=== PATIENT | female | born 1945 | race Caucasian/White ===

== ENCOUNTER 2017-02-20 18:28 | Emergency (ER) | payer OTHER ==
[~2017-02-20] VITALS: Ht 175.3 cm; Wt 87.6 kg
[~2017-02-20 18:28] MED LIST: ACET-1138 PO; ALBUAER19 INH; ASCO500C3 PO; ASPI-232 PO; ATEN-171 PO; ATEN-173 PO; B-COCAP2 PO; CALCTAB5 PO; CHOL1TAB42 PO; CLB200 PO; GLUCTAB7 PO; LOVA40TA3 PO; MAGN1CAP2 PO; MCRK20 PO; MOME1AER5 INH; MONT1TAB3 PO; MULT-222 PO; MULT-580 PO; OXYSR10 PO; RXC5 PO; VITA400C15 PO
[2017-02-20 18:35] VITALS: TEMP 36.7; Ht 175.3 cm; Wt 87.6 kg
[2017-02-20 18:49] VITALS: O2SAT 97
--- NOTE | 2017-02-20 19:00 | EMERGENCY ROOM VISIT NOTE ---
History Report prepared by Popeye: Lianna Lorenzo Under the Supervision of: Dr. Lucrecia Barrera D.O. First contact with patient: 18:38 Chief Complaint: CARDIAC ASSESSMENT Stated Complaint: CHEST PAIN History of Present Illness The patient is a 71 year old female who presents to the Emergency Room for a cardiac assessment. The patient reports chest pain that starts under her left breast and radiates into her left scapula. She also notes occasional sharp pains in the anterior chest wall. Her pain started early in the day yesterday. She had it off and on throughout the day yesterday. Initially she thought that it was due to her asthma. This morning she had some mild pain but states that her pain worsened throughout the day. She rates her pain as a 5/10 at its worst. The patient notes shortness of breath and diaphoresis. Taking a deep breath does not exacerbate her pain. She rates her current pain as a 1/10 in severity. The patient denies nausea, vomiting, and diarrhea. She has a personal history of mitral valve prolapse. She notes a family history of heart disease. Source of History: patient Onset: yesterday Position: chest (left) Symptom Intensity: 5/10 Quality: sharp Timing: waxes/wanes Associated Symptoms: + SOB, + back pain, + diaphoresis, No diarrhea, No nausea, No vomiting Review of Systems See HPI for pertinent positives & negatives. A total of 10 systems reviewed and were otherwise negative. Past Medical & Surgical Medical Problems: (1) Asthma (2) History of deep venous thrombosis or pulmonary embolus (3) HLD (hyperlipidemia) (4) HTN (hypertension) (5) Osteoarthritis of left knee (6) Uterine cancer Surgical Problems: (1) H/O colonoscopy (2) H/O knee surgery (3) H/O sinus surgery (4) History of total abdominal hysterectomy (5) Hx of tonsillectomy Family History Diabetes mellitus FH: heart disease Stroke Social History Smoking Status: Never Smoker Housing Status: lives alone Occupation Status: retired Current/Historical Medications Scheduled Aspirin (Aspir-81), 81 MG PO AMPM Atenolol (Tenormin), 25 MG PO QPM Atenolol/Chlorthalidone (Tenoretic 50 Mg/25 Mg), 1 TAB PO QAM Calcium (Caltrate), 600 MG PO QAM Cholecalciferol (Vitamin D3), 1,000 UNITS PO DAILY Cyanocobalamin (Vitamin B-12), 1,000 MCG PO DAILY Fish Oil ([place]ylva-3), 1 CAP PO DAILY Xzizgcrizid-Ixpznsmwujj-Sqi C- (Glucosamine Chondroitin), 1 TAB PO QAM Lovastatin (Mevacor), 40 MG PO HS Mometasone Furoate (Asmanex Twisthaler 60 Met), 2 PUFFS INH DAILY Montelukast Sodium (Singulair), 10 MG PO QPM Multiple Vitamins W/ Minerals (Multi For Her), PO QAM Potassium Chloride (Klor-Con), 20 MEQ PO HS Tocopheryl Acet,Dl-Alpha (Vitamin E), 400 INTER.UNIT PO BID Scheduled PRN Albuterol Inhaler (Ventolin Inhaler), 2 PUFFS INH QID PRN for SOB/Wheezing Allergies Coded Allergies: Simvastatin (Verified Allergy, Intermediate, MUSCLE WEAKNESS, 07/28/16) Enalapril (Verified Allergy, Unknown, MUSCLE SPASMS, 07/28/16) Magnesium Citrate (Verified Adverse Reaction, Intermediate, N/V, 07/28/16) Hydrocodone (Verified Adverse Reaction, Mild, GI SYMPTOMS, 07/28/16) Physical Exam Vital Signs Date Time Temp Pulse Resp B/P Pulse Ox O2 Delivery O2 Flow Rate FiO2 02/20/17 19:40 61 18 143/94 97 Room Air 02/20/17 19:16 74 02/20/17 18:49 97 Room Air 02/20/17 18:39 97 Room Air 02/20/17 18:35 36.7 77 18 160/110 95 Room Air Physical Exam HEENT: Head - normocephalic and atraumatic Pupils are equal, round, and reactive to light. Extraocular eye muscles are intact, and sclera are anicteric. Nose - moist nasal mucosa without discharge. Mouth - moist buccal mucosa. Oropharynx is nonerythematous and there is no tonsillar exudate or edema noted. Neck: Supple; no JVD, nuchal rigidity, cervical lymphadenopathy. Chest: No obvious skin lesions noted. Heart: Regular rate and irregular rhythm. There is a normal S1 and S2 with no murmurs, clicks, or gallops appreciated. Lungs: Clear to auscultation bilaterally with no wheezes, rales, or rhonchi. Abdomen: Soft, completely nontender, nondistended, with good bowel sounds. There are no palpable pulsatile masses or hepatosplenomegaly. There is no guarding, rigidity, or rebound noted. Extremities: No evidence of cyanosis, clubbing, or edema. There are easily palpable peripheral pulses. Skin: warm and dry with good turgor and no rashes. Medical Decision & Procedures ER Provider Diagnostic Interpretation: Radiology results as stated below per my review and the radiologist's interpretation: CHEST ONE VIEW PORTABLE HISTORY: Shortness of breath. Atypical chest pain. COMPARISON: Chest 06/28/2016. FINDINGS: Old, healed right posterior rib fracture. The lungs are clear. The heart is normal in size. No pleural effusions. No pneumothorax. IMPRESSION: No acute process. Electronically signed by: Misael Pearson M.D. 02/20/2017 7:19 PM Dictated Date/Time: 02/20/2017 7:18 PM Laboratory Results 02/20/17 18:49 Red Blood Count 5.00, Mean Corpuscular Volume 90.8, Mean Corpuscular Hemoglobin 31.0, Mean Corpuscular Hemoglobin Concent 34.1, Mean Platelet Volume 10.9, Neutrophils (%) (Auto) 63.4, Lymphocytes (%) (Auto) 20.4, Monocytes (%) (Auto) 9.1, Eosinophils (%) (Auto) 6.5, Basophils (%) (Auto) 0.3, Neutrophils # (Auto) 4.61, Lymphocytes # (Auto) 1.48, Monocytes # (Auto) 0.66, Eosinophils # (Auto) 0.47, Basophils # (Auto) 0.02 02/20/17 18:49 Test 02/20/17 18:49 02/20/17 20:09 White Blood Count 7.26 K/uL (4.8-10.8) Red Blood Count 5.00 M/uL (4.2-5.4) Hemoglobin 15.5 g/dL (12.0-16.0) Hematocrit 45.4 % (37-47) Mean Corpuscular Volume 90.8 fL (80-100) Mean Corpuscular Hemoglobin 31.0 pg (25-34) Mean Corpuscular Hemoglobin Concent 34.1 g/dl (32-36) Platelet Count 246 K/uL (130-400) Mean Platelet Volume 10.9 fL (7.4-10.4) Neutrophils (%) (Auto) 63.4 % Lymphocytes (%) (Auto) 20.4 % Monocytes (%) (Auto) 9.1 % Eosinophils (%) (Auto) 6.5 % Basophils (%) (Auto) 0.3 % Neutrophils # (Auto) 4.61 K/uL (1.4-6.5) Lymphocytes # (Auto) 1.48 K/uL (1.2-3.4) Monocytes # (Auto) 0.66 K/uL (0.11-0.59) Eosinophils # (Auto) 0.47 K/uL (0-0.5) Basophils # (Auto) 0.02 K/uL (0-0.2) RDW Standard Deviation 46.4 fL (36.4-46.3) RDW Coefficient of Variation 14.0 % (11.5-14.5) Immature Granulocyte % (Auto) 0.3 % Immature Granulocyte # (Auto) 0.02 K/uL (0.00-0.02) Anion Gap 7.0 mmol/L (3-11) Est Creatinine Clear Calc Drug Dose 67.9 ml/min Estimated GFR () 74.1 Estimated GFR (Non- 63.9 BUN/Creatinine Ratio 22.1 (10-20) Calcium Level 9.4 mg/dl (8.5-10.1) Total Bilirubin 0.3 mg/dl (0.2-1) Aspartate Amino Transf (AST/SGOT) 23 U/L (15-37) Alanine Aminotransferase (ALT/SGPT) 28 U/L (12-78) Alkaline Phosphatase 57 U/L (45-117) Total Creatine Kinase 68 U/L (26-192) Creatine Kinase MB < 0.5 ng/ml (0.5-3.6) Creatine Kinase MB Ratio (0-3.0) Troponin I < 0.015 ng/ml (0-0.045) Total Protein 8.0 gm/dl (6.4-8.2) Albumin 4.3 gm/dl (3.4-5.0) Globulin 3.7 gm/dl (2.5-4.0) Albumin/Globulin Ratio 1.2 (0.9-2) Lipase 189 U/L (73-393) Bedside D-Dimer > 450 ng/mlFEU (0-450) Laboratory results per my review. Medications Administered Medications (Trade) Dose Ordered Sig/Ritchie Route Start Time Stop Time Status Last Admin Dose Admin Ketorolac Tromethamine (Toradol Inj) 30 mg NOW STAT IV 02/20/17 19:26 02/20/17 19:27 DC 02/20/17 19:38 30 MG Potassium Chloride (Klor-Con M10) 20 meq NOW STAT PO 02/20/17 19:26 02/20/17 19:27 DC 02/20/17 19:38 20 MEQ Procedure Medications Administered: Klor-Con M10 20 meq PO Toradol 30 mg IV ECG Indication: chest pain Rate (beats per minute): 69 Rhythm: normal sinus Findings: LBBB, no ectopy Comparison ECG Date: 06/28/16 Change: no significant change ED Course 1847: Past medical records reviewed. The patient was evaluated in room C1B. A complete history and physical exam was performed. An IV lock was initiated and labs are drones above. A twelve-lead EKG was obtained as described above. 1925: Klor-Con M10 20 meq PO, Toradol 30 mg IV. The patient had chest x-ray as described above. 1930: I reassessed the patient at this time. She is still having some pain. She states that she frequently has low potassium and takes a supplement. 2002: I reassessed the patient. She states that her pain as completely resolved , but now she is feeling short of breath. She reports a personal history of blood clots in her legs and is no longer taking any blood thinners. 2022: The patient's D-dimer is elevated and she will be getting a CT. 2101: The patient had a CT scan. I reviewed the results with her. Of asked her to follow-up with her PCP as directed. She can return here to the ER if symptoms worsen. Medical Decision The patient is a 71 year old female who presents to the ED with chest pain. Differential diagnosis includes pleurisy, ACS, angina, shingles, costochondritis , aortic dissection, PE. Laboratory results as stated below per my review: Normal WBC, stable H&H, BUN 20, creatinine 0.9, potassium low at 3.1, LFTs and lipase are normal. Glucose is normal. Cardiac enzymes are negative. 71-year-old female patient who presents to the emergency department with some left-sided chest discomfort since yesterday. Chest x-ray and CT scan of the chest were unremarkable except for a dilated aorta. There is no obvious signs of dissection. There is no evidence of PE. Cardiac enzymes and EKG were unremarkable. The patient is comfortable at the time of discharge. O2 saturation was normal. The patient was encouraged to take foods high in potassium. Impression Primary Impression: Left sided chest pain Additional Impression: Hypokalemia Scribe Attestation The scribe's documentation has been prepared under my direction and personally reviewed by me in its entirety. I confirm that the note above accurately reflects all work, treatment, procedures, and medical decision making performed by me. Departure Information Referrals Flaquita Brenner M.D. (PCP) Patient Instructions [facility] Problem Qualifiers
[2017-02-20 19:07] LABS: BASO % 0.3 %; BASO ABS # 0.02 K/uL (0-0.2); COMPLETE YES; EOS % 6.5 %; HEMATOCRIT 45.4 % (37-47); IG% 0.3 %; LYMPH % 20.4 %; LYMPH ABS # 1.48 K/uL (1.2-3.4); MEAN CELL VOLUME 90.8 fL (80-100); MEAN CORPUSCULAR HGB CONC 34.1 g/dl (32-36); MEAN PLATELET VOLUME 10.9 fL (7.4-10.4); MONO % 9.1 %; NEUT % 63.4 %; PLATELET COUNT 246 K/uL (130-400); WHITE BLOOD COUNT 7.26 K/uL (4.8-10.8)
[2017-02-20 19:16] LABS: ALT/SGPT 28 U/L (12-78); AST/SGOT 23 U/L (15-37); BLOOD UREA NITROGEN 20 mg/dl (7-18); BUN/CREATININE RATIO 22.1 (10-20); CALCIUM 9.4 mg/dl (8.5-10.1); CARBON DIOXIDE 32 mmol/L (21-32); CHLORIDE 103 mmol/L (98-107); CREATININE 0.91 mg/dl (0.60-1.20); GLUCOSE 92 mg/dl (70-99); POTASSIUM 3.1 mmol/L (3.5-5.1); SODIUM 142 mmol/L (136-145)
--- NOTE | 2017-02-20 19:20 | DIAGNOSTIC IMAGING REPORT ---
CHEST ONE VIEW PORTABLE HISTORY: Shortness of breath. Atypical chest pain. COMPARISON: Chest 06/28/2016. FINDINGS: Old, healed right posterior rib fracture. The lungs are clear. The heart is normal in size. No pleural effusions. No pneumothorax. IMPRESSION: No acute process. Electronically signed by: Misael Pearson M.D. 02/20/2017 7:19 PM Dictated Date/Time: 02/20/2017 7:18 PM
[2017-02-20 19:21] LABS: ALB/GLOB RATIO 1.2 (0.9-2); ALKALINE PHOSPHATASE 57 U/L (45-117)
[2017-02-20] MEDS ORDERED: CHOL1000 PO (19:22)
[2017-02-20] MEDS ORDERED: ASMIN/60 INH (19:25)
[2017-02-20] MEDS ORDERED: POTASSIUM CHLORIDE 10 MEQ TABCR PO STA (19:26)
[2017-02-20] MEDS ORDERED: KETOROLAC TROMETHAMINE 30 MG/ML VIAL IV STA (19:26)
[2017-02-20] MEDS ORDERED: OMEG10007 PO (19:28)
[2017-02-20] MEDS ORDERED: CYAN10005 PO (19:30)
[2017-02-20] MEDS ORDERED: OPTIRAY 320 IV PRN (20:30)
--- NOTE | 2017-02-20 20:56 | DIAGNOSTIC IMAGING REPORT ---
CHEST CTA for PULMONARY ARTERIES CT DOSE: 495.10 mGy.cm HISTORY: Atypical chest pain. TECHNIQUE: Multiaxial CT images of the chest were performed following the intravenous administration of contrast to evaluate the pulmonary arteries. Maximal intensity projection images were also obtained. COMPARISON STUDY: None. FINDINGS: The ascending thoracic aorta measures up to 4 cm in diameter. No evidence for an aortic dissection. The heart is normal in size. No pleural or pericardial effusions. No filling defects within the pulmonary arteries to suggest pulmonary embolus. No pneumothorax. Mild dependent changes seen at the lung bases. No focal lung consolidations to suggest pneumonia. Old, healed left rib fracture. The liver, spleen, and visualized adrenal glands are unremarkable. No mediastinal or hilar lymphadenopathy. IMPRESSION: 1. No evidence for pulmonary embolus. 2. The ascending thoracic aorta measures up to 4 cm in diameter. Electronically signed by: Misael Pearson M.D. 02/20/2017 8:55 PM Dictated Date/Time: 02/20/2017 8:48 PM
[2017-02-20 21:12] VITALS: BP 137/71; PULSE 62; O2SAT 97
[2017-07-04] MEDS ORDERED: HYG25 PO (17:07)
[2017-07-04] MEDS ORDERED: TNR50 PO (17:07)
== END 2017-02-20 21:13 | disposition home or self-care (01) ==
LOC: C.EDB 18:28 → C.EDC 21:13
DX: R07.9 Chest pain, unspecified (principal); E87.6 Hypokalemia; I45.2 Bifascicular block; I10 Essential (primary) hypertension; E78.5 Hyperlipidemia, unspecified; M19.90 Unspecified osteoarthritis, unspecified site; J45.909 Unspecified asthma, uncomplicated; Z90.710 Acquired absence of both cervix and uterus; Z98.890 Other specified postprocedural states; Z79.82 Long term (current) use of aspirin; Z79.899 Other long term (current) drug therapy; Z88.5 Allergy status to narcotic agent; Z88.8 Allergy status to other drugs, medicaments and biological substances; Z83.3 Family history of diabetes mellitus; Z82.49 Family history of ischemic heart disease and other diseases of the circulatory system; Z82.3 Family history of stroke

== ENCOUNTER 2017-07-02 09:26 | Observation (INO) | payer OTHER ==
[2017-07-02] VITALS (8 sets, daily range): BP systolic 109–136; BP diastolic 66–84; PULSE 54–63; TEMP 36.2–36.8; O2SAT 93–97; Ht 172.7 cm; Wt 87.1 kg
[~2017-07-02] VITALS: Ht 172.7 cm; Wt 87.1 kg
[~2017-07-02 09:26] MED LIST changes: -ACET-1138 PO; -ASCO500C3 PO; +ASMIN/60 INH; -B-COCAP2 PO; +CHOL1000 PO; -CHOL1TAB42 PO; -CLB200 PO; +CYAN10005 PO; -MAGN1CAP2 PO; -MOME1AER5 INH; -MULT-580 PO; +OMEG10007 PO; -OXYSR10 PO; -RXC5 PO
[2017-07-02] MEDS ORDERED: VITA400C28 PO (10:12)
[2017-07-02] MEDS ORDERED: CALC-393 PO (10:12)
[2017-07-02] MEDS ORDERED: POTA-65 PO (10:12)
--- NOTE | 2017-07-02 10:15 | DIAGNOSTIC IMAGING REPORT ---
CHEST 2 VIEWS ROUTINE CLINICAL HISTORY: 71 years-old Female presenting with near syncope. TECHNIQUE: Portable upright AP view of the chest was obtained. COMPARISON: 02/20/2017. FINDINGS: Atherosclerosis of aortic arch. Cardiac silhouette normal in size. Minimal linear opacities in the left lung base. Lungs and pleural spaces otherwise clear. Osseous structures normal. Upper abdomen normal. IMPRESSION: 1. No acute cardiopulmonary disease. Electronically signed by: Abhijeet Murphy M.D. 07/02/2017 10:13 AM Dictated Date/Time: 07/02/2017 10:13 AM
[2017-07-02 10:24] LABS: BASO % 0.7 %; BASO ABS # 0.03 K/uL (0-0.2); COMPLETE YES; EOS % 8.9 %; HEMATOCRIT 44.9 % (37-47); IG% 0.2 %; LYMPH % 18.3 %; MEAN CELL VOLUME 91.3 fL (80-100); MEAN CORPUSCULAR HEMOGLOBIN 29.1 pg (25-34); MEAN CORPUSCULAR HGB CONC 31.8 g/dl (32-36); MEAN PLATELET VOLUME 10.7 fL (7.4-10.4); MONO % 8.9 %; PLATELET COUNT 256 K/uL (130-400); RED BLOOD COUNT 4.92 M/uL (4.2-5.4); WHITE BLOOD COUNT 4.38 K/uL (4.8-10.8)
[2017-07-02 10:35] LABS: INR 0.9 (0.9-1.1); PARTIAL THROMBOPLASTIN RATIO 1.1; PROTHROMBIN TIME (PATIENT) 9.9 SECONDS (9.0-12.0)
[2017-07-02 10:40] LABS: URINE APPEARANCE CLEAR (CLEAR); URINE BILIRUBIN NEG (NEG); URINE COLOR YELLOW; URINE EPITHELIAL CELL AUTO >30 /lpf (0-5); URINE NITRITE NEG (NEG); URINE SPECIFIC GRAVITY 1.013 (1.000-1.030); UROBILINOGEN NEG (NEG)
[2017-07-02 10:41] LABS: MANUAL MICROSCOPIC REQUIRED? NO; REVIEW REQ? NO
[2017-07-02 10:44] LABS: BUN/CREATININE RATIO 20.7 (10-20); CALCIUM 9.8 mg/dl (8.5-10.1); CREATININE 0.76 mg/dl (0.60-1.20); POTASSIUM 3.6 mmol/L (3.5-5.1)
[2017-07-02 10:55] LABS: THYROID STIMULATING HORMONE 2.43 uIu/ml (0.300-4.500)
--- NOTE | 2017-07-02 11:40 | History and Physical ---
History & Physical Date & Time of Service: Jul 02, 2017 at 11:40 . Chief Complaint: "almost passed out" . Primary Care Physician: Flaquita Brenner M.D. . History of Present Illness Source: patient, clinic records, hospital records 71-year-old female followed by Dr. Flaquita Brenner for Internal Medicine. History of hypertension, dyslipidemia, DVT, and other problems outlined below. She was in her usual state of health until around 07:30 this morning. She initially felt well when she awakened, but felt extremely lightheaded after ambulating to the bathroom. Experienced near-syncope, but no loss of consciousness. The episode lasted for about 30 seconds; it was associated with palpitations, but no chest pain or dyspnea. She came to the ED for evaluation. In the ED, she had an episode of mild midsternal chest pressure that lasted for 2 or 3 minutes and resolved spontaneously. The chest discomfort did not radiate. No associated dyspnea, diaphoresis, nausea, vomiting. . 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 Family History MOTHER Diabetes mellitus Heart disease Hypertension GRANDMOTHER Stroke Hypertension Diabetes mellitus Social History Smoking Status: Never Smoker Alcohol Use: occasionally Occupational Status: retired Immunizations History of Influenza Vaccine: Yes History of Pneumococcal: Yes Multi-Drug Resistant Organisms History of MDRO: No Allergies Coded Allergies: Simvastatin (Verified Allergy, Intermediate, MUSCLE WEAKNESS, 07/02/17) Enalapril (Verified Allergy, Unknown, MUSCLE SPASMS, 07/02/17) Magnesium Citrate (Verified Adverse Reaction, Intermediate, N/V, 07/02/17) Hydrocodone (Verified Adverse Reaction, Mild, GI SYMPTOMS, 07/02/17) Home Medications Scheduled Aspirin (Aspir-81), 81 MG PO AMPM Atenolol (Tenormin), 25 MG PO DAILY Atenolol/Chlorthalidone (Tenoretic 50 Mg/25 Mg), 1 TAB PO QAM B-Complex W/Biotin & Folic Aci (B Complete), 1 TAB PO DAILY Calcium Carbonate (Calcium), 600 MG PO DAILY Cholecalciferol (D 1999), 2,000 UNITS PO DAILY Fish Oil ([place]-3), 1 CAP PO DAILY Uoaefyuwmyt-Krlqvmqcztp-Xzx C- (Glucosamine Chondroitin), 1 TAB PO QAM Lovastatin (Mevacor), 40 MG PO HS Mometasone Furoate (Asmanex Twisthaler 60 Met), 2 PUFFS INH DAILY Montelukast Sodium (Singulair), 10 MG PO QPM Multiple Vitamins W/ Minerals (Multi For Her), PO QAM Potassium Chloride (Potassium Chloride ER), 20 MEQ PO HS Vitamin E (Alph-E), 400 INTERUNIT PO BID Review of Systems Constitutional: No fever, No weight loss Eyes: + problem reported (occasional. The patient) ENT: + problem reported (cold symptoms about 2 weeks ago, resolved) Respiratory: + problem reported (cold symptoms about 2 weeks ago, resolved) Cardiovascular: + edema (chronic edema left lower extremity), + problem reported (as noted above in HPI) Abdomen: No pain, No nausea, No vomiting, No diarrhea, No GI bleeding Musculoskeletal: + joint pain Genitourinary - Female: No dysuria, No hematuria Neurologic: + problem reported (no headaches) Endocrine: + fatigue, No excessive thirst, No excessive urination Hematologic / Lymphatic: + abnormal bleeding/bruising (occasional bruising), No swollen lymph nodes Integumentary: No rash, No new/changing skin lesions Physical Exam Vital Signs Date Time Temp Pulse Resp B/P (MAP) Pulse Ox O2 Delivery O2 Flow Rate FiO2 07/02/17 11:14 59 18 129/85 97 Room Air 07/02/17 10:55 64 18 156/79 96 Room Air 07/02/17 09:52 62 07/02/17 09:45 63 144/92 71 133/84 74 159/96 07/02/17 09:36 36.6 65 18 166/81 96 Room Air General Appearance: WD/WN, no apparent distress Head: normocephalic, atraumatic Eyes: normal inspection, PERRL, EOMI, sclerae normal (conjunctivae pink) ENT: hearing grossly normal, pharynx normal, + pertinent finding (upper and lower dentures) Neck: supple, no adenopathy, thyroid normal, no JVD, trachea midline Respiratory/Chest: lungs clear, no respiratory distress, no accessory muscle use Cardiovascular: regular rate, rhythm, no gallop, no JVD, no murmur, normal peripheral pulses, + pertinent finding (1+ edema left lower extremity) Abdomen/GI: normal bowel sounds, non tender, soft, no organomegaly, no pulsatile mass Extremities/Musculoskelatal: no calf tenderness, normal capillary refill, no pedal edema Neurologic/Psych: nephrologist II-XII nml as tested (PERRL, EOMI, no facial palsy, no dysarthria), no motor/sensory deficits (grossly intact), alert, normal mood/ affect, normal reflexes, oriented x 3 Skin: normal color, warm/dry, no rash Lymphatic: no adenopathy (cervical) Diagnostics Laboratory Results Results Past 24 Hours Test 07/02/17 10:08 07/02/17 10:17 07/02/17 10:30 Range/Units White Blood Count 4.38 4.8-10.8 K/uL Red Blood Count 4.92 4.2-5.4 M/uL Hemoglobin 14.3 12.0-16.0 g/dL Hematocrit 44.9 37-47 % Mean Corpuscular Volume 91.3 80-100 fL Mean Corpuscular Hemoglobin 29.1 25-34 pg Mean Corpuscular Hemoglobin Concent 31.8 32-36 g/dl Platelet Count 256 130-400 K/uL Mean Platelet Volume 10.7 7.4-10.4 fL Neutrophils (%) (Auto) 63.0 % Lymphocytes (%) (Auto) 18.3 % Monocytes (%) (Auto) 8.9 % Eosinophils (%) (Auto) 8.9 % Basophils (%) (Auto) 0.7 % Neutrophils # (Auto) 2.76 1.4-6.5 K/uL Lymphocytes # (Auto) 0.80 1.2-3.4 K/uL Monocytes # (Auto) 0.39 0.11-0.59 K/uL Eosinophils # (Auto) 0.39 0-0.5 K/uL Basophils # (Auto) 0.03 0-0.2 K/uL RDW Standard Deviation 43.6 36.4-46.3 fL RDW Coefficient of Variation 13.3 11.5-14.5 % Immature Granulocyte % (Auto) 0.2 % Immature Granulocyte # (Auto) 0.01 0.00-0.02 K/uL Prothrombin Time 9.9 9.0-12.0 SECONDS Prothromb Time International Ratio 0.9 0.9-1.1 Activated Partial Thromboplast Time 29.1 21.0-31.0 SECONDS Partial Thromboplastin Ratio 1.1 Sodium Level 140 136-145 mmol/L Potassium Level 3.6 3.5-5.1 mmol/L Chloride Level 104 98-107 mmol/L Carbon Dioxide Level 28 21-32 mmol/L Anion Gap 8.0 3-11 mmol/L Blood Urea Nitrogen 16 7-18 mg/dl Creatinine 0.76 0.60-1.20 mg/dl Est Creatinine Clear Calc Drug Dose 81.8 ml/min Estimated GFR () 92.1 Estimated GFR (Non- 79.5 BUN/Creatinine Ratio 20.7 10-20 Random Glucose 96 70-99 mg/dl Calcium Level 9.8 8.5-10.1 mg/dl Total Bilirubin 0.4 0.2-1 mg/dl Direct Bilirubin 0.1 0-0.2 mg/dl Aspartate Amino Transf (AST/SGOT) 29 15-37 U/L Alanine Aminotransferase (ALT/SGPT) 26 12-78 U/L Alkaline Phosphatase 54 45-117 U/L Total Protein 7.7 6.4-8.2 gm/dl Albumin 3.8 3.4-5.0 gm/dl Thyroid Stimulating Hormone (TSH) 2.430 0.300-4.500 uIu/ml Bedside Troponin I < 0.030 0-0.045 ng/ml Urine Color YELLOW Urine Appearance CLEAR CLEAR Urine pH 7.0 4.5-7.5 Urine Specific [place] 1.013 1.000-1.030 Urine Protein NEG NEG Urine Glucose (UA) NEG NEG Urine Ketones NEG NEG Urine Occult Blood NEG NEG Urine Nitrite NEG NEG Urine Bilirubin NEG NEG Urine Urobilinogen NEG NEG Urine Leukocyte Esterase LARGE NEG Urine WBC (Auto) 5-10 0-5 /hpf Urine RBC (Auto) 0-4 0-4 /hpf Urine Hyaline Casts (Auto) 0 0-5 /lpf Urine Epithelial Cells (Auto) >30 0-5 /lpf Urine Bacteria (Auto) NEG NEG Diagnostic Radiology CHEST 2 VIEWS ROUTINE FINDINGS: Atherosclerosis of aortic arch. Cardiac silhouette normal in size. Minimal linear opacities in the left lung base. Lungs and pleural spaces otherwise clear. Osseous structures normal. Upper abdomen normal. IMPRESSION: 1. No acute cardiopulmonary disease. Electronically signed by: Abhijeet Murphy M.D. 07/02/2017 10:13 AM Dictated Date/Time: 07/02/2017 10:13 AM . EKG EKG performed at 19:36 reviewed and demonstrated normal sinus rhythm at 70/ minute, left bundle branch block, repolarization abnormalities. EKG performed at 11:24 reviewed and demonstrated normal sinus rhythm at 64/ minute, PACs, left bundle branch block, repolarization abnormalities. . Impression Assessment and Plan NEAR-SYNCOPE / GENERALIZED WEAKNESS Brief episode of near syncope this morning associated with palpitations. CBC and serum chemistries unremarkable. Hemodynamically stable in ED. Patient takes a diuretic, but was not orthostatic in the ED. 12-lead EKG demonstrated normal sinus rhythm. Monitor for arrhythmias. Serum potassium borderline low at 3.6- increase potassium replacement. Check serum magnesium and TSH. Check serial cardiac markers to rule out UT. Check D-dimer to screen for thromboembolic disease. May need further evaluation if symptoms recur. CHEST PAIN Brief episode of chest pain in ED, resolved spontaneously. Doubt acute coronary syndrome. Patient had a nonischemic nuclear stress study a few months ago in clinic. Check serial cardiac markers. Check D-dimer to screen for thromboembolic disease. Check lipid profile. Continue aspirin and atenolol. ABNORMAL UA Urinalysis in ED demonstrated leukocyte esterase, 5-10 WBCs, 0-4 RBCs, many epithelial cells, no bacteria. No fever, leukocytosis, or urinary symptoms. Doubt UTI. No indication for antibiotics at this time. HYPERTENSION Hemodynamically stable. Continue atenolol and chlorthalidone. Follow and titrate therapy. DYSLIPIDEMIA Continue lovastatin. VTE PROPHYLAXIS Moderate-high risk of VTE (history of DVT in the past). SQ enoxaparin. Ambulate. RESUSCITATION STATUS Discussed with patient and her daughter. She does not have a living will. She would like resuscitation attempted in the event of a cardiopulmonary arrest if there is a reasonable chance of a meaningful recovery, but does not want prolonged extraordinary measures if prognosis is poor. Therefore, code status = "Level 1" (full resuscitation). DISPOSITION Observation status on Telemetry Unit. Expected discharge to home. Internal Medicine follow-up with Dr. Flaquita Brenner. . VTE Prophylaxis VTE Risk Assessment Done? Y/N: Yes Risk Level: Moderate
[2017-07-02] MEDS ORDERED: IV FLUIDS COMPLETED PRN (11:45)
[2017-07-02] MEDS ORDERED: ACETAMINOPHEN 325 MG TAB PO PRN (11:45)
[2017-07-02] MEDS ORDERED: INFLUENZA VACCINE HIGH DOSE 65+ 0.5 ML SYR IM. ONE (12:15)
[2017-07-02] MEDS ORDERED: INFLUENZA ADMINISTRATION CHARGE ONE (12:15)
[2017-07-02] MEDS ORDERED: ASPIRIN 81 MG ECTAB PO ONE (12:29)
[2017-07-02] MEDS ORDERED: POTASSIUM CHLORIDE 20 MEQ TABCR PO ONE (12:29)
[2017-07-02] MEDS ORDERED: B-COTAB69 PO (12:33)
[2017-07-02] MEDS ORDERED: CHOL1TAB76 PO (12:33)
[2017-07-02 16:22] LABS: MAGNESIUM 2.3 mg/dl (1.8-2.4)
[2017-07-02] MEDS ORDERED: OPTIRAY 320 IV PRN (18:00)
--- NOTE | 2017-07-02 18:09 | EMERGENCY ROOM VISIT NOTE ---
History Report prepared by Popeye: Ole Alexis Under the Supervision of: Dr. Sukh Islas M.D. First contact with patient: 09:30 Stated Complaint: lightheadedness History of Present Illness The patient is a 71 year old female who presents to the Emergency Room by EMS with complaints of constant lightheadedness beginning two hours ago. Her symptoms began after waking up and walking to the bathroom. Her symptoms are worsened with standing. The patient states that she nearly "blacked out" while standing and had to lean on the wall during this time. She states that she felt lightheaded immediately after waking up, and has felt lightheaded since the near -syncopal event. She did not actually lose consciousness during the episode. The patient states that she felt her heart racing during the episode. She denies any chest pain, SOB, fevers, vomiting, diarrhea, black or bloody stools, leg swelling, or urinary symptoms. The patient has a history of an abdominal aortic aneurysm which is being controlled with blood pressure control. She has a history of arthritic pain in her legs, and denies any abnormal leg pain. She denies any swelling to her legs. She was previously on blood thinners for blood clots of the groin, but is now only on aspirin. The patient notes that she had a echocardiogram within the past several months. Source of History: patient Onset: two hours ago Quality: other (lightheadedness) Timing: constant Modifying Factors (Worsening): other (standing) Associated Symptoms: No LOC, No fevers, No chest pain, No SOB, No vomiting, No abdominal pain, No melena, No hematochezia, No diarrhea, No urinary symptoms Note: Additional symptoms: lightheadedness and heart racing. She denies any leg swelling or abnormal leg pain. Review of Systems See HPI for pertinent positives & negatives. A total of 10 systems reviewed and were otherwise negative. Past Medical & Surgical Medical Problems: (1) Asthma (2) History of deep venous thrombosis or pulmonary embolus (3) HLD (hyperlipidemia) (4) HTN (hypertension) (5) Osteoarthritis of left knee (6) Uterine cancer (7) Weakness Surgical Problems: (1) H/O colonoscopy (2) H/O knee surgery (3) H/O sinus surgery (4) History of total abdominal hysterectomy (5) Hx of tonsillectomy Family History Diabetes mellitus FH: heart disease Stroke Social History Smoking Status: Never Smoker Housing Status: lives alone Occupation Status: retired Current/Historical Medications Scheduled Aspirin (Aspir-81), 81 MG PO AMPM Atenolol (Tenormin), 25 MG PO DAILY Atenolol/Chlorthalidone (Tenoretic 50 Mg/25 Mg), 1 TAB PO QAM B-Complex W/Biotin & Folic Aci (B Complete), 1 TAB PO DAILY Calcium Carbonate (Calcium), 600 MG PO DAILY Cholecalciferol (D 2000), 2,000 UNITS PO DAILY Fish Oil ([place]-3), 1 CAP PO DAILY Lehlnaowyrz-Rmioytpofqm-Amn C- (Glucosamine Chondroitin), 1 TAB PO QAM Lovastatin (Mevacor), 40 MG PO HS Mometasone Furoate (Asmanex Twisthaler 60 Met), 2 PUFFS INH DAILY Montelukast Sodium (Singulair), 10 MG PO QPM Multiple Vitamins W/ Minerals (Multi For Her), PO QAM Potassium Chloride (Potassium Chloride ER), 20 MEQ PO HS Vitamin E (Alph-E), 400 INTERUNIT PO BID Allergies Coded Allergies: Simvastatin (Verified Allergy, Intermediate, MUSCLE WEAKNESS, 07/02/17) Enalapril (Verified Allergy, Unknown, MUSCLE SPASMS, 07/02/17) Magnesium Citrate (Verified Adverse Reaction, Intermediate, N/V, 07/02/17) Hydrocodone (Verified Adverse Reaction, Mild, GI SYMPTOMS, 07/02/17) Physical Exam Vital Signs Date Time Temp Pulse Resp B/P (MAP) Pulse Ox O2 Delivery O2 Flow Rate FiO2 07/02/17 11:30 97 Room Air 07/02/17 11:30 61 14 97 07/02/17 11:14 59 18 129/85 97 Room Air 07/02/17 11:12 129/85 07/02/17 11:00 58 97 07/02/17 10:55 64 18 156/79 96 Room Air 07/02/17 09:52 62 07/02/17 09:45 63 144/92 71 133/84 74 159/96 07/02/17 09:36 36.6 65 18 166/81 96 Room Air Physical Exam Constitutional: Vital signs reviewed. Eyes: Pupils are equal round reactive to light. Conjunctiva are noninjected. ENT: Pharynx is clear without erythema or exudate. Mucous membranes are moist. Neck supple without meningeal signs. Respiratory: Clear to auscultation bilaterally. Breath sounds are equal bilaterally. Cardiovascular: Regular rate and rhythm. No rubs or gallops. No carotid bruits. GI: Soft, nondistended and nontender. Bowel sounds are present. Musculoskeletal: No peripheral edema. No lower extremity tenderness. Integumentary: No cyanosis. Neurological: The patient is awake and alert. Cranial nerves II-XII are intact. Motor is 5 out of 5 all extremities. Sensation is intact to light touch all extremities. Normal speech. No pronator drift. Psychiatric: Normal affect. Medical Decision & Procedures ER Provider Diagnostic Interpretation: X-ray results as stated below per interpretation by me and the radiologist: CHEST 2 VIEWS ROUTINE FINDINGS: Atherosclerosis of aortic arch. Cardiac silhouette normal in size. Minimal linear opacities in the left lung base. Lungs and pleural spaces otherwise clear. Osseous structures normal. Upper abdomen normal. IMPRESSION: 1. No acute cardiopulmonary disease. Electronically signed by: Abhijeet Murphy M.D. 07/02/2017 10:13 AM Laboratory Results 07/02/17 10:08 Red Blood Count 4.92, Mean Corpuscular Volume 91.3, Mean Corpuscular Hemoglobin 29.1, Mean Corpuscular Hemoglobin Concent 31.8, Mean Platelet Volume 10.7, Neutrophils (%) (Auto) 63.0, Lymphocytes (%) (Auto) 18.3, Monocytes (%) (Auto) 8.9, Eosinophils (%) (Auto) 8.9, Basophils (%) (Auto) 0.7, Neutrophils # (Auto) 2.76, Lymphocytes # (Auto) 0.80, Monocytes # (Auto) 0.39, Eosinophils # (Auto) 0.39, Basophils # (Auto) 0.03 07/02/17 10:08 Test 07/02/17 10:08 07/02/17 10:17 07/02/17 10:30 White Blood Count 4.38 K/uL (4.8-10.8) Red Blood Count 4.92 M/uL (4.2-5.4) Hemoglobin 14.3 g/dL (12.0-16.0) Hematocrit 44.9 % (37-47) Mean Corpuscular Volume 91.3 fL (80-100) Mean Corpuscular Hemoglobin 29.1 pg (25-34) Mean Corpuscular Hemoglobin Concent 31.8 g/dl (32-36) Platelet Count 256 K/uL (130-400) Mean Platelet Volume 10.7 fL (7.4-10.4) Neutrophils (%) (Auto) 63.0 % Lymphocytes (%) (Auto) 18.3 % Monocytes (%) (Auto) 8.9 % Eosinophils (%) (Auto) 8.9 % Basophils (%) (Auto) 0.7 % Neutrophils # (Auto) 2.76 K/uL (1.4-6.5) Lymphocytes # (Auto) 0.80 K/uL (1.2-3.4) Monocytes # (Auto) 0.39 K/uL (0.11-0.59) Eosinophils # (Auto) 0.39 K/uL (0-0.5) Basophils # (Auto) 0.03 K/uL (0-0.2) RDW Standard Deviation 43.6 fL (36.4-46.3) RDW Coefficient of Variation 13.3 % (11.5-14.5) Immature Granulocyte % (Auto) 0.2 % Immature Granulocyte # (Auto) 0.01 K/uL (0.00-0.02) Prothrombin Time 9.9 SECONDS (9.0-12.0) Prothromb Time International Ratio 0.9 (0.9-1.1) Activated Partial Thromboplast Time 29.1 SECONDS (21.0-31.0) Partial Thromboplastin Ratio 1.1 Anion Gap 8.0 mmol/L (3-11) Est Creatinine Clear Calc Drug Dose 81.8 ml/min Estimated GFR () 92.1 Estimated GFR (Non- 79.5 BUN/Creatinine Ratio 20.7 (10-20) Calcium Level 9.8 mg/dl (8.5-10.1) Total Bilirubin 0.4 mg/dl (0.2-1) Direct Bilirubin 0.1 mg/dl (0-0.2) Aspartate Amino Transf (AST/SGOT) 29 U/L (15-37) Alanine Aminotransferase (ALT/SGPT) 26 U/L (12-78) Alkaline Phosphatase 54 U/L (45-117) Total Protein 7.7 gm/dl (6.4-8.2) Albumin 3.8 gm/dl (3.4-5.0) Thyroid Stimulating Hormone (TSH) 2.430 uIu/ml (0.300-4.500) Bedside Troponin I < 0.030 ng/ml (0-0.045) Urine Color YELLOW Urine Appearance CLEAR (CLEAR) Urine pH 7.0 (4.5-7.5) Urine Specific [place] 1.013 (1.000-1.030) Urine Protein NEG (NEG) Urine Glucose (UA) NEG (NEG) Urine Ketones NEG (NEG) Urine Occult Blood NEG (NEG) Urine Nitrite NEG (NEG) Urine Bilirubin NEG (NEG) Urine Urobilinogen NEG (NEG) Urine Leukocyte Esterase LARGE (NEG) Urine WBC (Auto) 5-10 /hpf (0-5) Urine RBC (Auto) 0-4 /hpf (0-4) Urine Hyaline Casts (Auto) 0 /lpf (0-5) Urine Epithelial Cells (Auto) >30 /lpf (0-5) Urine Bacteria (Auto) NEG (NEG) Laboratory results as reviewed by me. ECG Indication: other (lightheadedness) Rate (beats per minute): 69 Rhythm: normal sinus Findings: LBBB, no acute ischemic change, no ectopy Comparison ECG Date: February 20, 2017 Change: no significant change Change: Repeat ECG reveals a sinus rhythm with a rate of 64 bpm. LBBB pattern noted. No acute ischemic changes seen. Similar to previous ECG. ED Course 0934: The patient was evaluated in room A11B. A complete history and physical exam was performed. 1106: Upon reevaluation, the patient appeared to have improvement of her symptoms. She still feels lightheaded, and does not believe she can walk. She denies any symptoms of vertigo. I discussed aly's findings with her. She verbalized agreement of the treatment plan. The patient will be evaluated for further management. 1140: The patient had an episode of chest discomfort. I reassessed her and she states that her pain has resolved. Medical Decision This is a 71-year-old female who presents with near-syncope. Differential diagnosis includes orthostatic hypotension, dehydration, anemia, GI bleed, cardiac, infection. I did perform a limited focused review of portions of the patient's old chart on the electronic medical record. The patient has had no recent pertinent visits to this hospital. Retrieved patient's echocardiogram from April 122016 which revealed mild enlargement of the ascending aorta, LVH, and grade 1 diastolic dysfunction. Aorta measured 4.2 cm. I did evaluate the patient as noted above. The patient is presenting with near- syncope but without any other symptoms. She denies any chest discomfort or shortness of breath. She simply feels weak. She states she feels lightheaded both while standing and lying down. IV access was established. The patient was placed on a continuous telemetry monitor. I did order and personally review the patient's 12-lead EKG and chest x-ray as described above. I did order and review the patient's blood work as noted in the electronic medical record. She is not anemic. Her electrolytes are unremarkable. Troponin is negative. Orthostatic vital signs were obtained. She is not orthostatic. I did reassess the patient and discussed her test results with her. She states she is still very weak and lightheaded and so I did recommend hospitalization. I did speak to the hospitalist as well as the case management assistant. While waiting for the hospitalist evaluation the patient developed some chest pain. It was brief and a second 12-lead EKG was obtained which showed no changes from the first. On reassessment her chest pain resolved. I discussed this with the hospitalist. He will work her up further. Medication Reconcilliation Current Medication List: was personally reviewed by me Blood Pressure Screening Patient's blood pressure: Elevated blood pressure Blood pressure disposition: Referred to PCP Consults Time Called: 1107 Consulting Physician: Dr. Wesley Apodaca Returned Call: [address] Olson of [facility]. We discussed the patient and her results. The patient will be further evaluated by [facility]. Impression Primary Impression: Near syncope Additional Impression: Precordial chest pain Scribe Attestation The scribe's documentation has been prepared under my direct and personally reviewed by me in its entirety. I confirm that the note above accurately reflects all work, treatment, procedures, and medical decision making performed by me. Departure Information Dispostion Being Evaluated By Hospitalist Referrals Flaquita Brenner M.D. (PCP) Problem Qualifiers
--- NOTE | 2017-07-02 18:35 | DIAGNOSTIC IMAGING REPORT ---
CT ANGIOGRAPHY OF THE CHEST, PULMONARY EMBOLUS PROTOCOL CLINICAL HISTORY: Chest pain. Elevated d-dimer. Near syncope. COMPARISON STUDY: Chest CT February 20, 2017 and chest radiograph July 02, 2017. TECHNIQUE: Following IV administration of 93 mL of Optiray-320, helical axial images of the chest were obtained utilizing the pulmonary embolus protocol. Maximal intensity projections and sagittal and coronal reformats were viewed on an independent 3D workstation. IV contrast was administered without complication. A dose lowering technique was utilized adhering to the principles of ALARA. CT DOSE: 432.42 mGy.cm FINDINGS: No pulmonary emboli are identified. The heart is at the upper limits of normal for size. There is no pericardial effusion. Mild dilatation of the ascending aorta, measuring 4.1 cm at the level the main pulmonary artery is unchanged since CT of February 20, 2017. There is no evidence for thoracic aortic dissection. Central airways are patent. Subpleural opacities favor atelectasis. There is no consolidation to suggest pneumonia. No pneumothorax or pleural effusion is present. No suspicious osseous lesions are present. Upper abdomen is unremarkable. IMPRESSION: 1. No pulmonary emboli identified. 2. No acute intrathoracic findings. 3. Stable mild dilatation of the ascending aorta, measuring 4.1 cm, since CT of February 20, 2017. No thoracic aortic dissection. Electronically signed by: Juvencio Felder M.D. 07/02/2017 6:34 PM Dictated Date/Time: 07/02/2017 6:26 PM
--- NOTE | 2017-07-02 19:28 | DIAGNOSTIC IMAGING REPORT ---
BILATERAL LOWER EXTREMITY VENOUS DOPPLER HISTORY: Acute chest pain with elevated d-dimer chest pain, near-syncope, elevated D-dimer COMPARISON STUDY: None. FINDINGS: There is normal compressibility, flow, and augmentation within the bilateral lower extremity deep venous systems. IMPRESSION: No sonographic evidence of deep venous thrombosis within the right or left lower extremity. Electronically signed by: Mac Pinedo M.D. 07/02/2017 7:26 PM Dictated Date/Time: 07/02/2017 7:25 PM
[2017-07-02] MEDS: MONTELUKAST SOD 10 MG TAB PO SCH (21:50)
[2017-07-02] MEDS: LOVASTATIN 20 MG TAB PO SCH (21:50)
[2017-07-02] MEDS: ASPIRIN 81 MG ECTAB PO SCH (21:50)
[2017-07-02] MEDS: ENOXAPARIN 40 MG/0.4 ML SYR SC SCH (21:51)
[2017-07-02] MEDS: POTASSIUM CHLORIDE 20 MEQ TABCR PO SCH (21:52)
[2017-07-03] VITALS (7 sets, daily range): BP systolic 96–134; BP diastolic 61–80; PULSE 53–73; TEMP 36.4–36.8; O2SAT 94–97
[2017-07-03 07:43] LABS: POTASSIUM 3.5 mmol/L (3.5-5.1)
[2017-07-03 07:53] LABS: CHOLESTEROL 192 mg/dl (0-200); CHOLESTEROL/HDL RATIO 4.1; HDL CHOLESTEROL 47 mg/dl; LDL CHOLESTEROL CALCULATED 101 mg/dl; TRIGLYCERIDES 220 mg/dl (0-150); VERY LOW DENSITY LIPOPROT CALC 44 mg/dl
[2017-07-03] MEDS ORDERED: CHLORTHALIDONE 25 MG TAB PO SCH (09:00)
[2017-07-03] MEDS ORDERED: PERFLUTREN LIPID MICROSPHERE (DEFINITY) IV ONE (09:26)
--- NOTE | 2017-07-03 10:36 | ECHOCARDIOGRAM REPORT ---
*NOTICE TO RECEIVING [employer]Y This information is strictly Confidential and protected under [place] law. [place] law prohibits you from making any further disclosure of this information unless further disclosure is expressly permitted by the written consent of the person to whom it pertains or is authorized by law. A general authorization for the release of medical or other information is not sufficient for this purpose. Hospital accepts no responsibility if the information is made available to any other person, INCLUDING THE PATIENT. Interpretation Summary * Name: DANIELLE MCDONALD Study Date: 07/03/2017 08:47 AM BP: 116/71 mmHg * Patient Location: C.2T\S\S241\S\1 HR: 57 * : 1945 (M/d/yyy) Gender: Female Height: 68 in * Age: 71 yrs Ethnicity: CA Weight: 198 lb * Ordering Physician: Luis Anne * Referring Physician: Self, Referred * Performed By: Salena Matthew RCS * * Reason For Study: PALPITATIONS * BSA: 2.0 m2 * -- Conclusions -- * Normal LV chamber size with mild concentric LVH. * Low normal LV systolic function with abnormal septal wall motion consistent with LBBB pattern, EF 50-55%. * Grade I diastolic dysfunction. * Aortic valve sclerosis mild, without significant aortic valvular stenosis. * Trace mitral regurgitation. * Mild left atrial enlargement. Procedure Details * A complete two-dimensional transthoracic echocardiogram was performed (2D, M-mode, Doppler and color flow Doppler). * The study was technically difficult. * A contrast injection of Definity was performed to improve assessment of LV function. * Contrast was injected into an intravenous site in the right arm. * One vial of Definity ultrasound contrast was diluted in normal saline to a total volume of 10 ml. A total of '3' ml of solution was administered during imaging. * Lot # [id number] of Definity utilized for procedure. * Expiration date JUL 18. * The attending nurse who injected the contrast agent was CLARA JONES CPL, RN. Left Ventricle * The left ventricle is normal in size. * There is no thrombus. * There is mild concentric left ventricular hypertrophy. * Left ventricular systolic function is low normal. * Ejection Fraction = 50-55%. * Septal motion is consistent with conduction abnormality. Right Ventricle * The right ventricular cavity size is normal (basal dimension <4.2 cm in right ventricular apical 4-chamber view). * The right ventricular systolic function is normal as assessed by tricuspid annular plane systolic excursion (TAPSE) (normal >1.5 cm). Atria * The left atrium is mildly dilated. * Right atrial size is normal. * No ASD detected; PFO is not assessed. Mitral Valve * The mitral valve anatomy is normal. * There is no mitral valve stenosis. * There is trace mitral regurgitation. Tricuspid Valve * The tricuspid valve is normal in structure and function. Aortic Valve * The aortic valve is trileaflet. * Aortic valve sclerosis mild, without significant aortic valvular stenosis. * There is no significant aortic regurgitation. Pulmonic Valve * The pulmonary valve is not well seen, but the Doppler examination is normal without significant regurgitation or stenosis. Great Vessels * The aortic root is normal size. Pericardium/Pleural * There is no pericardial effusion. Left Ventricular Diastolic Function * Grade I diastolic dysfunction, (abnormal relaxation pattern). MMode 2D Measurements and Calculations IVSd 1.2 cm IVSs 1.4 cm LVIDd 3.0 cm LVPWd 1.1 cm IVS/LVPW 1.1 EDV(Teich) 34.9 ml EDV(cubed) 26.9 ml % IVS thick 12.5 % LV mass(C)d 105.3 grams LV mass(C)dI 51.7 grams/m\S\2 Ao root diam 3.1 cm Ao root area 7.5 cm\S\2 LA dimension 2.8 cm LA/Ao 0.90 LVOT diam 2.0 cm LVOT area 3.1 cm\S\2 LVAd ap4 30.2 cm\S\2 LVLd ap4 7.9 cm EDV(MOD-sp4) 94.0 ml EDV(sp4-el) 98.0 ml LVAs ap4 24.5 cm\S\2 LVLs ap4 7.9 cm ESV(MOD-sp4) 62.4 ml ESV(sp4-el) 64.3 ml EF(MOD-sp4) 33.6 % EF(sp4-el) 34.4 % LVAd ap2 33.3 cm\S\2 LVLd ap2 8.4 cm EDV(MOD-sp2) 105.3 ml EDV(sp2-el) 112.5 ml LVAs ap2 23.4 cm\S\2 LVLs ap2 7.5 cm ESV(MOD-sp2) 59.2 ml ESV(sp2-el) 62.1 ml EF(MOD-sp2) 43.8 % EF(sp2-el) 44.8 % LVLd %diff 5.3 % EDV(MOD-bp) 104.0 ml LVLs %diff -6.21 % ESV(MOD-bp) 61.6 ml EF(MOD-bp) 40.7 % SV(MOD-sp4) 31.6 ml SI(MOD-sp4) 15.5 ml/m\S\2 SV(MOD-sp2) 46.1 ml SI(MOD-sp2) 22.6 ml/m\S\2 SV(MOD-bp) 42.3 ml SI(MOD-bp) 20.8 ml/m\S\2 SV(sp4-el) 33.7 ml SI(sp4-el) 16.5 ml/m\S\2 SV(sp2-el) 50.4 ml SI(sp2-el) 24.8 ml/m\S\2 Doppler Measurements and Calculations MV E max sosa 64.2 cm/sec MV A max sosa 69.6 cm/sec MV E/A 0.92 MV P1/2t max sosa 69.9 cm/sec MV P1/2t 96.1 msec MVA(P1/2t) 2.3 cm\S\2 MV dec slope 213.0 cm/sec\S\2 MV dec time 0.32 sec Ao V2 max 128.8 cm/sec Ao max PG 6.6 mmHg Ao max PG (full) 1.7 mmHg NARENDRA(V,A) 2.7 cm\S\2 NARENDRA(V,D) 2.7 cm\S\2 LV V1 max PG 5.0 mmHg LV V1 max 111.6 cm/sec MR max sosa 561.8 cm/sec MR max PG 126.6 mmHg PA V2 max 98.4 cm/sec PA max PG 3.9 mmHg PI max sosa 166.5 cm/sec PI max PG 11.1 mmHg PI dec slope 141.2 cm/sec\S\2 PI P1/2t 345.3 msec TR max sosa 222.6 cm/sec
--- NOTE | 2017-07-03 13:53 | Progress Note ---
Medicine Progress Note Date & Time of Visit: Jul 03, 2017 at 13:53. Subjective seen resting in bed, comfortable states she feels improved compared to yesterday, still feels tired denies recurrence of dizziness, presyncope, palpitations denies chest pain, dyspnea no other symptoms Objective Last 8 Hrs Date Time Temp Pulse Resp B/P (MAP) Pulse Ox O2 Delivery O2 Flow Rate FiO2 07/03/17 12:04 36.5 53 16 128/78 (95) 95 Room Air 07/03/17 12:00 Room Air 07/03/17 08:00 Room Air 07/03/17 07:36 36.5 54 16 116/71 (86) 94 Room Air Physical Exam: General- oriented x 3, not in distress, speaks in sentences with no effort Eyes- EOMI, anicteric Neck- supple, no JVD, no adenopathy Lungs- clear breath sounds bilaterally, no rales/wheezes Heart- regular rhythm; no murmur, normal rate Abdomen- normal bowel sounds, soft, nontender Extremities- no pretibial edema, no calf tenderness Neuro- alert, oriented x 3; no gross focal deficits Skin- warm & dry Laboratory Results: Last 24 Hours Test 07/02/17 15:50 07/02/17 22:10 07/03/17 06:45 D-Dimer 1370 ug/L FEU Magnesium Level 2.3 mg/dl Troponin I < 0.015 ng/ml < 0.015 ng/ml < 0.015 ng/ml Potassium Level 3.5 mmol/L Triglycerides Level 220 mg/dl Cholesterol Level 192 mg/dl HDL Cholesterol 47 mg/dl LDL Cholesterol, Calculated 101 mg/dl VLDL Cholesterol, Calculated 44 mg/dl Cholesterol/HDL Ratio 4.1 Assessment & Plan 71 year old female with history of HTN, HLD and other problems noted below presenting with pre-syncope and palpitations. PRESYNCOPE with PALPITATIONS - work up unrevealing at this time - Telemetry (+) PVCs, HR 50s - monitor orthostatic VS given IV fluids - on Atenolol will consult Cardiology - CT chest and Doppler US negative for VTE CHEST PAIN Brief episode of chest pain in ED, resolved spontaneously. Patient had a nonischemic nuclear stress study a few months ago in clinic. -- cardiac markers negative echo noted, grade 1 diastolic dysfunction Continue aspirin and atenolol. ABNORMAL UA denies UTI symptoms HYPERTENSION Continue atenolol and chlorthalidone. --- monitor BP DYSLIPIDEMIA Continue lovastatin. VTE PROPHYLAXIS Moderate-high risk of VTE (history of DVT in the past). SQ enoxaparin. Ambulate. RESUSCITATION STATUS Full Code DISPOSITION anticipate d/c home when medically stable Internal Medicine follow-up with Dr. Flaquita Brenner. . Current Inpatient Medications: Current Inpatient Medications Medications (Trade) Dose Ordered Sig/Ritchie Route Start Time Stop Time Status Last Admin Dose Admin Enoxaparin Sodium (Lovenox Inj) 40 mg HS SC 07/02/17 21:00 08/01/17 20:59 07/02/17 21:51 40 MG Acetaminophen (Tylenol Tab) 650 mg Q4H PRN PO 07/02/17 11:45 08/01/17 11:44 Miscellaneous (Iv Fluids Completed) 1 ea PRN PRN N/A 07/02/17 11:45 07/02/18 11:44 Aspirin (Ecotrin Tab) 81 mg BID PO 07/02/17 21:00 08/01/17 20:59 07/02/17 21:50 81 MG Atenolol (Tenormin Tab) 25 mg DAILY PO 07/03/17 09:00 08/02/17 08:59 Lovastatin (Mevacor Tab) 40 mg HS PO 07/02/17 21:00 08/01/17 20:59 07/02/17 21:50 40 MG Mometasone Furoate (Asmanex 220MCG Inh) 2 puff DAILY INH 07/03/17 09:00 08/02/17 08:59 Montelukast Sodium (Singulair Tab) 10 mg QPM PO 07/02/17 21:00 08/01/17 20:59 07/02/17 21:50 10 MG Atenolol (Tenormin Tab) 50 mg QAM PO 07/03/17 09:00 08/02/17 08:59 Potassium Chloride (Klor-Con Tab) 20 meq BID PO 07/02/17 21:00 08/01/17 20:59 07/02/17 21:52 20 MEQ Chlorthalidone (Hygroton Tab) 25 mg QAM PO 07/03/17 09:00 08/02/17 08:59 Ioversol (Optiray 320) 111 ml UD PRN IV 07/02/17 18:00 07/06/17 17:59
--- NOTE | 2017-07-03 20:29 | CARDIOLOGY CONSULTATION ---
DATE OF CONSULTATION: 07/03/2017 REFERRING PHYSICIAN: Luis Anne MD INDICATIONS: History of palpitations, presyncope. HISTORY OF PRESENT ILLNESS: The patient is a 71-year-old female whose history is notable for hypertension, past atrial and ventricular ectopy, mild asthmatic lung disease, mildly dilated ascending aorta by past CT scan and echocardiography, stable. The patient presents now, noted day of admission, stood up to walk to the bathroom, became acutely lightheaded and swooned. She did not pass all the way out, but felt like she came close. Noted no loss of bowel or bladder continence. Noted no sense of tachypalpitations. Noted no chest pain or shortness of breath complaints. Symptoms passed and she has felt well since ER evaluation admission. Cardiac enzymes are negative for myocardial injury or infarct. Telemetry revealed sinus bradycardia with rare ventricular ectopy. Blood pressures have been trending lower. Historically the patient is notable for recent increase in atenolol due to elevated blood pressures. She denies fevers, chills, sweats, cough, hoarseness, wheeze or hemoptysis. Notes no melena, hematochezia, dysuria or hematuria. Notes no rash or arthritic complaints. Appetite and weight have been stable. She is active about her home without general limitations other than orthopedic. ALLERGIES: NOTED TO BE ENALAPRIL, HYDROCODONE, CITRATE AND SIMVASTATIN. MEDICATIONS: Prior to hospitalization were atenolol, chlorthalidone 50/25 mg q.a.m., atenolol additional 25 mg added for a.m. dosing, aspirin 81 mg per day, vitamin B complex, calcium 600 mg p.o. daily, vitamin D 2000 units every day, fish oil 1 capsule every day, glucosamine chondroitin, vitamin C one tablet per day, Mevacor 40 mg at bedtime, Asmanex inhaler, Singulair 10 mg every day, multivitamin per day, potassium chloride 20 mg p.o. daily and vitamin D per day. PAST SURGICAL HISTORY: Notable for prior knee replacements on the left, history of prior sinus surgeries, hysterectomy and tonsillectomy. FAMILY HISTORY: Not specifically notable for cardiac disease. SOCIAL HISTORY: The patient is a nonsmoker. She uses rare alcoholic beverages. PHYSICAL EXAMINATION: GENERAL: The patient is a moderately obese, age-appropriate female in no acute distress. VITAL SIGNS: Since admission have demonstrated blood pressures trending slightly to the lower end, heart rate today is 55 and blood pressure is 121/77. NECK: Thin. There is no jugular venous distention. HEENT: Normocephalic and atraumatic. There are no carotid bruits. LUNGS: Clear to auscultation. CARDIOVASCULAR: Regular. There is no audible ectopy. There is no murmur, gallop or rub. ABDOMEN: Soft and nontender. EXTREMITIES: Without cyanosis or clubbing. There is no peripheral edema. There is chronic edema of left leg post knee replacement. There is no palpable cord or Homans sign. NEUROLOGIC: The patient answers questions, moving extremities with strength without focal complaint. DATA: Laboratory studies since admission demonstrate negative troponins x4. Cholesterol was 192, LDL 101, HDL 47. TSH is 2.4. Electrolytes are notable for potassium of 3.6 and 3.5. Echocardiogram demonstrates normal left ventricular size and function without wall motion abnormality. EKG reflects sinus bradycardia with left bundle branch block, rate 54. Telemetry reveals sinus rhythm with conduction abnormalities and rare ventricular ectopic beats. No pauses, no tachyarrhythmias. IMPRESSION: A 71-year-old female presented with a near syncopal event after standing quickly to go to the bathroom. History is notable for recent increase in atenolol dosing for hypertension management. I suspect the patient's complaints are multifactorial. She has undergone recent stress nuclear imaging in the end of March which was negative for ischemia, normal hyperdynamic LV function on nuclear study as well as on echocardiogram. Aortic root size is 4.1-4.2 cm and is unchanged. No signs or symptoms of aortic changes. Current findings suggest bradycardia and orthostatic hypertension etiology. Would recommend reducing atenolol back to 50 mg per day and changing chlorthalidone to 3 days per week rather than daily. If hypertension becomes more of an issue, we would consider adding an alternative antihypertensive to current regimen and likely adding low dose ARB versus amlodipine. I discussed findings in detail with the patient. Post hospital discharge would recommend an event monitor to further assess rhythm issues. I expect heart rate to increase slightly as atenolol is reduced. MTDD
[2017-07-03] MEDS: ASPIRIN 81 MG ECTAB PO SCH (21:00)
[2017-07-03] MEDS: LOVASTATIN 20 MG TAB PO SCH (21:00)
[2017-07-03] MEDS: ENOXAPARIN 40 MG/0.4 ML SYR SC SCH (21:00)
[2017-07-03] MEDS: MONTELUKAST SOD 10 MG TAB PO SCH (21:00)
[2017-07-03] MEDS: POTASSIUM CHLORIDE 20 MEQ TABCR PO SCH (21:00)
[2017-07-04 04:10] VITALS: BP_SYST 107; BP_SYST 122; BP_DIAS 66; BP_DIAS 82; PULSE 58; PULSE 88; TEMP 36.3; TEMP 36.5; O2SAT 96; O2SAT 97
[2017-07-04 07:52] VITALS: BP 113/73; PULSE 52; TEMP 36.4; O2SAT 93
[2017-07-04] MEDS: MOMETASONE FUROATE 14 PUFF/1 INHALER INH SCH ×2 (09:00→09:48)
[2017-07-04] MEDS ORDERED: CHLORTHALIDONE 25 MG TAB PO SCH (09:00)
[2017-07-04] MEDS: ASPIRIN 81 MG ECTAB PO SCH (09:49)
[2017-07-04] MEDS: POTASSIUM CHLORIDE 20 MEQ TABCR PO SCH (10:45)
[2017-07-04 12:10] VITALS: BP 119/75; PULSE 54; TEMP 36.6; O2SAT 95
--- NOTE | 2017-07-04 14:53 | PROGRESS NOTE ---
DATE: 07/04/2017 CARDIOLOGY CONSULTATION FOLLOWUP NOTE The patient seen and examined. Chart, medications, telemetry reviewed. SUBJECTIVE: The patient feels well this morning. He has had no further dizziness, lightheadedness, syncope or near syncope. He has been ambulatory in room and hallway. Notes no chest pain or shortness of breath. OBJECTIVE: VITAL SIGNS: Heart rate is 54, blood pressure is 119/75. Telemetry reveals sinus and sinus bradycardia with rare ventricular ectopy. HEENT: Normocephalic, atraumatic. NECK: Thin. There is no jugular venous distention. No carotid bruits. LUNGS: Clear. CARDIOVASCULAR: Regular with normal S1, S2. There is no S3 gallop. ABDOMEN: Soft, nontender. EXTREMITIES: Without cyanosis or clubbing. There is no peripheral edema. DATA: EKG reveals sinus bradycardia at a rate 50 with left bundle branch block. IMPRESSION: A 71-year-old female, history of hypertension, longstanding hypertension complaints as well as history of past ventricular ectopy has suffered a near syncopal event on standing, suspect both orthostatic and bradycardic etiology. RECOMMENDATIONS: As noted prior, continue with reduced dose of atenolol 50 mg per day, change to diuretic to chlorthalidone 25 mg 3 days per week for blood pressure and edema control. Continue potassium supplement as ordered recommend outpatient event monitor. Blood pressures increase as an outpatient, would not increase atenolol again or chlorthalidone, would rather add a third agent. The patient understands recommendations. Recommend follow up with Dr. Bryan in 1-2 months' time. Continued follow up with primary care physician is ordered. As noted, event monitor to be arranged post-hospital discharge. The patient cleared from cardiac standpoint for discharge. [facility]
[2017-07-04 16:20] VITALS: BP 124/80; PULSE 57; TEMP 37; O2SAT 93
--- NOTE | 2017-07-04 17:03 | Progress Note ---
Medicine Progress Note Date & Time of Visit: Jul 04, 2017 at 17:02. delayed entry date of service as noted above Subjective states she feels much better today seen eating dinner denies dizziness, chest pain, dyspnea, weakness no other symptoms states she is ready and would like to be discharged Objective Last 8 Hrs Date Time Temp Pulse Resp B/P (MAP) Pulse Ox O2 Delivery O2 Flow Rate FiO2 07/04/17 16:20 37.0 57 18 124/80 (95) 93 Room Air 07/04/17 16:00 Room Air 07/04/17 12:10 36.6 54 54 119/75 (90) 95 Room Air 07/04/17 12:00 Room Air Physical Exam: General- oriented x 3, not in distress, speaks in sentences with no effort Eyes- anicteric Neck- no JVD Lungs- clear BS bilaterally Heart- regular rhythm; no murmur, normal rate Abdomen- normal bowel sounds, soft, nontender Extremities- no pretibial edema, no calf tenderness Neuro- alert, oriented x 3; no gross focal deficits Skin- warm & dry Assessment & Plan 71 year old female with history of HTN, HLD and other problems noted below presenting with pre-syncope and palpitations. PRESYNCOPE with PALPITATIONS - possible combination of orthostasis, bradycardia - Telemetry: (+) PVCs, HR 50s - given IV fluids, Orthostasis resolved Cardiology consulted, recommend to decrease Atenolol to daily and decrease Chlorthalidone to 3x a week if BP not controlled, consider a third class of antihypertensive medication- ARB - other work up: CT chest and Doppler US negative for VTE CHEST PAIN Brief episode of chest pain in ED, resolved spontaneously. Patient had a nonischemic nuclear stress study a few months ago in clinic. -- cardiac markers negative echo noted, grade 1 diastolic dysfunction Continue aspirin and atenolol. ABNORMAL UA denies UTI symptoms HYPERTENSION Continue atenolol and chlorthalidone. --- monitor BP DYSLIPIDEMIA Continue lovastatin. DISPOSITION d/c home Internal Medicine follow-up with Dr. Flaquita Brenner in 3-5 days . Current Inpatient Medications: Current Inpatient Medications Medications (Trade) Dose Ordered Sig/Ritchie Route Start Time Stop Time Status Last Admin Dose Admin Enoxaparin Sodium (Lovenox Inj) 40 mg HS SC 07/02/17 21:00 08/01/17 20:59 07/03/17 21:00 40 MG Acetaminophen (Tylenol Tab) 650 mg Q4H PRN PO 07/02/17 11:45 08/01/17 11:44 Miscellaneous (Iv Fluids Completed) 1 ea PRN PRN N/A 07/02/17 11:45 07/02/18 11:44 Aspirin (Ecotrin Tab) 81 mg BID PO 07/02/17 21:00 08/01/17 20:59 07/04/17 09:49 81 MG Lovastatin (Mevacor Tab) 40 mg HS PO 07/02/17 21:00 08/01/17 20:59 07/03/17 21:00 40 MG Mometasone Furoate (Asmanex 220MCG Inh) 2 puff DAILY INH 07/03/17 09:00 08/02/17 08:59 07/04/17 09:48 2 PUFF Montelukast Sodium (Singulair Tab) 10 mg QPM PO 07/02/17 21:00 08/01/17 20:59 07/03/17 21:00 10 MG Atenolol (Tenormin Tab) 50 mg QAM PO 07/03/17 09:00 08/02/17 08:59 07/04/17 09:49 50 MG Potassium Chloride (Klor-Con Tab) 20 meq BID PO 07/02/17 21:00 08/01/17 20:59 07/04/17 10:45 20 MEQ Ioversol (Optiray 320) 111 ml UD PRN IV 07/02/17 18:00 07/06/17 17:59 Chlorthalidone (Hygroton Tab) 25 mg MoWeFr@0900 PO 07/04/17 09:00 08/02/17 08:59 07/04/17 09:49 25 MG
[2017-07-04] MEDS ORDERED: HYG25 PO (17:07)
[2017-07-04] MEDS ORDERED: TNR50 PO (17:07)
--- NOTE | 2017-07-04 17:13 | Discharge Summary ---
Discharge Summary Date of Service Jul 04, 2017. Discharge Summary Admission Date: Jul 02, 2017 at 11:38 Discharge Date: Jul 04, 2017 Discharge Disposition: Home Principal Diagnosis: PRESYNCOPE with PALPITATIONS Secondary Diagnoses/Problems: Please refer to hospital course below. Procedures: CT ANGIOGRAPHY OF THE CHEST, PULMONARY EMBOLUS PROTOCOL CLINICAL HISTORY: Chest pain. Elevated d-dimer. Near syncope. COMPARISON STUDY: Chest CT February 20, 2017 and chest radiograph July 02, 2017. TECHNIQUE: Following IV administration of 93 mL of Optiray-320, helical axial images of the chest were obtained utilizing the pulmonary embolus protocol. Maximal intensity projections and sagittal and coronal reformats were viewed on an independent 3D workstation. IV contrast was administered without complication. A dose lowering technique was utilized adhering to the principles of ALARA. CT DOSE: 432.42 mGy.cm FINDINGS: No pulmonary emboli are identified. The heart is at the upper limits of normal for size. There is no pericardial effusion. Mild dilatation of the ascending aorta, measuring 4.1 cm at the level the main pulmonary artery is unchanged since CT of February 20, 2017. There is no evidence for thoracic aortic dissection. Central airways are patent. Subpleural opacities favor atelectasis. There is no consolidation to suggest pneumonia. No pneumothorax or pleural effusion is present. No suspicious osseous lesions are present. Upper abdomen is unremarkable. IMPRESSION: 1. No pulmonary emboli identified. 2. No acute intrathoracic findings. 3. Stable mild dilatation of the ascending aorta, measuring 4.1 cm, since CT of February 20, 2017. No thoracic aortic dissection. BILATERAL LOWER EXTREMITY VENOUS DOPPLER HISTORY: Acute chest pain with elevated d-dimer chest pain, near-syncope, elevated D-dimer COMPARISON STUDY: None. FINDINGS: There is normal compressibility, flow, and augmentation within the bilateral lower extremity deep venous systems. IMPRESSION: No sonographic evidence of deep venous thrombosis within the right or left lower extremity. ECHO: -- Conclusions -- * Normal LV chamber size with mild concentric LVH. * Low normal LV systolic function with abnormal septal wall motion consistent with LBBB pattern, EF 50-55%. * Grade I diastolic dysfunction. * Aortic valve sclerosis mild, without significant aortic valvular stenosis. * Trace mitral regurgitation. * Mild left atrial enlargement. Consultations: Cardiology Dr. Flaherty Pending Studies/Follow-Up: Please refer to hospital course below. Medication Reconciliation New Medications: Atenolol (Atenolol) 50 Mg Tab 50 MG PO QAM for 30 Days, #30 TAB 2 Refills Chlorthalidone (Chlorthalidone) 25 Mg Tab 25 MG PO MoWeFr@0900 for 30 Days, #12 TAB 2 Refills Continued Medications: Aspirin (Aspir-81) 81 Mg Tab 81 MG PO AMPM B-Complex W/Biotin & Folic Aci (B Complete) 1 Tab Tab 1 TAB PO DAILY Calcium Carbonate (Calcium) 600 Mg Tab 600 MG PO DAILY Cholecalciferol (D 2000) 2,000 Unit Tab 2000 UNITS PO DAILY Fish Oil ([place]-3) 1 Ea Cap 1 CAP PO DAILY, CAP [id number]-Adffcvxtqyt-Sgz C- (Glucosamine Chondroitin) 1 Tab Tab 1 TAB PO QAM Lovastatin (Mevacor) 40 Mg Tab 40 MG PO HS, TAB Mometasone Furoate (Asmanex Twisthaler 60 Met) 220 Mcg/Inh Aer 2 PUFFS INH DAILY Montelukast Sodium (Singulair) 10 Mg Tab 10 MG PO QPM, TAB Multiple Vitamins W/ Minerals (Multi For Her) 1 Tab Tab PO QAM Potassium Chloride (Potassium Chloride ER) 20 Meq Tab 20 MEQ PO HS Vitamin E (Alph-E) 400 Unit Cap 400 INTERUNIT PO BID Discontinued Medications: Atenolol (Tenormin) 25 Mg Tab 25 MG PO DAILY, TAB Atenolol/Chlorthalidone (Tenoretic 50 Mg/25 Mg) 50 Mg/25 Mg Tab 1 TAB PO QAM, TAB Admission Information HPI (per Admitting provider): 71-year-old female followed by Dr. Concetta Rodríguez for Internal Medicine. History of hypertension, dyslipidemia, DVT, and other problems outlined below. She was in her usual state of health until around 07:30 this morning. She initially felt well when she awakened, but felt extremely lightheaded after ambulating to the bathroom. Experienced near-syncope, but no loss of consciousness. The episode lasted for about 30 seconds; it was associated with palpitations, but no chest pain or dyspnea. She came to the ED for evaluation. In the ED, she had an episode of mild midsternal chest pressure that lasted for 2 or 3 minutes and resolved spontaneously. The chest discomfort did not radiate. No associated dyspnea, diaphoresis, nausea, vomiting. . Physical Exam (per Admitting): General Appearance: WD/WN, no apparent distress Head: normocephalic, atraumatic Eyes: normal inspection, PERRL, EOMI, sclerae normal (conjunctivae pink) ENT: hearing grossly normal, pharynx normal, + pertinent finding (upper and lower dentures) Neck: supple, no adenopathy, thyroid normal, no JVD, trachea midline Respiratory/Chest: lungs clear, no respiratory distress, no accessory muscle use Cardiovascular: regular rate, rhythm, no gallop, no JVD, no murmur, normal peripheral pulses, + pertinent finding (1+ edema left lower extremity) Abdomen/GI: normal bowel sounds, non tender, soft, no organomegaly, no pulsatile mass Extremities/Musculoskelatal: no calf tenderness, normal capillary refill, no pedal edema Neurologic/Psych: debate director II-XII nml as tested (PERRL, EOMI, no facial palsy, no dysarthria), no motor/sensory deficits (grossly intact), alert, normal mood/ affect, normal reflexes, oriented x 3 Skin: normal color, warm/dry, no rash Lymphatic: no adenopathy (cervical) Hospital Course 71 year old female with history of HTN, HLD and other problems noted below presenting with pre-syncope and palpitations. PRESYNCOPE with PALPITATIONS - work up unrevealing at this time - Telemetry (+) PVCs, HR 50s - monitor orthostatic VS given IV fluids - on Atenolol will consult Cardiology - CT chest and Doppler US negative for VTE CHEST PAIN Brief episode of chest pain in ED, resolved spontaneously. Patient had a nonischemic nuclear stress study a few months ago in clinic. -- cardiac markers negative echo noted, grade 1 diastolic dysfunction Continue aspirin and atenolol. ABNORMAL UA denies UTI symptoms HYPERTENSION Continue atenolol and chlorthalidone. --- monitor BP DYSLIPIDEMIA Continue lovastatin. VTE PROPHYLAXIS Moderate-high risk of VTE (history of DVT in the past). SQ enoxaparin. Ambulate. RESUSCITATION STATUS Full Code DISPOSITION anticipate d/c home when medically stable Internal Medicine follow-up with Dr. Concetta Rodríguez. . Total time spent on discharge = This includes examination of the patient, discharge planning, medication reconciliation, and communication with other providers. Discharge Instructions Discharge Instructions Date of Service Jul 04, 2017. Admission Reason for Admission: Weakness Discharge Discharge Diagnosis / Problem: WEAKNESS, PALPITATIONS Discharge Goals Goal(s): Diagnostic testing, Therapeutic intervention Activity Recommendations Activity Limitations: as noted below (NO HEAVY EXERTION UNTIL RE-EVALUATED BY PRIMARY CARE PHYSICIAN) Lifting Limitations: until after follow-up appointment Exercise/Sports Limitations: until after follow-up appointment . Instructions / Follow-Up Instructions / Follow-Up PLEASE REVIEW YOUR NEW MEDICATION LIST AND FOLLOW INSTRUCTIONS CAREFULLY. CALL YOUR PRIMARY CARE PHYSICIAN OR RETURN TO ER IMMEDIATELY IF WITH RECURRENCE OF SYMPTOMS. FOLLOW UP WITH DR. CONCETTA RODRÍGUEZ ON MONDAY JULY 10, 2017 AT 11:05 AM. Current Hospital Diet Patient's current hospital diet: AHA Diet (Heart Healthy) Discharge Diet Recommended Diet: AHA Diet (Heart Healthy)
--- NOTE | 2017-07-04 17:13 | Discharge Instructions ---
Discharge Instructions Date of Service Jul 04, 2017. Admission Reason for Admission: Weakness Discharge Discharge Diagnosis / Problem: WEAKNESS, PALPITATIONS Discharge Goals Goal(s): Diagnostic testing, Therapeutic intervention Activity Recommendations Activity Limitations: as noted below (NO HEAVY EXERTION UNTIL RE-EVALUATED BY PRIMARY CARE PHYSICIAN) Lifting Limitations: until after follow-up appointment Exercise/Sports Limitations: until after follow-up appointment . Instructions / Follow-Up Instructions / Follow-Up PLEASE REVIEW YOUR NEW MEDICATION LIST AND FOLLOW INSTRUCTIONS CAREFULLY. CALL YOUR PRIMARY CARE PHYSICIAN OR RETURN TO ER IMMEDIATELY IF WITH RECURRENCE OF SYMPTOMS. FOLLOW UP WITH DR. CONCETTA RODRÍGUEZ ON MONDAY JULY 10, 2017 AT 11:05 AM. Current Hospital Diet Patient's current hospital diet: AHA Diet (Heart Healthy) Discharge Diet Recommended Diet: AHA Diet (Heart Healthy) Pending Studies Studies pending at discharge: no Laboratory Results Lipid Panel Test 07/03/17 06:45 Range/Units Triglycerides Level 220 H 0-150 mg/dl Cholesterol Level 192 0-200 mg/dl HDL Cholesterol 47 mg/dl Cholesterol/HDL Ratio 4.1 LDL Cholesterol, Calculated 101 mg/dl Medical Emergencies . Who to Call and When: Medical Emergencies: If at any time you feel your situation is an emergency, please call 911 immediately. . Non-Emergent Contact Non-Emergency issues call your: Primary Care Provider Call Non-Emergent contact if: you have a fever, you have any medication questions . . "Provider Documentation" section prepared by Luis Anne. . VTE Core Measure Inpt VTE Proph given/why not?: SCD's
[2017-07-04 17:19] VITALS: BP 124/80; PULSE 57; TEMP 37; O2SAT 93
== END 2017-07-04 17:45 | disposition home or self-care (01) ==
LOC: EDBD 09:26 → C.EDA 09:30 → C.2T 11:38 → ENRESERV 11:48 → EDBEDREQ 11:49
PROVIDERS: ADMIT Hospitalist; ATTEND Internal Medicine
DX: R55 Syncope and collapse (principal); R00.2 Palpitations; R07.2 Precordial pain; J45.909 Unspecified asthma, uncomplicated; Z87.442 Personal history of urinary calculi; E78.5 Hyperlipidemia, unspecified; I10 Essential (primary) hypertension; M17.12 Unilateral primary osteoarthritis, left knee; Z85.44 Personal history of malignant neoplasm of other female genital organs; Z90.710 Acquired absence of both cervix and uterus; Z90.89 Acquired absence of other organs; Z83.3 Family history of diabetes mellitus; Z82.49 Family history of ischemic heart disease and other diseases of the circulatory system; Z82.3 Family history of stroke; Z79.82 Long term (current) use of aspirin

== ENCOUNTER 2024-08-04 07:18 | Inpatient (IN) ==
--- OUTSIDE RECORDS SUMMARY | 2024-08-04 07:23 | External Medical Summary | Summary of Care ---
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 [address] [place] [address] Lianna Decker CRNP [address] [place] [address] Rhinosinusitis*; Moderate persistent asthma without complication; Non-recurrent acute serous otitis media of both ears Allergies Active Allergy Reactions Criticality Noted Date Comments Celecoxib 08/08/2016 Magnesium Citrate 03/18/2007 Prep;vomiting and diarrhea Allergic rx. Rosuvastatin Calcium Other (Please comment) 12/25/2014 Enalapril Maleate 07/12/2010 Dry cough Simvastatin 11/28/2007 Muscle aches documented as of this encounter (statuses as of 07/27/2024) Medications Medication Sig Dispensed Refills Start Date End Date Status ASPIRIN 81 MG PO TABSIndications:HTN , goal below 140/90 one tab by mouth twice a day 0 0 03/18/2007 Active MULTIVITAMINS PO TABS 1 TABLET DAILY 12/14/2010 Active OMEGA-3 FISH OIL 1000 MG PO CAPS 1 capsule by mouth daily 12/14/2010 Active VITAMIN E 400 UNIT PO CAPS 1 capsule by mouth twice daily 12/14/2010 Active VITAMIN C 500 MG PO CHEW daily Active B Complex Vitamins (VITAMIN B COMPLEX) Tablet Take 1 Tablet by mouth in the morning. Active Calcium Carbonate 600 MG Oral Tablet Take 1 Tablet by mouth every evening. 02/27/2017 Active Misc Natural Products (GLUCOSAMINE CHONDROITIN ADV) Tablet Take 1 Tablet by mouth. 10/10/2017 Active Nebulizers (NEBULIZER COMPRESSOR) MISCIndications:Mil d persistent asthma with acute exacerbation Inhale via nebulizer. Use as directed. Along with mask and tubing 1 Each 1 10/10/2017 Active Black Elderberry(Faulkner-Fl ower) 575 MG Oral Capsule Contains Zinc and Vitamin C - 2 tablets daily Active Famotidine 20 MG Oral Tablet (Pepcid)Indications :Gastroesophageal reflux disease, unspecified whether esophagitis present Take by mouth 1 Tablet before bedtime. Please take 30-60 minutes prior to bedtime.. 30 Tablet 5 11/15/2021 Active Zoster Vac Recomb Adjuvanted 50 MCG/0.5ML Intramuscular Suspension Reconstituted (Shingrix)Indicatio ns:Need for vaccination for zoster Inject 0.5 mL into a large muscle now and repeat dose in 60 to 180 days 1 Each 1 03/31/2022 Active Melatonin 10 MG Oral Tablet Take 1 Tablet by mouth at bedtime. Active Fluticasone Propionate 50 MCG/ACT Nasal Suspension (Flonase)Indication s:Nonallergic rhinitis Administer 2 Sprays into each nostril in the morning. 48 mL 3 08/16/2023 Active Warfarin Sodium 5 MG Oral Tablet (Coumadin)Indicatio ns:Paroxysmal atrial fibrillation (HCC) TAKE 1 AND 1/2 TABLETS BY MOUTH DAILY OR DIRECTED BY COUMADIN CLINIC 135 Tablet 3 09/19/2023 Active Chlorthalidone 25 MG Oral Tablet (Hygroton)Indicatio ns:Syncope, unspecified syncope type TAKE 1 TABLET BY MOUTH ON SUNDAY, SUNDAY, AND SUNDAY 39 Tablet 3 10/20/2023 Active Refresh 1.4-0.6 % Ophthalmic Solution (polyvinyl alcohol-povidone PF) Instill 1 Drop into both eyes in the morning and 1 Drop at noon and 1 Drop in the evening. Active Zoster Vac Recomb Adjuvanted 50 MCG/0.5ML Intramuscular Suspension Reconstituted (Shingrix)Indicatio ns:Need for shingles vaccine Inject 0.5 mL into a large muscle now and repeat dose in 60 to 180 days 1 Each 11/15/2023 Active Atenolol 50 MG Oral Tablet (Tenormin)Indicatio ns:Paroxysmal atrial fibrillation (HCC),Palpitations, OVIEDO (dyspnea on exertion),Mitral regurgitation, myxomatous,Ascendin g aorta dilation (HCC),HTN, goal below 140/90,Hyperlipidem ia LDL goal <130,History of DVT of lower extremity TAKE 1 TABLET BY MOUTH TWICE DAILY 180 Tablet 3 11/21/2023 Active Losartan Potassium 50 MG Oral Tablet (Cozaar)Indications :HTN, goal below 140/90 TAKE 1 TABLET BY MOUTH DAILY 90 Tablet 3 01/17/2024 Active Potassium Chloride Paige ER 20 MEQ Oral Tablet Extended ReleaseIndications: Hypokalemia TAKE 1 TABLET BY MOUTH DAILY 90 Tablet 3 01/17/2024 Active Albuterol Sulfate HFA 108 (90 Base) MCG/ACT Inhalation Aerosol SolutionIndications :Moderate persistent asthma without complication Inhale 2 Puffs by mouth in the morning and 2 Puffs at noon and 2 Puffs in the evening and 2 Puffs before bedtime. 56 g 3 03/20/2024 Active Fluticasone-Salmete rol 250-50 MCG/ACT Inhalation Aerosol Powder Breath Activated (Advair Diskus) Inhale 1 Puff by mouth in the morning and 1 Puff before bedtime. 60 Each 03/20/2024 Active amLODIPine Besylate 2.5 MG Oral Tablet (Norvasc)Indication s:HTN, goal below 140/90 TAKE 1 TABLET BY MOUTH DAILY 90 Tablet 3 05/09/2024 Active Ezetimibe 10 MG Oral Tablet (Zetia)Indications: Dyslipidemia, goal LDL below 100 TAKE 1 TABLET BY MOUTH IN THE MORNING 90 Tablet 3 05/26/2024 Active Rosuvastatin Calcium 20 MG Oral Tablet (Crestor)Indication s:Hyperlipidemia LDL goal <130 TAKE 1 TABLET BY MOUTH 4 DAYS PER WEEK 52 Tablet 3 06/04/2024 Active Montelukast Sodium 10 MG Oral Tablet (Singulair)Indicati ons:Chronic rhinitis TAKE 1 TABLET BY MOUTH AT BEDTIME 90 Tablet 3 06/16/2024 Active Albuterol Sulfate (2.5 MG/3ML) 0.083% Inhalation Nebulization Solution (Proventil)Indicati ons:Moderate persistent asthma without complication Inhale 1 Vial via nebulizer every 4 hours as needed for Wheezing or Shortness of Breath. Dx code J45.31 75 mL 3 07/27/2024 4 Active predniSONE 10 MG Oral Tablet (Deltasone)Indicati ons:Rhinosinusitis, Non-recurrent acute serous otitis media of both ears Take 5 tabs for 2 days, 4 tabs for 2 days, 3 tabs for 2 days, 2 tabs for 2 days 1 tab for 2 days 30 Tablet 07/27/2024 Active Fluticasone-Salmete rol 250-50 MCG/DOSE Inhalation Aerosol Powder Breath Activated (Advair Diskus) Inhale by mouth 1 Puff in the morning AND 1 Puff before bedtime. Please hold until patient request. 180 Each 3 01/06/2022 4 Discontinue d(Medicatio n List Clean Up) Albuterol Sulfate (2.5 MG/3ML) 0.083% Inhalation Nebulization Solution (Proventil)Indicati ons:Moderate persistent asthma without complication Inhale 1 Vial via nebulizer every 4 hours as needed for Wheezing. Dx code J45.31 90 mL 3 08/16/2023 4 Discontinue d(Refill) documented as of this encounter (statuses as of 07/27/2024) Active Problems Problem Noted Date Diagnosed Date HTN, goal below 140/90 03/19/2024 Hematoma of right thigh 02/22/2023 Anticoagulation management encounter 02/22/2023 Moderate persistent asthma with acute exacerbati on 10/14/2020 Paroxysmal atrial fibrillation 09/03/2020 Malignant neoplasm of uterus 01/16/2020 Ascending aorta dilation 05/28/2018 History of osteoporosis 05/07/2018 History of uterine cancer 05/07/2018 History of DVT of lower extremity 08/08/2016 Nonallergic rhinitis 04/09/2012 Moderate persistent asthma without complication 02/29/2012 HTN, goal below 130/80 08/06/2009 Overview: Modified per HTN Taxonomy. DIASTOLIC DYSFUNCTION 03/07/2004 Dyslipidemia, goal LDL below 100 documented as of this encounter (statuses as of 07/27/2024) Resolved Problems Problem Noted Date Diagnosed Date Resolved Date Mitral regurgitation, myxomatous 05/07/2018 09/29/2022 Asthma with severity to be determined 03/24/2010 02/29/2012 Overview: Per Asthma Taxonomy ICD-10 update of inactive term Vertebral fracture, osteoporotic 09/07/2008 05/07/2018 Overview: Per Osteoporotic Vertebral Fracture Protocol # 9 Asthma, non-allergic 11/28/2007 010 Chronic sinusitis 11/28/2007 04/09/2012 NONALLERGIC RHINITIS 11/28/2007 012 Benign neoplasm of colon 06/19/200707/2019 Overview: hyperplastic polyp--repeat 2 years Carpal tunnel syndrome 01/23/200601/08 ADVANCE DIRECTIVE INFORMATION 12/08/2005 07/07/2019 Overview: No, Advance Directive brochure given to patient. Dyslipidemia, goal to be determined 12/08/2005 10/02/2013 BENIGN HYPERTENSION 03/07/2004 08/06/20 09 Overview: Modified per HTN Taxonomy. Mitral regurgitation, myxomatous 03/07/2004 09/29/2022 Osteoporosis 05/07/2018 documented as of this encounter (statuses as of 07/27/2024) Immunizations Name Administration Dates Next Due COVID-19 mRNA, LNP-s, No Pre serve, 2-Dose Series (Vivogig) 09/29/2021,12/18/2020,11/27/2020 Covid-19, Mrna, Lnp-s, Pf, B ivalent, 30 Mcg, IM, 12 yrs and above (Pfizer) 09/06/2022 Pneumococcal Conjugate Vacc, 13 Valent (Prevnar) 12/14/2014 Pneumococcal Polysaccharide PPV23 (Pneumovax) 07/04/2016,12/14/2010 Season Influenza, Quad, PF, Adjuvanted, 65+ Yrs, IM (FLUAD) 08/11/2020 Seasonal Influenza Vac., MDV , IM, 0.5 mL (Fluzone) 06/17/2015,06/16/2014,10/02/2013,08/08 Seasonal Influenza, PF, 6 M & above, IM , (FluLaval or Fluzone) 07/03/2017 Seasonal Influenza, Quadriva lent Hd (Fluzone Hd) 07/12/2023,06/08/2022,07/11/2021 Seasonal Influenza, Quadriva lent, No Preserve, IM 07/04/2016 Seasonal Influenza, Trivalen t, Adjuvanted, 65+ YRS, PF, (Fluad) 07/07/2019 TDAP (age 10 and older)(Boostrix) 07/08/2019 TDAP, Age 7 and older, IM (Adacel) 03/26/2004 Varicella Zoster Vaccine (Adult) 10/02/2013 documented as of this encounter Social History Tobacco Use Types Packs/Day Years Used Date Smoking Tobacco: Never Smokeless Tobacco: Never Tobacco Cessation:Counseling Given: Not Answered Comments:no passive smoke exposures Alcohol Use Standard Drinks/Week Comments Yes 0 (1 standard drink = 0.6 oz pur e alcohol) once every couple weeks AUDIT-C Answer Date Recorded Frequency of Alcohol Consumption 2-4 times a sun11/11/2019 Average Number of Drinks Not on file 020 Frequency of Binge Drinking Not on file 11/01 PHQ-2 Answer Date Recorded PHQ Adult Total Score 3 03/31/2022 Hunger Vital Sign Answer Date Recorded Within the past 12 months, y ou worried that your food would run out before you got the money to buy more. Never true 03/31/20 22 Within the past 12 months, t he food you bought just didn't last and you didn't have money to get more. Never true 03/31/2022 Sex and Gender Information Value Date Recorded Sex Assigned at Female 03/31/2022 9:58 AM EDT Gender Identity Female 03/31/2022 9:58 AM EDT Sexual Orientation Straight 03/31/2022 9: 58 AM EDT Job Start Date Occupation Industry Not on file Not on file Not on file documented as of this encounter Last Filed Vital Signs Vital Sign Reading Time Taken Comments Blood Pressure 142/100 07/27/2024 1:44 PM EDT Pulse 96 07/27/2024 1:44 PM EDT Temperature 36.7 C (98.1 F) 07/27/2024 1:44 PM ED T Respiratory Rate 20 07/27/2024 1:44 PM EDT Oxygen Saturation 96% 07/27/2024 1:44 PM EDT Inhaled Oxygen Concentration - - Weight 91.6 kg (202 lb) 07/27/2024 1:44 PM EDT Height 174 cm (5' 8.5") 07/27/2024 1:44 PM EDT Body Mass Index 30.27 07/27/2024 1:44 PM EDT documented in this encounter Progress Notes * Lianna Decker CRNP - 07/27/2024 3:20 PM EDT Convenient Care Basic Exam Subjective Mandi Tolentino is a 78 year old female that presents to the [facility] with coughing, lack of energy and loss of appetite since 07/23. She often has a flare similar to this once a year with her mild asthma but this feels a little worse than usual. Objective BP 142/100 | Pulse 96 | Temp 36.7 C (98.1 F) (Tympanic) | Resp 20 | Ht 1.74 m (5' 8.5") | Wt 91.6 kg (202 lb) | SpO2 96% | BMI 30.27 kg/m | BSA 2.1 m Body mass index is 30.27 kg/m. Review of Systems Constitutional: Positive for appetite change and fatigue. HENT: Positive for congestion, sinus pressure and sore throat. Eyes: Negative. Respiratory: Positive for cough and shortness of breath. Cardiovascular: Negative. Gastrointestinal: Negative. Genitourinary: Negative. Musculoskeletal: Negative. Skin: Negative. Neurological: Negative. Physical Exam Vitals and nursing note reviewed. HENT: Head: Normocephalic. Ears: Comments: Serous effusions bilat Nose: Congestion and rhinorrhea present. Mouth/Throat: Comments: +cobblestoning Cardiovascular: Rate and Rhythm: Normal rate and regular rhythm. Pulses: Normal pulses. Heart sounds: Normal heart sounds. Pulmonary: Effort: Pulmonary effort is normal. Breath sounds: Normal breath sounds. Skin: General: Skin is warm and dry. Capillary Refill: Capillary refill takes less than 2 seconds. Neurological: Mental Status: She is alert and oriented to person, place, and time. 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 CXR negative Patient Active Problem List Diagnosis DIASTOLIC DYSFUNCTION HTN, goal below 130/80 Moderate persistent asthma without complication Nonallergic rhinitis Dyslipidemia, goal LDL below 100 History of DVT of lower extremity History of osteoporosis History of uterine cancer Ascending aorta dilation (HCC) Malignant neoplasm of uterus (HCC) Paroxysmal atrial fibrillation (HCC) Moderate persistent asthma with acute exacerbation Hematoma of right thigh Anticoagulation management encounter HTN, goal below 140/90 BP Readings from Last 3 Encounters: 07/27/24 142/100 05/15/24 118/80 03/20/24 128/80 Wt Readings from Last 3 Encounters: 07/27/24 91.6 kg (202 lb) 05/15/24 94.7 kg (208 lb 11.2 oz) 03/20/24 91.2 kg (201 lb) Assessment and plan Rhinosinusitis (Primary) - predniSONE 10 MG Oral Tablet (Deltasone); Take 5 tabs for 2 days, 4 tabs for 2 days, 3 tabs for 2days, 2 tabs for 2 days 1 tab for 2 days Moderate persistent asthma without complication - Albuterol Sulfate (2.5 MG/3ML) 0.083% Inhalation Nebulization Solution (Proventil); Inhale 1 Vialvia nebulizer every 4 hours as needed for Wheezing or Shortness of Breath. Dx code J45.31 Non-recurrent acute serous otitis media of both ears - predniSONE 10 MG Oral Tablet (Deltasone); Take 5 tabs for 2 days, 4 tabs for 2 days, 3 tabs for 2days, 2 tabs for 2 days 1 tab for 2 days Will send in refill of nebulizer medication Reviewed OTC support/comfort medications such as Tylenol/ibuprofen. Fluids/rest Reviewed use of Flonase and an antihistamine to reduce drainage and inflammation in nose/sinuses/ears to help with symptoms. humidifier Prop up to sleep Neti pot Follow up Follow Up: Return if symptoms worsen or fail to improve. Total time today including reviewing chart before the visit, pertinent labs, imaging reports, face to face time, and documentation time was 15 minutes. The above was discussed and understanding was expressed. LINDSEY Hall documented in this encounter Nursing Notes * Karla Wilhelm LPN - 07/27/2024 1:48 PM EDT Pt reports to office alone with c/o cold s/s that started suddenly on sun. Pt states that she is coughing but not wheezing, has no energy no appetite documented in this encounter Plan of Treatment Upcoming Encounters Date Type Department Care Team (Late st Contact Info) Description 08/06/2024 2:30 PM EST Anticoagulation Pharmacy, [place] [address] [place] [address] [facility] [address] [place] [address] 09/19/2024 11:00 AM EST Office Visit Allergy/Immunology [facility] [address] [place] [address] Swapna Gillis PA-C [address] [facility] [place] [address] 11/19/2024 8:00 AM EST Office Visit General Internal Medicine [facility] [address] [place] [address] Flaquita Brenner MD [address] [place] [id number] 03/18/2025 8:00 AM EDT Office Visit [facility], [facility] [address] [facility] [place] [address] Anita Pulido PAMorrisC [address] [place] [address] Scheduled Procedures Name Priority Associated Diagnoses Date/Ti me COLONOSCOPY FLEXIBLE PROXIMA L DIAGNOSTIC Recall History of colonic polyps Health Maintenance Due Date Last Done Comments Zoster Vaccines (2 of 3) 11/27/2013 10/02/2013 Adult Wellness Visit 03/31/2023 03/31/2022 COVID-19 Vaccine ( season) 2024 09/06/2022, 09/29/2021, 12/18/2020, Additional history exists Influenza Vaccine (FLU shot) (#1) 2024 07/12/2023, 06/08/2022, 07/11/2021, Additional history exists Depression Screening 11/15/2024 11/15/2023 Colonoscopy 04/13/2025 04/13/2020, 07/02, 07/24/2014, Additional history exists GFR 05/15/2025 05/15/2024, 11/29, 12/12/2022, Additional history exists Albumin/Creatinine Ratio 06/08/2025 022, 06/16/2014, 07/14/2009, Additional history exists DXA Scan 02/18/2027 02/19/2024, 01/30, 03/22/2020, Additional history exists DTap/Tdap Vaccines (3 - Td or Tdap) 07/08/2029 07/08/2019, 03/26/2004 Pneumococcal Vaccine: 65+ Years Completed 07/04/2016, 12/14/2014, 12/14/2010 RETIRED - COLONOSCOPY-EVERY 5 YRS AGES 18-100 Discontinued 04/13/2020, 07/24/2014, 07/24/2014, Additional history exists HPV (Gardasil) Vaccine Aged Out No lo nger eligible based on patient's age to complete this topic Hepatitis B Vaccine Aged Out No longe r eligible based on patient's age to complete this topic MENINGOCOCCAL (MENACTRA/MENVEO) Aged Out No longer eligible based on patient's age to complete this topic documented as of this encounter Medical Devices Not on filedocumented as of this encounter Visit Diagnoses Diagnosis Rhinosinusitis- Primary Unspecified sinusitis (chronic) Moderate persistent asthma without complication Unspecified asthma Non-recurrent acute serous otitis media of both ears documented in this encounter Care Teams Barrel Dedenting Machine Operator Relationship Specialty Start Date End Date Flaquita Brenner MD [address] [place] [address] PCP - General Internal Medicine 12/11/14 documented as of this encounter
--- OUTSIDE RECORDS SUMMARY | 2024-08-04 07:24 | External Medical Summary | Summary of Care ---
Author Name Unknown Organization [facility] Address [address] [facility] [place] [address] Phone [phone] Care Team Providers Care Meter Installer And Remover Name Role Phone Concetta Brenner MD Primary Care Provider + Reason for Visit * Reason Comments eRx-Medication Refill Encounter Details Date Type Department Care Team (Late st Contact Info) Description 06/14/2024 Refill General Internal Medicine [facility] 200 [facility] [place] [place] [address] Concetta Brenner MD 200 [place] [address] Chronic rhinitis Allergies Active Allergy Reactions Criticality Noted Date Comments Celecoxib 08/08/2016 Magnesium Citrate 03/18/2007 Prep;vomiting and diarrhea Allergic rx. Rosuvastatin Calcium Other (Please comment) 12/25/2014 Enalapril Maleate 07/12/2010 Dry cough Simvastatin 11/28/2007 Muscle aches documented as of this encounter (statuses as of 06/16/2024) Medications Medication Sig Dispensed Refills Start Date End Date Status ASPIRIN 81 MG PO TABSIndications:HT N, goal below 140/90 one tab by mouth [...] by mouth. 10/10/2017 Active Nebulizers (NEBULIZER COMPRESSOR) MISCIndications:Mi ld persistent asthma with acute exacerbation Inhale via nebulizer. Use as directed. Along with mask and tubing 1 Each 1 10/10/2017 Active Black Elderberry(Faulkner-F lower) 575 MG Oral Capsule Contains Zinc and Vitamin C - 2 tablets daily Active Famotidine 20 MG Oral Tablet (Pepcid)Indication s:Gastroesophageal reflux disease, unspecified whether esophagitis present Take by mouth 1 Tablet before bedtime. Please take 30-60 minutes prior to bedtime.. 30 Tablet 5 11/15/2021 Active Fluticasone-Salmet andrei 250-50 MCG/DOSE Inhalation Aerosol Powder Breath Activated (Advair Diskus) Inhale by mouth 1 Puff in the morning AND 1 Puff before bedtime. Please hold until patient request. 180 Each 3 01/06/2022 Active Zoster Vac Recomb Adjuvanted 50 MCG/0.5ML Intramuscular Suspension Reconstituted (Shingrix)Indicati ons:Need for vaccination for zoster Inject 0.5 mL into a large muscle now and repeat dose in 60 to 180 days 1 Each 1 03/31/2022 Active Melatonin 10 MG Oral Tablet Take 1 Tablet by mouth at bedtime. Active Albuterol Sulfate (2.5 MG/3ML) 0.083% Inhalation Nebulization Solution (Proventil)Indicat ions:Moderate persistent asthma without complication Inhale 1 Vial via nebulizer every 4 hours as needed for Wheezing. Dx code J45.31 90 mL 3 08/16/2023 Active Fluticasone Propionate 50 MCG/ACT Nasal Suspension (Flonase)Indicatio ns:Nonallergic rhinitis Administer 2 Sprays into each nostril in the morning. 48 mL 3 08/16/2023 Active Warfarin Sodium 5 MG Oral Tablet (Coumadin)Indicati ons:Paroxysmal atrial fibrillation (HCC) TAKE 1 AND 1/2 TABLETS BY MOUTH DAILY OR DIRECTED BY COUMADIN CLINIC 135 Tablet 3 09/19/2023 Active Chlorthalidone 25 MG Oral Tablet (Hygroton)Indicati ons:Syncope, unspecified syncope type TAKE 1 TABLET BY MOUTH ON SUNDAY, SUNDAY, AND SUNDAY 39 Tablet 3 10/20/2023 Active Refresh 1.4-0.6 % Ophthalmic Solution (polyvinyl alcohol-povidone PF) Instill 1 Drop into both eyes in the morning and 1 Drop at noon and 1 Drop in the evening. Active Zoster Vac Recomb Adjuvanted 50 MCG/0.5ML Intramuscular Suspension Reconstituted (Shingrix)Indicati ons:Need for shingles vaccine Inject 0.5 mL into a large muscle now and repeat dose in 60 to 180 days 1 Each 1 11/15/2023 Active Atenolol 50 MG Oral Tablet (Tenormin)Indicati ons:Paroxysmal atrial fibrillation (HCC),Palpitations ,OVIEDO (dyspnea on exertion),Mitral regurgitation, myxomatous,Ascendi ng aorta dilation (HCC),HTN, goal below 140/90,Hyperlipide chiara LDL goal <130,History of DVT of lower extremity TAKE 1 TABLET BY MOUTH TWICE DAILY 180 Tablet 3 11/21/2023 Active Losartan Potassium 50 MG Oral Tablet (Cozaar)Indication s:HTN, goal below 140/90 TAKE 1 TABLET BY MOUTH DAILY 90 Tablet 3 01/17/2024 Active Potassium Chloride Paige ER 20 MEQ Oral Tablet Extended ReleaseIndications :Hypokalemia TAKE 1 TABLET BY MOUTH DAILY 90 Tablet 3 01/17/2024 Active Albuterol Sulfate HFA 108 (90 Base) MCG/ACT Inhalation Aerosol SolutionIndication s:Moderate persistent asthma without complication Inhale 2 Puffs by mouth in the morning and 2 Puffs at noon and 2 Puffs in the evening and 2 Puffs before bedtime. 56 g 3 03/20/2024 Active Fluticasone-Salmet andrei 250-50 MCG/ACT Inhalation Aerosol Powder Breath Activated (Advair Diskus) Inhale 1 Puff by mouth in the morning and 1 Puff before bedtime. 60 Each 12 03/20/2024 Active amLODIPine Besylate 2.5 MG Oral Tablet (Norvasc)Indicatio ns:HTN, goal below 140/90 TAKE 1 TABLET BY MOUTH DAILY 90 Tablet 3 05/09/2024 Active Ezetimibe 10 MG Oral Tablet (Zetia)Indications :Dyslipidemia, goal LDL below 100 TAKE 1 TABLET BY MOUTH IN THE MORNING 90 Tablet 3 05/26/2024 Active Rosuvastatin Calcium 20 MG Oral Tablet (Crestor)Indicatio ns:Hyperlipidemia LDL goal <130 TAKE 1 TABLET BY MOUTH 4 DAYS PER WEEK 52 Tablet 3 06/04/2024 Active Montelukast Sodium 10 MG Oral Tablet (Singulair)Indicat ions:Chronic rhinitis TAKE 1 TABLET BY MOUTH AT BEDTIME 90 Tablet 3 06/16/2024 Active Montelukast Sodium 10 MG Oral Tablet (Singulair)Indicat ions:Chronic rhinitis TAKE 1 TABLET BY MOUTH AT BEDTIME 90 Tablet 3 08/09/2023 06/16/20 24 Discontinued documented as of this encounter (statuses as of 06/16/2024) Active Problems Problem Noted Date Diagnosed Date [...] as of this encounter (statuses as of 06/16/2024) Resolved Problems Problem Noted Date Diagnosed Date [...] as of this encounter (statuses as of 06/16/2024) Immunizations Name Administration Dates Next Due COVID-19 mRNA, LNP-s, No Pre serve, 2-Dose Series (MicroEval) 09/29/2021,12/18/2020,11/27/2020 Covid-19, Mrna, Lnp-s, Pf, B ivalent, 30 Mcg, IM, 12 yrs and above (MicroEval) 09/06/2022 Pneumococcal Conjugate Vacc, 13 Valent (Prevnar) 12/14/2014 Pneumococcal Polysaccharide PPV23 (Pneumovax) 07/04/2016,12/14/2010 Season Influenza, Quad, PF, Adjuvanted, 65+ Yrs, IM (FLUAD) 08/11/2020 Seasonal Influenza, PF, 6 M & above, IM , (FluLaval or Fluzone) 07/03/2017 Seasonal Influenza, Quadriva lent Hd (Fluzone Hd) 07/12/2023,06/08/2022,07/11/2021 Seasonal Influenza, Quadriva lent, No Preserve, IM 07/04/2016 Seasonal Influenza, Trivalen t, (IIV3), with Preserv, (Fluzone) 06/17/2015,06/16/2014,10/02/2013,08/08 Seasonal Influenza, Trivalen t, Adjuvanted, 65+ YRS, PF, (Fluad) 07/07/2019 TDAP (age 10 and older)(Boostrix) 07/08/2019 TDAP, Age 7 and older, IM (Adacel) 03/26/2004 Varicella Zoster Vaccine (Adult) 10/02/2013 documented as of this encounter Social History Tobacco Use Types Packs/Day Years Used Date Smoking Tobacco: Never Smokeless Tobacco: Never Comments:no passive smoke ex posures Alcohol Use Standard Drinks/Week Comments Yes 0 [...] on file documented as of this encounter Miscellaneous Notes * Telephone Encounter - Curtis Frankel RP - 06/16/2024 3:32 PM EDTSigned Prescriptions: Disp Refills Montelukast Sodium 10 MG Oral Tablet (Sing*90 Tab*3 Sig: TAKE 1 TABLET BY MOUTH AT BEDTIMEAuthorizing Provider: CONCETTA BRENNER User: CURTIS FRANKEL Electronically signed by Curtis Frankel [facility] at 06/16/2024 3:32 PM EDT documented in this encounter Plan of Treatment Upcoming Encounters Date Type Department Care Team (Late st Contact Info) Description 06/25/2024 2:30 PM EDT [facility], [address] [place] [address] [facility] [address] [facility] [address] 09/19/2024 11:00 AM EST Office Visit Allergy/Immunology [facility] [address] [place] [address] Swapna Gillis PA-C 200 [facility] [place] [address] 11/19/2024 8:00 AM EST Office Visit General Internal Medicine [facility] 200 [facility] [place] [place] [address] Concetta Brenner MD 200 [facility] [place] [address] 03/18/2025 8:00 AM EDT Office Visit Cardiology, [facility] [address] [place] [address] Anita Pulido PA-C [address] [place] [address] Scheduled Procedures Name Priority Associated Diagnoses Date/Ti [...] as of this encounter Visit Diagnoses Diagnosis Chronic rhinitis documented in this encounter Care Teams Meter Installer And Remover Relationship Specialty Start Date End Date Concetta Brenner MD [address] [place] [address] PCP - General Internal Medicine 12/11/14 documented as of this encounter
--- OUTSIDE RECORDS SUMMARY | 2024-08-04 07:24 | External Medical Summary | Summary of Care ---
Author Name Unknown Organization [facility] Address [address] [facility] [place] [address] Phone [phone] Care Team Providers Care Machined Parts Quality Inspector Name Role Phone Flaquita Brenner MD Primary Care Provider + Reason for Visit * Reason Comments Dosage Adjustment In Person (Anticoag Cl inic) Encounter Details Date Type Department Care Team (Latest Contact Info) Description 06/25/2024 2:30 PM EDT Anticoagulation Pharmacy, [address] [address] [facility] [address] [place] [address] Anticoagulation management encounter*; History of DVT of lower extremity; Paroxysmal atrial fibrillation (HCC) Allergies Active Allergy Reactions Criticality Noted Date Comments Celecoxib 08/08/2016 Magnesium Citrate 03/18/2007 Prep;vomiting and diarrhea Allergic rx. Rosuvastatin Calcium Other (Please comment) 12/25/2014 Enalapril Maleate 07/12/2010 Dry cough Simvastatin 11/28/2007 Muscle aches documented as of this encounter (statuses as of 06/25/2024) Medications Medication Sig Dispensed Refills Start Date End Date Status ASPIRIN 81 MG PO TABSIndications:HTN, goal below 140/90 one tab by mouth [...] by mouth. 10/10/2017 Active Nebulizers (NEBULIZER COMPRESSOR) MISCIndications:Mild persistent asthma with acute exacerbation Inhale via nebulizer. Use as directed. Along with mask and tubing 1 Each 1 10/10/2017 Active Black Elderberry(Faulkner-Asim wer) 575 MG Oral Capsule Contains Zinc and Vitamin C - 2 tablets daily Active Famotidine 20 MG Oral Tablet (Pepcid)Indications: Gastroesophageal reflux disease, unspecified whether esophagitis present Take by mouth 1 Tablet before bedtime. Please take 30-60 minutes prior to bedtime.. 30 Tablet 5 11/15/2021 Active Fluticasone-Salmeter ol 250-50 MCG/DOSE Inhalation Aerosol Powder Breath Activated (Advair Diskus) Inhale by mouth 1 Puff in the morning AND 1 Puff before bedtime. Please hold until patient request. 180 Each 3 01/06/2022 Active Zoster Vac Recomb Adjuvanted 50 MCG/0.5ML Intramuscular Suspension Reconstituted (Shingrix)Indication s:Need for vaccination for zoster Inject 0.5 mL into a large muscle now and repeat dose in 60 to 180 days 1 Each 1 03/31/2022 Active Melatonin 10 MG Oral Tablet Take 1 Tablet by mouth at bedtime. Active Albuterol Sulfate (2.5 MG/3ML) 0.083% Inhalation Nebulization Solution (Proventil)Indicatio ns:Moderate persistent asthma without complication Inhale 1 Vial via nebulizer every 4 hours as needed for Wheezing. Dx code J45.31 90 mL 3 08/16/2023 Active Fluticasone Propionate 50 MCG/ACT Nasal Suspension (Flonase)Indications :Nonallergic rhinitis Administer 2 Sprays into each nostril in the morning. 48 mL 3 08/16/2023 Active Warfarin Sodium 5 MG Oral Tablet (Coumadin)Indication s:Paroxysmal atrial fibrillation (HCC) TAKE 1 AND 1/2 TABLETS BY MOUTH DAILY OR DIRECTED BY COUMADIN CLINIC 135 Tablet 3 09/19/2023 Active Chlorthalidone 25 MG Oral Tablet (Hygroton)Indication s:Syncope, unspecified syncope type TAKE 1 TABLET BY MOUTH ON SUNDAY, SUNDAY, AND SUNDAY 39 Tablet 3 10/20/2023 Active Refresh 1.4-0.6 % Ophthalmic Solution (polyvinyl alcohol-povidone PF) Instill 1 Drop into both eyes in the morning and 1 Drop at noon and 1 Drop in the evening. Active Zoster Vac Recomb Adjuvanted 50 MCG/0.5ML Intramuscular Suspension Reconstituted (Shingrix)Indication s:Need for shingles vaccine Inject 0.5 mL into a large muscle now and repeat dose in 60 to 180 days 1 Each 1 11/15/2023 Active Atenolol 50 MG Oral Tablet (Tenormin)Indication s:Paroxysmal atrial fibrillation (HCC),Palpitations,D OE (dyspnea on exertion),Mitral regurgitation, myxomatous,Ascending aorta dilation (HCC),HTN, goal below 140/90,Hyperlipidemi a LDL goal <130,History of DVT of lower extremity TAKE 1 TABLET BY MOUTH TWICE DAILY 180 Tablet 3 11/21/2023 Active Losartan Potassium 50 MG Oral Tablet (Cozaar)Indications: HTN, goal below 140/90 TAKE 1 TABLET BY MOUTH DAILY 90 Tablet 3 01/17/2024 Active Potassium Chloride Paige ER 20 MEQ Oral Tablet Extended ReleaseIndications:H ypokalemia TAKE 1 TABLET BY MOUTH DAILY 90 Tablet 3 01/17/2024 Active Albuterol Sulfate HFA 108 (90 Base) MCG/ACT Inhalation Aerosol SolutionIndications: Moderate persistent asthma without complication Inhale 2 Puffs by mouth in the morning and 2 Puffs at noon and 2 Puffs in the evening and 2 Puffs before bedtime. 56 g 3 03/20/2024 Active Fluticasone-Salmeter ol 250-50 MCG/ACT Inhalation Aerosol Powder Breath Activated (Advair Diskus) Inhale 1 Puff by mouth in the morning and 1 Puff before bedtime. 60 Each 12 03/20/2024 Active amLODIPine Besylate 2.5 MG Oral Tablet (Norvasc)Indications :HTN, goal below 140/90 TAKE 1 TABLET BY MOUTH DAILY 90 Tablet 3 05/09/2024 Active Ezetimibe 10 MG Oral Tablet (Zetia)Indications:D yslipidemia, goal LDL below 100 TAKE 1 TABLET BY MOUTH IN THE MORNING 90 Tablet 3 05/26/2024 Active Rosuvastatin Calcium 20 MG Oral Tablet (Crestor)Indications :Hyperlipidemia LDL goal <130 TAKE 1 TABLET BY MOUTH 4 DAYS PER WEEK 52 Tablet 3 06/04/2024 Active Montelukast Sodium 10 MG Oral Tablet (Singulair)Indicatio ns:Chronic rhinitis TAKE 1 TABLET BY MOUTH AT BEDTIME 90 Tablet 3 06/16/2024 Active documented as of this encounter (statuses as of 06/25/2024) Active Problems Problem Noted Date Diagnosed Date [...] as of this encounter (statuses as of 06/25/2024) Resolved Problems Problem Noted Date Diagnosed Date [...] as of this encounter (statuses as of 06/25/2024) Immunizations Name Administration Dates Next Due COVID-19 mRNA, LNP-s, No Pre serve, 2-Dose Series (Pfizer) 09/29/2021,12/18/2020,11/27/2020 Covid-19, Mrna, Lnp-s, Pf, B ivalent, [...] Frequency of Alcohol Consumption 2-4 times a mon 11/11/2019 Average Number of Drinks Not on file [...] on file documented as of this encounter Progress Notes * Deya Zuñiga RP - 06/25/2024 3:23 PM EDT Agree with plan as documented. I was present and in the exam room for the entirety of the visit. I spent a total of 10-19 minutes (exact time 10 mins) on the date of service in preparation, delivery, and documentation of the care provided to Mandi Tolentino excluding any time spent in the performance of separately billed services. Deya Zuñiga [facility] Clinical Pharmacist 06/25/2024, 3:23 PM * Nallely Houser, PHARM Student - 06/25/2024 2:36 PM EDT Medication Therapy Disease Management - Anticoagulation Patient: Mandi Tolentino | : 1945 Subjective Contacts Contact Date/Time Type Contact Phone/Fax 06/18/2024 05:10 AM EDT Vendor (Outgoing) TolentinoMendoza cooperce Stefany [phone] 06/22/2024 05:12 AM EDT Vendor (Outgoing) Mandi Tolentino [phone] 06/24/2024 05:16 AM EDT Vendor (Outgoing) Mandi Tolentino [phone] Patient-Reported Symptoms: Patient Findings Negatives: Signs/symptoms of thrombosis, Signs/symptoms of bleeding, Change in health, Change in alcohol use, Change in activity, Upcoming invasive procedure, Missed doses, Extra doses, Change in medications, Change in diet/appetite, Bruising Objective Current Warfarin Dose As of 06/25/2024 INR Result As of 06/25/2024 INR goal: 2.0-3.0 INR used for dosin.0 (06/25/2024) Assessment & Plan Warfarin Plan As of 06/25/2024 Full warfarin instructions: 7.5 mg every Sun, Anita; 5 mg all other days No change documented: Nallely Houser, DAE Student Next INR check: 08/06/2024 Repeat PT/INR in 6 week(s) Weekly dose: not changed Additional Dosing Information: DAE Kline Student Clinical Pharmacist 06/25/2024, 2:36 PM documented in this encounter Plan of Treatment Upcoming Encounters Date Type Department Care Team (Late st Contact Info) Description 08/06/2024 2:30 PM EST Anticoagulation Pharmacy, [address] [address] [facility] [place] [address] 09/19/2024 11:00 AM EST [facility] [address] [place] [address] Swapna Gillis PA-C [address] [place] [address] 11/19/2024 8:00 AM EST Office Visit General Internal Medicine [facility] [place] [address] [place] [address] Flaquita Brenner MD 200 [facility] [place] [address] 03/18/2025 8:00 AM EDT Office Visit Cardiology, [facility] [address] [place] [address] Anita Pulido, LOREN [address] [place] [address] Scheduled Orders Name Type Priority Associated Diagnoses Orde r Schedule INR FINGERSTICK, POINT OF CARE Point of Care Testing - Unsolicited Results STAT History of DVT of lower extremity Paroxysmal atrial fibrillation (HCC) Anticoagulation management encounter Every 2 Weeks for 26 Occurrences starting 06/25/2024 until 06/25/2025, 1 completed PT INR Lab Routine History of DVT of lower extremity Paroxysmal atrial fibrillation (HCC) Anticoagulation management encounter 26 Occurrences starting 06/25/2024 until 06/25/2025 Scheduled Procedures Name Priority Associated Diagnoses Date/Ti [...] Not on filedocumented as of this encounter Procedures Procedure Name Priority Date/Time Associated Diagnosis Comments INR FINGERSTICK, POINT OF CARE STAT 06/25/2024 2:41 PM EDT History of DVT of lower extremity Paroxysmal atrial fibrillation (HCC) Anticoagulation management encounter documented in this encounter Results * INR FINGERSTICK, POINT OF CARE (06/25/2024 2:41 PM EDT) Fingerstick INR 2.0 INR 2:42 PM EDT [facility] 56-01 Blood 06/25/2024 2:41 PM EDT 06/25/2024 2:42 PM EDT Narrative [facility] - 06/25/2024 2:42 PM EDT Therapeutic ranges for non-operative patients: Prophylaxsis/treatment of DVT: (Range:2.0-3.0) Treatment of pulmonary embolism:(Range:2.0-3.0) Prevention of systemic embolism from: -tissue heart valves -acute myocardial infarction -valvular heart disease -atrial fibrillation (Range: 2.0-3.0) Mechanical prosthetic valves: (Range: 2.5-3.5) Deya Zuñiga [facility] LAB POINT OF CARE TEST DOCKED DEVICE UNSOLICITED RESULTS [facility] [place] [address] documented in this encounter Visit Diagnoses Diagnosis Anticoagulation management encounter- Primary Encounter for therapeutic drug monitoring History of DVT of lower extremity Personal history of venous thrombosis and embolism Paroxysmal atrial fibrillation (HCC) Atrial fibrillation documented in this encounter Care Teams Machined Parts Quality Inspector Relationship Specialty Start Date End Date Flaquita Brenner MD [address] [place] [address] PCP - General Internal Medicine 12/11/14 documented as of this encounter"
--- OUTSIDE RECORDS SUMMARY | 2024-08-04 07:24 | External Medical Summary | Summary of Care ---
Author Name Unknown Organization [facility] Address [address] [facility] [place] [address] Phone [phone] Care Team Providers Care Securities Attorney Name Role Phone Flaquita Brenner MD Primary Care Provider + Reason for Visit * Reason Onset Date Comments Test Results 05/22/202405/31 Encounter Details Date Type Department Care Team (Late st Contact Info) Description 05/22/2024 Telephone General Internal Medicine [facility] 200 [place] [address] Flaquita Brenner MD 200 [place] [address] Test Results (05/31) Allergies Active Allergy Reactions Criticality Noted Date Comments Celecoxib 08/08/2016 Magnesium Citrate 03/18/2007 Prep;vomiting and diarrhea Allergic rx. Rosuvastatin Calcium Other (Please comment) 12/25/2014 Enalapril Maleate 07/12/2010 Dry cough Simvastatin 11/28/2007 Muscle aches documented as of this encounter (statuses as of 05/31/2024) Medications Medication Sig Dispensed Refills Start Date [...] 1 Tablet by mouth at bedtime. Active Montelukast Sodium 10 MG Oral Tablet (Singulair)Indicatio ns:Chronic rhinitis TAKE 1 TABLET BY MOUTH AT BEDTIME 90 Tablet 3 08/09/2023 Active Albuterol Sulfate (2.5 MG/3ML) 0.083% Inhalation [...] AND SUNDAY 39 Tablet 3 10/20/2023 Active Rosuvastatin Calcium 20 MG Oral Tablet (Crestor)Indications :Hyperlipidemia LDL goal <130 TAKE 1 TABLET BY MOUTH 4 DAYS PER WEEK 50 Tablet 3 10/25/2023 Active Refresh 1.4-0.6 % Ophthalmic Solution (polyvinyl [...] 1 TABLET BY MOUTH DAILY 90 Tablet 01/17/2024 Active Albuterol Sulfate HFA 108 (90 [...] MOUTH DAILY 90 Tablet 3 05/09/2024 Active documented as of this encounter (statuses as of 05/31/2024) Active Problems Problem Noted Date Diagnosed Date [...] as of this encounter (statuses as of 05/31/2024) Resolved Problems Problem Noted Date Diagnosed Date [...] as of this encounter (statuses as of 05/31/2024) Immunizations Name Administration Dates Next Due COVID-19 mRNA, LNP-s, No Pre serve, 2-Dose Series (Press-sense) 09/29/2021,12/18/2020,11/27/2020 Covid-19, Mrna, Lnp-s, Pf, B ivalent, [...] of Alcohol Consumption 2-4 times a mon th 11/11/2019 Average Number of Drinks Not on [...] encounter Miscellaneous Notes * Telephone Encounter - Tere Clay LPN - 05/31/2024 2:06 PM EDT Patient is aware and will comply. Patient does have order for PT, will start with pheonix. Thank you * Telephone Encounter - Tatiana Odonnell LPN - 05/27/2024 12:04 PM EDT Attempted to call patient, there was no answer, left voicemail. When patient returns call, ok for KM to relay message, please refer to below documentation. If needed, can transfer to dedicated nurse line. See other TE from 05/22 as well * Telephone Encounter - Ute Castro CMA - 05/22/2024 10:33 AM EDT LVM to return call, please transfer to designated nurse line * Telephone Encounter - Ute Castro CMA - 05/22/2024 10:33 AM EDT ----- Message from Flaquita Brenner MD sent at 05/19/2024 3:48 PM EDT ----- X-ray of the lumbar spine shows no significant or acute changes or any fracture. If patient has anyongoing or worsening symptoms then she can let us know and we can get MRI of the lower spine or refer her for physical therapy. documented in this encounter Plan of Treatment Upcoming Encounters Date Type Department Care Team (Late st Contact Info) Description 06/25/2024 2:30 PM EDT Anticoagulation Pharmacy, [place] [address] [facility] [address] [place], [facility] [address] [place] [address] 09/19/2024 11:00 AM EST Office Visit Allergy/Immunology [facility] [address] [facility] [address] [place] [address] Swapna Gillis PA-C 200 [facility] [place] [address] 11/19/2024 8:00 AM EST Office Visit General Internal Medicine [facility] [address] [place] [address] Flaquita Brenner MD 200 [facility] [place] [address] 03/18/2025 8:00 AM EDT Office Visit Cardiology, [facility] [address] [place] [address] Anita Pulido PA-C [address] [place] [address] Scheduled Procedures Name Priority Associated Diagnoses Date/Ti me COLONOSCOPY FLEXIBLE PROXIMA L DIAGNOSTIC Recall History of colonic polyps Health Maintenance Due Date Last Done Comments Zoster Vaccines (2 of 3) 11/27/2013 10/02/2013 Adult Wellness Visit 03/31/2023 03/31/2022 COVID-19 Vaccine (5 - 2023-24 season) 2023 09/06/2022, 09/29/2021, 12/18/2020, Additional history exists Influenza [...] Not on filedocumented as of this encounter Care Teams Securities Attorney Relationship Specialty Start Date End Date Flaquita Brenner MD [address] [place], [place] [address] PCP - General Internal Medicine 12/11/14 documented as of this encounter
--- OUTSIDE RECORDS SUMMARY | 2024-08-04 07:24 | External Medical Summary | Summary of Care ---
Author Name Unknown Organization [facility] Address [address] [facility] [place] [address] Phone [phone] Care Team Providers Care Science Technicians Name Role Phone Flaquita Brenner MD Primary Care Provider + Reason for Visit * Reason Comments eRx-Medication Refill Encounter Details Date Type Department Care Team (Late st Contact Info) Description 06/03/2024 Refill Cardiology, [facility] [address] [place] [address] Ella King PA-C [address] [place] [address] Hyperlipidemia LDL goal <130 Allergies Active Allergy Reactions Criticality Noted Date Comments Celecoxib 08/08/2016 Magnesium Citrate 03/18/2007 Prep;vomiting and diarrhea Allergic rx. Rosuvastatin Calcium Other (Please comment) 12/25/2014 Enalapril Maleate 07/12/2010 Dry cough Simvastatin 11/28/2007 Muscle aches documented as of this encounter (statuses as of 06/04/2024) Medications Medication Sig Dispensed Refills Start Date [...] PER WEEK 52 Tablet 3 06/04/2024 Active Rosuvastatin Calcium 20 MG Oral Tablet (Crestor)Indicatio ns:Hyperlipidemia LDL goal <130 TAKE 1 TABLET BY MOUTH 4 DAYS PER WEEK 50 Tablet 3 10/25/2023 06/04/20 24 Discontinued documented as of this encounter (statuses as of 06/04/2024) Active Problems Problem Noted Date Diagnosed Date [...] as of this encounter (statuses as of 06/04/2024) Resolved Problems Problem Noted Date Diagnosed Date [...] as of this encounter (statuses as of 06/04/2024) Immunizations Name Administration Dates Next Due COVID-19 [...] encounter Miscellaneous Notes * Telephone Encounter - Ella King PA-C - 06/04/2024 3:24 PM EDT Signed Prescriptions: Disp Refills Rosuvastatin Calcium 20 MG Oral Tablet (Cr*52 Tab*3 Sig: TAKE 1 TABLET BY MOUTH 4 DAYS PER WEEK Authorizing Provider: ELLA KING * Telephone Encounter - Jodi Levi CMA - 06/04/2024 3:10 PM EDTPending Prescriptions: Disp Refills Rosuvastatin Calcium 20 MG Oral Tablet 52 Tab*3 Sig: TAKE 1 TABLET BY MOUTH 4 DAYS PER WEEK * Telephone Encounter - Jodi Levi CMA - 06/04/2024 3:10 PM EDT Did you pend patient's preferred pharmacy and medication before forwarding?yes Pharmacy: [email or web address]- [place] Pending Prescriptions: Disp Refills Rosuvastatin Calcium 20 MG Oral Tablet (C*52 Tab*3 Sig: TAKE 1 TABLET BY MOUTH 4 DAYS PER WEEK Last Visit: 03/05/2024 (in office), 09/02/2020 (telemedicine) Next Visit: 03/18/2025 If no future appointments scheduled, and last appointment is greater than a year ago, please schedule patient for a follow-up appointment Last date the medication was ordered: 10-25-2023 Is this request for a controlled substance?No Urine Drug Screen:No results found for this or any previous visit. Patient Phone Numbers Labs: Lab Results Component Value Date/Time CREAT 0.9 05/15/2024 08:50 AM CREAT 0.8 08/19/2020 11:31 AM POTASSIUM 4.1 05/15/2024 08:50 AM POTASSIUM 4.4 08/19/2020 11:31 AM TSH 1.74 08/11/2020 04:05 PM LDL 78 12/11/2023 07:31 AM LDL 97 08/11/2020 04:05 PM LDL NOT APPLICABLE 08/11/2020 04:05 PM ALT 29 12/11/2023 07:31 AM ALT 34 08/11/2020 04:05 PM HGBA1C 5.8 (H) 05/15/2024 08:50 AM HGBA1C 5.7 (H) 08/11/2020 04:05 PM documented in this encounter Plan of Treatment Upcoming Encounters Date Type Department Care Team (Late st Contact Info) Description 06/25/2024 2:30 PM EDT [facility], [place] [address] [facility] [id number] [facility] [address] [facility] [address] 09/19/2024 11:00 AM EST Office Visit Allergy/Immunology [facility] [address] [facility] [address] Swapna Gillis PA-C [address] [facility] [address] 11/19/2024 8:00 AM EST Office Visit General Internal Medicine [facility] [address] [facility] [address] Flaquita Brenner MD [address] [facility] [place] [address] 03/18/2025 8:00 AM EDT Office Visit Cardiology, [facility] [address] [place] [address] Ella King PA-C [address] [place] [address] Scheduled Procedures Name Priority Associated Diagnoses Date/Ti [...] as of this encounter Visit Diagnoses Diagnosis Hyperlipidemia LDL goal <130 Other and unspecified hyperlipidemia documented in this encounter Care Teams Science Technicians Relationship Specialty Start Date End Date Flaquita Brenner MD [address] [place] [address] PCP - General Internal Medicine 12/11/14 documented as of this encounter
--- OUTSIDE RECORDS SUMMARY | 2024-08-04 07:24 | External Medical Summary | Summary of Care ---
Author Name Unknown Organization [facility] Address [address] [facility] [address] Phone [phone] Care Team Providers Care Clammer Name Role Phone Flaquita Brenner MD Primary Care Provider + Reason for Visit * Reason Comments Cough Cold Symptoms Encounter Details Date Type Department Care Team (Latest Contact Info) Description 07/27/2024 1:45 PM EDT Convenient Care Visit [facility] [address] [place] [address] Lianna Decker CRNP [address] [place] [address] Rhinosinusitis*; Moderate persistent asthma without complication; Non-recurrent [...] mRNA, LNP-s, No Pre serve, 2-Dose Series ([employer]) 09/29/2021,12/18/2020,11/27/2020 Covid-19, Mrna, Lnp-s, Pf, B ivalent, [...] year old female that presents to the [facility] with coughing, lack of energy and [...] Osteoporosis Tuberculin test reaction 03/01/01 evaluated at [facility] Dept. CXR negative Patient Active [...] Description 08/06/2024 2:30 PM EST Anticoagulation Pharmacy, [place] [address] [place] [address] [facility] [address] [place] [address] 09/19/2024 11:00 AM EST Office Visit Allergy/Immunology [facility] [address] [place] [address] Swapna Gillis PA-C [address] [facility] [place] [address] 11/19/2024 8:00 AM EST Office Visit General Internal Medicine [facility] [address] [place] [address] Flaquita Brenner MD [address] [place] [address] 03/18/2025 8:00 AM EDT Office Visit Cardiology, [facility] [place] [address] Anita Pulido PAMorrisC [address] [place] [address] Scheduled Procedures Name Priority Associated Diagnoses Date/Ti [...] ears documented in this encounter Care Teams Clammer Relationship Specialty Start Date End Date Flaquita Brenner MD [address] [place] [address] PCP - General Internal Medicine 12/11/14 documented as of this encounter
--- OUTSIDE RECORDS SUMMARY | 2024-08-04 07:24 | External Medical Summary ---
Author Name Unknown Address Unknown Organization : Laboratory Report Ordering Provider Test Date Status YARELIPAULINEDonnell 06/25/2024 14:41:02 Final Therapeutic ranges for non-o perative patients:
Prophylaxsis/treatment of DVT: (Range:2.0-3.0)
Treatment of pulmonary embolism:(Range:2.0-3.0)
Prevention of systemic embolism from:
-tissue heart valves
-acute myocardial infarction
-valvular heart disease
-atrial fibrillation
(Range: 2.0-3.0)
Mechanical prosthetic valves: (Range: 2.5-3.5) Observation Date Value Abnormality Reference (Units ) Status INR in Capillary blood by Coagulation assay 06/25/2024 14:41:02 2.0 (INR) Final Performing Location
--- OUTSIDE RECORDS SUMMARY | 2024-08-04 07:25 | External Medical Summary | Summary of Care ---
Author Name Unknown Organization [facility] Address [address] [facility] [place] [address] Phone [phone] Care Team Providers Care Director Of Distribution Name Role Phone Flaquita Brenner MD Primary Care Provider + Reason for Visit * Reason Comments eRx-Medication Refill Encounter Details Date Type Department Care Team (Late st Contact Info) Description 05/08/2024 Refill Cardiology, [facility] [address] [place] [address] Ella King PA-C [address] [place] [address] HTN, goal below 140/90 Allergies Active Allergy Reactions Criticality Noted Date Comments Celecoxib 08/08/2016 Magnesium Citrate 03/18/2007 Prep;vomiting and diarrhea Allergic rx. Rosuvastatin Calcium Other (Please comment) 12/25/2014 Enalapril Maleate 07/12/2010 Dry cough Simvastatin 11/28/2007 Muscle aches documented as of this encounter (statuses as of 05/09/2024) Medications Medication Sig Dispensed Refills Start Date [...] 1 Tablet by mouth at bedtime. Active Ezetimibe 10 MG Oral Tablet (Zetia)Indications :Dyslipidemia, goal LDL below 100 Take 1 Tablet by mouth in the morning. 90 Tablet 3 04/17/2023 Active Montelukast Sodium 10 MG Oral Tablet [...] MOUTH DAILY 90 Tablet 3 05/09/2024 Active amLODIPine Besylate 2.5 MG Oral Tablet (Norvasc)Indicatio ns:HTN, goal below 140/90 TAKE 1 TABLET BY MOUTH DAILY 90 Tablet 3 06/06/2023 05/09/20 24 Discontinued documented as of this encounter (statuses as of 05/09/2024) Active Problems Problem Noted Date Diagnosed Date [...] as of this encounter (statuses as of 05/09/2024) Resolved Problems Problem Noted Date Diagnosed Date [...] determined 12/08/2005 10/02/2013 BENIGN HYPERTENSION 03/07/2004 08/06/20 Overview: Modified per HTN Taxonomy. Mitral regurgitation, myxomatous 03/07/2004 09/29/2022 Osteoporosis 05/07/2018 documented as of this encounter (statuses as of 05/09/2024) Immunizations Name Administration Dates Next Due COVID-19 [...] lent, No Preserve, IM 07/04/2016 Seasonal Influenza, Split, I IV3, With Preserve, Inj 06/17/2015,06/16/2014,10/02/2013,08/08 Seasonal Influenza, Trivalen t, Adjuvanted, 65+ yrs 07/07/2019 TDAP (age 10 and older)(Boostrix) 07/08/2019 [...] Telephone Encounter - Ella King PA-C - 05/09/2024 2:15 PM EDT Signed Prescriptions: Disp Refills amLODIPine Besylate 2.5 MG Oral Tablet (No*90 Tab*3 Sig: TAKE 1 TABLET BY MOUTH DAILY Authorizing Provider: ELLA KING * Telephone Encounter - Jodi Levi CMA - 05/09/2024 8:30 AM EDTPending Prescriptions: Disp Refills amLODIPine Besylate 2.5 MG Oral Tablet 90 Tab*3 Sig: TAKE 1 TABLET BY MOUTH DAILY * Telephone Encounter - Jodi Levi CMA - 05/09/2024 8:30 AM EDT Did you pend patient's preferred pharmacy and medication before forwarding?yes Pharmacy: [facility] [place] Pending Prescriptions: Disp Refills amLODIPine Besylate 2.5 MG Oral Tablet (N*90 Tab*3 Sig: TAKE 1 TABLET BY MOUTH DAILY Last Visit: 03/05/2024 (in office), 09/02/2020 (telemedicine) Next Visit: 03/18/2025 If no future appointments scheduled, and last appointment is greater than a year ago, please schedule patient for a follow-up appointment Last date the medication was ordered: 06-06-2023 Is this request for a controlled substance?No Urine Drug Screen:No results found for this or any previous visit. Patient Phone Numbers Labs: Lab Results Component Value Date/Time CREAT 0.8 12/11/2023 07:31 AM CREAT 0.8 08/19/2020 11:31 AM POTASSIUM 3.9 12/11/2023 07:31 AM POTASSIUM 4.4 08/19/2020 11:31 AM TSH 1.74 08/11/2020 04:05 PM LDLCALC 78 12/11/2023 07:31 AM LDLCALC 97 08/11/2020 04:05 PM LDLDIRECT 93 12/12/2022 10:43 AM LDLDIRECT NOT APPLICABLE 08/11/2020 04:05 PM LDLDIRECT 81 07/07/2019 12:18 PM ALT 29 12/11/2023 07:31 AM ALT 34 08/11/2020 04:05 PM HGBA1C 5.6 12/12/2022 10:43 AM HGBA1C 5.7 (H) 08/11/2020 04:05 PM documented in this encounter Plan of Treatment Upcoming Encounters Date Type Department Care Team (Late st Contact Info) Description 05/15/2024 8:20 AM EDT Office Visit General Internal Medicine [facility] [address] [facility] [place] [address] Flaquita Brenner MD [address] [facility] [place] [address] 05/16/2024 6:00 AM EDT Anticoagulation Pharmacy, [place] [address] [place] [address] [facility] [address] [place] [address] 09/19/2024 11:00 AM EST Office Visit Allergy/Immunology [facility] [address] [facility] [place] [address] Swapna Gillis PA-C [address] [facility] [place] [address] 03/18/2025 8:00 AM EDT Office Visit Cardiology, [facility] [address] [facility] [place] [address] Ella King PA-C [address] [place] [address] Scheduled Procedures Name Priority Associated Diagnoses Date/Ti me COLONOSCOPY FLEXIBLE PROXIMA L DIAGNOSTIC Recall History of colonic polyps Health Maintenance Due Date Last Done Comments Zoster Vaccines (2 of 3) 11/27/2013 10/02/2013 Adult Wellness Visit 03/31/2023 03/31/2022 COVID-19 Vaccine ( season) 2023 09/06/2022, 09/29/2021, 12/18/2020, Additional history exists Influenza Vaccine (FLU shot) (#1) 2024 07/12/2023, 06/08/2022, 07/11/2021, Additional history exists Depression Screening 11/15/2024 11/15/2023 GFR 12/10/2024 12/11/2023, 11/29, 03/23/2022, Additional history exists Colonoscopy 04/13/2025 04/13/2020, 07/02, 07/24/2014, Additional history exists Albumin/Creatinine Ratio 06/08/2025 022, 06/16/2014, 07/14/2009, Additional history exists DXA Scan 02/18/2027 02/19/2024, 01/30, 03/22/2020, Additional history exists DTaP,Tdap,and Td Vaccines (3 - Td or Tdap) 07/08/2029 [...] as of this encounter Visit Diagnoses Diagnosis HTN, goal below 140/90 Unspecified essential hypertension documented in this encounter Care Teams Director Of Distribution Relationship Specialty Start Date End Date Flaquita Brenner MD [address] [place] [address] PCP - General Internal Medicine 12/11/14 documented as of this encounter
--- OUTSIDE RECORDS SUMMARY | 2024-08-04 07:25 | External Medical Summary | Summary of Care ---
Author Name Unknown Organization [facility] Address [address] [facility] [place] [address] Phone [phone] Care Team Providers Care Technical Healthcare Consultant Name Role Phone Flaquita Brenner MD Primary Care Provider + Reason for Visit * Reason Comments Outpatient Testing Encounter Details Date Type Department Care Team (Late st Contact Info) Description 05/15/2024 9:00 AM EDT Laboratory Laboratory [facility] [place] [address] [place] [address] [place], [address] [place] [address] HTN, goal below 130/80; Encounter for screening examination for impaired glucose regulation and diabetes mellitus; Paroxysmal atrial fibrillation (HCC); Anticoagulation management encounter; [facility] current use of anticoagulant therapy Allergies Active Allergy Reactions Criticality Noted Date Comments Celecoxib 08/08/2016 Magnesium Citrate 03/18/2007 Prep;vomiting and diarrhea Allergic rx. Rosuvastatin Calcium Other (Please comment) 12/25/2014 Enalapril Maleate 07/12/2010 Dry cough Simvastatin 11/28/2007 Muscle aches documented as of this encounter (statuses as of 05/15/2024) Medications Medication Sig Dispensed Refills Start Date [...] bedtime. Active Ezetimibe 10 MG Oral Tablet (Zetia)Indications:D yslipidemia, goal LDL below 100 Take 1 Tablet [...] as of this encounter (statuses as of 05/15/2024) Active Problems Problem Noted Date Diagnosed Date [...] as of this encounter (statuses as of 05/15/2024) Resolved Problems Problem Noted Date Diagnosed Date [...] as of this encounter (statuses as of 05/15/2024) Immunizations Name Administration Dates Next Due COVID-19 mRNA, LNP-s, No Pre serve, 2-Dose Series (Pfizer) 09/29/2021,12/18/2020,11/27/2020 Covid-19, Mrna, Lnp-s, Pf, B ivalent, 30 Mcg, IM, 12 yrs and above (Pfizer) 09/06/2022 PPD 03/06/2001 Pneumococcal Conjugate Vacc, 13 Valent (Prevnar) 12/14/2014 [...] on file documented as of this encounter Plan of Treatment Upcoming Encounters Date Type Department Care Team (Late st Contact Info) Description 05/15/2024 9:10 AM EDT Imaging Radiology [facility] [place] [address] [place] [address] Arrived 05/16/2024 6:00 AM EDT [place] [address] [place] [address] [facility] [address] [place] [address] 09/19/2024 11:00 AM EST Office Visit Allergy/Immunology [facility] [place] [address] [place] [address] Swapna Gillis PA-C [address] [place] [address] 11/19/2024 8:00 AM EST Office Visit General Internal Medicine [facility] [place] [address] [place] [address] Flaquita Brenner MD [address] [place] [address] 03/18/2025 8:00 AM EDT Office Visit Cardiology, [facility] [address] [place] [address] Ainta Pulido PA-C [address] [place] [address] Pending Results Name Type Priority Associated Diagnoses Date /Time BASIC METABOLIC PANEL Lab Routine HTN, goal below 130/80 05/15/2024 8:50 AM EDT HEMOGLOBIN A1C Lab Routine Encounter for screening examination for impaired glucose regulation and diabetes mellitus 05/15/2024 8:50 AM EDT PT INR Lab Routine Paroxysmal atrial fibrillation (HCC) Anticoagulation management encounter [facility] current use of anticoagulant therapy 05/15/2024 8:50 AM EDT Scheduled Procedures Name Priority Associated Diagnoses Date/Ti [...] encounter Visit Diagnoses Diagnosis HTN, goal below 130/80 Unspecified essential hypertension Encounter for screening examination for impaired glucose regulation and diabetes mellitus Paroxysmal atrial fibrillation (HCC) Atrial fibrillation Anticoagulation management encounter Encounter for therapeutic drug monitoring [facility] current use of anticoagulant therapy documented in this encounter Care Teams Technical Healthcare Consultant Relationship Specialty Start Date End Date Flaquita Brenner MD [address] [place] [address] PCP - General Internal Medicine 12/11/14 documented as of this encounter
--- OUTSIDE RECORDS SUMMARY | 2024-08-04 07:25 | External Medical Summary ---
Author Name Unknown Address Unknown Organization [facility] [place] [address] Laboratory Report Ordering Provider Test Date Status PATITO DOWNS 05/15/2024 08:50:24 Final Warfarin Therapy
INR: 2 .0-3.0 conventional anticoagulation
INR: 2.5- 3.5 high intensity anticoagulation Observation Date Value Abnormality Reference (Units ) Status PT 05/15/2024 08:50:24 26.6 Above high normal 11 .6-15.2 (seconds) Final INR 05/15/2024 08:50:24 2.4 Above high normal 0. 8-1.2 Final Performing Location [facility] [place] [address]
--- OUTSIDE RECORDS SUMMARY | 2024-08-04 07:25 | External Medical Summary | Summary of Care ---
Author Name Unknown Organization [facility] Address [address] [facility] [place] [address] Phone [phone] Care Team Providers Care Euclid Operator Name Role Phone Flaquita Brenner MD Primary Care Provider + Reason for Referral * Evaluate & Treat - Unlimited Visits (Within 10 days (routine)) - Authorized Specialty Diagnoses / Procedures Referred By Contac t Referred To Contact Physical Therapy / Physical Medicine And Rehab Diagnoses Bilateral sciatica Flaquita Brenner MD [address] [facility] [place] [id number] Referral ID Status Reason Start Date Expiration Date Visits Requested Visits Authorized [id number] Authorized Specialty Services Required 05/15/[phone] Question Answer Referral Priority Within 10 days (routine) Where should this appointment be scheduled? [facility] Comments Please eval for lower backpain and radiation to left more than right. Thanks. Reason for Visit * Reason Comments Follow Up Sciatica pain-has be en seeing chiropractor Encounter Details Date Type Department Care Team (Late st Contact Info) Description 05/15/2024 8:20 AM EDT Office Visit General Internal Medicine State Jacqueline Lobo [address] [place] [id number] Flaquita Brenner MD [address] [place] [id number] Bilateral sciatica*; HTN, goal below 130/80; Moderate persistent asthma without complication; Dyslipidemia, goal LDL below 100; Paroxysmal atrial fibrillation (HCC); History of DVT of lower extremity; Anticoagulation management encounter; History of uterine cancer; Encounter for screening examination for impaired glucose regulation and diabetes mellitus Allergies Active Allergy Reactions Criticality Noted Date [...] mRNA, LNP-s, No Pre serve, 2-Dose Series (Antuit) 09/29/2021,12/18/2020,11/27/2020 Covid-19, Mrna, Lnp-s, Pf, B ivalent, 30 Mcg, IM, 12 yrs and above (Antuit) 09/06/2022 Pneumococcal Conjugate Vacc, 13 Valent (Prevnar) [...] Sign Reading Time Taken Comments Blood Pressure 118/80 05/15/2024 8:17 AM EDT Pulse 58 05/15/2024 8:17 AM EDT Temperature 36.1 C (97 F) 05/15/2024 8:17 AM EDT Respiratory Rate 16 05/15/2024 8:17 AM EDT Oxygen Saturation - - Inhaled Oxygen Concentration - - Weight 94.7 kg (208 lb 11.2 oz) 05/15/2024 8:17 AM EDT Height 172.7 cm (5' 8") 05/15/2024 8:17 AM EDT Body Mass Index 31.73 05/15/2024 8:17 AM EDT documented in this encounter Progress Notes * Flaquita Brenner MD - 05/15/2024 8:27 AM EDT HPI: Mandi Tolentino is a 78 year old female with a history of hypertension, hyperlipidemia, history of uterine cancer in the past, history of osteoporosis, paroxysmal atrial fibrillation for which she has been taking warfarin, follows with MTM, who presents with: Chief Complaint Patient presents with Follow Up Sciatica pain-has been seeing chiropractor Patient is here for the recheck. Chart reviewed with the patient including current meds, last labs and HM. No acute event since we saw patient last time including no recent fall or injuries. Patient states she has been having worsening lower back pain with radiation to the lower extremity.Have been seeing chiropractor at [facility]. Last visit was yesterday.No imaging done recently. Had epidurals in past. Discussed PT. Will let us know. Denies any chestpain/sob/palpitation/swealling in the legs. Denies any cough/sob/wheezing/chestpain. No swealling in legs. No bleeding from any site. Patient Active Problem List Diagnosis DIASTOLIC DYSFUNCTION [...] Anticoagulation management encounter HTN, goal below 140/90 Current Outpatient Medications Medication Sig Dispense Refill ASPIRIN 81 MG PO TABS one tab by mouth twice a day 0 0 MULTIVITAMINS PO TABS 1 TABLET DAILY OMEGA-3 FISH OIL 1000 MG PO CAPS 1 capsule by mouth daily VITAMIN E 400 UNIT PO CAPS 1 capsule by mouth twice daily VITAMIN C 500 MG PO CHEW daily B Complex Vitamins (VITAMIN B COMPLEX) Tablet Take 1 Tablet by mouth in the morning. Misc Natural Products (GLUCOSAMINE CHONDROITIN ADV) Tablet Take 1 Tablet by mouth. Nebulizers (NEBULIZER COMPRESSOR) [facility] Inhale via nebulizer. Use as directed. Along with mask and tubing 1 Each 1 Black Elderberry(Faulkenr-Flower) 575 MG Oral Capsule Contains Zinc and Vitamin C - 2 tablets daily Famotidine 20 MG Oral Tablet (Pepcid) Take by mouth 1 Tablet before bedtime. Please take 30-60 minutes prior to bedtime.. 30 Tablet 5 Fluticasone-Salmeterol 250-50 MCG/DOSE Inhalation Aerosol Powder Breath Activated (Advair Diskus) Inhale by mouth 1 Puff in the morning AND 1 Puff before bedtime. Please hold until patient request. 180 Each 3 Melatonin 10 MG Oral Tablet Take 1 Tablet by mouth at bedtime. Ezetimibe 10 MG Oral Tablet (Zetia) Take 1 Tablet by mouth in the morning. 90 Tablet 3 Montelukast Sodium 10 MG Oral Tablet (Singulair) TAKE 1 TABLET BY MOUTH AT BEDTIME 90 Tablet 3 Albuterol Sulfate (2.5 MG/3ML) 0.083% Inhalation Nebulization Solution (Proventil) Inhale 1 Vial via nebulizer every 4 hours as needed for Wheezing. Dx code J45.31 90 mL 3 Fluticasone Propionate 50 MCG/ACT Nasal Suspension (Flonase) Administer 2 Sprays into each nostril in the morning. 48 mL 3 Warfarin Sodium 5 MG Oral Tablet (Coumadin) TAKE 1 AND 1/2 TABLETS BY MOUTH DAILY [facility] Tablet 3 Chlorthalidone 25 MG Oral Tablet (Hygroton) TAKE 1 TABLET BY MOUTH ON SUNDAY, SUNDAY, AND [id number] Tablet 3 Rosuvastatin Calcium 20 MG Oral Tablet (Crestor) TAKE 1 TABLET BY MOUTH 4 DAYS PER WEEK 50 Tablet 3 Refresh 1.4-0.6 % Ophthalmic Solution (polyvinyl alcohol-povidone PF) Instill 1 Drop into both eyesin the morning and 1 Drop at noon and 1 Drop in the evening. Atenolol 50 MG Oral Tablet (Tenormin) TAKE 1 TABLET BY MOUTH TWICE DAILY 180 Tablet 3 Losartan Potassium 50 MG Oral Tablet (Cozaar) TAKE 1 TABLET BY MOUTH DAILY 90 Tablet 3 Potassium Chloride Paige ER 20 MEQ Oral Tablet Extended Release TAKE 1 TABLET BY MOUTH DAILY 90 Tablet 3 Albuterol Sulfate HFA 108 (90 Base) MCG/ACT Inhalation Aerosol Solution Inhale 2 Puffs by mouth in the morning and 2 Puffs at noon and 2 Puffs in the evening and 2 Puffs before bedtime. 56 g 3 Fluticasone-Salmeterol 250-50 MCG/ACT Inhalation Aerosol Powder Breath Activated (Advair Diskus) Inhale 1 Puff by mouth in the morning and 1 Puff before bedtime. 60 Each 12 amLODIPine Besylate 2.5 MG Oral Tablet (Norvasc) TAKE 1 TABLET BY MOUTH DAILY 90 Tablet 3 Calcium Carbonate 600 MG Oral Tablet Take 1 Tablet by mouth every evening. (Patient not taking: Reported on 05/15/2024) Zoster Vac Recomb Adjuvanted 50 MCG/0.5ML Intramuscular Suspension Reconstituted (Shingrix) Inject 0.5 mL into a large muscle now and repeat dose in 60 to 180 days 1 Each 1 Zoster Vac Recomb Adjuvanted 50 MCG/0.5ML Intramuscular Suspension Reconstituted (Shingrix) Inject 0.5 mL into a large muscle now and repeat dose in 60 to 180 days 1 Each 1 No current facility-administered medications for this visit. The patient's medication list was reviewed and updated as needed. Review of patient's allergies indicates: Allergen Reactions Celebrex [Celecoxib] Magnesium Citrate Prep;vomiting and diarrhea Allergic rx. 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 Dept. 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 Employer: [employer] Comment: [employer] [place] Tobacco Use Smoking status: Never Smokeless tobacco: Never Tobacco comments: no passive smoke exposures Vaping Use Vaping status: Never Used Substance and Sexual Activity Alcohol use: Yes Comment: once every couple weeks Drug use: No Social History Narrative [employer] INFORMATIONENVIRONMENTAL HISTORY:Type of Home: Mobile HomeType of Heating System: Oil and Forced airAir Conditioning: Yes CentralBasement: None, storage SpaceHome have cockroaches: NoIrritants in the home: NonePatient's bedroom location: Floor: first Type of coral: CarpetingB eds: Number: 1 Type of beds: Mattress and FutonPillows: Number: 2 Type of pillows: Synthetic (hypoallergenic, polyester)Bedroom contains: Minimal itemsPets: noneLives on a farm: NoWorks in a residential; cat exposures at work.Entered by: Christiano Baker MD02/29/2012 No pets No mold Social Determinants of Health Food Insecurity: No Food Insecurity (03/31/2022) Hunger Vital Sign Worried About Running Out of Food in the Last Year: Never true Ran Out of Food in the Last Year: Never true Social Connections Family History Problem Relation Name Age of Onset Heart attack Mother age 76 Emphysema Father in his 70s Diabetes Grandmother (Maternal) Heart Disorder Grandmother (Maternal) Stroke Grandfather (Maternal) All system negative except as per hpi. OBJECTIVE: BP 118/80 | Pulse 58 | Temp 36.1 C (97 F) | Resp 16 | Ht 1.727 m (5' 8") | Wt 94.7 kg (208 lb 11.2 oz) | BMI 31.73 kg/m | BSA 2.13 m PHYSICAL EXAM: HEENT: PERRLA, EOMI, anicteric sclera, b/l tympanic membrane is pearly white, no erythema, no pharyngeal erythema, no lymphadenopathy, neck supple CVS: RRR, no murmurs, rubs or gallops, s1 s 2normal. RESP: clear to auscultation, no wheezing or crackles ABD: soft, NT/ND EXT: no edema, cyanosis, peripheral pulses palpable bilaterally No large joint swelling, no redness, range of motion normal. Skin normal. Gait normal. Mood stable No focal weakness ASSESSMENT AND PLAN: Bilateral sciatica (Primary) - XR L SPINE AP AND LATERAL - PHYSICAL THERAPY REFERRAL OP HTN, goal below 130/80 Well controlled on current meds. Moderate persistent asthma without complication Stable on current inahler. Dyslipidemia, goal LDL below 100 On crestor, zetia. Paroxysmal atrial fibrillation (HCC) Rate controlled. On metoprolol, warferin. History of DVT of lower extremity Anticoagulation management encounter History of uterine cancer Flaquita Brenner MD documented in this encounter Nursing Notes * Nemo Swan LPN - 05/15/2024 8:16 AM EDT The patient has been properly identified by confirmation of name and date of . Chief Complaint Patient presents with Follow Up Sciatica pain-has been seeing chiropractor documented in this encounter Plan of Treatment Upcoming Encounters Date Type Department Care Team (Latest Contact Info) Description 05/15/2024 9:00 AM EDT Laboratory Laboratory [facility] State Jacqueline Saeed [facility] [place] [place] [id number] [place] [address] [place] [address] HTN, goal below 130/80; Encounter for screening examination for impaired glucose regulation and diabetes mellitus; Paroxysmal atrial fibrillation (HCC); Anticoagulation management encounter; 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 05/15/2024 9:10 AM EDT Imaging Radiology [facility] State Jacqueline Saeed [facility] [place] [address] [address] Arrived 05/16/2024 6:00 AM EDT Anticoagulation Pharmacy, [address] [address] 09/19/2024 11:00 AM EST [facility] [place] [address] [address] Swapna Gillis PA-C [address] [place] [address] 11/19/2024 8:00 AM EST Office Visit General Internal Medicine Scenery [place] Jacqueline Saeed [address] [place], [place] [address] Flaquita Brenner MD [address] [place] [address] 03/18/2025 8:00 AM EDT Office Visit Cardiology, [facility] [address] [place] [address] Anita Pulido PA-C [address] [place] [address] Pending Results Name Type Priority Associated Diagnoses Date /Time XR L SPINE AP AND LATERAL Medical Imaging Routine Bilateral sciatica 05/15/2024 8:49 AM EDT BASIC METABOLIC PANEL Lab Routine HTN, goal below 130/80 05/15/2024 8:50 AM EDT HEMOGLOBIN A1C Lab Routine Encounter for screening examination for impaired glucose regulation and diabetes mellitus 05/15/2024 8:50 AM EDT Scheduled Orders Name Type Priority Associated Diagnoses Orde r Schedule BASIC METABOLIC PANEL Lab Routine HTN, goal below 130/80 Expected: 05/15/2024 (Approximate), Expires: 05/15/2025 HEMOGLOBIN A1C Lab Routine Encounter for screening examination for impaired glucose regulation and diabetes mellitus Expected: 05/15/2024 (Approximate), Expires: 05/15/2025 Scheduled Procedures Name Priority Associated Diagnoses Date/Ti me COLONOSCOPY FLEXIBLE PROXIMA L DIAGNOSTIC Recall History of colonic polyps Scheduled Referrals Name Type Priority Associated Diagnoses Orde r Schedule PHYSICAL THERAPY REFERRAL OP Referral Within 10 days (routine) Bilateral sciatica Ordered: 05/15/2024 Health Maintenance Due Date Last Done Comments [...] as of this encounter Visit Diagnoses Diagnosis Bilateral sciatica- Primary Sciatica HTN, goal below 130/80 Unspecified essential hypertension Moderate persistent asthma without complication Unspecified asthma Dyslipidemia, goal LDL below 100 Other and unspecified hyperlipidemia Paroxysmal atrial fibrillation (HCC) Atrial fibrillation History of DVT of lower extremity Personal history of venous thrombosis and embolism Anticoagulation management encounter Encounter for therapeutic drug monitoring History of uterine cancer Personal history of malignant neoplasm of other parts of uterus Encounter for screening examination for impaired glucose regulation and diabetes mellitus HTN, goal below 130/80 Unspecified essential hypertension Encounter for screening examination for impaired glucose regulation and diabetes mellitus Paroxysmal atrial fibrillation (HCC) Atrial fibrillation Anticoagulation management encounter Encounter for therapeutic drug monitoring 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
--- OUTSIDE RECORDS SUMMARY | 2024-08-04 07:25 | External Medical Summary ---
Author Name Unknown Address Unknown Organization : Laboratory Report Ordering Provider Test Date Status PATITO DOWNS 04/02/2024 14:50:59 Final Therapeutic ranges for non-o perative patients:
Prophylaxsis/treatment of DVT: (Range:2.0-3.0)
Treatment of pulmonary embolism:(Range:2.0-3.0)
Prevention of systemic embolism from:
-tissue heart valves
-acute myocardial infarction
-valvular heart disease
-atrial fibrillation
(Range: 2.0-3.0)
Mechanical prosthetic valves: (Range: 2.5-3.5) Observation Date Value Abnormality Reference (Units ) Status INR in Capillary blood by Coagulation assay 04/02/2024 14:50:59 3.0 (INR) Final Performing Location
--- OUTSIDE RECORDS SUMMARY | 2024-08-04 07:25 | External Medical Summary | Summary of Care ---
Author Name Unknown Organization [facility] Address [address] [facility] [place] [address] Phone [phone] Care Team Providers Care Efficiency Engineer Name Role Phone Flaquita Brenner MD Primary Care Provider + Reason for Visit * Reason Comments Allergy Return Encounter Details Date Type Department Care Team (Late st Contact Info) Description 03/20/2024 10:30 AM EDT Office Visit Allergy/Immunology [facility] [place] [address] [facility] [place] [address] Swapna Gillis PA-C [address] [facility] [place] [address] Nonallergic rhinitis*; Moderate persistent asthma without complication; Postnasal drip Allergies Active Allergy Reactions Criticality Noted Date Comments Celecoxib 08/08/2016 Magnesium Citrate 03/18/2007 Prep;vomiting and diarrhea Allergic rx. Rosuvastatin Calcium Other (Please comment) 12/25/2014 Enalapril Maleate 07/12/2010 Dry cough Simvastatin 11/28/2007 Muscle aches documented as of this encounter (statuses as of 03/21/2024) Medications Medication Sig Dispensed Refills Start Date [...] to bedtime.. 30 Tablet 5 11/15/2021 Active Fluticasone-Salmete rol 250-50 MCG/DOSE Inhalation Aerosol [...] bedtime. Active Ezetimibe 10 MG Oral Tablet (Zetia)Indications: Dyslipidemia, goal LDL below 100 Take 1 Tablet by mouth in the morning. 90 Tablet 3 04/17/2023 Active amLODIPine Besylate 2.5 MG Oral Tablet (Norvasc)Indication s:HTN, goal below 140/90 TAKE 1 TABLET BY MOUTH DAILY 90 Tablet 3 06/06/2023 Active Montelukast Sodium 10 MG Oral Tablet [...] before bedtime. 60 Each 12 03/20/2024 Active Albuterol Sulfate HFA 108 (90 Base) MCG/ACT Inhalation Aerosol SolutionIndications :Moderate persistent asthma without complication Inhale 2 Puffs by mouth 4 times a day. 56 g 3 10/14/2020 Discontinue d(Refill) documented as of this encounter (statuses as of 03/21/2024) Active Problems Problem Noted Date Diagnosed Date [...] as of this encounter (statuses as of 03/21/2024) Resolved Problems Problem Noted Date Diagnosed Date [...] as of this encounter (statuses as of 03/21/2024) Immunizations Name Administration Dates Next Due COVID-19 [...] Sign Reading Time Taken Comments Blood Pressure 128/80 03/20/2024 10:26 AM EDT Pulse 59 03/20/2024 10:26 AM EDT Temperature - - Respiratory Rate 16 03/20/2024 10:26 AM EDT Oxygen Saturation 98% 03/20/2024 10:26 AM EDT Inhaled Oxygen Concentration - - Weight 91.2 kg (201 lb) 03/20/2024 10:26 AM EDT Height - - Body Mass Index 30.56 11/15/2023 7:44 AM EST documented in this encounter Progress Notes * Carlos Houser MD - 03/21/2024 7:30 AM EDT I have reviewed the advanced practitioner's documentation on the date of service referenced in note, and I agree with, and take responsibility for the plan of care. Carlos Houser MD * Swapna Gillis PA-C - 03/20/2024 10:57 AM EDT REASON FOR VISIT: Chief Complaint Patient presents with Allergy Return HPI: Mandi is a pleasant 78-year-old female who presents to our office for follow up of asthma and chronic rhinitis. Overall she's been doing well. She did have an asthma exacerbation earlier this spring which required oral steroids and nebulized albuterol. No ER or Urgent Care visit. Symptoms resolved. Otherwise she denies any coughing, wheezing or shortness of breath. Denies nocturnal asthma symptoms. She's using Advair 1 puff once daily and will occasionally increase to twice daily. She continues to use Flonase daily which has been helpful. She does note more rhinorrhea with consistent use, so she hasn't been using it the last week and symptoms have been stable without the rhinorrhea. 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 CXR negative Past Surgical History: Procedure Laterality Date ARTHROPLASTY KNEE TOTAL 07/28/[address] Gerard COLONOSCOPY THRU STOMA, W/BIOPSY 06/19/07 hyperplastic polyp--repeat 2 years COLONOSCOPY, DIAGNOSTIC (RECTUM) 07/24/2014 hyperplastic polyp, inflammatory tissue, repeat 5 yrs/done @ [facility] COLONOSCOPY, DIAGNOSTIC (RECTUM) N/A 04/13/2020 mild diverticulosis sigmoid and descending colon/internal hemorrhoids/biopsies show hyperplastic polyps/recall 5 years/Colonoscopy/[facility] DEXA SCAN/BONE MINERAL AXIAL ECHO,TTE W/O SPECTRAL + COLOR-FLOW DOPPLER 03/01/04 mild conc LVH, nl. lv function, diastolic dysfunction, severe mitral regurg, moderate tricuspid regrug KNEE ARTHROSCOPY/DEBRIDEMENT 06/2015 dr gerard/meniscus left knee NASAL/SINUS ENDOSCOPY, SURGICAL 07/25/12 NM MYOCARD STRESS PERSANT 03/02/04 normal persantine cardiolyte perfusion scan, no ischemia, LVEF 71%, nl LV wall motion REMOVAL OF TONSILS, UNDER AGE 13 Tonsillectomy SINUS SURGERY PROCEDURE NEC 1991 ?R maxillary sinus surgery TOTAL ABD HYSTERECTOMY W/WO REMOVAL OF TUBE(S) Bilateral 1980 TOTAL HYSTERECTOMY with one remaining left ovary, due to DUB Current Outpatient Medications Medication Sig Dispense Refill [...] 1 Tablet by mouth in the morning. Calcium Carbonate 600 MG Oral Tablet Take 1 Tablet by mouth every evening. Misc Natural Products (GLUCOSAMINE CHONDROITIN ADV) Tablet Take 1 Tablet by mouth. Black Elderberry(Faulkner-Flower) 575 MG Oral Capsule Contains Zinc and [...] mouth in the morning. 90 Tablet 3 amLODIPine Besylate 2.5 MG Oral Tablet (Norvasc) TAKE 1 TABLET BY MOUTH DAILY 90 Tablet 3 Montelukast Sodium 10 MG [...] 1/2 TABLE[facility] BY [facility]TH [facility] Tablet 3 Chlorthalidone 25 MG Oral Tablet (Hygroton) TAKE 1 TABLET BY MOUTH ON SUNDAY, SUNDAY, AND [id number] Tablet 3 Rosuvastatin Calcium 20 MG Oral [...] 1 Puff before bedtime. 60 Each 12 Nebulizers (NEBULIZER COMPRESSOR) [facility] Inhale via nebulizer. Use as directed. Along with mask and tubing 1 Each 1 Zoster Vac Recomb Adjuvanted [...] No current facility-administered medications for this visit. Allergies as of 03/20/2024 - Reviewed 03/20/2024 Allergen Reaction Noted Celebrex [celecoxib] 08/08/2016 Magnesium citrate 03/18/2007 Rosuvastatin calcium Other (Please comment) 12/25/2014 Vasotec [enalapril maleate] 07/12/2010 Zocor [simvastatin] 11/28/2007 Family History Problem Relation Name Age of Onset Heart attack Mother age 76 Emphysema Father in his 70s Diabetes Grandmother (Maternal) Heart Disorder Grandmother (Maternal) Stroke Grandfather (Maternal) Social History Socioeconomic History Marital status: Spouse name: Not on file Number of children: 3 Years of education: Not on file Highest education level: Not on file Occupational History 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 Employer: [employer] Comment: [employer] Tobacco Use Smoking status: Never Smokeless tobacco: Never Tobacco comments: no passive smoke exposures Vaping Use Vaping status: Never Used Substance and Sexual Activity Alcohol use: Yes Comment: once every couple weeks Drug use: No Sexual activity: Not on file Other Topics Concern Not on file Social History Narrative [employer]ON[employer] [...] noneLives on a farm: NoWorks in a alf; cat exposures at work.Entered by: Christiano Baker MD02/29/2012 No pets No mold Social Determinants of Health Financial Resource Strain: Not on file Food Insecurity: No Food Insecurity (03/31/2022) Hunger Vital Sign Worried About Running Out of Food in the Last Year: Never true Ran Out of Food in the Last Year: Never true Transportation Needs: Not on file Social Connections: Unknown (03/20/2024) Social Connections How often do you feel lonely or isolated from those around you? (Adult - for ages 18 years and over): Not on file Housing Stability: Not on file BP 128/80 (BP Site: Right Arm, BP Position: Sitting) | Pulse 59 | Resp 16 | Wt 91.2 kg (201 lb) | SpO2 98% | BMI 30.56 kg/m | BSA 2.09 m PHYSICAL EXAM: GENERAL: No acute distress. EYES: Conjunctiva- normal; Eyelids - normal EARS: TM's - left cerumen NOSE:Pale mucosa; moderate Inferior turbinate edema; no nasal polyps or mucopus; Septum - normal OROPHARYNX: Teeth and gums - normal; Mild erythema, mild cobblestoning; No lesions, exudates NECK: Supple; No thyroid enlargment or cervical adenopathy RESPIRATORY: Clear to A and P; No wheezes; Good air movement bilaterally; No intercostal retractions or accessory muscle use CARDIOVASCULAR: RRR; No gallops, rubs, clicks, or murmurs. LYMPHATIC: No significant adenopathy noted SKIN: No significant rashes or lesions seen, no urticarial, vesicular or eczematous lesions noted OBJECTIVE DATA: 03/19/2023: Prick skin testing to common environmental aeroallergens was performed in our office andthis revealed no evidence of sensitizations in the setting of a negative saline control and positive histamine control. 03/19/2023: Spirometry was performed in our office today and this revealed no evidence of obstructive nor restrictive pulmonary impairment in both the large and small airways. ASSESSMENT AND PLAN: ICD-10-CM 1. Nonallergic rhinitis J31.0 2. Moderate persistent asthma without complication J45.40 3. Postnasal drip R09.82 In summary, Mandi carries a diagnosis of moderate persistent asthma in addition to chronic nonallergic rhinitis which leads to ongoing postnasal drip. I did review the various triggers of nonallergicrhinitis and this includes drastic changes in the barometric pressure, drastic changes in temperature, and respiratory irritants such as strong odors, perfumes, scents, potpourri, scented products, chemicals, exhaust fumes, and smoke. From a pharmacotherapy standpoint, I do recommend that she continue on Flonase 2 sprays each nostril once daily. Should there be a persistence of postnasal drip, our next step would be to add in an intranasal antihistamine sprays such as Astelin. She would also benefit from use of an air purifier with a HEPA filter and perhaps even normal saline sinus rinses. Allergen immunotherapy would not be indicated in this patient due to the lack of positive findings on allergy testing. In regards to the patient's asthma, this appears to be moderate persistent and relatively well controlled at the present moment. I do recommend that she continue on Advair 250/50 mcg 1 puff twice daily. She was instructed to rinse out her mouth after each use. She will also continue on Singulair 10mg daily. She will continue to use her albuterol via the nebulizer or via the HFA inhaler on an as needed basis for any cough, wheezing, or shortness of breath. Should there be significantly increased frequency of albuterol use, she will contact our office for further evaluation and management. Swapna Gillis PA-C Allergy and Immunology [facility] Supervising Physician: Carlos Houser MD Type of Supervision: Direct I spent a total of 20-29 minutes (exact time 28 mins) on the date of service in preparation, delivery, and documentation of the care provided to Mandi Tolentino excluding any time spent in the performance of separately billed services. (This note was completed using the dictation program Fluency Direct. As such, there may be misspellings, word substitutions, or other variations that should not change the essence of the clinical content of this encounter note.If there is need for further clarification, please direct questions to the provider listed above.) PCP: FLAQUITA BRENNER [address] [place] [address] [phone] documented in this encounter Nursing Notes * Tran Mendez LPN - 03/20/2024 10:21 AM EDT The pt has been properly identified by confirmation of name and date of . Pt here for return visit. documented in this encounter Plan of Treatment Upcoming Encounters Date Type Department Care Team (Late st Contact Info) Description 04/02/2024 2:30 PM EDT Anticoagulation Pharmacy, [place] [address] [place] [address] [facility] [address] [place] [address] 05/15/2024 8:20 AM EDT Office Visit General Internal Medicine [facility] [place] [address] [place] [address] Flaquita Brenner MD [address] [facility] [place] [address] 09/19/2024 11:00 AM EST Office Visit [facility] [address] [facility] [place] [address] Swapna Gillis PA-C [address] [place] [address] 03/18/2025 8:00 AM EDT Office Visit Cardiology, [facility] [address] [place] [address] Anita Pulido PA-C [address] [place] [address] Scheduled Procedures Name Priority Associated Diagnoses Date/Ti me COLONOSCOPY FLEXIBLE PROXIMA L DIAGNOSTIC Recall History of colonic polyps Health Maintenance Due Date Last Done Comments Zoster Vaccines (2 of 3) 11/27/2013 10/02/2013 COVID-19 Vaccine ( season) 2023 09/06/2022, 09/29/2021, 12/18/2020, Additional history exists Depression Screening 11/15/2024 11/15/2023 GFR 12/10/2024 12/11/2023, 11/29, 03/23/2022, Additional history exists Colonoscopy 04/13/2025 04/13/2020, 07/02, 07/24/2014, Additional history exists Albumin/Creatinine Ratio 06/08/2025 022, 06/16/2014, 07/14/2009, Additional history exists DXA Scan 02/18/2027 02/19/2024, 03/02, 03/21/2017, Additional history exists DTaP,Tdap,and Td Vaccines (3 - Td or Tdap) 07/08/2029 07/08/2019, 03/26/2004 Pneumococcal Vaccine: 65+ Years Completed 07/04/2016, 12/14/2014, 12/14/2010 RETIRED - COLONOSCOPY-EVERY 5 YRS AGES 18-100 Discontinued 04/13/2020, 07/24/2014, 07/24/2014, Additional history exists Influenza Vaccine (FLU shot) Completed 07/12/2023, 06/08/2022, 07/11/2021, Additional history exists GARDASIL-HPV IMMUNIZATION SERIES Aged Out No longer eligible based on patient's age to complete this topic Hepatitis B Aged Out No longer eligi ble based on patient's age to complete this topic MENINGOCOCCAL (MENACTRA/MENVEO) Aged Out No longer eligible based on patient's age to complete this topic documented as of this encounter Medical Devices Not on filedocumented as of this encounter Visit Diagnoses Diagnosis Nonallergic rhinitis- Primary Chronic rhinitis Moderate persistent asthma without complication Unspecified asthma Postnasal drip documented in this encounter Care Teams Efficiency Engineer Relationship Specialty Start Date End Date Flaquita Brenner MD [address] [place] [address] PCP - General Internal Medicine 12/11/14 documented as of this encounter"
--- OUTSIDE RECORDS SUMMARY | 2024-08-04 07:25 | External Medical Summary | Summary of Care ---
Author Name Unknown Organization [facility] Address [address] [facility] [place] [address] Phone [phone] Care Team Providers Care Golf Shoe Spike Assembler Name Role Phone Flaquita Brenner MD Primary Care Provider + Reason for Visit * Reason Onset Date Comments Test Results 03/05/2024 Encounter Details Date Type Department Care Team (Late st Contact Info) Description 03/05/2024 Telephone General Internal Medicine [facility] [place] [address] [facility] [place] [address] Flaquita Brenner MD [address] [facility] [address] Test Results Allergies Active Allergy Reactions Criticality Noted Date Comments Celecoxib 08/08/2016 Magnesium Citrate 03/18/2007 Prep;vomiting and diarrhea Allergic rx. Rosuvastatin Calcium Other (Please comment) 12/25/2014 Enalapril Maleate 07/12/2010 Dry cough Simvastatin 11/28/2007 Muscle aches documented as of this encounter (statuses as of 03/25/2024) Medications Medication Sig Dispensed Refills Start Date [...] times a day. 56 g 3 10/14/2020 4 Discontinue d(Refill) documented as of this encounter (statuses as of 03/25/2024) Active Problems Problem Noted Date Diagnosed Date [...] as of this encounter (statuses as of 03/25/2024) Resolved Problems Problem Noted Date Diagnosed Date [...] as of this encounter (statuses as of 03/25/2024) Immunizations Name Administration Dates Next Due COVID-19 [...] encounter Miscellaneous Notes * Telephone Encounter - Erika Hill LPN - 03/25/2024 10:13 AM EDT Spoke with patient. Notified of advice. Patient verbalized understanding. No further questions at this time. * Telephone Encounter - Dione Castro MED Ecomsual - 03/19/2024 3:49 PM EDT Left message for the patient to call the office. Upon return call please transfer to a dedicated telephone nurse. * Telephone Encounter - Flaquita Brenner MD - 03/07/2024 1:00 PM EDT In that case, continue only dietary calcium total 1000 to 1200 mg calcium and rest all can continueas it is. If her multivitamin has some calcium that should be fine. * Telephone Encounter - Suma Ramos LPN - 03/06/2024 3:42 PM EDT Patient is calling. Given message. Verbalized understanding. She was told her calcium was too high last time she had her blood work done. It was 10.4 on 12/11/23 She takes a combination pill of calcium 1000 mg, magnesium 400 mg, zinc 15 mg with vitamin D 15 mg. She takes another Vitamin D 2000 IU's daily in the summer. In the winter she takes 2 of the Vitamin D 2000 IU's one in the morning and one at night. Asking if she should continue the calcium? * Telephone Encounter - Jami Luz MED ASSIST - 03/05/2024 2:50 PM EDT Called patient, left message to return call. * Telephone Encounter - Jami Luz MED ASSIST - 03/05/2024 2:48 PM EDT ----- Message from Flaquita Brenner MD sent at 02/28/2024 10:38 AM EDT ----- Recent DEXA scan shows no osteoporosis and has low risk for fracture which is good news. Continue dietary intake of calcium and zzyg-yob-hwwwity vitamin-D 1000 unit every day. We can repeat the DEXA scan as per the guidelines in 5 years from now. Please inform the patient. documented in this encounter Plan of Treatment Upcoming Encounters Date Type Department Care Team (Late st Contact Info) Description 04/02/2024 2:30 PM EDT Anticoagulation Pharmacy, [address] [address] [facility] [address] [place] [address] 05/15/2024 8:20 AM EDT Office Visit General Internal Medicine [facility] [place] [address] [place] [address] Flaquita Brenner MD [address] [place] [address] 09/19/2024 11:00 AM EST Office Visit Allergy/Immunology [facility] [address] [facility] [place] [address] Swapna Gillis PA-C [address] [facility] [place] [address] 03/18/2025 8:00 AM EDT Office Visit Cardiology, [facility] [address] [place] [address] Anita Pulido PA-C [address] [place] [address] Scheduled Procedures Name Priority Associated Diagnoses Date/Ti [...] filedocumented as of this encounter Care Teams Golf Shoe Spike Assembler Relationship Specialty Start Date End Date Flaquita Brenner MD [address] [place] [address] PCP - General Internal Medicine 12/11/14 documented as of this encounter
--- OUTSIDE RECORDS SUMMARY | 2024-08-04 07:25 | External Medical Summary | Summary of Care ---
Author Name Unknown Organization [facility] Address [address] [facility] [place] [address] Phone [phone] Care Team Providers Care Surgical Instrument Mechanic Name Role Phone Flaquita Brenner MD Primary Care Provider + Reason for Visit * Reason Comments Dosage Adjustment Via Phone (anticoag Cl inic) Encounter Details Date Type Department Care Team (Latest Contact Info) Description 05/15/2024 5:30 PM EDT Anticoagulation Pharmacy, [address] [address] [facility] [address] [place] [address] History of DVT of lower extremity*; Paroxysmal atrial fibrillation (HCC) Allergies Active Allergy [...] this encounter Progress Notes * Deya Zuñiga [facility] - 05/15/2024 10:24 AM EDT Agree with plan as documented. Deya Zuñiga [facility] Clinical Pharmacist 05/15/2024, 10:25 AM * Madi Mathews [facility] - 05/15/2024 10:08 AM EDT Medication Therapy Disease Management - Anticoagulation Patient: Mandi Mccall [place] | : 1945 Subjective Contacts Type Contact Phone/Fax 05/15/2024 10:10 AM EDT Phone (Outgoing) Mandi Tolentino (Self) [phone] (M) Spoke to Patient - Informed pt that the INR is within range and there's no change in warfarin regimen. Scheduled in person fingerstick in 6 weeks. Patient-Reported Symptoms: Patient Findings Negatives: Signs/symptoms of thrombosis, Signs/symptoms of bleeding, Change in health, Change in alcohol use, Change in activity, Upcoming invasive procedure, Missed doses, Extra doses, Change in medications, Change in diet/appetite, Bruising Objective Current Warfarin Dose As of 05/15/2024 INR Result As of 05/15/2024 INR goal: 2.0-3.0 INR used for dosin.4 (05/15/2024) Assessment & Plan Warfarin Plan As of 05/15/2024 Full warfarin instructions: 7.5 mg every Sun, Anita; 5 mg all other days No change documented: Madi Mathews, [facility] Next INR check: 06/25/2024 Repeat PT/INR in 6 week(s) Weekly dose: not changed Additional Dosing Information: I spent a total of 10-19 minutes (exact time 15 mins) on the date of service in preparation, delivery, and documentation of the care provided to Mandi Tolentino excluding any time spent in the performance of separately billed services or time spent by another provider/QHP. Madi (Coni) Reid, PharmD, [facility] PGY1 Supervisor Product Inspection [facility] 05/15/2024 10:16 AM documented in this encounter Plan of Treatment Upcoming Encounters Date Type Department Care Team (Late st Contact Info) Description 06/25/2024 2:30 PM EDT Anticoagulation Pharmacy, [address] [address] [place] [address] [place] [address] 09/19/2024 11:00 AM EST Office Visit Allergy/Immunology [facility] [address] [place] [address] Swapna Gillis PA-C [address] [place] [address] 11/19/2024 8:00 AM EST Office Visit General Internal Medicine [facility] [place] [address] [place] [address] Flaquita Brenner MD [address] [place] [address] 03/18/2025 8:00 AM EDT Office Visit Cardiology, [facility] [address] [place] [address] Anita uPlido PA-C [address] [place] [address] Scheduled Procedures Name Priority Associated Diagnoses Date/Ti [...] as of this encounter Visit Diagnoses Diagnosis History of DVT of lower extremity- Primary Personal history of venous thrombosis and embolism Paroxysmal atrial fibrillation (HCC) Atrial fibrillation documented in this encounter Care Teams Surgical Instrument Mechanic Relationship Specialty Start Date End Date Flaquita Brenner MD [address] [place] [address] PCP - General Internal Medicine 12/11/14 documented as of this encounter"
--- OUTSIDE RECORDS SUMMARY | 2024-08-04 07:25 | External Medical Summary | Summary of Care ---
Author Name Unknown Organization [facility] Address [address] [facility] [place] [address] Phone [phone] Care Team Providers Care Scowman Name Role Phone Flaquita Brenner MD Primary Care Provider + Reason for Visit * Reason Comments Dosage Adjustment In Person (Anticoag Cl inic) Encounter Details Date Type Department Care Team (Latest Contact Info) Description 04/02/2024 2:30 PM EDT Anticoagulation Pharmacy, [address] [address] [facility] [address] [place] [address] Anticoagulation management encounter*; History of DVT of lower extremity; Paroxysmal atrial fibrillation (HCC) Allergies Active Allergy Reactions Criticality Noted Date Comments Celecoxib 08/08/2016 Magnesium Citrate 03/18/2007 Prep;vomiting and diarrhea Allergic rx. Rosuvastatin Calcium Other (Please comment) 12/25/2014 Enalapril Maleate 07/12/2010 Dry cough Simvastatin 11/28/2007 Muscle aches documented as of this encounter (statuses as of 04/02/2024) Medications Medication Sig Dispensed Refills Start Date [...] before bedtime. 60 Each 12 03/20/2024 Active documented as of this encounter (statuses as of 04/02/2024) Active Problems Problem Noted Date Diagnosed Date [...] as of this encounter (statuses as of 04/02/2024) Resolved Problems Problem Noted Date Diagnosed Date [...] as of this encounter (statuses as of 04/02/2024) Immunizations Name Administration Dates Next Due COVID-19 [...] this encounter Progress Notes * Deya Zuñiga RPh - 04/02/2024 2:47 PM EDT Medication Therapy Disease Management - Anticoagulation Patient: Mandi Tolentino | : 1945 Subjective Patient-Reported Symptoms: Patient Findings Negatives: Signs/symptoms of thrombosis, Signs/symptoms of bleeding, Change in health, Change in alcohol use, Change in activity, Upcoming invasive procedure, Missed doses, Extra doses, Change in medications, Change in diet/appetite, Bruising Objective Current Warfarin Dose As of 04/02/2024 Warfarin maintenance plan: 7.5 mg (5 mg x 1.5) every Sun, Anita; 5 mg (5 mg x 1) all other days INR Result As of 04/02/2024 INR goal: 2.0-3.0 INR used for dosin.0 (04/02/2024) Assessment & Plan Warfarin Plan As of 04/02/2024 Full warfarin instructions: 7.5 mg every Sun, Anita; 5 mg all other days No change documented: Deya Zuñiga RPh Next INR check: 05/16/2024 Repeat PT/INR in 6 week(s) Weekly dose: not changed Additional Dosing Information: Deya Zuñiga RPh Clinical Pharmacist 04/02/2024, 2:47 PM documented in this encounter Plan of Treatment Upcoming Encounters Date Type Department Care Team (Late st Contact Info) Description 05/15/2024 8:20 AM EDT Office Visit General Internal Medicine [facility] [address] [facility] [place] [address] Flaquita Brenner MD [address] [facility] [place] [address] 05/16/2024 6:00 AM EDT Anticoagulation Pharmacy, [place] [address] [place] [address] [facility] [address] [place] [address] 09/19/2024 11:00 AM EST Office Visit Allergy/Immunology [facility] [address] [facility] [place] [address] Swapna Gillis PA-C [address] [facility] [place] [address] 03/18/2025 8:00 AM EDT Office Visit Cardiology, [facility] [address] [facility] [place] [address] Anita Pulido PAMessi [address] [place] [address] Scheduled Procedures Name Priority Associated Diagnoses Date/Ti [...] Comments INR FINGERSTICK, POINT OF CARE STAT 04/02/2024 2:50 PM EDT Paroxysmal atrial fibrillation (HCC) Anticoagulation management encounter documented in this encounter Results * INR FINGERSTICK, POINT OF CARE (04/02/2024 2:50 PM EDT) Fingerstick INR 3.0 INR 2:52 PM EDT [facility] 56-01 Blood 04/02/2024 2:50 PM EDT 04/02/2024 2:52 PM EDT Narrative [facility] - 04/02/2024 2:52 PM EDT Therapeutic ranges for non-operative patients: Prophylaxsis/treatment of DVT: (Range:2.0-3.0) Treatment of pulmonary embolism:(Range:2.0-3.0) Prevention of systemic embolism from: -tissue heart valves -acute myocardial infarction -valvular heart disease -atrial fibrillation (Range: 2.0-3.0) Mechanical prosthetic valves: (Range: 2.5-3.5) Deya Zuñiga [facility] POINT OF CARE TEST DOCKED DEVICE UNSOLICITED RESULTS [facility] [address] [place] [address] documented in this encounter Visit Diagnoses Diagnosis Anticoagulation management encounter- Primary Encounter for therapeutic drug monitoring History of DVT of lower extremity Personal history of venous thrombosis and embolism Paroxysmal atrial fibrillation (HCC) Atrial fibrillation documented in this encounter Care Teams Scowman Relationship Specialty Start Date End Date Flaquita Brenner MD [address] [place] [address] PCP - General Internal Medicine 12/11/14 documented as of this encounter"
--- OUTSIDE RECORDS SUMMARY | 2024-08-04 07:25 | External Medical Summary | Summary of Care ---
Author Name Unknown Organization [facility] Address [address] [facility] [place] [address] Phone [phone] Care Team Providers Care Newspaper Editor Managing Name Role Phone Flaquita Brenner MD Primary Care Provider + Reason for Visit * Reason Comments Outpatient Testing Encounter Details Date Type Department Care Team (Late st Contact Info) Description 05/15/2024 9:00 AM EDT Laboratory Laboratory [facility] [place] [address] [place] [address] [place], Lab Scen[address] [place] [address] HTN, goal below 130/80; Encounter for screening examination for impaired glucose regulation and diabetes mellitus; Paroxysmal atrial fibrillation (HCC); Anticoagulation management encounter; [facility] current use of anticoagulant therapy Allergies Active [...] Description 05/15/2024 9:10 AM EDT Imaging Radiology [facility] [place] [address] [place] [address] Arrived 05/16/2024 6:00 AM EDT [place] [address] [place] [address] [facility] [address] [place] [address] 09/19/2024 11:00 AM EST Office Visit Allergy/Immunology [facility] [place] [address] [place] [address] Swapna Gillis PA-C [address] [place] [address] 11/19/2024 8:00 AM EST Office Visit General Internal Medicine [facility] [place] [address] [place] [address] Flaquita Brenner MD [address] [place] [address] 03/18/2025 8:00 AM EDT Office Visit Cardiology, [facility] [address] [place] [address] Anita Pulido PA-C [address] [place] [address] Pending Results Name Type Priority Associated Diagnoses Date /Time BASIC METABOLIC PANEL Lab Routine HTN, goal below 130/80 05/15/2024 8:50 AM EDT HEMOGLOBIN A1C Lab Routine Encounter for screening examination for impaired glucose regulation and diabetes mellitus 05/15/2024 8:50 AM EDT PT INR Lab Routine Paroxysmal atrial fibrillation (HCC) Anticoagulation management encounter [facility] current use of anticoagulant therapy 05/15/2024 8:50 [...] management encounter Encounter for therapeutic drug monitoring [facility] current use of anticoagulant therapy documented in this encounter Care Teams Newspaper Editor Managing Relationship Specialty Start Date End Date Flaquita Brenner MD [address] [place] [address] PCP - General Internal Medicine 12/11/14 documented as of this encounter
--- OUTSIDE RECORDS SUMMARY | 2024-08-04 07:25 | External Medical Summary ---
Author Name Unknown Address Unknown Organization K09:[facility] [address] Laboratory Report Ordering Provider Test Date Status MARCOS HYLTNO 05/15/2024 08:50:09 Final Observation Date Value Abnormality Reference (Units ) Status BUN 05/15/2024 08:50:09 17 6-20 (mg/dL) Final Creatinine 05/15/2024 08:50:09 0.9 0.5-1.0 (mg/dL) Final Glomerular filtration rate/1.73 sq M.predicted [Volume Rate/Area] in Serum, Plasma or Blood by Creatinine-based formula (CKD-EPI) 05/15/2024 08:50:09 71 >=60 (mL/min) Final eGFR is calculated based on the CKD-EPI 2020 equation. Sodium 05/15/2024 08:50:09 141 135-146 (m mol/L) Final Potassium 05/15/2024 08:50:09 4.1 3.5-5.1 (m mol/L) Final Cl 05/15/2024 08:50:09 103 98-107 (mm ol/L) Final CO2 05/15/2024 08:50:09 29 22-32 (mmo l/L) Final Anion gap 05/15/2024 08:50:09 9 7-15 (mmol /L) Final Glucose 05/15/2024 08:50:09 85 70-120 (mg /dL) Final Calcium 05/15/2024 08:50:09 9.2 8.4-10.2 ( mg/dL) Final Performing Location [facility] [place] [address]
--- OUTSIDE RECORDS SUMMARY | 2024-08-04 07:25 | External Medical Summary | Summary of Care ---
Author Name Unknown Organization [facility] Address [address] [facility] [place] [address] Phone [phone] Care Team Providers Care Anesthesiologist Physician Name Role Phone Flaquita Brenner MD Primary Care Provider + Reason for Visit * Reason Comments eRx-Medication Refill Encounter Details Date Type Department Care Team (Late st Contact Info) Description 05/24/2024 Refill Cardiology, [facility] [address] [place] [address] Lexx Bryan DO [address] [place] [address] Dyslipidemia, goal LDL below 100 Allergies Active Allergy Reactions Criticality Noted Date Comments Celecoxib 08/08/2016 Magnesium Citrate 03/18/2007 Prep;vomiting and diarrhea Allergic rx. Rosuvastatin Calcium Other (Please comment) 12/25/2014 Enalapril Maleate 07/12/2010 Dry cough Simvastatin 11/28/2007 Muscle aches documented as of this encounter (statuses as of 05/26/2024) Medications Medication Sig Dispensed Refills Start Date [...] THE MORNING 90 Tablet 3 05/26/2024 Active Ezetimibe 10 MG Oral Tablet (Zetia)Indications :Dyslipidemia, goal LDL below 100 Take 1 Tablet by mouth in the morning. 90 Tablet 3 04/17/2023 05/26/20 24 Discontinued documented as of this encounter (statuses as of 05/26/2024) Active Problems Problem Noted Date Diagnosed Date [...] as of this encounter (statuses as of 05/26/2024) Resolved Problems Problem Noted Date Diagnosed Date [...] as of this encounter (statuses as of 05/26/2024) Immunizations Name Administration Dates Next Due COVID-19 mRNA, LNP-s, No Pre serve, 2-Dose Series ([employer]) 09/29/2021,12/18/2020,11/27/2020 Covid-19, Mrna, Lnp-s, Pf, B ivalent, 30 Mcg, IM, 12 yrs and above (AutoSpot) 09/06/2022 Pneumococcal Conjugate Vacc, 13 Valent (Prevnar) [...] Telephone Encounter - Ella King PA-C - 05/26/2024 11:56 AM EDT Signed Prescriptions: Disp Refills Ezetimibe 10 MG Oral Tablet (Zetia) 90 Tab*3 Sig: TAKE 1 TABLET BY MOUTH IN THE MORNING Authorizing Provider: ELLA KING * Telephone Encounter - Jodi Levi CMA - 05/26/2024 11:01 AM EDTPending Prescriptions: Disp Refills Ezetimibe 10 MG Oral Tablet 90 Tab*3 Sig: Take 1 Tablet by mouth in the morning. * Telephone Encounter - Jodi Levi CMA - 05/26/2024 11:00 AM EDT Did you pend patient's preferred pharmacy and medication before forwarding?yes Pharmacy: [email or web address]- [place] Pending Prescriptions: Disp Refills Ezetimibe 10 MG Oral Tablet (Zetia) [Phar*90 Tab*3 Sig: TAKE 1 TABLET BY MOUTH IN THE MORNING Last Visit: 03/05/2024 (in office), 09/02/2020 (telemedicine) Next Visit: 03/18/2025 If no future appointments scheduled, and last appointment is greater than a year ago, please schedule patient for a follow-up appointment Last date the medication was ordered: 04-17-2023 Is this request for a controlled substance?No [...] Description 06/25/2024 2:30 PM EDT Anticoagulation Pharmacy, [place] [address] [facility] [address] [facility] [address] [facility] [address] 09/19/2024 11:00 AM EST Office Visit Allergy/Immunology [facility] [address] [facility] [place] [address] Swapna Gillis PA-C [address] [facility] [place] [address] 11/19/2024 8:00 AM EST Office Visit General Internal Medicine [facility] [address] [facility] [place] [address] Flaquita Brenner MD [address] [facility] [place] [address] 03/18/2025 8:00 AM EDT Office Visit Cardiology, [facility] [address] [facility] [place] [address] Ella King PA-C [address] [place] [address] Scheduled Procedures Name Priority Associated Diagnoses Date/Ti [...] as of this encounter Visit Diagnoses Diagnosis Dyslipidemia, goal LDL below 100 Other and unspecified hyperlipidemia documented in this encounter Care Teams Anesthesiologist Physician Relationship Specialty Start Date End Date Flaquita Brenner MD [address] [place] [address] PCP - General Internal Medicine 12/11/14 documented as of this encounter
--- OUTSIDE RECORDS SUMMARY | 2024-08-04 07:25 | External Medical Summary | Summary of Care ---
Author Name Unknown Organization [facility] Address [address] [facility] [place] [address] Phone [phone] Care Team Providers Care Bell Maker Name Role Phone Flaquita Brenner MD Primary Care Provider + Reason for Visit * Reason Onset Date Comments Test Results 05/22/2024 Lab work Encounter Details Date Type Department Care Team (Late st Contact Info) Description 05/22/2024 Telephone General Internal Medicine [facility] [place] [address] [facility] [place] [address] Flaquita Bren[facility] MD [facility] [address] Test Results (Lab work) Allergies Active Allergy Reactions Criticality Noted Date Comments Celecoxib 08/08/2016 Magnesium Citrate 03/18/2007 Prep;vomiting and diarrhea Allergic rx. Rosuvastatin Calcium Other (Please comment) 12/25/2014 Enalapril Maleate 07/12/2010 Dry cough Simvastatin 11/28/2007 Muscle aches documented as of this encounter (statuses as of 05/28/2024) Medications Medication Sig Dispensed Refills Start Date [...] as of this encounter (statuses as of 05/28/2024) Active Problems Problem Noted Date Diagnosed Date [...] as of this encounter (statuses as of 05/28/2024) Resolved Problems Problem Noted Date Diagnosed Date [...] as of this encounter (statuses as of 05/28/2024) Immunizations Name Administration Dates Next Due COVID-19 [...] encounter Miscellaneous Notes * Telephone Encounter - Janeth Moreno OSA - 05/28/2024 2:09 PM EDT Patient has been notified of the message. Patient has no further questions. * Telephone Encounter - Tatiana Odonnell LPN - 05/27/2024 12:04 PM EDT Attempted to call patient, there was no answer, left voicemail. When patient returns call, ok for KM to relay message, please refer to below documentation. If needed, can transfer to dedicated nurse line. See other TE from 05/22 as well * Telephone Encounter - Tatiana Odonnell LPN - 05/27/2024 12:03 PM EDT Your recent blood work shows normal electrolytes, kidney function, calcium and your three-month average glucose hemoglobin A1c is borderline high or prediabetic range. Continue working on portion control, low carb low sugar diet and regular exercise. Written by Flaquita Brenner MD on 05/20/2024 1:50 PM EDT * Telephone Encounter - Joey Kuhn OSA - 05/22/2024 12:52 PM EDT Who is Requesting Test Results: Patient Primary Care Provider : Flaquita Brenner MD Tests Results Requested : Lab work Date of Test : 05/15/24 Location of Test: [facility] Lab [facility]ing [facility] Patient has been made aware that the turnaround time for test results are typically as follows: Laboratory results = within 2-3 days ([facility]), 3-5 days (Non[facility], ie. [facility]) Urine Cultures = within 2-3 days depending on growth within the culture Pathology results (biopsy results/PAP) = 1-2 weeks Radiology results = about 1 week Cologuard results = within 2 weeks from the shipment date COVID testing = about 24 hours documented in this encounter Plan of Treatment Upcoming Encounters Date Type Department Care Team (Late st Contact Info) Description 06/25/2024 2:30 PM EDT Anticoagulation Pharmacy, [place] [address] [place] [address] [facility] [address] [place] [address] 09/19/2024 11:00 AM EST Office Visit Allergy/Immunology [facility] [address] [place] [address] Swapna Gillis PA-C [address] [facility] [place] [address] [address] 11/19/2024 8:00 AM EST Office Visit General Internal Medicine [facility] [address] [place] [address] Flaquita Brenner MD [address] [facility] [address] [facility] [place] [address] 03/18/2025 8:00 AM EDT Office Visit Cardiology, [facility] [address] [facility] [place] [address] Anita Pulido PA-C [address] [place] [address] Scheduled Procedures Name Priority Associated Diagnoses Date/Ti [...] filedocumented as of this encounter Care Teams Bell Maker Relationship Specialty Start Date End Date Flaquita Brenner MD 200 [place] [address] PCP - General Internal Medicine 12/11/14 documented as of this encounter
--- OUTSIDE RECORDS SUMMARY | 2024-08-04 07:25 | External Medical Summary | Summary of Care ---
Author Name Unknown Organization [facility] Address [address] [facility] [place] [address] Phone [phone] Care Team Providers Care Tax Lawyer Name Role Phone Flaquita Brenner MD Primary Care Provider + Reason for Visit * Reason Comments Allergy Return Encounter Details Date Type Department Care Team (Late st Contact Info) Description 03/20/2024 10:30 AM EDT Office Visit Allergy/Immunology [facility] [place] [place] [address] [facility] [place] [address] Swapna Gillis PA-C [address] [facility] [place] [address] Nonallergic rhinitis*; Moderate persistent asthma without complication; Postnasal drip Allergies Active Allergy Reactions Criticality Noted Date Comments Celecoxib 08/08/2016 Magnesium Citrate 03/18/2007 Prep;vomiting and diarrhea Allergic rx. Rosuvastatin Calcium Other (Please comment) 12/25/2014 Enalapril Maleate 07/12/2010 Dry cough Simvastatin 11/28/2007 Muscle aches documented as of this encounter (statuses as of 03/20/2024) Medications Medication Sig Dispensed Refills Start Date [...] as of this encounter (statuses as of 03/20/2024) Active Problems Problem Noted Date Diagnosed Date [...] as of this encounter (statuses as of 03/20/2024) Resolved Problems Problem Noted Date Diagnosed Date [...] as of this encounter (statuses as of 03/20/2024) Immunizations Name Administration Dates Next Due COVID-19 mRNA, LNP-s, No Pre serve, 2-Dose Series ([employer]) 09/29/2021,12/18/2020,11/27/2020 Covid-19, Mrna, Lnp-s, Pf, B ivalent, [...] documented in this encounter Progress Notes * Swapna Gillis PA-C - 03/20/2024 10:57 [...] Osteoporosis Tuberculin test reaction 03/01/01 evaluated at [facility] Dept. CXR negative Past Surgical History: Procedure Laterality Date ARTHROPLASTY KNEE TOTAL 07/28/[address] Gerard COLONOSCOPY THRU STOMA, W/BIOPSY 06/19/07 hyperplastic polyp--repeat 2 years COLONOSCOPY, DIAGNOSTIC (RECTUM) 07/24/2014 hyperplastic polyp, inflammatory tissue, repeat 5 yrs/done @ [facility] COLONOSCOPY, DIAGNOSTIC (RECTUM) N/A 04/13/2020 mild diverticulosis sigmoid and descending colon/internal hemorrhoids/biopsies show hyperplastic polyps/recall 5 years/Colonoscopy/[facility] DEXA SCAN/BONE MINERAL AXIAL ECHO,TTE [...] 1/2 TABLETS BY MOUTH DAILY [facility] Tablet 3 Chlorthalidone 25 MG Oral Tablet (Hygroton) TAKE 1 TABLET BY MOUTH ON SUNDAY, SUNDAY, AND [id number] Tablet 3 Rosuvastatin Calcium 20 MG Oral [...] bedtime. 60 Each 12 Nebulizers (NEBULIZER COMPRESSOR) [facility] Inhale via nebulizer. Use as directed. 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 Employer: [employer] Comment: [place] Tobacco Use Smoking status: Never Smokeless tobacco: Never Tobacco comments: no passive smoke exposures Vaping Use Vaping status: Never Used Substance and Sexual Activity Alcohol use: Yes Comment: once every couple weeks Drug use: No Sexual activity: Not on file Other Topics Concern Not on file Social History Narrative [facility] INFORMATIONENVIRONMENTAL HISTORY:Type of Home: Mobile HomeType of Heating System: Oil and Forced airAir Conditioning: Yes CentralBasement: None, storage SpaceHome have cockroaches: NoIrritants in the home: NonePatient's bedroom location: Floor: first Type of coral: CarpetingB eds: Number: 1 Type of beds: Mattress and FutonPillows: Number: 2 Type of pillows: Synthetic (hypoallergenic, polyester)Bedroom contains: Minimal itemsPets: noneLives on a farm: NoWorks in a usp; cat exposures at work.Entered by: Christiano Baker [...] management. Swapna Gillis PA-C Allergy and Immunology [facility] Supervising Physician: Carlos Houser MD Type of [...] PCP: FLAQUITA BRENNER [address] [place] [address] [phone] documented in this encounter Nursing Notes * Tran Mendez LPN - 03/20/2024 10:21 AM EDT The pt has been properly identified by confirmation of name and date of . Pt here for return visit. documented in this encounter Plan of Treatment Upcoming Encounters Date Type Department Care Team (Late st Contact Info) Description 04/02/2024 2:30 PM EDT Anticoagulation Pharmacy, [place] [address] [place] [address] [facility] [address] [place] [address] 05/15/2024 8:20 AM EDT Office Visit General Internal Medicine [facility] [place] [address] [place] [address] Flaquita Brenner MD [address] [place] [address] 09/19/2024 11:00 AM EST Office Visit Allergy/Immunology [place] [facility] [place] [address] [place] [address] Swapna Gillis PA-C [address] [place] [address] [address] 03/18/2025 8:00 AM EDT Office Visit Cardiology, [facility] [address] [place] [address] Anita Pulido PA-C [address] [place] [address] Scheduled Procedures Name Priority Associated Diagnoses Date/Ti [...] drip documented in this encounter Care Teams Tax Lawyer Relationship Specialty Start Date End Date Flaquita Brenner MD 200 [facility] [place] [address] PCP - General Internal Medicine 12/11/14 documented as of this encounter"
--- OUTSIDE RECORDS SUMMARY | 2024-08-04 07:25 | External Medical Summary | Summary of Care ---
Author Name Unknown Organization [facility] Address [address] [facility] [place] [address] Phone [phone] Care Team Providers Care Forensic Psychiatrist Name Role Phone Flaquita Brenner MD Primary Care Provider + Reason for Visit * Reason Comments Dosage Adjustment Via Phone (anticoag Cl inic) Encounter Details Date Type Department Care Team (Latest Contact Info) Description 05/15/2024 5:30 PM EDT Anticoagulation Pharmacy, [address] [address] [facility] [address] [place] [address] History of DVT of lower extremity*; Paroxysmal [...] this encounter Progress Notes * Deya Zuñiga [facility] - 05/15/2024 10:24 AM EDT Agree with plan as documented. Deya Zuñiga [facility] Clinical Pharmacist 05/15/2024, 10:25 AM * Madi Mathews [facility] - 05/15/2024 10:08 AM EDT Medication Therapy Disease Management - Anticoagulation Patient: Mandi Mccall Tolentino | : 1945 Subjective Contacts Type Contact Phone/Fax 05/15/2024 10:10 AM EDT Phone (Outgoing) Mandi Tolentino (Self) [phone] (M) Spoke to Patient - Informed pt [...] other days No change documented: Madi Mathews, [facility] Next INR check: 06/25/2024 Repeat PT/INR in [...] by another provider/QHP. Madi (Coni) Reid, PharmD, [facility] PGY1 Fire Chief Medication Therapy Management [facility] 05/15/2024 10:16 AM documented in this encounter Plan of Treatment Upcoming Encounters Date Type Department Care Team (Late st Contact Info) Description 06/25/2024 2:30 PM EDT Anticoagulation Pharmacy, [address] [address] [place] [address] [place] [address] 09/19/2024 11:00 AM EST Office Visit Allergy/Immunology [facility] [place] [address] [place] [address] Swapna Gillis PA-C [address] [place] [address] 11/19/2024 8:00 AM EST Office Visit General Internal Medicine [facility] [place] [address] [place] [address] Flaquita Brenner MD [address] [place] [id number] 03/18/2025 8:00 AM EDT Office Visit Cardiology, [facility] [address] [place] [address] Anita Pulido PA-C [address] [place] [address] Scheduled Procedures Name Priority Associated Diagnoses Date/Ti [...] fibrillation documented in this encounter Care Teams Forensic Psychiatrist Relationship Specialty Start Date End Date Flaquita Brenner MD [address] [place] [address] PCP - General Internal Medicine 12/11/14 documented as of this encounter"
--- OUTSIDE RECORDS SUMMARY | 2024-08-04 07:25 | External Medical Summary ---
Author Name Unknown Address Unknown Organization [id number]:LABORATORY [facility] [place] - [address] [place] [address] Laboratory Report Ordering Provider Test Date Status MARCOS HYLTON 05/15/2024 08:50:09 Final Observation Date Value Abnormality Reference (Units ) Status HbA1C 05/15/2024 08:50:09 5.8 Above high normal 4. 0-5.6 (%) Final The use of HbA1c to monitor glycemic status is based on normal hemoglobin and HbA composition. This test should not be used in patients with abnormal hemoglobin that affects the half life of the red blood cell or the in vivo glycation rates. Glucose, estimated average 05/15/2024 08:50:09 120 <126 (mg/dL) Final Performing Location [facility]ORY [facility] [place] - [address] [place] [address]
--- OUTSIDE RECORDS SUMMARY | 2024-08-04 07:26 | External Medical Summary ---
Author Name Unknown Address Unknown Organization : Laboratory Report Ordering Provider Test Date Status YARELIPATITO 03/13/2024 15:07:02 Final Therapeutic ranges for non-o perative patients:
Prophylaxsis/treatment of DVT: (Range:2.0-3.0)
Treatment of pulmonary embolism:(Range:2.0-3.0)
Prevention of systemic embolism from:
-tissue heart valves
-acute myocardial infarction
-valvular heart disease
-atrial fibrillation
(Range: 2.0-3.0)
Mechanical prosthetic valves: (Range: 2.5-3.5) Observation Date Value Abnormality Reference (Units ) Status INR in Capillary blood by Coagulation assay 03/13/2024 15:07:02 4.0 (INR) Final Performing Location
--- OUTSIDE RECORDS SUMMARY | 2024-08-04 07:26 | External Medical Summary | Summary of Care ---
Author Name Unknown Organization [facility] Address [address] [facility] [place] [address] Phone [phone] Care Team Providers Care Icu Rn Name Role Phone Flaquita Brenner MD Primary Care Provider + Reason for Visit * Reason Comments Follow Up Encounter Details Date Type Department Care Team (Late st Contact Info) Description 03/05/2024 8:00 AM EDT Office Visit Cardiology, [facility] [address] [place] [address] Anita Pulido PA-C [address] [place] [address] Paroxysmal atrial fibrillation (HCC)*; HTN, goal below 140/90; Dyslipidemia, goal LDL below 100; Ascending aorta dilation (HCC) Allergies Active Allergy Reactions Criticality Noted Date Comments Celecoxib 08/08/2016 Magnesium Citrate 03/18/2007 Prep;vomiting and diarrhea Allergic rx. Rosuvastatin Calcium Other (Please comment) 12/25/2014 Enalapril Maleate 07/12/2010 Dry cough Simvastatin 11/28/2007 Muscle aches documented as of this encounter (statuses as of 03/19/2024) Medications Medication Sig Dispensed Refills Start Date [...] and tubing 1 Each 1 10/10/2017 Active Albuterol Sulfate HFA 108 (90 Base) MCG/ACT Inhalation Aerosol SolutionIndication s:Moderate persistent asthma without complication Inhale 2 Puffs by mouth 4 times a day. 56 g 3 10/14/2020 Active Black Elderberry(Faulkner-F lower) 575 MG Oral [...] MOUTH DAILY 90 Tablet 3 01/17/2024 Active Xiidra 5 % Ophthalmic Solution (Lifitegrast) Instill 1 Drop into eye in the morning. BOTH EYES . 03/05/20 24 Discontinued documented as of this encounter (statuses as of 03/19/2024) Active Problems Problem Noted Date Diagnosed Date [...] as of this encounter (statuses as of 03/19/2024) Resolved Problems Problem Noted Date Diagnosed Date [...] as of this encounter (statuses as of 03/19/2024) Immunizations Name Administration Dates Next Due COVID-19 [...] Sign Reading Time Taken Comments Blood Pressure 146/80 03/05/2024 7:58 AM EDT Pulse 60 03/05/2024 7:58 AM EDT Temperature - - Respiratory Rate 14 03/05/2024 7:58 AM EDT Oxygen Saturation - - Inhaled Oxygen Concentration - - Weight 91.6 kg (202 lb) 03/05/2024 7:58 AM EDT Height - - Body Mass Index 30.71 11/15/2023 7:44 AM EST documented in this encounter Progress Notes * Anita Pulido PA-C - 03/05/2024 8:00 AM EDT Cardiology F/U: HPI: Patient is a 78-year-old female here today for routine cardiology follow- up. Last clinic evaluation approximately [address] Bryan. History includes: Paroxysmal afib, controlled in NSR. Continue coumadin. LBBB Mildly dilated ascending aorta at 4.2 cm per echo in Nov 2022 Dyslipidemia Patient presents today feeling well. Denies acute cardiac complaints. BP controlled. Taking meds asprescribed. No chest pain, shortness of breath, palpitations, dizziness, syncope or near syncope. No orthopnea,PND, or increased lower extremity edema. No fever, chills, cough, hematochezia, melena, or hemoptysis. Review of Systems: See HPI for pertinent positives. All others negative, other than those noted in HPI. Patient Active Problem List Diagnosis DIASTOLIC DYSFUNCTION HTN, goal below 130/80 Moderate persistent asthma without complication Nonallergic rhinitis Hyperlipidemia LDL goal <130 History of DVT of lower extremity History of osteoporosis History of uterine cancer Ascending aorta dilation (HCC) Malignant neoplasm of uterus (HCC) Paroxysmal atrial fibrillation (HCC) Moderate persistent asthma with acute exacerbation Hematoma of right thigh Anticoagulation management encounter Past Surgical History: Procedure Laterality Date ARTHROPLASTY KNEE TOTAL 07/28/[address] Gerard COLONOSCOPY THRU STOMA, W/BIOPSY 06/19/07 hyperplastic polyp--repeat 2 years COLONOSCOPY, DIAGNOSTIC (RECTUM) 07/24/2014 hyperplastic polyp, inflammatory tissue, repeat 5 yrs/done @ [facility] COLONOSCOPY, DIAGNOSTIC (RECTUM) N/A 04/13/2020 mild diverticulosis sigmoid and descending colon/internal hemorrhoids/biopsies show hyperplastic polyps/recall 5 years/Colonoscopy/[facility] DEXA SCAN/BONE MINERAL AXIAL ECHO,TTE [...] one remaining left ovary, due to DUB Family History Problem Relation Name Age of Onset Heart attack Mother age 76 Emphysema Father in his 70s Diabetes Grandmother (Maternal) Heart Disorder Grandmother (Maternal) Stroke Grandfather (Maternal) Social History Tobacco Use Smoking status: Never Smokeless tobacco: Never Tobacco comments: no passive smoke exposures Vaping Use Vaping status: Never Used Substance Use Topics Alcohol use: Yes Comment: once every couple weeks Drug use: No Review of patient's allergies indicates: Allergen Reactions Celebrex [Celecoxib] Magnesium Citrate Prep;vomiting and diarrhea Allergic rx. Rosuvastatin Calcium Other (Please comment) Vasotec [Enalapril Maleate] Dry cough Zocor [Simvastatin] Muscle aches Current Outpatient Medications Medication Sig Dispense Refill [...] ADV) Tablet Take 1 Tablet by mouth. Albuterol Sulfate HFA 108 (90 Base) MCG/ACT Inhalation Aerosol Solution Inhale 2 Puffs by mouth 4 times a day. 56 g 3 Black Elderberry(Faulkner-Flower) 575 MG Oral Capsule Contains [...] 1/2 TABLETS BY MOUTH DAILY OR [facility] 135 Tablet 3 Chlorthalidone 25 MG Oral Tablet (Hygroton) TAKE 1 TABLET BY MOUTH ON SUNDAY, SUNDAY, AND [id number] Tablet 3 Rosuvastatin Calcium 20 MG Oral [...] TABLET BY MOUTH DAILY 90 Tablet 3 Nebulizers (NEBULIZER COMPRESSOR) [facility] Inhale via nebulizer. Use as directed. Along [...] No current facility-administered medications for this visit. PHYSICAL EXAMINATION BP 146/80 | Pulse 60 | Resp 14 | Wt 91.6 kg (202 lb) | BMI 30.71 kg/m | BSA 2.1 m Body mass index is 30.71 kg/m. On my repeat 140/74 General: no acute distress and stated age Head: normocephalic, no masses, lesions, tenderness or abnormalities Eyes: conjunctiva are pink and non-injected, sclera clear Neck: supple, no adenopathy, no bruits, normal jugular venous pulse, no hepatojugular reflux Chest: normal shape and normal respiratory effort Lungs: clear to auscultation and percussion Cardiac Exam: - regular rate & rhythm, II/ systolic murmur Pulses: 2(+) throughout Abdomen: abdomen soft, non-tender, no abnormal masses and no hepatosplenomegaly Musculoskeletal: no gait disturbance, no joint inflammation, no deforming arthritis Extremities: no edema and no cyanosis Neuro: grossly normal exam Cardiac studies/labs: EKG performed today and reviewed personally: Sinus bradycardia with occasional Premature ventricular complexes Left bundle branch block Abnormal ECG When compared with ECG of 19-Apr-2022 14:39, Premature ventricular complexes are now Present Echo report reviewed from Nov 2022: Interpretation Summary The examination is adequate to evaluate the referral indication. The qualitative LV ejection fraction is 55-59% (normal). The LV wall thickness is mildly increased (concentric). The left ventricular wall motion is normal. The left ventricular diastolic function is mildly abnormal (grade I). Mild mitral regurgitation is present. Mild tricuspid regurgitation is present. The aortic valve has three leaflets. The aortic valve anatomy is normal. The proximal ascending thoracic aorta is mildly enlarged, 4.2 cm. The aortic root is normal sized. Compared to prior study of 08/25/2020, there is no significant change. Echo report reviewed dated Aug 2020: Interpretation Summary The primary indication after review was deemed appropriate and the examination was performed. The examination is adequate to evaluate the referral indication. The left ventricular cavity size is normal. The LV wall thickness is borderline increased (concentric). The left ventricular wall motion is normal. Calculated LV ejection Fraction = 60% (bi-plane method of discs). The left ventricular diastolic function is mildly abnormal (grade I). Mild mitral regurgitation is present. The aortic valve anatomy is normal. The aortic root is normal sized. The proximal ascending thoracic aorta is mildly enlarged. Compared to previous study dated 07/22/2018, diameter of ascending aorta appears stable at 4.2 cm. Latest Reference Range & Units 12/12/22 10:43 12/11/23 07:31 Triglycerides <=174 mg/dL 243 (H) 125 Cholesterol <200 mg/dL 167 156 Non-HDL Cholesterol <=159 mg/dL 126 103 HDL Cholesterol >49 mg/dL 41 (L) 53 LDL Cholesterol <=129 mg/dL 78 LDL Cholesterol (Direct Measure) <=129 mg/dL 93 (H): Data is abnormally high (L): Data is abnormally low Impression: 78 year old female 1. Paroxysmally atrial fibrillation, currently NSR by EKG. Continue coumadin and atenolol 2. Left bundle branch block - preserved LVEF by echo 11/2022 3. Essential hypertension - controlled 4. Dilatation of the ascending aorta 5. Hyperlipidemia 6. History of DVT on long-term anticoagulation Plan: Stable cardiac symptoms. BP borderline elevated on arrival, but trending down on my repeat. Continue coumadin and atenolol. Consider repeat echo in 2024 - 2 year interval from last. The patient is to continue all current medications as listed above. No changes were made at today'svisit. Recommend regular aerobic exercise. Ulysses goal would be minimum of 30 minutes done daily. Exercise can be done in divided time periods if needed. Told to avoid extremes in temperature. Patient is being evaluated in the cardiology office for ongoing care/risk management for PAF; LBBB;HTN. I spent a total of 30 minutes on the date of service in preparation, delivery, and documentation ofthe care provided to Mandi Tolentino excluding any time spent in the performance of separately billed services. The patient agrees to the above plan and will call with additional questions or concerns. ER with all emergencies advised. Follow Up: Return in about 1 year (around 03/05/2025). Anita Pulido PA-C Department of Cardiology This chart was completed in part utilizing [employer] Speech Voice Recognition Software. Grammatical errors, random word insertions, prounoun errors, and incomplete sentences are an occasional consequence of this system due to software limitations, ambient noise, and hardware issues. Any formal questions or concerns about the content, text, or information contained within the body of this dictation should be directly addressed to the provider for clarification. documented in this encounter Procedure Notes * Tarik Flaherty MD - 03/05/2024 8:06 AM EDTAssociated Order(s): EKG COMPLETE (TRACING AND INTERP) REASON FOR STUDY: f/u;f/u CONCLUSIONS: Sinus bradycardia with occasional Premature ventricular complexes Left bundle branch block Abnormal ECG When compared with ECG of 19-Apr-2022 14:39, Premature ventricular complexes are now Present Ventricular Rate: 52 Atrial Rate: 52 [place] Interval: 150 QRS Duration: 144 QT/QTc: 494/459 ms P-R-T Fenton: 44 : -17 : 90 degrees documented in this encounter Nursing Notes * Lianna Harrington LPN - 03/05/2024 7:58 AM EDT Examination Room: 1 Name: Mandi Tolentino Date of : 1945 Reason for Visit: Follow up Problems/Concerns: denies Interim Hosp(s): denies Chest Pain/SOB: denies MyChart Discussed: In process Patient was instructed to not get up on the exam table until directed and assisted by their provider; patient is to remain seated in the chair/ wheelchair/ exam table for fall prevention and safety reasons. Patient is aware staff will assist stepping down off exam table with personnel. documented in this encounter Plan of Treatment Upcoming Encounters Date Type Department Care Team (Late st Contact Info) Description 03/20/2024 10:30 AM EDT Office Visit Allergy/Immunology [facility] [address] [facility] [place] [address] Swapna Gillis PA-C [address] [facility] [place] [address] 04/02/2024 2:30 PM EDT Anticoagulation Pharmacy, [place] [address] [place] [address] [place], [facility] [address] [place] [address] 05/15/2024 8:20 AM EDT Office Visit General Internal Medicine [facility] [address] [facility] [place] [address] Flaquita Brenner MD [address] [facility] [place] [address] 03/18/2025 8:00 AM EDT Office Visit Cardiology, [facility] [address] [place] [address] Anita Pulido PA-C [address] [place] [address] Scheduled Procedures Name Priority Associated Diagnoses Date/Ti [...] Procedure Name Priority Date/Time Associated Diagnosis Comments [place] ECG ROUTINE ECG W/LEAST 12 LDS W/I&R Routine 03/05/2024 8:06 AM EDT Paroxysmal atrial fibrillation (HCC) HTN, goal below 140/90 Dyslipidemia, goal LDL below 100 Ascending aorta dilation (HCC) documented in this encounter Results * EKG COMPLETE (TRACING AND INTERP) (03/05/2024 8:06 AM EDT) 03/05/2024 8:06 AM EDT Narrative Procedure Note Tarik Flaherty MD - 03/05/2024 8:06 AM EDT REASON FOR STUDY: f/u;f/u CONCLUSIONS: Sinus bradycardia with occasional Premature ventricular complexes Left bundle branch block Abnormal ECG When compared with ECG of 19-Apr-2022 14:39, Premature ventricular complexes are now Present Ventricular Rate: 52 Atrial Rate: 52 [place] Interval: 150 QRS Duration: 144 QT/QTc: 494/459 ms P-R-T Fenton: 44 : -17 : 90 degrees Anita Pulido PA-C EKG [facility] documented in this encounter Visit Diagnoses Diagnosis Paroxysmal atrial fibrillation (HCC)- Primary Atrial fibrillation HTN, goal below 140/90 Unspecified essential hypertension Dyslipidemia, goal LDL below 100 Other and unspecified hyperlipidemia Ascending aorta dilation (HCC) Thoracic aortic ectasia documented in this encounter Care Teams Icu Rn Relationship Specialty Start Date End Date Flaquita Brenner MD [address] [facility] [place] [address] PCP - General Internal Medicine 12/11/14 documented as of this encounter"
--- OUTSIDE RECORDS SUMMARY | 2024-08-04 07:26 | External Medical Summary ---
Author Name Unknown Address Unknown Organization : Laboratory Report Ordering Provider Test Date Status YARELIPATITO 02/07/2024 14:35:34 Final Therapeutic ranges for non-o perative patients:
Prophylaxsis/treatment of DVT: (Range:2.0-3.0)
Treatment of pulmonary embolism:(Range:2.0-3.0)
Prevention of systemic embolism from:
-tissue heart valves
-acute myocardial infarction
-valvular heart disease
-atrial fibrillation
(Range: 2.0-3.0)
Mechanical prosthetic valves: (Range: 2.5-3.5) Observation Date Value Abnormality Reference (Units ) Status INR in Capillary blood by Coagulation assay 02/07/2024 14:35:34 3.5 (INR) Final Performing Location
--- OUTSIDE RECORDS SUMMARY | 2024-08-04 07:26 | External Medical Summary | Summary of Care ---
Author Name Unknown Organization [facility] Address [address] [facility] [place] [address] Phone [phone] Care Team Providers Care Temporary Staff Accountant Name Role Phone Flaquita Brenner MD Primary Care Provider + Reason for Visit * Reason Comments Dosage Adjustment In Person (Anticoag Cl inic) Encounter Details Date Type Department Care Team (Latest Contact Info) Description 02/07/2024 2:30 PM EDT Anticoagulation Pharmacy, [address] [address] [facility] [address] [place] [address] Anticoagulation management encounter*; Paroxysmal atrial fibrillation (HCC); senior care current use of anticoagulant therapy Allergies Active Allergy Reactions Criticality Noted Date Comments Celecoxib 08/08/2016 Magnesium Citrate 03/18/2007 Prep;vomiting and diarrhea Allergic rx. Rosuvastatin Calcium Other (Please comment) 12/25/2014 Enalapril Maleate 07/12/2010 Dry cough Simvastatin 11/28/2007 Muscle aches documented as of this encounter (statuses as of 02/07/2024) Medications Medication Sig Dispensed Refills Start Date End Date Status ASPIRIN 81 MG PO TABSIndications:HTN, goal below 140/90 one tab by mouth twice a day 0 0 03/18/2007 Active MULTIVITAMINS PO TABS 1 TABLET DAILY 0 12/14/2010 Active OMEGA-3 FISH OIL 1000 MG PO CAPS 1 capsule by mouth daily 0 12/14/2010 Active VITAMIN E 400 UNIT PO CAPS 1 capsule by mouth twice daily 0 12/14/2010 Active VITAMIN C 500 MG PO CHEW daily 0 Active B Complex Vitamins (VITAMIN B COMPLEX) Tablet Take 1 Tablet by mouth in the morning. 0 Active Calcium Carbonate 600 MG Oral Tablet Take 1 Tablet by mouth every evening. 0 02/27/2017 Active Misc Natural Products (GLUCOSAMINE CHONDROITIN ADV) Tablet Take 1 Tablet by mouth. 0 10/10/2017 Active Nebulizers (NEBULIZER COMPRESSOR) MISCIndications:Mild persistent asthma with acute exacerbation Inhale via nebulizer. Use as directed. Along with mask and tubing 1 Each 1 10/10/2017 Active Albuterol Sulfate HFA 108 (90 Base) MCG/ACT Inhalation Aerosol SolutionIndications: Moderate persistent asthma without complication Inhale 2 Puffs by mouth 4 times a day. 56 g 3 10/14/2020 Active Black Elderberry(Faulkner-Asim wer) 575 MG Oral Capsule Contains Zinc and Vitamin C - 2 tablets daily 0 Active Famotidine 20 MG Oral Tablet (Pepcid)Indications: [...] Take 1 Tablet by mouth at bedtime. 0 Active Xiidra 5 % Ophthalmic Solution (Lifitegrast) Instill 1 Drop into eye in the morning. BOTH EYES . 0 Active Ezetimibe 10 MG Oral Tablet (Zetia)Indications:D [...] noon and 1 Drop in the evening. 0 Active Zoster Vac Recomb Adjuvanted 50 MCG/0.5ML [...] MOUTH DAILY 90 Tablet 3 01/17/2024 Active documented as of this encounter (statuses as of 02/07/2024) Active Problems Problem Noted Date Diagnosed Date Hematoma of right thigh 02/22/2023 Anticoagulation management [...] Modified per HTN Taxonomy. DIASTOLIC DYSFUNCTION 03/07/2004 Hyperlipidemia LDL goal <130 documented as of this encounter (statuses as of 02/07/2024) Resolved Problems Problem Noted Date Diagnosed Date [...] as of this encounter (statuses as of 02/07/2024) Immunizations Name Administration Dates Next Due COVID-19 [...] 07/07/2019 TDAP (age 10 and older)(Boostrix) 07/08/2019 TDAP (age 11 and older)(Adacel) 03/26/2004 Varicella Zoster Vaccine (Adult) 10/02/2013 documented [...] Progress Notes * Deya Zuñiga RPh - 02/07/2024 2:32 PM EDT Images from the original note were not included. Medication Therapy Disease Management - Anticoagulation Patient: Mandi Tolentino | : 1945 Subjective Patient-Reported Symptoms: Patient Findings Positives: Change in diet/appetite (less salads lately) Negatives: Signs/symptoms of thrombosis, Signs/symptoms of bleeding, Change in health, Change in alcohol use, Change in activity, Upcoming invasive procedure, Missed doses, Extra doses, Change in medications, Bruising Objective Current Warfarin Dose As of 02/07/2024 Warfarin maintenance plan: 5 mg (5 mg x 1) every Mon, Wed, Fri; 7.5 mg (5 mg x 1.5) all other days INR Result As of 02/07/2024 INR goal: 2.0-3.0 INR used for dosin.5 (02/07/2024) Assessment & Plan Warfarin Plan As of 02/07/2024 Full warfarin instructions: 02/06: Hold; Otherwise 5 mg every Mon, Wed, Fri; 7.5 mg all other days Next INR check: 03/13/2024 Repeat PT/INR in 5 week(s) Weekly dose: not changed Additional Dosing Information: Deya Zuñiga RPh Clinical Pharmacist 02/07/2024, 2:32 PM documented in this encounter Plan of Treatment Upcoming Encounters Date Type Department Care Team (Late st Contact Info) Description 02/19/2024 9:30 AM EDT Imaging Radiology, [facility] [place] [address] [facility] [place] [address] 03/05/2024 8:00 AM EDT Office Visit Cardiology, [facility] [address] [place] [address] Anita Pulido PA-C [address] [place] [address] 03/13/2024 3:00 PM EDT Anticoagulation Pharmacy, [place] [address] [facility] [place] [address] [place], [facility] [address] [facility] [place] [address] 03/20/2024 10:30 AM EDT Office Visit Allergy/Immunology [facility] [place] [address] [place] [address] Swapna Gillis PA-C [address] [place] [id number] 05/15/2024 8:20 AM EDT Office Visit General Internal Medicine [facility] [place] [address] [place] [address] Flaquita Brenner MD [address] [place] [id number] Scheduled Procedures Name Priority Associated Diagnoses Date/Ti me COLONOSCOPY FLEXIBLE PROXIMA L DIAGNOSTIC Recall History of colonic polyps Health Maintenance Due Date Last Done Comments Zoster Vaccines (2 of 3) 11/27/2013 10/02/2013 DXA Scan 03/22/2023 03/22/2020, 03/02, 03/25/2012, Additional history exists COVID-19 Vaccine ( season) 2023 09/06/2022, 09/29/2021, 12/18/2020, Additional history exists Depression Screening 11/15/2024 11/15/2023 GFR 12/10/2024 12/11/2023, 11/29, 03/23/2022, Additional history exists Colonoscopy 04/13/2025 04/13/2020, 07/02, 07/24/2014, Additional history exists Albumin/Creatinine Ratio 06/08/2025 022, 06/16/2014, 07/14/2009, Additional history exists DTaP,Tdap,and Td Vaccines (3 [...] Comments INR FINGERSTICK, POINT OF CARE STAT 02/07/2024 2:35 PM EDT Paroxysmal atrial fibrillation (HCC) Anticoagulation management encounter watermaster current use of anticoagulant therapy documented in this encounter Results * INR FINGERSTICK, POINT OF CARE (02/07/2024 2:35 PM EDT) Fingerstick INR 3.5 INR 2:38 PM EDT [facility] Blood 02/07/2024 2:35 PM EDT 02/07/2024 2:38 PM EDT Narrative [facility] - 02/07/2024 2:38 PM EDT Therapeutic ranges for non-operative patients: Prophylaxsis/treatment of DVT: (Range:2.0-3.0) Treatment of pulmonary embolism:(Range:2.0-3.0) Prevention of systemic embolism from: -tissue heart valves -acute myocardial infarction -valvular heart disease -atrial fibrillation (Range: 2.0-3.0) Mechanical prosthetic valves: (Range: 2.5-3.5) Deya Zuñiga [facility] LAB POINT OF CARE TEST DOCKED DEVICE UNSOLICITED RESULTS [facility] [address] [place] [address] documented in this encounter Visit Diagnoses Diagnosis Anticoagulation management encounter- Primary Encounter for therapeutic drug monitoring Paroxysmal atrial fibrillation (HCC) Atrial fibrillation watermaster current use of anticoagulant therapy documented in this encounter Care Teams Temporary Staff Accountant Relationship Specialty Start Date End Date Flaquita Brenner MD [address] [place] [address] [place] [address] PCP - General Internal Medicine 12/11/14 documented as of this encounter"
--- NOTE | 2024-08-04 07:43 | Emergency Department Note ---
Impression & Plan Nontraumatic retroperitoneal hematoma, Hematoma of rectus sheath, Right lower quadrant abdominal pain, Supratherapeutic INR ED Provider Note NAME: DANIELLE MCDONALD AGE: 78 SEX: F : 1945 ARRIVES VIA: Walk-In INFORMANT: Patient, ED PROVIDER(S): Basil Clements DO CHIEF COMPLAINT: Abdominal pain HPI: The patient is a 78-year-old female who presented to the emergency department for an evaluation of abdominal pain. The patient has had problems with abdominal pain over the course the last few days. She notices the pain mostly in her lower abdomen. She has had episodes of nausea. She had episodes of constipation. She thought it was just from constipation and she has been using [id number] medication for constipation without significant relief. She presented to the emergency department today for further evaluation. The patient has had no rectal bleeding. She has not been seen by her family doctor for the symptoms. She is currently taking a steroid because her breathing issues have been acting up recently. She does take warfarin. ROS: See above HPI for pertinent positives & negatives. A total of 10 systems reviewed and were otherwise negative. PAST MEDICAL HISTORY: See Below PAST SURGICAL HISTORY: See Below FAMILY HISTORY: See Below SOCIAL HISTORY: See Below HOME MEDICATIONS: See Below ALLERGIES: See Below VITALS: See Below PHYSICAL EXAMINATION: GENERAL: The patient is awake and alert. The patient is anxious appearing and appears to be uncomfortable. EYES: The conjunctivae are clear. The pupils are round and reactive. EARS, NOSE, MOUTH AND THROAT: The nose is without any evidence of any deformity. NECK: The neck is nontender and supple. RESPIRATORY: Normal respiratory effort is noted there is no evidence of wheezing rhonchi or rales CARDIOVASCULAR: Regular rate and rhythm noted there no murmurs rubs or gallops normal S1 normal S2. GASTROINTESTINAL: The abdomen was distended. There is diffuse tenderness to palpation in the right lower quadrant. There is guarding in the right lower quadrant. MUSCULOSKELETAL/EXTREMITIES: There is no evidence of gross deformity full range of motion is noted in the hips and shoulders. SKIN: There is no obvious evidence of any rash. Trace pedal edema was noted bilaterally left greater than right. Skin was warm and dry. NEUROLOGIC: Patient is awake alert and oriented x3 MEDICAL DECISION MAKING: The patient is a 78-year-old female who presented to the emergency department for an evaluation of abdominal pain. The patient has significant abdominal pain on physical exam. She had a appears to have signs of retroperitoneal hematoma as well as rectus sheath hematoma. There was some intraperitoneal blood as well. There is no active extravasation. I discussed the patient's laboratory and radiographic studies with her. She was treated with IV pain medication in the emergency department. She was also treated with IV antibiotics for an elevated white blood cell count as well as Kcentra and vitamin K. I discussed the patient's condition with the [facility] hospitalist group. They recommended transfer. I discussed the case with medicine surgery as well as interventional radiology at [facility]. They feel the patient can stay at our facility as they do not feel any intervention is required at this time. I discussed the patient's condition with the general group at our facility as well as the [facility] hospitalist group at our facility. They have agreed to evaluate the patient in the emergency department. Triage Nursing notes reviewed. Prior medical records reviewed Vital Signs: reviewed and remarkable for hypotension. Differential diagnosis: Etiologies such as appendicitis, diverticulitis, obstruction, inflammatory bowel disease, renal colic, PUD, biliary pathology, pancreatitis, mesenteric ischemia, aortic pathology, infections, genitourinary, UTI, perforated viscus, as well as others were entertained. ER treatment provided: See below Diagnostics interpreted by me: ECG: EKG was obtained in the emergency department. My interpretation is sinus bradycardia at 50 bpm. Left bundle branch block pattern was noted. This was compared to a tracing from January 27, 2021. No changes were noted. Cardiac Monitoring: An order was placed for continuous cardiac monitoring. The monitor shows a rate of 84 bpm with sinus rhythm. Laboratory studies: As stated above and show below. Imaging studies: See below. Radiographic imaging was reviewed by myself Consultation(s): I discussed this case with the [facility] hospitalist group. They would recommend transfer for the patient given her bleeding as well as her anticoagulation use. I discussed this case with Dr Becerril who was on for acute care surgery at [facility] I discussed this case with the hospitalist as well as the interventional radiology group at [facility]. I discussed this case with Dr. Anne who is on-call for the [facility] hospitalist group. I discussed this case with Janeth who is on for general surgery. ED COURSE: Procedures: none Critical Care: I have personally spent greater than 45 minutes of critical care time in the direct management of this patient. This includes bedside care, interpretation of diagnostic studies, and testing, discussion with consultants, patient, and family members, and other required patient management activities. This 45 minutes is in excess of all separately billable procedures. Past Med/Surg History Problem List (Updated 08/04/24 @ 14:14 by Basil Clements DO) Supratherapeutic INR (Acute) Right lower quadrant abdominal pain (Acute) Hematoma of rectus sheath (Acute) Nontraumatic retroperitoneal hematoma (Acute) Osteoarthritis of left knee (Chronic) Asthma (Chronic) Weakness (Acute) History of uterine cancer (Chronic) Hypertension (Chronic) Dyslipidemia (Chronic) History of DVT of lower extremity (Chronic) "LLE x 3" Dilated aortic root (Chronic) "4.[address] 02/20/17" History of positive PPD (Chronic) H/O sinus surgery (Chronic) Hx of tonsillectomy (Chronic) H/O colonoscopy (Chronic) Status post total knee replacement (Chronic) Status post hysterectomy (Chronic) Status post right oophorectomy (Chronic) Encounter for pre-operative examination History of left cataract surgery Cataract Colon polyp Medical History LBBB (left bundle branch block) Present since at least 2014 Afib dx Nov 2020 > Warfarin > no cardioversions > follows Dr. Bryan Chronic back pain History of kidney stones History of uterine cancer --sx > no chemo History of deep vein thrombosis (DVT) of lower extremity 30 yrs ago > LLE x3 > on Coumadin Hypertension Hyperlipidemia Enlarged aorta Per 08/25/2020 echo ascending aorta 4.2 cm (stable from 2018) Follows with Dr. Bryan Asthma RARE RES INH USE Surgical History History of bilateral cataract extraction History of lumpectomy of right breast benign History of dilatation and curettage several History of carpal tunnel surgery of left wrist History of cystoscopy x2 History of appendectomy History of colonoscopy with polypectomy History of total left knee replacement (TKR) History of hysterectomy with unilateral oophorectomy removed left History of tooth extraction all teeth History of tonsillectomy and adenoidectomy History of sinus surgery x2 History of photorefractive keratectomy (PRK) Family History Grandmother (Maternal) Family history of diabetes mellitus Daughter Family history of reaction to anesthesia BP dropped with laparoscopy procedure Social History Smoking Status: Never smoker Tobacco Type: Cigarettes Second Hand Exposure: Yes; Do You Dip or Chew Tobacco: No; Hx Alcohol Use: Yes Alcohol type: wine Hx Substance Use: No Preferred Language: Gabonese Communication Ability: Effective Transitional Nurse Required: No Beliefs That Will Affect Care: None Current Living Situation: Family Feels Safe at Home: Yes Assistive Devices: Denture - Upper, Denture - Lower and Glasses Allergies Allergies Allergy/AdvReac Type Severity Reaction Status Date / Time celecoxib [From Celebrex] Allergy Severe Chest Pain Verified 02/03/21 09:39 enalapril Allergy Intermediate MUSCLE Verified 02/03/21 09:39 SPASMS simvastatin Allergy Intermediate MUSCLE Verified 02/03/21 09:39 WEAKNESS enalaprilat [From Vasotec] Allergy Mild dry cough Verified 02/03/21 09:39 magnesium citrate AdvReac Intermediate N/V Verified 02/03/21 09:39 hydrocodone AdvReac Mild GI SYMPTOMS Verified 02/03/21 09:39 Home Meds Home Medications Medication Instructions Recorded Confirmed albuterol sulfate 2.5 mg/3 mL 2.5 mg inhalation Q4 PRN Shortness 11/10/19 08/04/24 (0.083 %) solution for nebulization Of Breath albuterol sulfate 90 mcg/actuation 1 inh inhalation QID PRN Shortness 11/10/19 08/04/24 aerosol inhaler (Ventolin HFA) Of Breath amlodipine 5 mg tablet 2.5 mg PO DAILY 11/10/19 08/04/24 ascorbic acid (vitamin C) 500 mg 500 mg PO HS 11/10/19 08/04/24 tablet (Vitamin C) aspirin 81 mg tablet,delayed 81 mg PO BID 11/10/19 08/04/24 release atenolol 50 mg tablet 50 mg PO QAM 11/10/19 08/04/24 chlorthalidone 25 mg tablet 25 mg PO 3XWK 11/10/19 08/04/24 fluticasone 250 mcg-salmeterol 50 1 inh inhalation BID 11/10/19 08/04/24 mcg/dose blistr powdr for inhalation (Advair Diskus) fluticasone propionate 50 2 spray intranasal DAILY PRN 11/10/19 08/04/24 mcg/actuation nasal Allergy Symptoms spray,suspension (Flonase Allergy Relief) glucosamine sulf dipot 1 cap PO HS 11/10/19 08/04/24 chlr,msm,chond 550 mg-C 30 mg-noe 1 mg capsule (Glucosamine Chondroitin) losartan 50 mg tablet 50 mg PO QAM 11/10/19 08/04/24 montelukast 10 mg tablet 10 mg PO HS 11/10/19 08/04/24 multivitamin 1 tab PO QAM 11/10/19 08/04/24 omega 3 350 mg-dha 235 mg-epa 90 1 cap PO QAM 11/10/19 08/04/24 mg-fish oil 597 mg capsule,delay rel (Salem-3) potassium chloride 20 mEq 20 meq PO HS 11/10/19 08/04/24 tablet,extended release vitamin B complex 1 tab PO QAM 11/10/19 08/04/24 vitamin E 268 mg (400 unit) capsule 400 unit PO BID 11/10/19 08/04/24 cholecalciferol (vitamin D3) 125 125 mcg PO QAM 04/06/20 08/04/24 mcg (5,000 unit) tablet (Vitamin D3) warfarin 7.5 mg tablet 7.5 mg PO UD 01/26/21 08/04/24 ezetimibe 10 mg tablet 10 mg PO DAILY 08/04/24 08/04/24 prednisone 10 mg tablet 10 mg PO DIRECTED 08/04/24 08/04/24 rosuvastatin 20 mg tablet 20 mg PO .Q OTHER DAY 08/04/24 08/04/24 Previous Rx's Medication Instructions Recorded ondansetron 4 mg disintegrating 4 mg PO Q8H PRN nausea and 12/25/20 tablet vomiting #10 tabs Results & Data (ED) Vital Signs Vital Signs - 24 hr 08/04/24 07:22 08/04/24 07:45 08/04/24 07:50 Temperature 34.6 C L Temperature Source Oral Pulse Rate 63 60 60 Pulse Rate from SpO2 Sensor Pulse Rhythm Regular Respiratory Rate 18 18 Respiratory Effort / Characteristics Non-Labored Spontaneous Respiratory Depth Normal Respiratory Pattern Regular Blood Pressure 109/70 Blood Pressure Mean 83 Pulse Oximetry 97 97 Oxygen Delivery Method Room Air Room Air Sepsis Recent Fever Within 48 Hours No Sepsis New/Unexplained Change in Mental Status N/A Sepsis Action Taken by Nursing No Action Required 08/04/24 08:25 08/04/24 09:06 08/04/24 09:36 Temperature Temperature Source Pulse Rate 56 L 107 H 94 H Pulse Rate from SpO2 Sensor 57 L 55 L Pulse Rhythm Respiratory Rate 11 L 17 12 Respiratory Effort / Characteristics Respiratory Depth Respiratory Pattern Blood Pressure 95/59 L 105/68 102/59 L Blood Pressure Mean 71 80 73 Pulse Oximetry 95 97 97 Oxygen Delivery Method Room Air Sepsis Recent Fever Within 48 Hours Sepsis New/Unexplained Change in Mental Status Sepsis Action Taken by Nursing 08/04/24 10:09 08/04/24 10:33 08/04/24 11:01 Temperature Temperature Source Pulse Rate 103 H 105 H 113 H Pulse Rate from SpO2 Sensor Pulse Rhythm Respiratory Rate 15 12 12 Respiratory Effort / Characteristics Respiratory Depth Respiratory Pattern Blood Pressure 122/72 128/74 127/72 Blood Pressure Mean 88 92 90 Pulse Oximetry 97 Oxygen Delivery Method Room Air Sepsis Recent Fever Within 48 Hours Sepsis New/Unexplained Change in Mental Status Sepsis Action Taken by Nursing 08/04/24 11:09 08/04/24 11:36 08/04/24 12:08 Temperature Temperature Source Pulse Rate 99 H 57 L 98 H Pulse Rate from SpO2 Sensor 56 L 57 L Pulse Rhythm Respiratory Rate 16 12 Respiratory Effort / Characteristics Respiratory Depth Respiratory Pattern Blood Pressure Blood Pressure Mean Pulse Oximetry 91 91 Oxygen Delivery Method Sepsis Recent Fever Within 48 Hours Sepsis New/Unexplained Change in Mental Status Sepsis Action Taken by Nursing 08/04/24 12:32 Temperature Temperature Source Pulse Rate 109 H Pulse Rate from SpO2 Sensor Pulse Rhythm Respiratory Rate 14 Respiratory Effort / Characteristics Respiratory Depth Respiratory Pattern Blood Pressure 98/58 L Blood Pressure Mean 71 Pulse Oximetry 94 Oxygen Delivery Method Sepsis Recent Fever Within 48 Hours Sepsis New/Unexplained Change in Mental Status Sepsis Action Taken by Snf Medications Current Medication List: was personally reviewed by me Laboratory Data Attestation: I reviewed the patient's lab results. 08/04/24 11:49 08/04/24 07:55 Lab Results 08/04/24 08/04/24 08/04/24 Range/Units 07:45 07:55 08:05 WBC 20.45 H (4.8-10.8) K/ul RBC 3.99 L (4.20-5.40) M/uL Hgb 11.9 L (12.0-16.0) g/dl POC Hgb 12.2 (12.0-16.0) g/dl Hct 36.1 L (37.0-47.0) % POC Hct 36 L (37-47) % MCV 90.5 (80.0-100.0) fL MCH 29.8 (25.0-34.0) pg MCHC 33.0 (32.0-36.0) g/dL RDW Std Deviation 42.8 (36.4-46.3) fL RDW Coeff of Santiago 13.0 (11.5-14.5) % Plt Count 316 (130-400) K/uL MPV 11.3 (9.4-12.4) fL Immature Gran % (Auto) 1.5 % Neut % (Auto) 90.9 % Lymph % (Auto) 3.8 % Fleming % (Auto) 3.7 % Eos % (Auto) 0.0 % Baso % (Auto) 0.1 % Neut # (Auto) 18.56 H (1.40-6.50) K/uL Lymph # (Auto) 0.78 L (1.20-3.40) K/uL Fleming # (Auto) 0.76 H (0.11-0.59) K/uL Eos # (Auto) 0.01 (0.00-0.50) K/uL Baso # (Auto) 0.03 (0.00-0.20) K/uL Immature Gran # (Auto) 0.31 H (0.01-0.20) K/uL RBC Morphology Unremarkable PT 47.1 H (9.0-12.0) Seconds INR 5.0 H (0.9-1.1) APTT 46 H (21-31) Seconds PTT Ratio 1.7 POC Sodium 136 (135-144) mmol/L Sodium 137 (136-145) mmol/L POC Potassium 4.4 (3.3-5.0) mmol/L Potassium 4.4 (3.5-5.1) mmol/L POC Chloride 98 L (101-112) mmol/L Chloride 99 (98-107) mmol/L Carbon Dioxide 29 (21-32) mmol/L POC Total CO2 26 (24-31) mmol/L Anion Gap 9 (3-11) POC Anion Gap 18.0 (16-25) mmol/L POC BUN 24 H (7-18) mg/dl BUN 25 H (6-23) mg/dl Creatinine 1.05 (0.6-1.2) mg/dl POC Creatinine 1.1 (0.6-1.3) mg/dl Est Cr Clr Drug Dosing Not Reportable eGFR 54.72 BUN/Creatinine Ratio 23.8 H (10-20) Glucose 176 H (70-99(Fasting)) mg/dl POC Glucose (other) 174 H (70-99) mg/dl Lactate (0.4-2.0) mmol/L Calcium 9.4 (8.6-10.3) mg/dl POC Ioniz Calcium Melissa 1.15 (1.12-1.32) mmol/l Total Bilirubin 1.0 (0.2-1.0) mg/dl AST 20 (13-39) U/L ALT 24 (7-52) U/L Alkaline Phosphatase 47 (34-104) U/L Troponin I High Sens 3.8 (0-14) pg/ml Total Protein 7.1 (6.0-8.3) gm/dl Albumin 4.1 (3.4-5.0) gm/dl Globulin 3.0 (2.5-4.0) gm/dl Albumin/Globulin Ratio 1.4 (0.9-2) Lipase 28 (11-82) U/L Urine Color Cancelled Urine Appearance Cancelled Urine pH Cancelled Ur Specific [place] Cancelled Urine Protein Cancelled Urine Glucose (UA) Cancelled Urine Ketones Cancelled Urine Blood Cancelled Urine Nitrite Cancelled Urine Bilirubin Cancelled Urine Urobilinogen Cancelled Ur Leukocyte Esterase Cancelled Urine WBC (Auto) Cancelled Urine RBC (Auto) Cancelled U Hyaline Cast (Auto) Cancelled U Epithel Cells (Auto) Cancelled Urine Bacteria (Auto) Cancelled Ur Renal Epithelial Cell Cancelled [place] Biurate Crystals Cancelled Calcium Oxalate Crystal Cancelled Leucine Crystals Cancelled Cystine Crystals Cancelled Uric Acid Crystals Cancelled Triple Phos Crystals Cancelled Sulfonamide Crystals Cancelled Cholesterol Crystals Cancelled Talc Crystals Cancelled Tyrosine Crystals Cancelled Hippuric Acid Crystals Cancelled Unidentified Crystals Cancelled Amorphous Sediment Cancelled Epithelial Casts Cancelled Hyaline Casts Cancelled Granular Casts Cancelled Waxy Casts Cancelled RBC Casts Cancelled WBC Casts Cancelled Other Casts Cancelled Urine Mucus Cancelled Urine Other Cancelled Urine Trichomonas Cancelled Urine Yeast Cancelled Urine Sperm Cancelled Ur Oval Fat Bodies Cancelled 08/04/24 08/04/24 Range/Units 10:50 11:49 WBC (4.8-10.8) K/ul RBC (4.20-5.40) M/uL Hgb 9.7 L (12.0-16.0) g/dl POC Hgb (12.0-16.0) g/dl Hct 29.8 L (37.0-47.0) % POC Hct (37-47) % MCV (80.0-100.0) fL MCH (25.0-34.0) pg MCHC (32.0-36.0) g/dL RDW Std Deviation (36.4-46.3) fL RDW Coeff of Santiago (11.5-14.5) % Plt Count (130-400) K/uL MPV (9.4-12.4) fL Immature Gran % (Auto) % Neut % (Auto) % Lymph % (Auto) % Fleming % (Auto) % Eos % (Auto) % Baso % (Auto) % Neut # (Auto) (1.40-6.50) K/uL Lymph # (Auto) (1.20-3.40) K/uL Fleming # (Auto) (0.11-0.59) K/uL Eos # (Auto) (0.00-0.50) K/uL Baso # (Auto) (0.00-0.20) K/uL Immature Gran # (Auto) (0.01-0.20) K/uL RBC Morphology PT (9.0-12.0) Seconds INR (0.9-1.1) APTT (21-31) Seconds PTT Ratio POC Sodium (135-144) mmol/L Sodium (136-145) mmol/L POC Potassium (3.3-5.0) mmol/L Potassium (3.5-5.1) mmol/L POC Chloride (101-112) mmol/L Chloride (98-107) mmol/L Carbon Dioxide (21-32) mmol/L POC Total CO2 (24-31) mmol/L Anion Gap (3-11) POC Anion Gap (16-25) mmol/L POC BUN (7-18) mg/dl BUN (6-23) mg/dl Creatinine (0.6-1.2) mg/dl POC Creatinine (0.6-1.3) mg/dl Est Cr Clr Drug Dosing eGFR BUN/Creatinine Ratio (10-20) Glucose (70-99(Fasting)) mg/dl POC Glucose (other) (70-99) mg/dl Lactate 1.9 (0.4-2.0) mmol/L Calcium (8.6-10.3) mg/dl POC Ioniz Calcium Melissa (1.12-1.32) mmol/l Total Bilirubin (0.2-1.0) mg/dl AST (13-39) U/L ALT (7-52) U/L Alkaline Phosphatase (34-104) U/L Troponin I High Sens (0-14) pg/ml Total Protein (6.0-8.3) gm/dl Albumin (3.4-5.0) gm/dl Globulin (2.5-4.0) gm/dl Albumin/Globulin Ratio (0.9-2) Lipase (11-82) U/L Urine Color Yellow Urine Appearance Clear Urine pH 8.0 H Ur Specific [place] > 1.045 H Urine Protein 1+ H Urine Glucose (UA) Negative Urine Ketones Negative Urine Blood Negative Urine Nitrite Negative Urine Bilirubin Negative Urine Urobilinogen Negative Ur Leukocyte Esterase Negative Urine WBC (Auto) 0-5 Urine RBC (Auto) 0-2 U Hyaline Cast (Auto) 0-2 U Epithel Cells (Auto) 0-2 Urine Bacteria (Auto) None Seen Ur Renal Epithelial Cell [place] Biurate Crystals Calcium Oxalate Crystal Leucine Crystals Cystine Crystals Uric Acid Crystals Triple Phos Crystals Sulfonamide Crystals Cholesterol Crystals Talc Crystals Tyrosine Crystals Hippuric Acid Crystals Unidentified Crystals Amorphous Sediment Epithelial Casts Hyaline Casts Granular Casts Waxy Casts RBC Casts WBC Casts Other Casts Urine Mucus Urine Other Urine Trichomonas Urine Yeast Urine Sperm Ur Oval Fat Bodies Administered Medications Morphine Sulfate (Morphine Sulfate 4 Mg/Ml 1 Ml Carp\\Vial) 4 mg IV Q15M PRN PRN Reason: Pain Stop: 08/18/24 07:37 Last Admin: 08/04/24 10:49 Dose: 4 mg Documented By: Admin: 08/04/24 08:06 Dose: 4 mg Documented By: RONNI Discontinued Medications Sodium Chloride (Nss) 1,000 mls @ 999 mls/hr IV .Q1H1M ONE Stop: 08/04/24 10:32 Last Infusion: 08/04/24 11:23 Dose: Infused Documented By: Admin: 08/04/24 09:47 Dose: 999 mls/hr Documented By: RONNI Piperacillin Sod/Tazobactam Sod (Zosyn) 4.5 gm in 100 mls @ 200 mls/hr IV NOW ONE; Protocol Stop: 08/04/24 10:01 Last Infusion: 08/04/24 10:21 Dose: Infused Documented By: Admin: 08/04/24 09:47 Dose: 200 mls/hr Documented By: RONNI Phytonadione 10 mg/ Dextrose 51 mls @ 102 mls/hr IV ONE ONE Stop: 08/04/24 10:10 Last Infusion: 08/04/24 11:23 Dose: Infused Documented By: Admin: 08/04/24 10:51 Dose: 102 mls/hr Documented By: RONNI Prothrombin Complex Concent ( (Human) 3,500 units/ Syringe) 140 mls @ 10 mls/min IV NOW STA; Protocol Stop: 08/04/24 10:13 Last Admin: 08/04/24 10:24 Dose: 10 mls/min Documented By: RONNI Ioversol (Optiray 320 100ml) 94 ml IV ONCE ONE Stop: 08/04/24 08:21 Last Admin: 08/04/24 08:21 Dose: 94 ml Documented By: RUPA Miscellaneous (Stat Iv/Im) 1 each N/A NOW STA Stop: 08/04/24 09:51 Last Admin: 08/04/24 10:51 Dose: Not Given Documented By: RONNI Ondansetron HCl (Ondansetron Inj 2 Mg/Ml 2 Ml Vial) 4 mg IV NOW STA Stop: 08/04/24 07:39 Last Admin: 08/04/24 08:06 Dose: 4 mg Documented By: RONNI Imaging Data Attestation: I personally reviewed and interpreted this imaging study as follows: My Impression: CT of the abdomen and pelvis was obtained in the emergency department. My interpretation is no free air, final report below. Radiologist's Impression: Abdomen/Pelvis CT 08/04/24 07:38 CT OF THE ABDOMEN AND PELVIS WITH CONTRAST CLINICAL HISTORY: Lower abdominal pain. COMPARISON STUDY: CT of the abdomen and pelvis January 19, 2021. TECHNIQUE: Following IV administration of 94 mL of Optiray, axial images of the abdomen and pelvis were obtained from the lung bases to the proximal femurs. Images were reviewed in the axial, sagittal, and coronal planes. IV contrast was administered without complication. Automated exposure control was utilized for the study. A dose lowering technique was utilized adhering to the principles of ALARA. CT DOSE: 1458.92 mGy.cm FINDINGS: Lung bases are unremarkable. No pneumatosis, free air or portal venous gas is present. There is a gallstone within the gallbladder. No pericholecystic infiltration is present. The gallbladder is not distended. A small amount of perisplenic fluid measures above water attenuation. Hypodense renal lesions favor cysts although several are too small to characterize. There is no hydronephrosis. Adrenal glands and pancreas are unremarkable. There is no biliary or pancreatic ductal dilatation. There is no evidence for a bowel obstruction. Multiple sites of acute hemorrhage within the pelvis and right rectus sheath are noted. A right rectus sheath hematoma measures 7.8 x 3.7 cm. Hemorrhage within the adjacent portion of the anterior abdominal wall is also noted. A hematoma within the right side of the space of Retzius measures 7.7 x 4.6 cm. A hematoma within the right pelvic sidewall measures 7.8 x 7.6 cm. These hematomas contain fluid fluid levels. Adjacent hemorrhage is present. A small amount of associated hemoperitoneum is present. The majority of hemorrhages retroperitoneal/extraperitoneal. The right pelvic sidewall hematoma has mass effect upon the bladder which is collapsed. There is bladder wall thickening. No fractures are identified. IMPRESSION: 1. Multiple hematomas within the right rectus sheath and right hemipelvis which are predominantly extraperitoneal/retroperitoneal in location. Adjacent extraperitoneal hemorrhage and a small amount of hemoperitoneum. Overall, large amount of hemorrhage. Fluid fluid levels within the hematomas suggest coagulopathy/anticoagulation. Findings discussed with Dr. Clements at time of dictation. 2. No bowel obstruction. No bowel wall thickening. ACT 112: Negative or not required by law. Electronically signed by: Juvencio Felder M.D. 08/04/2024 9:44 AM Discharge Plan Visit Data Chief Complaint: Abdominal Pain Stated Complaint: SEVERE ABDOMINAL PAIN ED Provider: Basil Clements Discharge Problem: Nontraumatic retroperitoneal hematoma, Hematoma of rectus sheath, Right lower quadrant abdominal pain, Supratherapeutic INR Patient Disposition: Being Evaluated by Hospitalist Forms Stand Alone Forms: [facility] Prescriptions Prescriptions: No Action multivitamin Tablet 1 tab PO QAM losartan 50 mg Tablet 50 mg PO QAM fluticasone propion-salmeterol [Advair Diskus] 250-50 mcg/dose Blister With Device 1 inh INHALATION BID albuterol sulfate 2.5 mg /3 mL (0.083 %) Solution For Nebulization 2.5 mg INHALATION Q4 PRN (Reason: Shortness Of Breath) chlorthalidone 25 mg Tablet 25 mg PO [id number] amlodipine 5 mg Tablet 2.5 mg PO DAILY aspirin 81 mg Tablet,Delayed Release (Dr/Ec) 81 mg PO BID ascorbic acid (vitamin C) [Vitamin C] 500 mg Tablet 500 mg PO HS vitamin B complex Tablet 1 tab PO QAM montelukast 10 mg Tablet 10 mg PO HS albuterol sulfate [Ventolin HFA] 90 mcg/actuation Hfa Aerosol Inhaler 1 inh INHALATION QID PRN (Reason: Shortness Of Breath) fluticasone propionate [Flonase Allergy Relief] 50 mcg/actuation [place],Suspension 2 spray INTRANASAL DAILY PRN (Reason: Allergy Symptoms) atenolol 50 mg Tablet 50 mg PO QAM vitamin E 400 unit Capsule 400 unit PO BID potassium chloride 20 mEq Tablet Extended Release 20 meq PO HS [place]-3 350 mg-235 mg- 90 mg-597 mg Capsule,Delayed Release(Dr/Ec) 1 cap PO QAM Glucosamine Chondroitin 550-30-1 mg Capsule 1 cap PO HS cholecalciferol (vitamin D3) [Vitamin D3] 125 mcg (5,000 unit) Tablet 125 mcg PO QAM ondansetron 4 mg tablet,disintegrating 4 mg PO Q8H PRN (Reason: nausea and vomiting) Qty: 10 0RF warfarin 7.5 mg Tablet 7.5 mg PO UD Rx Instructions: 7.5 sun and and 5 mg rest of days prednisone 10 mg tablet 10 mg PO DIRECTED ezetimibe 10 mg tablet 10 mg PO DAILY rosuvastatin 20 mg tablet 20 mg PO .Q OTHER DAY Referrals Referrals: Flaquita Brenner MD [Primary Care Provider] - Discharge Problem: Hematoma of rectus sheath Qualifiers: Encounter type: initial encounter Qualified Code(s): S30.1XXA - Contusion of abdominal wall, initial encounter
[2024-08-04] MEDS: MoRPHine SULFATE 4 MG/ML 1 ML CARP\\VIAL IV PRN (08:06)
[2024-08-04] MEDS: ONDANSETRON INJ 2 MG/ML 2 ML VIAL IV STA (08:06)
[2024-08-04 08:17] LABS: iSTAT Creatinine 1.1 mg/dl (0.6-1.3); iSTAT Hemoglobin 12.2 g/dl (12.0-16.0); iSTAT Ionized Calcium 1.15 mmol/l (1.12-1.32); iSTAT Potassium 4.4 mmol/L (3.3-5.0)
[2024-08-04] MEDS: OPTIRAY 320 100ml IV ONE (08:21)
[2024-08-04 08:33] LABS: Hematocrit (blood only) 36.1 % (37.0-47.0); Hemoglobin 11.9 g/dl (12.0-16.0); Mean Corpuscular Hemoglobin 29.8 pg (25.0-34.0); Mean Corpuscular Volume 90.5 fL (80.0-100.0); Mean Platelet Volume 11.3 fL (9.4-12.4); Platelet Count 316 K/uL (130-400); RDW Standard Deviation 42.8 fL (36.4-46.3); Red Blood Count 3.99 M/uL (4.20-5.40); White Blood Count 20.45 K/ul (4.8-10.8)
[2024-08-04 08:35] LABS: Alanine Aminotransferase 24 U/L (7-52); Albumin Globulin Ratio 1.4 (0.9-2); Albumin Level 4.1 gm/dl (3.4-5.0); Alkaline Phosphatase 47 U/L (34-104); Anion Gap 9 (3-11); Aspartate Aminotransferase 20 U/L (13-39); BUN Creatinine Ratio 23.8 (10-20); Blood Urea Nitrogen 25 mg/dl (6-23); Calcium 9.4 mg/dl (8.6-10.3); Carbon Dioxide 29 mmol/L (21-32); Chloride 99 mmol/L (98-107); Glucose 176 mg/dl (70-99(Fasting)); Lipase 28 U/L (11-82); Potassium 4.4 mmol/L (3.5-5.1); Sodium 137 mmol/L (136-145); Total Protein 7.1 gm/dl (6.0-8.3)
[2024-08-04 08:41] LABS: Troponin I High Sensitivity 3.8 pg/ml (0-14)
[2024-08-04 08:53] LABS: Partial Thromboplastin Ratio 1.7; Partial Thromboplastin Time 46 Seconds (21-31); Prothrombin Time 47.1 Seconds (9.0-12.0)
[2024-08-04 09:13] LABS: Basophils # (auto) 0.03 K/uL (0.00-0.20); Basophils % (auto) 0.1 %; Eosinophils # (auto) 0.01 K/uL (0.00-0.50); Immature Granulocytes # (auto) 0.31 K/uL (0.01-0.20); Immature Granulocytes % (auto) 1.5 %; Lymphocytes # (auto) 0.78 K/uL (1.20-3.40); Lymphocytes % (auto) 3.8 %; Monocytes # (auto) 0.76 K/uL (0.11-0.59); Monocytes % (auto) 3.7 %; Neutrophils # (auto) 18.56 K/uL (1.40-6.50); Neutrophils % (auto) 90.9 %; RBC Morphology Unremarkable
[2024-08-04] MEDS ORDERED: Patient's HEIGHT &/or WEIGHT Needed STA (09:45)
[2024-08-04] MEDS: PIPERACILLIN/TAZOBACTAM 4.5 GM/100 ML BAG IV ONE (09:47)
[2024-08-04] MEDS: SODIUM CHLORIDE 0.9% 1,000 ML IV ONE ×2 (09:47→19:31)
--- NOTE | 2024-08-04 09:47 | CT Scan Report ---
CT OF THE ABDOMEN AND PELVIS WITH CONTRAST CLINICAL HISTORY: Lower abdominal pain. COMPARISON STUDY: CT of the abdomen and pelvis January 19, 2021. TECHNIQUE: Following IV administration of 94 mL of Optiray, axial images of the abdomen and pelvis we re obtained from the lung bases to the proximal femurs. Images were reviewed in the axial, sagittal, and coronal planes. IV contrast was administered without complication. Automated exposure control wa s utilized for the study. A dose lowering technique was utilized adhering to the principles of ALARA . CT DOSE: 1458.92 mGy.cm FINDINGS: Lung bases are unremarkable. No pneumatosis, free air or portal venous gas is present. Ther e is a gallstone within the gallbladder. No pericholecystic infiltration is present. The gallbladder is not distended. A small amount of perisplenic fluid measures above water attenuation. Hypodense anastasia al lesions favor cysts although several are too small to characterize. There is no hydronephrosis. Ad renal glands and pancreas are unremarkable. There is no biliary or pancreatic ductal dilatation. Ther e is no evidence for a bowel obstruction. Multiple sites of acute hemorrhage within the pelvis and ri ght rectus sheath are noted. A right rectus sheath hematoma measures 7.8 x 3.7 cm. Hemorrhage within the adjacent portion of the anterior abdominal wall is also noted. A hematoma within the right side o f the space of Retzius measures 7.7 x 4.6 cm. A hematoma within the right pelvic sidewall measures 7. 8 x 7.6 cm. These hematomas contain fluid fluid levels. Adjacent hemorrhage is present. A small amoun t of associated hemoperitoneum is present. The majority of hemorrhages retroperitoneal/extraperitonea l. The right pelvic sidewall hematoma has mass effect upon the bladder which is collapsed. There is b ladder wall thickening. No fractures are identified. IMPRESSION: 1. Multiple hematomas within the right rectus sheath and right hemipelvis which are predominantly ext raperitoneal/retroperitoneal in location. Adjacent extraperitoneal hemorrhage and a small amount of h emoperitoneum. Overall, large amount of hemorrhage. Fluid fluid levels within the hematomas suggest c oagulopathy/anticoagulation. Findings discussed with Dr. Clements at time of dictation. 2. No bowel obstruction. No bowel wall thickening. ACT 112: Negative or not required by law. Electronically signed by: Juvencio Felder M.D. 08/04/2024 9:44 AM
[2024-08-04] MEDS ORDERED: PROTHROMBIN COMP CONC- KCENTRA 3,500 UNITS in SYRINGE 0 ML IV STA (09:50)
[2024-08-04] MEDS: PROTHROMBIN COMP CONC- KCENTRA 3,500 UNITS in SYRINGE 0 ML IV STA (10:24)
[2024-08-04] MEDS: STAT IV/IM STA (10:51)
[2024-08-04] MEDS: PHYTONADIONE 10 MG in DEXTROSE 5% 50 ML IV ONE (10:51)
[2024-08-04 11:18] LABS: Appearance Urine Clear (Clear); Bacteria Urine Automated None Seen (None Seen); Bilirubin Urine Negative (Negative); Blood Urine Negative (Negative); Cast Urine Automated 0-2 /lpf (0-2); Color Urine Yellow; Epithelial Cell Urine Auto 0-2 /hpf (0-2); Glucose Urine UA Negative (Negative); Ketones Urine Negative (Negative); Leukocyte Esterase Urine Negative (Negative); Nitrite Urine Negative (Negative); Protein Urine 1+ (Negative); RBC Urine Automated 0-2 /hpf (0-2); Specific Gravity Urine > 1.045 (1.000-1.030); Urobilinogen Urine Negative (Negative); WBC Urine Automated 0-5 /hpf (0-5)
[2024-08-04 12:12] LABS: Hematocrit (blood only) 29.8 % (37.0-47.0); Hemoglobin 9.7 g/dl (12.0-16.0)
--- NOTE | 2024-08-04 13:37 | Surgery Consultation ---
Date of Consultation August 04, 2024 Assessment & Plan (1) Supratherapeutic INR: (2) Hematoma of rectus sheath: (3) Nontraumatic retroperitoneal hematoma: (4) Right lower quadrant abdominal pain: Plan 78-year-old female with 1 week history of upper respiratory infection and persis tent coughing presented to the emergency room with increasing abdominal pain in the last 3 days with associated constipation and lightheadedness. She underwent workup with a CT scan of the abdomen pelvis which showed multiple hematomas of the right rectus sheath and pelvis mostly retroperitoneal. Her hemoglobin was 11.9 which then decreased to 9.7 on recheck. She was initially tachycardic and hypotensive. She currently is hemodynamically stable although blood pressure still soft she is no longer tachycardic. Abdomen is soft, nondistended, nonrigid , and no peritonitis although tender in the right mid to low abdomen and suprapubic region. No acute surgical intervention recommended at this time. Would recommend close monitoring with H&H every 6 hours, serial abdominal examination, abdominal binder for compression, pain management and antiemetics as needed, bowel regimen to avoid any constipation and abdominal straining, and hold anticoagulation. If H&H continues to drop would recommend transfer for interventional radiology. Discussed with Dr. Velez who agrees with above History of Present Illness Reason for Consultation: Hematoma of right rectus sheath Retroperitoneal hematoma Supratherapeutic INR Requesting Physician: Dr. Clements History of Present Illness Mandi is a pleasant 78-year-old female who presented to the emergency department today with complaint of low severe abdominal pain that started a couple days ago. She states that she has been constipated and she thought her pain was secondary to that. She states she took multiple bowel regimens including Dulcolax, MiraLAX and Senokot due to the constipation. Last night she states the low abdominal pain was severe and that she also felt lightheaded. She has noticed some pressure upon urination but no blood in the urine. She states that she was recently started on oral steroids for upper respiratory infection and coughing secondary to her underlying asthma. She has been coughing significantly for the past week to 10 days. No trauma no falls. She takes Coumadin for her atrial fibrillation. Currently states that she is feeling better. Pain is better and controlled with IV morphine. No fevers. No nausea currently but felt nauseous at home. No vomiting. Allergies Allergy/AdvReac Type Severity Reaction Status Date / Time celecoxib [From Celebrex] Allergy Severe Chest Pain Verified 02/03/21 09:39 enalapril Allergy Intermediate MUSCLE Verified 02/03/21 09:39 SPASMS simvastatin Allergy Intermediate MUSCLE Verified 02/03/21 09:39 WEAKNESS enalaprilat [From Vasotec] Allergy Mild dry cough Verified 02/03/21 09:39 magnesium citrate AdvReac Intermediate N/V Verified 02/03/21 09:39 hydrocodone AdvReac Mild GI SYMPTOMS Verified 02/03/21 09:39 Home Medications Medication Instructions Recorded Confirmed Type albuterol sulfate 2.5 mg/3 mL 2.5 mg inhalation Q4 PRN Shortness 11/10/19 08/04/24 History (0.083 %) solution for nebulization Of Breath albuterol sulfate 90 mcg/actuation 1 inh inhalation QID PRN Shortness 11/10/19 08/04/24 History aerosol inhaler (Ventolin HFA) Of Breath amlodipine 5 mg tablet 2.5 mg PO DAILY 11/10/19 08/04/24 History ascorbic acid (vitamin C) 500 mg 500 mg PO HS 11/10/19 08/04/24 History tablet (Vitamin C) aspirin 81 mg tablet,delayed 81 mg PO BID 11/10/19 08/04/24 History release atenolol 50 mg tablet 50 mg PO QAM 11/10/19 08/04/24 History chlorthalidone 25 mg tablet 25 mg PO 3XWK 11/10/19 08/04/24 History fluticasone 250 mcg-salmeterol 50 1 inh inhalation BID 11/10/19 08/04/24 History mcg/dose blistr powdr for inhalation (Advair Diskus) fluticasone propionate 50 2 spray intranasal DAILY PRN 11/10/19 08/04/24 History mcg/actuation nasal Allergy Symptoms spray,suspension (Flonase Allergy Relief) glucosamine sulf dipot 1 cap PO HS 11/10/19 08/04/24 History chlr,msm,chond 550 mg-C 30 mg-noe 1 mg capsule (Glucosamine Chondroitin) losartan 50 mg tablet 50 mg PO QAM 11/10/19 08/04/24 History montelukast 10 mg tablet 10 mg PO HS 11/10/19 08/04/24 History multivitamin 1 tab PO QAM 11/10/19 08/04/24 History omega 3 350 mg-dha 235 mg-epa 90 1 cap PO QAM 11/10/19 08/04/24 History mg-fish oil 597 mg capsule,delay rel ([place]-3) potassium chloride 20 mEq 20 meq PO HS 11/10/19 08/04/24 History tablet,extended release vitamin B complex 1 tab PO QAM 11/10/19 08/04/24 History vitamin E 268 mg (400 unit) capsule 400 unit PO BID 11/10/19 08/04/24 History cholecalciferol (vitamin D3) 125 125 mcg PO QAM 04/06/20 08/04/24 History mcg (5,000 unit) tablet (Vitamin D3) ondansetron 4 mg disintegrating 4 mg PO Q8H PRN nausea and 12/25/20 08/04/24 Rx tablet vomiting #10 tabs warfarin 7.5 mg tablet 7.5 mg PO UD 01/26/21 08/04/24 History ezetimibe 10 mg tablet 10 mg PO DAILY 08/04/24 08/04/24 History prednisone 10 mg tablet 10 mg PO DIRECTED 08/04/24 08/04/24 History rosuvastatin 20 mg tablet 20 mg PO .Q OTHER DAY 08/04/24 08/04/24 History Patient History Medical History LBBB (left bundle branch block) Present since at least 2014 Afib dx Nov 2020 > Warfarin > no cardioversions > follows Dr. Bryan Chronic back pain History of kidney stones History of uterine cancer --sx > no chemo History of deep vein thrombosis (DVT) of lower extremity 30 yrs ago > LLE x3 > on Coumadin Hypertension Hyperlipidemia Enlarged aorta Per 08/25/2020 echo ascending aorta 4.2 cm (stable from 2018) Follows with Dr. Bryan Asthma RARE RES INH USE Surgical History History of bilateral cataract extraction History of lumpectomy of right breast benign History of dilatation and curettage several History of carpal tunnel surgery of left wrist History of cystoscopy x2 History of appendectomy History of colonoscopy with polypectomy History of total left knee replacement (TKR) History of hysterectomy with unilateral oophorectomy removed left History of tooth extraction all teeth History of tonsillectomy and adenoidectomy History of sinus surgery x2 History of photorefractive keratectomy (PRK) Family History Grandmother (Maternal) Family history of diabetes mellitus Daughter Family history of reaction to anesthesia BP dropped with laparoscopy procedure Social History Smoking Status: Never smoker Tobacco Type: Cigarettes Second Hand Exposure: Yes; Do You Dip or Chew Tobacco: No; Hx Alcohol Use: Yes Alcohol type: wine Hx Substance Use: No Preferred Language: Tanzanian Communication Ability: Effective Veneer Manufacturer Required: No Beliefs That Will Affect Care: None Current Living Situation: Family Feels Safe at Home: Yes Assistive Devices: Denture - Upper, Denture - Lower and Glasses Review of Systems Review of Systems: All systems reviewed & are unremarkable except as noted in HPI & below Physical Exam Constitutional: WD/WN, vitals as above + ill appearing (Slightly pale), + obese, cooperative and comfortable; no acute distress and not diaphoretic Respiratory: normal respiratory effort, lungs clear to auscultation Cardiovascular: RRR, no murmur, no edema Gastrointestinal (Abdomen): Inspection/Auscultation: abdomen normal to inspection and + abdominal wall ecchymosis (Suprapubic); abdomen not distended Percussion/Palpation: + abdomen tender (Right mid abdomen, Low abdomen), + guarding (Voluntary of the right mid abdomen) and abdomen soft; abdomen not rigid and abdomen not firm No peritonitis, rigidity, rebound Skin: no rashes, warm and dry + pallor Psychiatric: Orientation: alert and oriented x 3 Results & Data Vital Signs (Past 12 Hours) Vital Signs Temp Pulse Resp BP Pulse Ox O2 Del Method 08/04/24 12:32 109 H 14 98/58 L 94 08/04/24 12:08 98 H 08/04/24 11:36 57 L 12 91 08/04/24 11:09 99 H 16 91 08/04/24 11:01 113 H 12 127/72 97 Room Air 08/04/24 10:33 105 H 12 128/74 08/04/24 10:09 103 H 15 122/72 08/04/24 09:36 94 H 12 102/59 L 97 08/04/24 09:06 107 H 17 105/68 97 08/04/24 08:25 56 L 11 L 95/59 L 95 Room Air 08/04/24 07:50 60 18 97 Room Air 08/04/24 07:45 60 08/04/24 07:22 34.6 C L 63 18 109/70 97 Room Air Laboratory Results 08/04/24 08/04/24 08/04/24 Range/Units 11:49 10:50 08:05 WBC (4.8-10.8) K/ul RBC (4.20-5.40) M/uL Hgb 9.7 L (12.0-16.0) g/dl POC Hgb 12.2 (12.0-16.0) g/dl Hct 29.8 L (37.0-47.0) % POC Hct 36 L (37-47) % MCV (80.0-100.0) fL MCH (25.0-34.0) pg MCHC (32.0-36.0) g/dL RDW Std Deviation (36.4-46.3) fL RDW Coeff of [place] (11.5-14.5) % Plt Count (130-400) K/uL MPV (9.4-12.4) fL Immature Gran % (Auto) % Neut % (Auto) % Lymph % (Auto) % [place] % (Auto) % Eos % (Auto) % Baso % (Auto) % Neut # (Auto) (1.40-6.50) K/uL Lymph # (Auto) (1.20-3.40) K/uL [place] # (Auto) (0.11-0.59) K/uL Eos # (Auto) (0.00-0.50) K/uL Baso # (Auto) (0.00-0.20) K/uL Immature Gran # (Auto) (0.01-0.20) K/uL RBC Morphology PT (9.0-12.0) Seconds INR (0.9-1.1) APTT (21-31) Seconds PTT Ratio POC Sodium 136 (135-144) mmol/L Sodium (136-145) mmol/L POC Potassium 4.4 (3.3-5.0) mmol/L Potassium (3.5-5.1) mmol/L POC Chloride 98 L (101-112) mmol/L Chloride (98-107) mmol/L Carbon Dioxide (21-32) mmol/L POC Total CO2 26 (24-31) mmol/L Anion Gap (3-11) POC Anion Gap 18.0 (16-25) mmol/L POC BUN 24 H (7-18) mg/dl BUN (6-23) mg/dl Creatinine (0.6-1.2) mg/dl POC Creatinine 1.1 (0.6-1.3) mg/dl Est Cr Clr Drug Dosing eGFR BUN/Creatinine Ratio (10-20) Glucose (70-99(Fasting)) mg/dl POC Glucose (other) 174 H (70-99) mg/dl Lactate 1.9 (0.4-2.0) mmol/L Calcium (8.6-10.3) mg/dl POC Ioniz Calcium Melissa 1.15 (1.12-1.32) mmol/l Total Bilirubin (0.2-1.0) mg/dl AST (13-39) U/L ALT (7-52) U/L Alkaline Phosphatase (34-104) U/L Troponin I High Sens (0-14) pg/ml Total Protein (6.0-8.3) gm/dl Albumin (3.4-5.0) gm/dl Globulin (2.5-4.0) gm/dl Albumin/Globulin Ratio (0.9-2) Lipase (11-82) U/L Urine Color Yellow Urine Appearance Clear Urine pH 8.0 H Ur Specific [place] > 1.045 H Urine Protein 1+ H Urine Glucose (UA) Negative Urine Ketones Negative Urine Blood Negative Urine Nitrite Negative Urine Bilirubin Negative Urine Urobilinogen Negative Ur Leukocyte Esterase Negative Urine WBC (Auto) 0-5 Urine RBC (Auto) 0-2 U Hyaline Cast (Auto) 0-2 U Epithel Cells (Auto) 0-2 Urine Bacteria (Auto) None Seen Ur Renal Epithelial Cell [place] Biurate Crystals Calcium Oxalate Crystal Leucine Crystals Cystine Crystals Uric Acid Crystals Triple Phos Crystals Sulfonamide Crystals Cholesterol Crystals Talc Crystals Tyrosine Crystals Hippuric Acid Crystals Unidentified Crystals Amorphous Sediment Epithelial Casts Hyaline Casts Granular Casts Waxy Casts RBC Casts WBC Casts Other Casts Urine Mucus Urine Other Urine Trichomonas Urine Yeast Urine Sperm Ur Oval Fat Bodies 08/04/24 08/04/24 Range/Units 07:55 07:45 WBC 20.45 H (4.8-10.8) K/ul RBC 3.99 L (4.20-5.40) M/uL Hgb 11.9 L (12.0-16.0) g/dl POC Hgb (12.0-16.0) g/dl Hct 36.1 L (37.0-47.0) % POC Hct (37-47) % MCV 90.5 (80.0-100.0) fL MCH 29.8 (25.0-34.0) pg MCHC 33.0 (32.0-36.0) g/dL RDW Std Deviation 42.8 (36.4-46.3) fL RDW Coeff of [place] 13.0 (11.5-14.5) % Plt Count 316 (130-400) K/uL MPV 11.3 (9.4-12.4) fL Immature Gran % (Auto) 1.5 % Neut % (Auto) 90.9 % Lymph % (Auto) 3.8 % [place] % (Auto) 3.7 % Eos % (Auto) 0.0 % Baso % (Auto) 0.1 % Neut # (Auto) 18.56 H (1.40-6.50) K/uL Lymph # (Auto) 0.78 L (1.20-3.40) K/uL [place] # (Auto) 0.76 H (0.11-0.59) K/uL Eos # (Auto) 0.01 (0.00-0.50) K/uL Baso # (Auto) 0.03 (0.00-0.20) K/uL Immature Gran # (Auto) 0.31 H (0.01-0.20) K/uL RBC Morphology Unremarkable PT 47.1 H (9.0-12.0) Seconds INR 5.0 H (0.9-1.1) APTT 46 H (21-31) Seconds PTT Ratio 1.7 POC Sodium (135-144) mmol/L Sodium 137 (136-145) mmol/L POC Potassium (3.3-5.0) mmol/L Potassium 4.4 (3.5-5.1) mmol/L POC Chloride (101-112) mmol/L Chloride 99 (98-107) mmol/L Carbon Dioxide 29 (21-32) mmol/L POC Total CO2 (24-31) mmol/L Anion Gap 9 (3-11) POC Anion Gap (16-25) mmol/L POC BUN (7-18) mg/dl BUN 25 H (6-23) mg/dl Creatinine 1.05 (0.6-1.2) mg/dl POC Creatinine (0.6-1.3) mg/dl Est Cr Clr Drug Dosing Not Reportable eGFR 54.72 BUN/Creatinine Ratio 23.8 H (10-20) Glucose 176 H (70-99(Fasting)) mg/dl POC Glucose (other) (70-99) mg/dl Lactate (0.4-2.0) mmol/L Calcium 9.4 (8.6-10.3) mg/dl POC Ioniz Calcium Melissa (1.12-1.32) mmol/l Total Bilirubin 1.0 (0.2-1.0) mg/dl AST 20 (13-39) U/L ALT 24 (7-52) U/L Alkaline Phosphatase 47 (34-104) U/L Troponin I High Sens 3.8 (0-14) pg/ml Total Protein 7.1 (6.0-8.3) gm/dl Albumin 4.1 (3.4-5.0) gm/dl Globulin 3.0 (2.5-4.0) gm/dl Albumin/Globulin Ratio 1.4 (0.9-2) Lipase 28 (11-82) U/L Urine Color Cancelled Urine Appearance Cancelled Urine pH Cancelled Ur Specific [place] Cancelled Urine Protein Cancelled Urine Glucose (UA) Cancelled Urine Ketones Cancelled Urine Blood Cancelled Urine Nitrite Cancelled Urine Bilirubin Cancelled Urine Urobilinogen Cancelled Ur Leukocyte Esterase Cancelled Urine WBC (Auto) Cancelled Urine RBC (Auto) Cancelled U Hyaline Cast (Auto) Cancelled U Epithel Cells (Auto) Cancelled Urine Bacteria (Auto) Cancelled Ur Renal Epithelial Cell Cancelled [place] Biurate Crystals Cancelled Calcium Oxalate Crystal Cancelled Leucine Crystals Cancelled Cystine Crystals Cancelled Uric Acid Crystals Cancelled Triple Phos Crystals Cancelled Sulfonamide Crystals Cancelled Cholesterol Crystals Cancelled Talc Crystals Cancelled Tyrosine Crystals Cancelled Hippuric Acid Crystals Cancelled Unidentified Crystals Cancelled Amorphous Sediment Cancelled Epithelial Casts Cancelled Hyaline Casts Cancelled Granular Casts Cancelled Waxy Casts Cancelled RBC Casts Cancelled WBC Casts Cancelled Other Casts Cancelled Urine Mucus Cancelled Urine Other Cancelled Urine Trichomonas Cancelled Urine Yeast Cancelled Urine Sperm Cancelled Ur Oval Fat Bodies Cancelled Diagnostic Findings CT OF THE ABDOMEN AND PELVIS WITH CONTRAST CLINICAL HISTORY: Lower abdominal pain. COMPARISON STUDY: CT of the abdomen and pelvis January 19, 2021. TECHNIQUE: Following IV administration of 94 mL of Optiray, axial images of the abdomen and pelvis were obtained from the lung bases to the proximal femurs. Images were reviewed in the axial, sagittal, and coronal planes. IV contrast was administered without complication. Automated exposure control was utilized for the study. A dose lowering technique was utilized adhering to the principles of ALARA. CT DOSE: 1458.92 mGy.cm FINDINGS: Lung bases are unremarkable. No pneumatosis, free air or portal venous gas is present. There is a gallstone within the gallbladder. No pericholecystic infiltration is present. The gallbladder is not distended. A small amount of perisplenic fluid measures above water attenuation. Hypodense renal lesions favor cysts although several are too small to characterize. There is no hydronephrosis. Adrenal glands and pancreas are unremarkable. There is no biliary or pancreatic ductal dilatation. There is no evidence for a bowel obstruction. Multiple sites of acute hemorrhage within the pelvis and right rectus sheath are noted. A right rectus sheath hematoma measures 7.8 x 3.7 cm. Hemorrhage within the adjacent portion of the anterior abdominal wall is also noted. A hematoma within the right side of the space of Retzius measures 7.7 x 4.6 cm. A hematoma within the right pelvic sidewall measures 7.8 x 7.6 cm. These hematomas contain fluid fluid levels. Adjacent hemorrhage is present. A small amount of associated hemoperitoneum is present. The majority of hemorrhages retroperitoneal/extraperitoneal. The right pelvic sidewall hematoma has mass effect upon the bladder which is collapsed. There is bladder wall thickening. No fractures are identified. IMPRESSION: 1. Multiple hematomas within the right rectus sheath and right hemipelvis which are predominantly extraperitoneal/retroperitoneal in location. Adjacent extraperitoneal hemorrhage and a small amount of hemoperitoneum. Overall, large amount of hemorrhage. Fluid fluid levels within the hematomas suggest coagulopathy/anticoagulation. Findings discussed with Dr. Clements at time of dictation. 2. No bowel obstruction. No bowel wall thickening. (2) Hematoma of rectus sheath Encounter type: initial encounter Qualified Code(s): S30.1XXA - Contusion of abdominal wall, initial encounter
--- NOTE | 2024-08-04 14:24 | History & Physical Report ---
Date of Service August 04, 2024 Assessment & Plan (1) Nontraumatic retroperitoneal hematoma: (2) Hematoma of rectus sheath: (3) Supratherapeutic INR: (4) PAF (paroxysmal atrial fibrillation): (5) History of DVT of lower extremity: (6) Asthma: (7) Hypertension: (8) Dyslipidemia: Plan This is a 78 y/o with PAF, on chronic AC, hx DVT x3, HTN, dyslipidemia, asthma, and other history as outlined below who presented to the ED today with abdominal pain. Work-up in the ED showed a supratherapeutic INR of 5.[address] abd/pel with multiple hematomas in the right rectus sheath and right hemipelvis. Initial hgb was 11.9, repeat hgb 3-4 hrs later was 9.7. She was given IV vitamin K and PCC x 2 in the ED. ED physician discussed the care with tertiary care center to consider transfer - IR and acute care surgery said there was no need for transfer at present. Surgery has evaluated the patient here and recommends close monitoring with serial H&H and serial abdominal exams. #Nontraumatic retroperitoneal hematoma #Rectus sheath hematoma #Supratherapeutic INR - Admit to PCU - H&H Q6 hours to document stability - Type and cross one unit of PRBCs to have on hold - Surgery consult noted and appreciated - abdominal binder ordered - Bowel regimen for constipation - Monitor urinary output - avoiding Justin for now due to elevated INR and risk of bleeding. Bladder scan per protocol - Repeat INR this afternoon - BP still soft so will order an additional 1 L NSS bolus then maintenance fluids at 100 ml/hr - NPO for now until document stability of H&H #PAF - on chronic anticoagulation with warfarin #History of DVT x 3 - Continue beta-andrey but with holds for hypotension - Holding warfarin due to supratherapeutic INR and concern for active bleeding #Asthma - Continue maintenance inhaler - Continue prn albuterol - Holding additional prednisone in view of elevated INR and bleeding #HTN - Holding anti-hypertensives in view of low-normal BP other than beta-andrey for history of paroxysmal atrial fibrillation #Dyslipidemia - Hold statin for now Pt seen and reviewed with collaborating physician, Dr. Anne. Plan of care discussed and as outlined above. Code status: full code DVT prophylaxis: SCDs in view of elevated INR, bleeding Admit to PCU for close monitoring. If H&H dropping, consider transfer to tertiary care center. Travis Gamino PA-C History of Present Illness Chief Complaint: abdominal pain Primary Care Provider: Flaquita Brenner MD This is a 78 y/o with PAF, on chronic AC, hx DVT x3, HTN, dyslipidemia, asthma, and other history as outlined below who presented to the ED today with abdominal pain. Pt reports that the abdominal pain started a few days ago. She initially attributed this to constipation as she had not had a BM in 2-3 days. She tried Miralax, Dulcolax, Senokot, and a Fleet's enema with only passing small amounts of stool. No relief of pain with defecation. Denies melena or hematochezia. Does note occasional constipation at baseline. She has been nauseated but has not vomited. Nausea is currently improved with ondansetron in the ED. Currently rates pain as 3/10 after morphine. She also notes some difficulty with urination over the last day with sense of stranguria. This afternoon, she has been able to urinate a small amount but still feels like she is retaining urine with associated sensation of bladder distention. She has had chills and sweats but no documented fevers. Of note, pt was seen in urgent care eight days ago for a persistent cough and was prescribed prednisone taper (50/40/30/20/10 at two days each - currently has two days of the taper left). Has also been using albuterol nebs twice a day and Neti Pot for the URI symptoms/cough. Denies chest pain or dyspnea. Does not take Advair consistently but is helpful when she uses it. With the pain, she has been lightheaded at times but denies syncope. She has had a headache the last 2-3 days as well. She denies recent dose change of warfarin and reports that her INR is typically stable. Allergies Allergy/AdvReac Type Severity Reaction Status Date / Time celecoxib [From Celebrex] Allergy Severe Chest Pain Verified 02/03/21 09:39 enalapril Allergy Intermediate MUSCLE Verified 02/03/21 09:39 SPASMS simvastatin Allergy Intermediate MUSCLE Verified 02/03/21 09:39 WEAKNESS enalaprilat [From Vasotec] Allergy Mild dry cough Verified 02/03/21 09:39 magnesium citrate AdvReac Intermediate N/V Verified 02/03/21 09:39 hydrocodone AdvReac Mild GI SYMPTOMS Verified 02/03/21 09:39 Home Medications Medication Instructions Recorded Confirmed Type albuterol sulfate 2.5 mg/3 mL 2.5 mg inhalation Q4 PRN Shortness 11/10/19 08/04/24 History (0.083 %) solution for nebulization Of Breath albuterol sulfate 90 mcg/actuation 1 inh inhalation QID PRN Shortness 11/10/19 08/04/24 History aerosol inhaler (Ventolin HFA) Of Breath amlodipine 5 mg tablet 2.5 mg PO DAILY 11/10/19 08/04/24 History ascorbic acid (vitamin C) 500 mg 500 mg PO HS 11/10/19 08/04/24 History tablet (Vitamin C) aspirin 81 mg tablet,delayed 81 mg PO BID 11/10/19 08/04/24 History release atenolol 50 mg tablet 50 mg PO QAM 11/10/19 08/04/24 History chlorthalidone 25 mg tablet 25 mg PO 3XWK 11/10/19 08/04/24 History fluticasone 250 mcg-salmeterol 50 1 inh inhalation BID 11/10/19 08/04/24 History mcg/dose blistr powdr for inhalation (Advair Diskus) fluticasone propionate 50 2 spray intranasal DAILY PRN 11/10/19 08/04/24 History mcg/actuation nasal Allergy Symptoms spray,suspension (Flonase Allergy Relief) glucosamine sulf dipot 1 cap PO HS 11/10/19 08/04/24 History chlr,msm,chond 550 mg-C 30 mg-noe 1 mg capsule (Glucosamine Chondroitin) losartan 50 mg tablet 50 mg PO QAM 11/10/19 08/04/24 History montelukast 10 mg tablet 10 mg PO HS 11/10/19 08/04/24 History multivitamin 1 tab PO QAM 11/10/19 08/04/24 History omega 3 350 mg-dha 235 mg-epa 90 1 cap PO QAM 11/10/19 08/04/24 History mg-fish oil 597 mg capsule,delay rel ([place]-3) potassium chloride 20 mEq 20 meq PO HS 11/10/19 08/04/24 History tablet,extended release vitamin B complex 1 tab PO QAM 11/10/19 08/04/24 History vitamin E 268 mg (400 unit) capsule 400 unit PO BID 11/10/19 08/04/24 History cholecalciferol (vitamin D3) 125 125 mcg PO QAM 04/06/20 08/04/24 History mcg (5,000 unit) tablet (Vitamin D3) ondansetron 4 mg disintegrating 4 mg PO Q8H PRN nausea and 12/25/20 08/04/24 Rx tablet vomiting #10 tabs warfarin 7.5 mg tablet 7.5 mg PO UD 01/26/21 08/04/24 History ezetimibe 10 mg tablet 10 mg PO DAILY 08/04/24 08/04/24 History prednisone 10 mg tablet 10 mg PO DIRECTED 08/04/24 08/04/24 History rosuvastatin 20 mg tablet 20 mg PO .Q OTHER DAY 08/04/24 08/04/24 History Past Med/Surg History Problem List (Updated 08/04/24 @ 16:04 by Kayy Gamino PA-C) PAF (paroxysmal atrial fibrillation) Supratherapeutic INR (Acute) Right lower quadrant abdominal pain (Acute) Hematoma of rectus sheath (Acute) Nontraumatic retroperitoneal hematoma (Acute) Osteoarthritis of left knee (Chronic) Asthma (Chronic) Weakness (Acute) History of uterine cancer (Chronic) Hypertension (Chronic) Dyslipidemia (Chronic) History of DVT of lower extremity (Chronic) "LLE x 3" Dilated aortic root (Chronic) "4.[address] 02/20/17" History of positive PPD (Chronic) H/O sinus surgery (Chronic) Hx of tonsillectomy (Chronic) H/O colonoscopy (Chronic) Status post total knee replacement (Chronic) Status post hysterectomy (Chronic) Status post right oophorectomy (Chronic) Encounter for pre-operative examination History of left cataract surgery Cataract Colon polyp Medical History LBBB (left bundle branch block) Present since at least 2014 Afib dx Nov 2020 > Warfarin > no cardioversions > follows Dr. Bryan Chronic back pain History of kidney stones History of uterine cancer --sx > no chemo History of deep vein thrombosis (DVT) of lower extremity 30 yrs ago > LLE x3 > on Coumadin Hypertension Hyperlipidemia Enlarged aorta Per 08/25/2020 echo ascending aorta 4.2 cm (stable from 2018) Follows with Dr. Bryan Asthma RARE RES INH USE Surgical History History of bilateral cataract extraction History of lumpectomy of right breast benign History of dilatation and curettage several History of carpal tunnel surgery of left wrist History of cystoscopy x2 History of appendectomy History of colonoscopy with polypectomy History of total left knee replacement (TKR) History of hysterectomy with unilateral oophorectomy removed left History of tooth extraction all teeth History of tonsillectomy and adenoidectomy History of sinus surgery x2 History of photorefractive keratectomy (PRK) Family History Grandmother (Maternal) Family history of diabetes mellitus Daughter Family history of reaction to anesthesia BP dropped with laparoscopy procedure Social History Smoking Status: Never smoker Tobacco Type: Cigarettes Second Hand Exposure: Yes; Do You Dip or Chew Tobacco: No; Hx Alcohol Use: Yes Alcohol type: wine Hx Substance Use: No Preferred Language: Tuvaluan Communication Ability: Effective Airplane Designer Required: No Beliefs That Will Affect Care: None Current Living Situation: Family Feels Safe at Home: Yes Assistive Devices: Denture - Upper, Denture - Lower and Glasses Review of Systems Review of Systems: All systems reviewed & are unremarkable except as noted in Subjective Physical Exam Physical Exam: General: awake, alert, NAD HEENT: no scleral icterus, slightly dry oral mucosa Neck: supple, trachea midline Heart: irregular, tachycardic Lungs: CTA bilaterally on the anterior, no W/R/R Abdomen: soft, mild diffuse tenderness, moderate RLQ/suprapubic tenderness with voluntary guarding, +BS. No rigidity or rebound. +abdominal wall ecchymosis in lower abdomen Extremities: no pedal edema Skin: warm, dry, +pallor Neurologic: OX3, no confusion or dysarthria, moving all extremities, no focal deficit. Results & Data Results & Data Vital Signs (Past 12 Hours) Vital Signs Temp Pulse Resp BP Pulse Ox O2 Del Method 08/04/24 12:32 109 H 14 98/58 L 94 08/04/24 12:08 98 H 11/04/24 11:36 57 L 12 91 08/04/24 11:09 99 H 16 91 08/04/24 11:01 113 H 12 127/72 97 Room Air 08/04/24 10:33 105 H 12 128/74 08/04/24 10:09 103 H 15 122/72 08/04/24 09:36 94 H 12 102/59 L 97 08/04/24 09:06 107 H 17 105/68 97 08/04/24 08:25 56 L 11 L 95/59 L 95 Room Air 08/04/24 07:50 60 18 97 Room Air 08/04/24 07:45 60 08/04/24 07:22 34.6 C L 63 18 109/70 97 Room Air Laboratory Results Lab Results 08/04/24 08/04/24 08/04/24 Range/Units 07:45 07:55 08:05 WBC 20.45 H (4.8-10.8) K/ul RBC 3.99 L (4.20-5.40) M/uL Hgb 11.9 L (12.0-16.0) g/dl POC Hgb 12.2 (12.0-16.0) g/dl Hct 36.1 L (37.0-47.0) % POC Hct 36 L (37-47) % MCV 90.5 (80.0-100.0) fL MCH 29.8 (25.0-34.0) pg MCHC 33.0 (32.0-36.0) g/dL RDW Std Deviation 42.8 (36.4-46.3) fL RDW Coeff of Santiago 13.0 (11.5-14.5) % Plt Count 316 (130-400) K/uL MPV 11.3 (9.4-12.4) fL Immature Gran % (Auto) 1.5 % Neut % (Auto) 90.9 % Lymph % (Auto) 3.8 % [place] % (Auto) 3.7 % Eos % (Auto) 0.0 % Baso % (Auto) 0.1 % Neut # (Auto) 18.56 H (1.40-6.50) K/uL Lymph # (Auto) 0.78 L (1.20-3.40) K/uL [place] # (Auto) 0.76 H (0.11-0.59) K/uL Eos # (Auto) 0.01 (0.00-0.50) K/uL Baso # (Auto) 0.03 (0.00-0.20) K/uL Immature Gran # (Auto) 0.31 H (0.01-0.20) K/uL RBC Morphology Unremarkable PT 47.1 H (9.0-12.0) Seconds INR 5.0 H (0.9-1.1) APTT 46 H (21-31) Seconds PTT Ratio 1.7 POC Sodium 136 (135-144) mmol/L Sodium 137 (136-145) mmol/L POC Potassium 4.4 (3.3-5.0) mmol/L Potassium 4.4 (3.5-5.1) mmol/L POC Chloride 98 L (101-112) mmol/L Chloride 99 (98-107) mmol/L Carbon Dioxide 29 (21-32) mmol/L POC Total CO2 26 (24-31) mmol/L Anion Gap 9 (3-11) POC Anion Gap 18.0 (16-25) mmol/L POC BUN 24 H (7-18) mg/dl BUN 25 H (6-23) mg/dl Creatinine 1.05 (0.6-1.2) mg/dl POC Creatinine 1.1 (0.6-1.3) mg/dl Est Cr Clr Drug Dosing Not Reportable eGFR 54.72 BUN/Creatinine Ratio 23.8 H (10-20) Glucose 176 H (70-99(Fasting)) mg/dl POC Glucose (other) 174 H (70-99) mg/dl Lactate (0.4-2.0) mmol/L Calcium 9.4 (8.6-10.3) mg/dl POC Ioniz Calcium Melissa 1.15 (1.12-1.32) mmol/l Total Bilirubin 1.0 (0.2-1.0) mg/dl AST 20 (13-39) U/L ALT 24 (7-52) U/L Alkaline Phosphatase 47 (34-104) U/L Troponin I High Sens 3.8 (0-14) pg/ml Total Protein 7.1 (6.0-8.3) gm/dl Albumin 4.1 (3.4-5.0) gm/dl Globulin 3.0 (2.5-4.0) gm/dl Albumin/Globulin Ratio 1.4 (0.9-2) Lipase 28 (11-82) U/L Urine Color Cancelled Urine Appearance Cancelled Urine pH Cancelled Ur Specific Belding Cancelled Urine Protein Cancelled Urine Glucose (UA) Cancelled Urine Ketones Cancelled Urine Blood Cancelled Urine Nitrite Cancelled Urine Bilirubin Cancelled Urine Urobilinogen Cancelled Ur Leukocyte Esterase Cancelled Urine WBC (Auto) Cancelled Urine RBC (Auto) Cancelled U Hyaline Cast (Auto) Cancelled U Epithel Cells (Auto) Cancelled Urine Bacteria (Auto) Cancelled Ur Renal Epithelial Cell Cancelled Alanreed Biurate Crystals Cancelled Calcium Oxalate Crystal Cancelled Leucine Crystals Cancelled Cystine Crystals Cancelled Uric Acid Crystals Cancelled Triple Phos Crystals Cancelled Sulfonamide Crystals Cancelled Cholesterol Crystals Cancelled Talc Crystals Cancelled Tyrosine Crystals Cancelled Hippuric Acid Crystals Cancelled Unidentified Crystals Cancelled Amorphous Sediment Cancelled Epithelial Casts Cancelled Hyaline Casts Cancelled Granular Casts Cancelled Waxy Casts Cancelled RBC Casts Cancelled WBC Casts Cancelled Other Casts Cancelled Urine Mucus Cancelled Urine Other Cancelled Urine Trichomonas Cancelled Urine Yeast Cancelled Urine Sperm Cancelled Ur Oval Fat Bodies Cancelled 08/04/24 08/04/24 Range/Units 10:50 11:49 WBC (4.8-10.8) K/ul RBC (4.20-5.40) M/uL Hgb 9.7 L (12.0-16.0) g/dl POC Hgb (12.0-16.0) g/dl Hct 29.8 L (37.0-47.0) % POC Hct (37-47) % MCV (80.0-100.0) fL MCH (25.0-34.0) pg MCHC (32.0-36.0) g/dL RDW Std Deviation (36.4-46.3) fL RDW Coeff of Santiago (11.5-14.5) % Plt Count (130-400) K/uL MPV (9.4-12.4) fL Immature Gran % (Auto) % Neut % (Auto) % Lymph % (Auto) % [place] % (Auto) % Eos % (Auto) % Baso % (Auto) % Neut # (Auto) (1.40-6.50) K/uL Lymph # (Auto) (1.20-3.40) K/uL [place] # (Auto) (0.11-0.59) K/uL Eos # (Auto) (0.00-0.50) K/uL Baso # (Auto) (0.00-0.20) K/uL Immature Gran # (Auto) (0.01-0.20) K/uL RBC Morphology PT (9.0-12.0) Seconds INR (0.9-1.1) APTT (21-31) Seconds PTT Ratio POC Sodium (135-144) mmol/L Sodium (136-145) mmol/L POC Potassium (3.3-5.0) mmol/L Potassium (3.5-5.1) mmol/L POC Chloride (101-112) mmol/L Chloride (98-107) mmol/L Carbon Dioxide (21-32) mmol/L POC Total CO2 (24-31) mmol/L Anion Gap (3-11) POC Anion Gap (16-25) mmol/L POC BUN (7-18) mg/dl BUN (6-23) mg/dl Creatinine (0.6-1.2) mg/dl POC Creatinine (0.6-1.3) mg/dl Est Cr Clr Drug Dosing eGFR BUN/Creatinine Ratio (10-20) Glucose (70-99(Fasting)) mg/dl POC Glucose (other) (70-99) mg/dl Lactate 1.9 (0.4-2.0) mmol/L Calcium (8.6-10.3) mg/dl POC Ioniz Calcium Melissa (1.12-1.32) mmol/l Total Bilirubin (0.2-1.0) mg/dl AST (13-39) U/L ALT (7-52) U/L Alkaline Phosphatase (34-104) U/L Troponin I High Sens (0-14) pg/ml Total Protein (6.0-8.3) gm/dl Albumin (3.4-5.0) gm/dl Globulin (2.5-4.0) gm/dl Albumin/Globulin Ratio (0.9-2) Lipase (11-82) U/L Urine Color Yellow Urine Appearance Clear Urine pH 8.0 H Ur Specific Belding > 1.045 H Urine Protein 1+ H Urine Glucose (UA) Negative Urine Ketones Negative Urine Blood Negative Urine Nitrite Negative Urine Bilirubin Negative Urine Urobilinogen Negative Ur Leukocyte Esterase Negative Urine WBC (Auto) 0-5 Urine RBC (Auto) 0-2 U Hyaline Cast (Auto) 0-2 U Epithel Cells (Auto) 0-2 Urine Bacteria (Auto) None Seen Ur Renal Epithelial Cell Alanreed Biurate Crystals Calcium Oxalate Crystal Leucine Crystals Cystine Crystals Uric Acid Crystals Triple Phos Crystals Sulfonamide Crystals Cholesterol Crystals Talc Crystals Tyrosine Crystals Hippuric Acid Crystals Unidentified Crystals Amorphous Sediment Epithelial Casts Hyaline Casts Granular Casts Waxy Casts RBC Casts WBC Casts Other Casts Urine Mucus Urine Other Urine Trichomonas Urine Yeast Urine Sperm Ur Oval Fat Bodies Diagnostic Findings Abdomen/Pelvis CT 08/04/24 07:38 CT OF THE ABDOMEN AND PELVIS WITH CONTRAST CLINICAL HISTORY: Lower abdominal pain. COMPARISON STUDY: CT of the abdomen and pelvis January 19, 2021. TECHNIQUE: Following IV administration of 94 mL of Optiray, axial images of the abdomen and pelvis were obtained from the lung bases to the proximal femurs. Images were reviewed in the axial, sagittal, and coronal planes. IV contrast was administered without complication. Automated exposure control was utilized for the study. A dose lowering technique was utilized adhering to the principles of ALARA. CT DOSE: 1458.92 mGy.cm FINDINGS: Lung bases are unremarkable. No pneumatosis, free air or portal venous gas is present. There is a gallstone within the gallbladder. No pericholecystic infiltration is present. The gallbladder is not distended. A small amount of perisplenic fluid measures above water attenuation. Hypodense renal lesions favor cysts although several are too small to characterize. There is no hydronephrosis. Adrenal glands and pancreas are unremarkable. There is no biliary or pancreatic ductal dilatation. There is no evidence for a bowel obstruction. Multiple sites of acute hemorrhage within the pelvis and right rectus sheath are noted. A right rectus sheath hematoma measures 7.8 x 3.7 cm. Hemorrhage within the adjacent portion of the anterior abdominal wall is also noted. A hematoma within the right side of the space of Retzius measures 7.7 x 4.6 cm. A hematoma within the right pelvic sidewall measures 7.8 x 7.6 cm. These hematomas contain fluid fluid levels. Adjacent hemorrhage is present. A small amount of associated hemoperitoneum is present. The majority of hemorrhages retroperitoneal/extraperitoneal. The right pelvic sidewall hematoma has mass effect upon the bladder which is collapsed. There is bladder wall thickening. No fractures are identified. IMPRESSION: 1. Multiple hematomas within the right rectus sheath and right hemipelvis which are predominantly extraperitoneal/retroperitoneal in location. Adjacent extraperitoneal hemorrhage and a small amount of hemoperitoneum. Overall, large amount of hemorrhage. Fluid fluid levels within the hematomas suggest coagulopa thy/anticoagulation. Findings discussed with Dr. Clements at time of dictation. 2. No bowel obstruction. No bowel wall thickening. ACT 112: Negative or not required by law. Electronically signed by: Juvencio Felder M.D. 08/04/2024 9:44 AM Medications Administered Morphine Sulfate (Morphine Sulfate 4 Mg/Ml 1 Ml Carp\\Vial) 4 mg IV Q15M PRN PRN Reason: Pain Stop: 08/18/24 07:37 Last Admin: 08/04/24 10:49 Dose: 4 mg Documented By: Admin: 08/04/24 08:06 Dose: 4 mg Documented By: RONNI Discontinued Medications Sodium Chloride (Nss) 1,000 mls @ 999 mls/hr IV .Q1H1M ONE Stop: 08/04/24 10:32 Last Infusion: 08/04/24 11:23 Dose: Infused Documented By: Admin: 08/04/24 09:47 Dose: 999 mls/hr Documented By: RONNI Piperacillin Sod/Tazobactam Sod (Zosyn) 4.5 gm in 100 mls @ 200 mls/hr IV NOW ONE; Protocol Stop: 08/04/24 10:01 Last Infusion: 08/04/24 10:21 Dose: Infused Documented By: Admin: 08/04/24 09:47 Dose: 200 mls/hr Documented By: RONNI Phytonadione 10 mg/ Dextrose 51 mls @ 102 mls/hr IV ONE ONE Stop: 08/04/24 10:10 Last Infusion: 08/04/24 11:23 Dose: Infused Documented By: Admin: 08/04/24 10:51 Dose: 102 mls/hr Documented By: RONNI Prothrombin Complex Concent ( (Human) 3,500 units/ Syringe) 140 mls @ 10 mls/min IV NOW STA; Protocol Stop: 08/04/24 10:13 Last Admin: 08/04/24 10:24 Dose: 10 mls/min Documented By: RONNI Ioversol (Optiray 320 100ml) 94 ml IV ONCE ONE Stop: 08/04/24 08:21 Last Admin: 08/04/24 08:21 Dose: 94 ml Documented By: RUPA Miscellaneous (Stat Iv/Im) 1 each N/A NOW STA Stop: 08/04/24 09:51 Last Admin: 08/04/24 10:51 Dose: Not Given Documented By: RONNI Ondansetron HCl (Ondansetron Inj 2 Mg/Ml 2 Ml Vial) 4 mg IV NOW STA Stop: 08/04/24 07:39 Last Admin: 08/04/24 08:06 Dose: 4 mg Documented By: RONNI Supervising Physician Co-Signing Physician Notes Attending Addendum: Case reviewed with the advanced practitioner. I have personally performed a history and physical examination on the patient. I have reviewed the advanced practitioner's documentation on the date of service referenced in note, and I agree with, and take responsibility for the plan of care. please refer to her notes for full details patient seen and examined, records reviewed by myself as well on exam, patient seen resting in bed, not in distress Abdominal pain relieved by morphine IV Denies headache, dizziness, chest pain, shortness of breath, palpitations No other signs of bleeding noted no other symptoms VS noted and reviewed oriented x3 , not in distress, speaks in sentences with no effort nor accessory muscle use normal rate, regular rhythm, no murmurs clear breath sounds bilaterally non distended, soft,Mild tenderness on the lower quadrants no bipedal edema, erythema, warmth no neuro deficits all labs, imaging noted and reviewed ASSESSMENT AND PLAN> Right rectus sheath, pelvic hematoma In the setting of supratherapeutic INR, on Coumadin for history of DVTAnd A-fib ER physician discussed with [facility] g eneral surgery and interventional radiology-recommend close monitoring at [facility] for now, no urgent procedures ER physician also consulted [facility] general surgery service-recommend monitoring of H&H, if trending down, will need to be transferred Discussed with cutter operator helper Dr. Davis, recommend monitoring at PCU INR 5.0 on admission Given vitamin K 10 mg IV, and prothrombin concentrate x 2 Repeat INR 1.0 Hemoglobin 11.9, 9.7, 10.6 Monitor H&H every 6 hours IV fluids N.p.o. General Surgery on board other diagnoses and plan of care as per advanced practitioner's notes Luis Anne MD (2) Hematoma of rectus sheath Encounter type: initial encounter Qualified Code(s): S30.1XXA - Contusion of abdominal wall, initial encounter (6) Asthma Asthma complication type: unspecified Asthma persistence: unspecified Asthma severity: unspecified severity Qualified Code(s): J45.909 - Unspecified asthma, uncomplicated (7) Hypertension Hypertension type: primary hypertension Qualified Code(s): I10 - Essential (primary) hypertension
[2024-08-04] MEDS ORDERED: LACTULOSE SYRUP 10 GM/15 ML BTL 960 ML PO PRN (14:41)
[2024-08-04] MEDS ORDERED: SODIUM CHLORIDE 0.9% 50 ML IV PRN (15:06)
[2024-08-04] MEDS ORDERED: SODIUM CHLORIDE 0.9% 100 ML IV PRN (15:06)
--- NOTE | 2024-08-04 15:08 | Electrocardiogram Report ---
Test Reason : Blood Pressure : */* mmHG Vent. Rate : 58 BPM Atrial Rate : 58 BPM P-R Int : 132 ms QRS Dur : 136 ms QT Int : 478 ms P-R-T Axes : 27 -38 89 degrees QTcB Int : 469 ms Sinus bradycardia Left axis deviation Left bundle branch block Abnormal ECG When compared with ECG of 27-Jan-2021 09:55, T wave amplitude has increased in Anterior leads Confirmed by Basil De Oliveira ([id number]) on 08/04/2024 3:07:42 PM Referred By: REFERRED SELF Confirmed By: Basil De Oliveira
[2024-08-04] MEDS: SODIUM CHLORIDE 0.9% 1,000 ML IV SCH ×2 (15:26→16:11)
[2024-08-04] MEDS ORDERED: ALBUTEROL HFA 8 GM INHALER INH PRN (15:50)
[2024-08-04] MEDS ORDERED: FLUTICASONE PROPIONATE NA SPR 16 GM BTL PRN (15:50)
[2024-08-04] MEDS ORDERED: ALBUTEROL 0.083% NEBU SOLN 3 ML VIAL INH PRN (15:50)
--- NOTE | 2024-08-04 15:57 | CT Scan Report ---
CT head/brain wo con CLINICAL HISTORY: 78 years-old Female with headache, supratherapeutic INR. Acute headache TECHNIQUE: Multiple axial CT images of the head were obtained without contrast. A dose lowering tech nique was utilized adhering to the principles of ALARA. CT DOSE: 547.75 mGy.cm COMPARISON: None. FINDINGS: No acute intracranial hemorrhage, midline shift, intracranial mass, hydrocephalus, territorial ischem ia or abnormal extra-axial collection. Mild changes. The calvarium is intact. Partial ethmoidectomy changes with minimal mucosal thickening of the imaged paranasal sinuses. Mastoid air cells are clear. IMPRESSION: No acute intracranial abnormality. ACT 112: Negative or not required by law. The above report was generated using voice recognition software. It may contain grammatical, syntax o r spelling errors. Electronically signed by: Benito Pinedo M.D. 08/04/2024 3:55 PM
[2024-08-04 16:17] LABS: Hematocrit (blood only) 32.6 % (37.0-47.0); Hemoglobin 10.6 g/dl (12.0-16.0)
[2024-08-04] MEDS: ACETAMINOPHEN 1,000 MG/100 ML VIAL IV SCH (16:29)
[2024-08-04 16:42] LABS: Prothrombin Time 10.9 Seconds (9.0-12.0)
[2024-08-04] MEDS: FLUTICASONE/VILANTEROL 200/25MCG 14 PUFFS/INHALER INH SCH (16:59)
[2024-08-04] MEDS: MONTELUKAST SODIUM 10 MG TABLET PO SCH (20:25)
[2024-08-04] MEDS: POTASSIUM CHLORIDE CRTAB 20 MEQ TABCR PO SCH (20:26)
[2024-08-04 23:06] LABS: Hemoglobin 9.2 g/dl (12.0-16.0)
[2024-08-05 07:03] LABS: Basophils # (auto) 0.02 K/uL (0.00-0.20); Basophils % (auto) 0.1 %; Eosinophils # (auto) 0.16 K/uL (0.00-0.50); Eosinophils % (auto) 1.1 %; Hematocrit (blood only) 25.8 % (37.0-47.0); Hemoglobin 8.7 g/dl (12.0-16.0); Immature Granulocytes # (auto) 0.17 K/uL (0.01-0.20); Immature Granulocytes % (auto) 1.2 %; Lymphocytes # (auto) 1.12 K/uL (1.20-3.40); Lymphocytes % (auto) 7.6 %; Mean Corpuscular Hemoglobin 30.6 pg (25.0-34.0); Mean Corpuscular Hgb Conc 33.7 g/dL (32.0-36.0); Mean Corpuscular Volume 90.8 fL (80.0-100.0); Mean Platelet Volume 11.3 fL (9.4-12.4); Monocytes # (auto) 1.27 K/uL (0.11-0.59); Monocytes % (auto) 8.7 %; Neutrophils # (auto) 11.94 K/uL (1.40-6.50); Neutrophils % (auto) 81.3 %; Platelet Count 203 K/uL (130-400); RDW Coefficient of Variation 13.3 % (11.5-14.5); Red Blood Count 2.84 M/uL (4.20-5.40); White Blood Count 14.68 K/ul (4.8-10.8)
[2024-08-05 07:28] LABS: INR 0.9 (0.9-1.1); Prothrombin Time 10.2 Seconds (9.0-12.0)
[2024-08-05 07:30] LABS: BUN Creatinine Ratio 28.2 (10-20); Calcium 8.2 mg/dl (8.6-10.3); Magnesium 1.8 mg/dl (1.7-2.4); Potassium 4.2 mmol/L (3.5-5.1)
[2024-08-05] MEDS: SODIUM CHLORIDE 0.9% 1,000 ML IV SCH (08:47)
[2024-08-05 11:11] LABS: Hematocrit (blood only) 26.2 % (37.0-47.0); Hemoglobin 8.7 g/dl (12.0-16.0)
--- NOTE | 2024-08-05 11:25 | Surgery Progress Note ---
Date of Service August 05, 2024 Assessment & Plan (1) Supratherapeutic INR: (2) Hematoma of rectus sheath: (3) Nontraumatic retroperitoneal hematoma: (4) Right lower quadrant abdominal pain: Plan 78-year-old female with 1 week history of upper respiratory infection and persi stent coughing presented to the emergency room with increasing abdominal pain in the last 3 days with associated constipation and lightheadedness. She underwent workup with a CT scan of the abdomen pelvis which showed multiple hematomas of the right rectus sheath and pelvis mostly retroperitoneal. Her hemoglobin was 11.9 which then decreased to 9.7 on recheck. She was initially tachycardic and hypotensive. She currently is hemodynamically stable although blood pressure still soft she is no longer tachycardic. 08/05/2024: afebrile, vss hgb fluctuating but stable at 8.7 Abdomen is soft, nondistended, nonrigid , and no peritonitis although tender in the right mid to low abdomen and suprapubic region. No acute surgical intervention recommended at this time. Would recommend close monitoring with H&H every 6 hours, serial abdominal examination, abdominal binder for compression, pain management and antiemetics as needed, bowel regimen to avoid any constipation and abdominal straining, and hold anticoagulation. If H&H continues to drop may need CTA or if becomes hemodynamically stable would need transfer for interventional radiology. Discussed with Dr. Velez who agrees with above Admission and Anticipated Discharge Date Admission Date: August 04, 2024 Subjective feeling better pain slightly better/stable, not worse only had Tylenol this am no n,v tolerated clear liquids no dizziness or lightheadedness no chest pain or sob urinating but still feels pressure passing gas Physical Exam Constitutional: WD/WN, vitals as above + obese, cooperative and comfortable; no acute distress and not ill appearing Respiratory: normal respiratory effort; no respiratory distress Gastrointestinal (Abdomen): Inspection/Auscultation: abdomen normal to inspection and + abdominal wall ecchymosis (suprapubic right groin); abdomen not distended Percussion/Palpation: + abdomen tender (right mid to low abdomen, suprapubic) and abdomen soft; no guarding, abdomen not rigid and abdomen not firm Skin: no rashes, warm and dry Psychiatric: A+Ox3, euthymic affect Results & Data Vital Signs (Past 12 Hours) Vital Signs Temp Pulse Resp BP BP Pulse Ox O2 Del Method 08/05/24 11:10 36.7 C 66 18 118/69 96 Room Air 08/05/24 07:09 36.8 C 62 18 101/60 91 Room Air 08/05/24 03:05 36.5 C 61 18 93/55 L 93 Room Air Laboratory Results 08/05/24 08/05/24 08/04/24 Range/Units 10:52 06:40 22:28 WBC 14.68 H (4.8-10.8) K/ul RBC 2.84 L (4.20-5.40) M/uL Hgb 8.7 L 8.7 L 9.2 L (12.0-16.0) g/dl Hct 26.2 L 25.8 L 28.0 L (37.0-47.0) % MCV 90.8 (80.0-100.0) fL MCH 30.6 (25.0-34.0) pg MCHC 33.7 (32.0-36.0) g/dL RDW Std Deviation 44.0 (36.4-46.3) fL RDW Coeff of [place] 13.3 (11.5-14.5) % Plt Count 203 (130-400) K/uL MPV 11.3 (9.4-12.4) fL Immature Gran % (Auto) 1.2 % Neut % (Auto) 81.3 % Lymph % (Auto) 7.6 % [place] % (Auto) 8.7 % Eos % (Auto) 1.1 % Baso % (Auto) 0.1 % Neut # (Auto) 11.94 H (1.40-6.50) K/uL Lymph # (Auto) 1.12 L (1.20-3.40) K/uL [place] # (Auto) 1.27 H (0.11-0.59) K/uL Eos # (Auto) 0.16 (0.00-0.50) K/uL Baso # (Auto) 0.02 (0.00-0.20) K/uL Immature Gran # (Auto) 0.17 (0.01-0.20) K/uL PT 10.2 (9.0-12.0) Seconds INR 0.9 (0.9-1.1) Sodium 135 L (136-145) mmol/L Potassium 4.2 (3.5-5.1) mmol/L Chloride 103 (98-107) mmol/L Carbon Dioxide 24 (21-32) mmol/L Anion Gap 8 (3-11) BUN 35 H (6-23) mg/dl Creatinine 1.24 H (0.6-1.2) mg/dl Est Cr Clr Drug Dosing 46.0 ml/min eGFR 44.82 BUN/Creatinine Ratio 28.2 H (10-20) Glucose 94 (70-99(Fasting)) mg/dl Lactate (0.4-2.0) mmol/L Calcium 8.2 L (8.6-10.3) mg/dl Magnesium 1.8 (1.7-2.4) mg/dl Blood Type Antibody Screen Crossmatch 08/04/24 08/04/24 Range/Units 15:57 11:49 WBC (4.8-10.8) K/ul RBC (4.20-5.40) M/uL Hgb 10.6 L 9.7 L (12.0-16.0) g/dl Hct 32.6 L 29.8 L (37.0-47.0) % MCV (80.0-100.0) fL MCH (25.0-34.0) pg MCHC (32.0-36.0) g/dL RDW Std Deviation (36.4-46.3) fL RDW Coeff of [place] (11.5-14.5) % Plt Count (130-400) K/uL MPV (9.4-12.4) fL Immature Gran % (Auto) % Neut % (Auto) % Lymph % (Auto) % [place] % (Auto) % Eos % (Auto) % Baso % (Auto) % Neut # (Auto) (1.40-6.50) K/uL Lymph # (Auto) (1.20-3.40) K/uL [place] # (Auto) (0.11-0.59) K/uL Eos # (Auto) (0.00-0.50) K/uL Baso # (Auto) (0.00-0.20) K/uL Immature Gran # (Auto) (0.01-0.20) K/uL PT 10.9 (9.0-12.0) Seconds INR 1.0 (0.9-1.1) Sodium (136-145) mmol/L Potassium (3.5-5.1) mmol/L Chloride (98-107) mmol/L Carbon Dioxide (21-32) mmol/L Anion Gap (3-11) BUN (6-23) mg/dl Creatinine (0.6-1.2) mg/dl Est Cr Clr Drug Dosing ml/min eGFR BUN/Creatinine Ratio (10-20) Glucose (70-99(Fasting)) mg/dl Lactate 1.9 (0.4-2.0) mmol/L Calcium (8.6-10.3) mg/dl Magnesium (1.7-2.4) mg/dl Blood Type A Positive Antibody Screen NEGATIVE Crossmatch See Detail (2) Hematoma of rectus sheath Encounter type: initial encounter Qualified Code(s): S30.1XXA - Contusion of abdominal wall, initial encounter
--- NOTE | 2024-08-05 12:26 | Hospitalist Progress Note ---
Date of Service August 05, 2024 Assessment & Plan (1) Nontraumatic retroperitoneal hematoma: (2) Hematoma of rectus sheath: (3) Supratherapeutic INR: (4) PAF (paroxysmal atrial fibrillation): (5) History of DVT of lower extremity: (6) Asthma: (7) Hypertension: (8) Dyslipidemia: Plan This is a 78 y/o with PAF, on chronic AC, hx DVT x3, HTN, dyslipidemia, asthma, and other history as outlined below who presented to the ED on 08/04/2024 with abdominal pain. Work-up in the ED showed a supratherapeutic INR of 5.[address] abd/pel with multiple hematomas in the right rectus sheath and right hemipelvis. Initial hgb was 11.9, repeat hgb 3-4 hrs later was 9.7. She was given IV vitamin K and PCC x 2 in the ED. ED physician discussed the care with tertiary care center to consider transfer - IR and acute care surgery said there was no need for transfer at present. Surgery has evaluated the patient here and recommends close monitoring with serial H&H and serial abdominal exams. Nontraumatic retroperitoneal hematoma Rectus sheath hematoma Supratherapeutic INRresolved S/p vitamin K/PCC x 2, serial H/H Hemoglobin fluctuating but stable 8.7 this a.m. Hypotension/tachycardia have now resolved Continue serial abdominal exams/H/H If hemoglobin drops, consider abdominal CTA If patient becomes unstable, transferred to [facility] for IR/embolization Hx PAF Hx DVT x 3 On chronic AC with Coumadin, currently on hold, INR 0.9 after reversal on 08/04 Hold atenolol with hypotension Hx asthma: Bronchitis: Continue maintenance inhaler/as needed albuterol Doxy started x 5 days on 08/05 Hx HTN/HLD: Hold statin/antihypertensives for now with low BP A total of 60 minutes was spent on chart review/facilitating plan of care/discussion with consultants/diagnostic testing review Full code DVT prophylaxis: Coumadinon hold Admission and Anticipated Discharge Date Admission Date: August 04, 2024 Supervising Physician Co-Signing Physician Notes 78-year-old lady with PAF on Coumadin, DVT, HTN, HLD presented to the ED with abdominal pain and noted to have nontraumatic retroperitoneal hematoma and rectus sheath hematoma ISO of supratherapeutic INR. Status post vitamin K, INR resolved. Hemoglobin has been stable around 8.7, hypotension and tachycardia has resolved. Patient reports feeling better, abdominal binder in place, patient reports significant improvement in her abdominal pain. General surgery on board, appreciate recommendation. Continue with conservative management for now. Anticoagulation on hold. On exam: Patient on room air, tender abdominal exam, abdominal binder in place. Rest of the examination as above. Monitor H&H every 6 hour, hold anticoagulation. Continue telemetry monitoring. Can DC IV fluid once blood pressure improves. Pt complaining of cough w/ yellow sputum for 10 days, will use doxy x 5 days for possible bronchitis. Time spent: 20 minutes I have seen and examined the patient and have discussed the case with the provider above. I agree with the assessment and plan as stated. Subjective Patient seen and examined at bedtime. No apparent distress. Reports feeling better this morning but still has some left lower quadrant tenderness. Reports urinating but still feels some pressure and feels as though she is not emptying her bladder completely. Denies any chest pain/fever/chills/dizziness/lig htheadedness. Review of Systems Review of Systems: All systems reviewed & are unremarkable except as noted in HPI & below Physical Exam Constitutional: WD/WN, vitals as above Eyes: PERRL, conjunctivae normal, anicteric sclerae ENMT: external ear and nose normal, oropharynx normal Neck: trachea midline, no thyromegaly Respiratory: normal respiratory effort, lungs clear to auscultation Cardiovascular: RRR, no murmur, no edema Gastrointestinal (Abdomen): normal bowel sounds, soft, nontender, no hepatosplenomegaly Percussion/Palpation: + abdomen tender (Left lower quadrant tenderness, bladder fullness) Musculoskeletal: no cyanosis or clubbing, extremities motor strength 5/5 Skin: no rashes, warm and dry Neurologic: PERRL, EOMI, accommodation nl, no face palsy, no dysarthria Psychiatric: A+Ox3, euthymic affect Genitourinary: no vaginal lesions, no adnexal mass Lymphatic: no cervical or axillary lymphadenopathy Results & Data Results & Data Vital Signs (Past 12 Hours) Vital Signs Temp Pulse Resp BP BP Pulse Ox O2 Del Method 08/05/24 11:10 36.7 C 66 18 118/69 96 Room Air 08/05/24 07:09 36.8 C 62 18 101/60 91 Room Air 08/05/24 03:05 36.5 C 61 18 93/55 L 93 Room Air Diagnostic Findings Laboratory Results WBC 14.68 K/ul (4.8-10.8) H 08/05/24 06:40 RBC 2.84 M/uL (4.20-5.40) L 08/05/24 06:40 Hgb 8.7 g/dl (12.0-16.0) L 08/05/24 10:52 POC Hgb 12.2 g/dl (12.0-16.0) 08/04/24 08:05 Hct 26.2 % (37.0-47.0) L 08/05/24 10:52 POC Hct 36 % (37-47) L 08/04/24 08:05 MCV 90.8 fL (80.0-100.0) 08/05/24 06:40 MCH 30.6 pg (25.0-34.0) 08/05/24 06:40 MCHC 33.7 g/dL (32.0-36.0) 08/05/24 06:40 RDW Std Deviation 44.0 fL (36.4-46.3) 08/05/24 06:40 RDW Coeff of [place] 13.3 % (11.5-14.5) 08/05/24 06:40 Plt Count 203 K/uL (130-400) 08/05/24 06:40 MPV 11.3 fL (9.4-12.4) 08/05/24 06:40 Immature Gran % (Auto) 1.2 % 08/05/24 06:40 Neut % (Auto) 81.3 % 08/05/24 06:40 Lymph % (Auto) 7.6 % 08/05/24 06:40 [place] % (Auto) 8.7 % 08/05/24 06:40 Eos % (Auto) 1.1 % 08/05/24 06:40 Baso % (Auto) 0.1 % 08/05/24 06:40 Neut # (Auto) 11.94 K/uL (1.40-6.50) H 08/05/24 06:40 Lymph # (Auto) 1.12 K/uL (1.20-3.40) L 08/05/24 06:40 [place] # (Auto) 1.27 K/uL (0.11-0.59) H 08/05/24 06:40 Eos # (Auto) 0.16 K/uL (0.00-0.50) 08/05/24 06:40 Baso # (Auto) 0.02 K/uL (0.00-0.20) 08/05/24 06:40 Immature Gran # (Auto) 0.17 K/uL (0.01-0.20) 08/05/24 06:40 RBC Morphology Unremarkable 08/04/24 07:55 PT 10.2 Seconds (9.0-12.0) 08/05/24 06:40 INR 0.9 (0.9-1.1) 08/05/24 06:40 APTT 46 Seconds (21-31) H 08/04/24 07:55 PTT Ratio 1.7 08/04/24 07:55 POC Sodium 136 mmol/L (135-144) 08/04/24 08:05 Sodium 135 mmol/L (136-145) L 08/05/24 06:40 POC Potassium 4.4 mmol/L (3.3-5.0) 08/04/24 08:05 Potassium 4.2 mmol/L (3.5-5.1) 08/05/24 06:40 POC Chloride 98 mmol/L (101-112) L 08/04/24 08:05 Chloride 103 mmol/L (98-107) 08/05/24 06:40 Carbon Dioxide 24 mmol/L (21-32) 08/05/24 06:40 POC Total CO2 26 mmol/L (24-31) 08/04/24 08:05 Anion Gap 8 (3-11) 08/05/24 06:40 POC Anion Gap 18.0 mmol/L (16-25) 08/04/24 08:05 POC BUN 24 mg/dl (7-18) H 08/04/24 08:05 BUN 35 mg/dl (6-23) H 08/05/24 06:40 Creatinine 1.24 mg/dl (0.6-1.2) H 08/05/24 06:40 POC Creatinine 1.1 mg/dl (0.6-1.3) 08/04/24 08:05 Est Cr Clr Drug Dosing 46.0 ml/min 08/05/24 06:40 eGFR 44.82 08/05/24 06:40 BUN/Creatinine Ratio 28.2 (10-20) H 08/05/24 06:40 Glucose 94 mg/dl (70-99(Fasting)) 08/05/24 06:40 POC Glucose (other) 174 mg/dl (70-99) H 08/04/24 08:05 Lactate 1.9 mmol/L (0.4-2.0) 08/04/24 11:49 Calcium 8.2 mg/dl (8.6-10.3) L 08/05/24 06:40 POC Ioniz Calcium Melissa 1.15 mmol/l (1.12-1.32) 08/04/24 08:05 Magnesium 1.8 mg/dl (1.7-2.4) 08/05/24 06:40 Total Bilirubin 1.0 mg/dl (0.2-1.0) 08/04/24 07:55 AST 20 U/L (13-39) 08/04/24 07:55 ALT 24 U/L (7-52) 08/04/24 07:55 Alkaline Phosphatase 47 U/L (34-104) 08/04/24 07:55 Troponin I High Sens 3.8 pg/ml (0-14) 08/04/24 07:55 Total Protein 7.1 gm/dl (6.0-8.3) 08/04/24 07:55 Albumin 4.1 gm/dl (3.4-5.0) 08/04/24 07:55 Globulin 3.0 gm/dl (2.5-4.0) 08/04/24 07:55 Albumin/Globulin Ratio 1.4 (0.9-2) 08/04/24 07:55 Lipase 28 U/L (11-82) 08/04/24 07:55 Urine Color Yellow 08/04/24 10:50 Urine Appearance Clear (Clear) 08/04/24 10:50 Urine pH 8.0 (4.5-7.5) H 08/04/24 10:50 Ur Specific [place] > 1.045 (1.000-1.030) H 08/04/24 10:50 Urine Protein 1+ (Negative) H 08/04/24 10:50 Urine Glucose (UA) Negative (Negative) 08/04/24 10:50 Urine Ketones Negative (Negative) 08/04/24 10:50 Urine Blood Negative (Negative) 08/04/24 10:50 Urine Nitrite Negative (Negative) 08/04/24 10:50 Urine Bilirubin Negative (Negative) 08/04/24 10:50 Urine Urobilinogen Negative (Negative) 08/04/24 10:50 Ur Leukocyte Esterase Negative (Negative) 08/04/24 10:50 Urine WBC (Auto) 0-5 /hpf (0-5) 08/04/24 10:50 Urine RBC (Auto) 0-2 /hpf (0-2) 08/04/24 10:50 U Hyaline Cast (Auto) 0-2 /lpf (0-2) 08/04/24 10:50 U Epithel Cells (Auto) 0-2 /hpf (0-2) 08/04/24 10:50 Urine Bacteria (Auto) None Seen (None Seen) 08/04/24 10:50 Ur Renal Epithelial Cell Cancelled 08/04/24 07:45 Meggett Biurate Crystals Cancelled 08/04/24 07:45 Calcium Oxalate Crystal Cancelled 08/04/24 07:45 Leucine Crystals Cancelled 08/04/24 07:45 Cystine Crystals Cancelled 08/04/24 07:45 Uric Acid Crystals Cancelled 08/04/24 07:45 Triple Phos Crystals Cancelled 08/04/24 07:45 Sulfonamide Crystals Cancelled 08/04/24 07:45 Cholesterol Crystals Cancelled 08/04/24 07:45 Talc Crystals Cancelled 08/04/24 07:45 Tyrosine Crystals Cancelled 08/04/24 07:45 Hippuric Acid Crystals Cancelled 08/04/24 07:45 Unidentified Crystals Cancelled 08/04/24 07:45 Amorphous Sediment Cancelled 08/04/24 07:45 Epithelial Casts Cancelled 08/04/24 07:45 Hyaline Casts Cancelled 08/04/24 07:45 Granular Casts Cancelled 08/04/24 07:45 Waxy Casts Cancelled 08/04/24 07:45 RBC Casts Cancelled 08/04/24 07:45 WBC Casts Cancelled 08/04/24 07:45 Other Casts Cancelled 08/04/24 07:45 Urine Mucus Cancelled 08/04/24 07:45 Urine Other Cancelled 08/04/24 07:45 Urine Trichomonas Cancelled 08/04/24 07:45 Urine Yeast Cancelled 08/04/24 07:45 Urine Sperm Cancelled 08/04/24 07:45 Ur Oval Fat Bodies Cancelled 08/04/24 07:45 Blood Type A Positive 08/04/24 15:57 Antibody Screen NEGATIVE 08/04/24 15:57 Crossmatch See Detail 08/04/24 15:57 Impressions Abdomen/Pelvis CT 08/04/24 07:38 CT OF THE ABDOMEN AND PELVIS WITH CONTRAST CLINICAL HISTORY: Lower abdominal pain. COMPARISON STUDY: CT of the abdomen and pelvis January 19, 2021. TECHNIQUE: Following IV administration of 94 mL of Optiray, axial images of the abdomen and pelvis were obtained from the lung bases to the proximal femurs. Images were reviewed in the axial, sagittal, and coronal planes. IV contrast was administered without complication. Automated exposure control was utilized for the study. A dose lowering technique was utilized adhering to the principles of ALARA. CT DOSE: 1458.92 mGy.cm FINDINGS: Lung bases are unremarkable. No pneumatosis, free air or portal venous gas is present. There is a gallstone within the gallbladder. No pericholecystic infiltration is present. The gallbladder is not distended. A small amount of perisplenic fluid measures above water attenuation. Hypodense renal lesions favor cysts although several are too small to characterize. There is no hydronephrosis. Adrenal glands and pancreas are unremarkable. There is no biliary or pancreatic ductal dilatation. There is no evidence for a bowel obstruction. Multiple sites of acute hemorrhage within the pelvis and right rectus sheath are noted. A right rectus sheath hematoma measures 7.8 x 3.7 cm. Hemorrhage within the adjacent portion of the anterior abdominal wall is also noted. A hematoma within the right side of the space of Retz[place] measures 7.7 x 4.6 cm. A hematoma within the right pelvic sidewall measures 7.8 x 7.6 cm. These hematomas contain fluid fluid levels. Adjacent hemorrhage is present. A small amount of associated hemoperitoneum is present. The majority of hemorrhages retroperitoneal/extraperitoneal. The right pelvic sidewall hematoma has mass effect upon the bladder which is collapsed. There is bladder wall thickening. No fractures are identified. IMPRESSION: 1. Multiple hematomas within the right rectus sheath and right hemipelvis which are predominantly extraperitoneal/retroperitoneal in location. Adjacent extraperitoneal hemorrhage and a small amount of hemoperitoneum. Overall, large amount of hemorrhage. Fluid fluid levels within the hematomas suggest coagulopathy/anticoagulation. Findings discussed with Dr. Clements at time of dictation. 2. No bowel obstruction. No bowel wall thickening. ACT 112: Negative or not required by law. Electronically signed by: Juvencio Felder M.D. 08/04/2024 9:[address] 08/04/24 15:33 CT head/brain wo con CLINICAL HISTORY: 78 years-old Female with headache, supratherapeutic INR. Acute headache TECHNIQUE: Multiple axial CT images of the head were obtained without contrast. A dose lowering technique was utilized adhering to the principles of ALARA. CT DOSE: 547.75 mGy.cm COMPARISON: None. FINDINGS: No acute intracranial hemorrhage, midline shift, intracranial mass, hydrocephalus, territorial ischemia or abnormal extra-axial collection. Mild changes. The calvarium is intact. Partial ethmoidectomy changes with minimal mucosal thickening of the imaged paranasal sinuses. Mastoid air cells are clear. IMPRESSION: No acute intracranial abnormality. ACT 112: Negative or not required by law. The above report was generated using voice recognition software. It may contain grammatical, syntax or spelling errors. Electronically signed by: Benito Pinedo M.D. 08/04/2024 3:55 PM (2) Hematoma of rectus sheath Encounter type: initial encounter Qualified Code(s): S30.1XXA - Contusion of abdominal wall, initial encounter (6) Asthma Asthma complication type: unspecified Asthma persistence: unspecified Asthma severity: unspecified severity Qualified Code(s): J45.909 - Unspecified asthma, uncomplicated (7) Hypertension Hypertension type: primary hypertension Qualified Code(s): I10 - Essential (primary) hypertension
[2024-08-05] MEDS: oxyCODONE HCL IR 5 MG TAB (IMMEDIATE RELEASE) PO PRN (12:29)
[2024-08-05] MEDS: LACTULOSE SYRUP 20 GM/30 ML UDC PO PRN (13:23)
[2024-08-05] MEDS: INFLUENZA VACC TS2024-25(65y+)/PF (IIV3) 0.5mL Syr IM ONE (16:31)
[2024-08-05] MEDS: ATENOLOL 50 MG TABLET PO SCH (17:09)
[2024-08-05] MEDS: MAGNESIUM SULFATE / D5W 1 GM/100 ML BAG IV SCH (17:50)
[2024-08-05] MEDS: DOXYCYCLINE HYCLATE 100 MG CAP PO SCH (20:33)
[2024-08-06 07:07] LABS: Hematocrit (blood only) 27.9 % (37.0-47.0); Hemoglobin 9.1 g/dl (12.0-16.0); Mean Corpuscular Hemoglobin 30.3 pg (25.0-34.0); Mean Corpuscular Hgb Conc 32.6 g/dL (32.0-36.0); Mean Platelet Volume 11.4 fL (9.4-12.4); Platelet Count 195 K/uL (130-400); RDW Coefficient of Variation 13.2 % (11.5-14.5); RDW Standard Deviation 44.9 fL (36.4-46.3); White Blood Count 12.23 K/ul (4.8-10.8)
[2024-08-06 07:27] LABS: Albumin Level 3.4 gm/dl (3.4-5.0); Calcium 8.4 mg/dl (8.6-10.3); Potassium 3.9 mmol/L (3.5-5.1)
[2024-08-06 07:35] LABS: Albumin Globulin Ratio 1.3 (0.9-2); BUN Creatinine Ratio 27.8 (10-20); Globulin 2.7 gm/dl (2.5-4.0); Total Protein 6.1 gm/dl (6.0-8.3)
--- NOTE | 2024-08-06 11:22 | Surgery Progress Note ---
Date of Service August 06, 2024 Assessment & Plan (1) Supratherapeutic INR: (2) Hematoma of rectus sheath: (3) Nontraumatic retroperitoneal hematoma: (4) Right lower quadrant abdominal pain: Plan 78-year-old female with 1 week history of upper respiratory infection and persi stent coughing presented to the emergency room with increasing abdominal pain in the last 3 days with associated constipation and lightheadedness. She underwent workup with a CT scan of the abdomen pelvis which showed multiple hematomas of the right rectus sheath and pelvis mostly retroperitoneal. Her hemoglobin was 11.9 which then decreased to 9.7 on recheck. She was initially tachycardic and hypotensive. 08/06/2024: afebrile, vss hgb stable up to 9.1 today (8.7 yesterday) Abdominal pain improving No acute surgical intervention recommended at this time. Can advance diet as tolerated continue binder Continue pain management as needed Our services signing off, please call with questions/concerns Admission and Anticipated Discharge Date Admission Date: August 04, 2024 Subjective feeling better abdominal pain slowly improving no n,v Physical Exam Constitutional: WD/WN, vitals as above cooperative and comfortable; no acute distress and not ill appearing Respiratory: normal respiratory effort; no respiratory distress and no labored breathing Gastrointestinal (Abdomen): Inspection/Auscultation: abdomen normal to inspection Skin: no rashes, warm and dry no pallor Psychiatric: A+Ox3, euthymic affect Results & Data Vital Signs (Past 12 Hours) Vital Signs Temp Pulse Resp BP BP Pulse Ox O2 Del Method 08/06/24 11:06 37.0 C 61 18 119/66 97 Room Air 08/06/24 07:10 36.8 C 69 18 150/79 H 97 Room Air 08/06/24 03:00 36.6 C 63 16 116/65 93 Room Air Laboratory Results 08/06/24 08/05/24 Range/Units 06:48 06:40 WBC 12.23 H (4.8-10.8) K/ul RBC 3.00 L (4.20-5.40) M/uL Hgb 9.1 L (12.0-16.0) g/dl Hct 27.9 L (37.0-47.0) % MCV 93.0 (80.0-100.0) fL MCH 30.3 (25.0-34.0) pg MCHC 32.6 (32.0-36.0) g/dL RDW Std Deviation 44.9 (36.4-46.3) fL RDW Coeff of [place] 13.2 (11.5-14.5) % Plt Count 195 (130-400) K/uL MPV 11.4 (9.4-12.4) fL Sodium 137 (136-145) mmol/L Potassium 3.9 (3.5-5.1) mmol/L Chloride 106 (98-107) mmol/L Carbon Dioxide 25 (21-32) mmol/L Anion Gap 6 (3-11) BUN 20 (6-23) mg/dl Creatinine 0.72 D (0.6-1.2) mg/dl Est Cr Clr Drug Dosing 80.0 ml/min eGFR 86.06 BUN/Creatinine Ratio 27.8 H (10-20) Glucose 94 (70-99(Fasting)) mg/dl Calcium 8.4 L (8.6-10.3) mg/dl Total Bilirubin 1.0 (0.2-1.0) mg/dl AST 18 (13-39) U/L ALT 18 (7-52) U/L Alkaline Phosphatase 43 (34-104) U/L Total Protein 6.1 (6.0-8.3) gm/dl Albumin 3.4 (3.4-5.0) gm/dl Globulin 2.7 (2.5-4.0) gm/dl Albumin/Globulin Ratio 1.3 (0.9-2) Blood Type Recheck A Positive (2) Hematoma of rectus sheath Encounter type: initial encounter Qualified Code(s): S30.1XXA - Contusion of abdominal wall, initial encounter
--- NOTE | 2024-08-06 15:26 | Electrocardiogram Report ---
Test Reason : Blood Pressure : */* mmHG Vent. Rate : 136 BPM Atrial Rate : 131 BPM P-R Int : * ms QRS Dur : 138 ms QT Int : 290 ms P-R-T Axes : * -35 139 degrees QTcB Int : 436 ms Atrial fibrillation with rapid ventricular response Left axis deviation Left bundle branch block Abnormal ECG When compared with ECG of 04-Aug-2024 07:43, Atrial fibrillation has replaced Sinus rhythm Vent. rate has increased by 78 bpm T wave inversion more evident in Lateral leads Confirmed by Basil De Oliveira ([id number]) on 08/06/2024 3:25:58 PM Referred By: REFERRED SELF Confirmed By: Basil De Oliveira
[2024-08-06] MEDS: FLUTICASONE PROPIONATE NA SPR 16 GM BTL SCH (15:44)
--- NOTE | 2024-08-06 16:38 | Hospitalist Progress Note ---
Date of Service August 06, 2024 Assessment & Plan (1) Supratherapeutic INR: (2) Hematoma of rectus sheath: (3) Nontraumatic retroperitoneal hematoma: (4) Atrial fibrillation with rapid ventricular response: Plan Mandi Tolentino is a 78y/o F with PMHx significant for dyslipidemia, moderate persistent asthma, nonallergic rhinitis, ascending aortic dilation, diastolic dysfunction, HTN, paroxysmal atrial fibrillation/history of DVT x 3 [on warfarin], malignant neoplasm of uterus s/p total hysterectomy, osteoporosis and mitral regurgitation who presented to the ED on 08/04/2024 with abdominal pain. Workup in the ED showed a supratherapeutic INR of [address] of her abdomen/pelvis revealed multiple hematomas within the right rectus sheath and right hemipelvis in addition to adjacent extraperitoneal hemorrhage and a small amount of hemoperitoneum. Initial hemoglobin on presentation was 11.9 and repeat hemoglobin 3 to 4 hours later was 9.7 --> she was given IV vitamin K and PCC x 2 in the ED. ED provider had discussed her case with acute care surgery and interventional radiology at [facility] in [place] as it was thought the patient would need to be transferred however it was determined that no acute surgical intervention was required at that time. Our general surgery team here at [facility] evaluated the patient in the ED and recommended close monitoring with serial H/H, serial abdominal examinations, abdominal binder for compression, as needed pain management/antiemetics, adequate bowel regimen and holding of her warfarin. Supratherapeutic INR - RESOLVED Nontraumatic Retroperitoneal Hematoma, Rectus Sheath Hematoma: S/p vitamin K and PCC x 2 in the ED, serial H/H remains stable at 9.1 this morning. Hypotension and tachycardia have resolved, patient remains stable. If Hgb were to drop, could consider abdominal CTA. If patient were to become unstable, she would require emergent transfer to [facility] for IR/embolization. General surgery signed off on the patient today --> She will most likely will be discharged home tomorrow if her labs/vitals remain stable. She will need close PCP f/u to discuss her anticoagulation moving forward. Likely will be transitioned to a DOAC from warfarin in the future. Paroxysmal AFib, History of DVT x 3 Episode of AFib w/ RVR on 08/05/2024: On chronic anticoagulation therapy with warfarin - currently on hold as per above. INR 0.9 on 08/04/2024 following reversal. Her atenolol was previously on hold due to hypotension however she had an episode of A-fib with RVR yesterday therefore she had to receive a dose of IV Lopressor and her atenolol was restarted. Asthma, Possible Bronchitis: Continue home asthma medications. Patient has been complaining of a cough with some yellow sputum production over the past approximately 10 days. Oral 5-day doxycycline course added on yesterday for possible bronchitis. Probiotic added on today. Cough has been improving. As needed Tessalon Perles added on. HTN, HLD: Home losartan/amlodipine on hold due to borderline hypotension. Can resume atorvastatin/ezetimibe. DVT Prophylaxis: SCDs in setting of above. Code Status: FULL CODE PCP: Flaquita Brenner MD Disposition: Admitted in PCU/Telemetry - Likely to be discharged home tomorrow if her vitals/labs remain stable. General surgery signed off. Will need close PCP follow-up. Patient seen in collaboration with Dr. Menchaca. Please see addendum. I spent a total of 55 minutes coordinating, documenting, and providing care for this patient excluding time spent in the performance of separately billed services. This included personally reviewing all current laboratories and imaging studies, medical reconciliation, outpatient chart review and discussion with specialists. This chart was completed in part utilizing Speech Voice Recognition Software. Grammatical errors, random word insertions, pronoun errors, and incomplete sentences are an occasional consequence of this system due to software limitations, ambient noise, and hardware issues. Any formal questions or concerns about the content, text, or information contained within the body of this dictation should be directly addressed to the provider for clarification. Admission and Anticipated Discharge Date Admission Date: August 04, 2024 Supervising Physician Co-Signing Physician Notes Patient seen and examined at bedside. She reports that the pain is much better Hemoglobin is stable Possible discharge in a.m. I have reviewed the advanced practitioner's documentation, and I agree with, and take responsibility for the plan of care I spent a total of 20 minutes coordinating, documenting, and providing care for this patient excluding time spent in the performance of separately billed services. All of the aforementioned completed while collaborating with the assigned advanced practitioner for a full treatment plan Subjective Patient feeling better this morning, her abdominal pain is slowly improving. Denies any chest pain/SOB/nausea/vomiting. She is tolerating a diet without issue and has been passing stools. Review of Systems Review of Systems: At least ten systems reviewed and negative, except as noted in the subjective section. Physical Exam Physical Exam: General: WD/WN, vitals as above, NAD, laying down in bed, very pleasant, conversing appropriately. A+Ox3, euthymic affect. HEENT: Normocephalic, atraumatic. Conjunctivae normal, anicteric sclerae. External ear and nose normal, oropharynx normal. Respiratory: Normal respiratory effort, lungs clear to auscultation, no wheeze, rales, rhonchi. No accessory muscle use. Cardiovascular: Regular rate, rhythm, no murmur, normal peripheral pulses, no BLE edema. Vessels: No JVD. Abdomen/GI: Active bowel sounds, abdominal binder in place, still mildly tender across the lower abdominal region. Extremities/Musculoskeletal: No cyanosis or clubbing, extremities motor strength intact, moves all extremities. Neurologic: No focal deficits, CN's II-XI not formally tested but appear grossly intact bilaterally. Skin: No rashes, normal color, warm/dry. Results & Data Results & Data Vital Signs (Past 12 Hours) Vital Signs Temp Pulse Resp BP BP Pulse Ox O2 Del Method 08/06/24 15:37 36.6 C 76 18 138/76 96 Room Air 08/06/24 11:06 37.0 C 61 18 119/66 97 Room Air 08/06/24 07:10 36.8 C 69 18 150/79 H 97 Room Air Laboratory Results Short CBC 08/06/24 Range/Units 06:48 WBC 12.23 H (4.8-10.8) K/ul Hgb 9.1 L (12.0-16.0) g/dl Hct 27.9 L (37.0-47.0) % Plt Count 195 (130-400) K/uL BMP 08/06/24 06:48 Sodium 137 Potassium 3.9 Chloride 106 Carbon Dioxide 25 BUN 20 Creatinine 0.72 D Glucose 94 Calcium 8.4 L Liver Function 08/06/24 Range/Units 06:48 Total Bilirubin 1.0 (0.2-1.0) mg/dl AST 18 (13-39) U/L ALT 18 (7-52) U/L Alkaline Phosphatase 43 (34-104) U/L Albumin 3.4 (3.4-5.0) gm/dl (2) Hematoma of rectus sheath Encounter type: initial encounter Qualified Code(s): S30.1XXA - Contusion of abdominal wall, initial encounter
[2024-08-06] MEDS: ROSUVASTATIN CALCIUM 20 MG TAB PO SCH (18:31)
[2024-08-06] MEDS: ADVANCED PROBIOTIC 625 MG CAPSULE PO SCH (18:31)
[2024-08-06 19:02] LABS: Hematocrit (blood only) 25.2 % (37.0-47.0); Hemoglobin 8.3 g/dl (12.0-16.0)
[2024-08-06] MEDS: BENZONATATE 100 MG CAPSULE PO PRN (20:18)
[2024-08-07 00:31] LABS: Hematocrit (blood only) 23.7 % (37.0-47.0); Hemoglobin 7.8 g/dl (12.0-16.0)
[2024-08-07] MEDS ORDERED: SODIUM CHLORIDE 0.9% 50 ML IV PRN (01:27)
[2024-08-07] MEDS ORDERED: SODIUM CHLORIDE 0.9% 100 ML IV PRN (01:27)
[2024-08-07 07:47] LABS: Hematocrit (blood only) 29.1 % (37.0-47.0); Hemoglobin 9.4 g/dl (12.0-16.0); Mean Corpuscular Hemoglobin 28.9 pg (25.0-34.0); Mean Corpuscular Hgb Conc 32.3 g/dL (32.0-36.0); Mean Corpuscular Volume 89.5 fL (80.0-100.0); Mean Platelet Volume 11.8 fL (9.4-12.4); Platelet Count 173 K/uL (130-400); RDW Coefficient of Variation 14.6 % (11.5-14.5); RDW Standard Deviation 46.6 fL (36.4-46.3); Red Blood Count 3.25 M/uL (4.20-5.40); White Blood Count 9.38 K/ul (4.8-10.8)
[2024-08-07 08:08] LABS: BUN Creatinine Ratio 22.4 (10-20); Calcium 8.4 mg/dl (8.6-10.3); Phosphorus 2.1 mg/dl (2.5-4.9); Potassium 3.9 mmol/L (3.5-5.1)
[2024-08-07] MEDS: EZETIMIBE 10 MG TAB PO SCH (08:43)
[2024-08-07] MEDS ORDERED: POT PHOSPHATE MONOBASIC W/ SOD TAB PO SCH (10:15)
[2024-08-07] MEDS: POT PHOSPHATE MONOBASIC W/ SOD TAB PO SCH (11:02)
--- NOTE | 2024-08-07 14:27 | Hospitalist Progress Note ---
Date of Service August 07, 2024 Assessment & Plan (1) Supratherapeutic INR: (2) Hematoma of rectus sheath: (3) Nontraumatic retroperitoneal hematoma: (4) Atrial fibrillation with rapid ventricular response: Plan Mandi Tolentino is a 78y/o F with PMHx significant for dyslipidemia, moderate persistent asthma, nonallergic rhinitis, ascending aortic dilation, diastolic dysfunction, HTN, paroxysmal atrial fibrillation/history of DVT x 3 [on warfarin], malignant neoplasm of uterus s/p total hysterectomy, osteoporosis and mitral regurgitation who presented to the ED on 08/04/2024 with abdominal pain. Workup in the ED showed a supratherapeutic INR of [address] of her abdomen/pelvis revealed multiple hematomas within the right rectus sheath and right hemipelvis in addition to adjacent extraperitoneal hemorrhage and a small amount of hemoperitoneum. Initial hemoglobin on presentation was 11.9 and repeat hemoglobin 3 to 4 hours later was 9.7 --> she was given IV vitamin K and PCC x 2 in the ED. ED provider had discussed her case with acute care surgery and interventional radiology at [facility] in [place] as it was thought the patient would need to be transferred however it was determined that no acute surgical intervention was required at that time. Our general surgery team here at [facility] evaluated the patient in the ED and recommended close monitoring with serial H/H, serial abdominal examinations, abdominal binder for compression, as needed pain management/antiemetics, adequate bowel regimen and holding of her warfarin. Supratherapeutic INR - RESOLVED Nontraumatic Retroperitoneal Hematoma, Rectus Sheath Hematoma: S/p vitamin K and PCC x 2 in the ED. Serial H/H downtrended overnight and she is now s/p 1 unit of PRBCs. Hgb stabilized at 9.4 this morning. Will repeat CBC later this evening and tomorrow AM. She might be able to be discharged home tomorrow if her Hgb remains stable. If Hgb were to drop, could consider abdominal CTA. If patient were to become unstable, she would require emergent transfer to [facility] for IR/embolization. General surgery signed off on the patient yesterday --> She may possibly be discharged home tomorrow if her labs/vitals remain stable. She will need close PCP f/u to discuss her anticoagulation moving forward. Likely will be transitioned to a DOAC from warfarin in the future. Paroxysmal AFib, History of DVT x 3 Episode of AFib w/ RVR on 08/05/2024: On chronic anticoagulation therapy with warfarin - currently on hold as per above. INR 0.9 on 08/04/2024 following reversal. Her atenolol was previously on hold due to hypotension however she had an episode of A-fib with RVR on 08/05/2024 therefore she had to receive a dose of IV Lopressor and her atenolol was restarted. There have been no more episodes of A-fib with RVR since then. Asthma, Possible Bronchitis: Continue home asthma medications. Patient has been complaining of a cough with s ome yellow sputum production recently. Oral 5-day doxycycline course (on day #3) for possible bronchitis. Probiotic added on. Cough has been improving. As needed Tessalon Perles added on. HTN, HLD: Home losartan/amlodipine on hold due to borderline hypotension. Continue atorvastatin/ezetimibe. Hypophosphatemia: Phosphate 2.1 today, supplement added on. Continue to monitor her electrolytes and treat PRN. DVT Prophylaxis: SCDs in setting of above. Code Status: FULL CODE PCP: Flaquita Brenner MD Disposition: Admitted in PCU/Telemetry - Likely to be discharged home tomorrow if her vitals/labs remain stable. Will need close PCP follow-up. Patient seen in collaboration with Dr. Menchaca. Please see addendum. I spent a total of 40 minutes coordinating, documenting, and providing care for this patient excluding time spent in the performance of separately billed services. This included personally reviewing all current laboratories and imaging studies, medical reconciliation, outpatient chart review and discussion with specialists. This chart was completed in part utilizing Speech Voice Recognition Software. Grammatical errors, random word insertions, pronoun errors, and incomplete sentences are an occasional consequence of this system due to software limitations, ambient noise, and hardware issues. Any formal questions or concerns about the content, text, or information contained within the body of this dictation should be directly addressed to the provider for clarification. Admission and Anticipated Discharge Date Admission Date: August 04, 2024 Supervising Physician Co-Signing Physician Notes Patient seen and examined at bedside. She reports her abdomen pain is similar; no increasing abdominal pain or discomfort No episode of hypotension Plan to monitor CBC later in the evening and tomorrow am. I have reviewed the advanced practitioner's documentation, and I agree with, and take responsibility for the plan of care I spent a total of 20 minutes coordinating, documenting, and providing care for this patient excluding time spent in the performance of separately billed services. All of the aforementioned completed while collaborating with the assigned advanced practitioner for a full treatment plan Subjective Patient was up and walking around the hallways this morning. She had to receive 1 unit of PRBCs as her hemoglobin had dropped down to 7.8 overnight. Her abdominal discomfort continues to improve and she is eager to get home once her hemoglobin stabilizes. Review of Systems Review of Systems: At least ten systems reviewed and negative, except as noted in the subjective section. Physical Exam Physical Exam: General: WD/WN, NAD, sitting up in chair at bedside, very pleasant. Patient's friend visiting at bedside. A+Ox3, euthymic affect. HEENT: Normocephalic, atraumatic. Conjunctivae normal, anicteric sclerae. Exter nal ear and nose normal, oropharynx normal. Respiratory: Normal respiratory effort, lungs clear to auscultation, no wheeze, rales, rhonchi. No accessory muscle use. Cardiovascular: Regular rate, rhythm, no murmur, normal peripheral pulses, no BLE edema. Vessels: No JVD. Abdomen/GI: Active bowel sounds, abdominal binder in place, still mildly tender across the lower abdominal region but improving. Extremities/Musculoskeletal: No cyanosis or clubbing, extremities motor strength intact, moves all extremities. Neurologic: No focal deficits, CN's II-XI not formally tested but appear grossly intact bilaterally. Skin: No rashes, normal color, warm/dry. Results & Data Results & Data Vital Signs (Past 12 Hours) Vital Signs Temp Pulse Pulse Resp BP BP Pulse Ox 08/07/24 11:17 37 C 64 16 145/81 H 95 08/07/24 07:03 37.0 C 69 18 128/70 94 08/07/24 04:50 37.1 C 69 16 103/62 93 08/07/24 04:04 37.2 C 67 16 116/65 95 08/07/24 03:04 37 C 68 16 114/66 95 08/07/24 02:34 37.3 C 68 18 118/68 96 O2 Del Method 08/07/24 11:17 Room Air 08/07/24 07:03 Room Air 08/07/24 04:50 08/07/24 04:04 08/07/24 03:04 08/07/24 02:34 Laboratory Results Short CBC 08/06/24 08/07/24 08/07/24 Range/Units 18:45 00:16 06:58 WBC 9.38 (4.8-10.8) K/ul Hgb 8.3 L 7.8 L 9.4 L (12.0-16.0) g/dl Hct 25.2 L 23.7 L 29.1 L (37.0-47.0) % Plt Count 173 (130-400) K/uL BMP 08/07/24 06:58 Sodium 139 Potassium 3.9 Chloride 107 Carbon Dioxide 26 BUN 13 Creatinine 0.58 L Glucose 96 Calcium 8.4 L (2) Hematoma of rectus sheath Encounter type: initial encounter Qualified Code(s): S30.1XXA - Contusion of abdominal wall, initial encounter
[2024-08-07] MEDS: COUGH DROP (SUGAR FREE) LOZ 24 LOZ/1 BOX BUCCAL ONE (15:54)
[2024-08-07] MEDS: METOPROLOL TARTRATE 1 MG/ML VIAL IV PRN (17:26)
[2024-08-07 19:18] LABS: Hematocrit (blood only) 31.8 % (37.0-47.0); Hemoglobin 10.5 g/dl (12.0-16.0); Mean Corpuscular Hemoglobin 29.3 pg (25.0-34.0); Mean Corpuscular Volume 88.8 fL (80.0-100.0); Mean Platelet Volume 11.4 fL (9.4-12.4); Platelet Count 199 K/uL (130-400); RDW Coefficient of Variation 14.6 % (11.5-14.5); Red Blood Count 3.58 M/uL (4.20-5.40); White Blood Count 10.03 K/ul (4.8-10.8)
[2024-08-08] MEDS: DIGOXIN 250 MCG in SYRINGE 9 ML IV STA (04:26)
[2024-08-08] MEDS: NSS + 20MEQ KCL 20 MEQ/1,000 ML BAG IV ONE (04:53)
[2024-08-08] MEDS: LABETALOL HCL IV 5 MG/ML 20ML IV STA (05:10)
[2024-08-08 06:47] LABS: Hematocrit (blood only) 28.2 % (37.0-47.0); Hemoglobin 9.4 g/dl (12.0-16.0); Mean Corpuscular Hemoglobin 29.4 pg (25.0-34.0); Mean Corpuscular Hgb Conc 33.3 g/dL (32.0-36.0); Mean Corpuscular Volume 88.1 fL (80.0-100.0); Mean Platelet Volume 11.4 fL (9.4-12.4); Platelet Count 204 K/uL (130-400); RDW Coefficient of Variation 14.6 % (11.5-14.5); RDW Standard Deviation 46.6 fL (36.4-46.3)
[2024-08-08 07:04] LABS: BUN Creatinine Ratio 24.6 (10-20); Calcium 8.3 mg/dl (8.6-10.3); Creatinine Clr Calc Pharmacy 101.4 ml/min; Magnesium 1.8 mg/dl (1.7-2.4); Phosphorus 2.6 mg/dl (2.5-4.9); Potassium 3.8 mmol/L (3.5-5.1)
--- NOTE | 2024-08-08 09:23 | Discharge Summary ---
Discharge Summary Date of Service August 08, 2024 Principal Dx & Hospital Course #1 = Principal Diagnosis (1) Supratherapeutic INR: (2) Hematoma of rectus sheath: (3) Nontraumatic retroperitoneal hematoma: (4) Atrial fibrillation with rapid ventricular response: Mike Tolentino is a 78y/o F with PMHx significant for dyslipidemia, moderate persistent asthma, nonallergic rhinitis, ascending aortic dilation, diastolic dysfunction, HTN, paroxysmal atrial fibrillation/history of DVT x 3 [on warfarin], malignant neoplasm of uterus s/p total hysterectomy, osteoporosis and mitral regurgitation who presented to the ED on 08/04/2024 with abdominal pain. Workup in the ED showed a supratherapeutic INR of [address] of her abdomen/pelvis revealed multiple hematomas within the right rectus sheath and right hemipelvis in addition to adjacent extraperitoneal hemorrhage and a small amount of hemoperitoneum. Initial hemoglobin on presentation was 11.9 and repeat hemoglobin 3 to 4 hours later was 9.7 --> she was given IV vitamin K and PCC x 2 in the ED. ED provider had discussed her case with acute care surgery and interventional radiology at [facility] in [place] as it was thought the patient would need to be transferred however it was determined that no acute surgical intervention was required at that time. Our general surgery team here at [facility] evaluated the patient in the ED and recommended close monitoring with serial H/H, serial abdominal examinations, abdominal binder for compression, as needed pain management/antiemetics, adequate bowel regimen and holding of her warfarin. Supratherapeutic INR - RESOLVED Nontraumatic Retroperitoneal Hematoma, Rectus Sheath Hematoma: S/p vitamin K and PCC x 2 in the ED. Serial H/H downtrended overnight and she is now s/p 1 unit of PRBCs. Hgb stabilized at 9.4 this morning. Will repeat CBC later this evening and tomorrow AM. She might be able to be discharged home tomorrow if her Hgb remains stable. If Hgb were to drop, could consider abdominal CTA. If patient were to become unstable, she would require emergent transfer to [facility] for IR/embolization. General surgery signed off on the patient yesterday --> She may possibly be discharged home tomorrow if her labs/vitals remain stable. She will need close PCP f/u to discuss her anticoagulation moving forward. Likely will be transitioned to a DOAC from warfarin in the future. Paroxysmal AFib, History of DVT x 3 Episode of AFib w/ RVR on 08/05/2024: On chronic anticoagulation therapy with warfarin - currently on hold as per above. INR 0.9 on 08/04/2024 following reversal. Her atenolol was previously on hold due to hypotension however she had an episode of A-fib with RVR on 08/05/2024 therefore she had to receive a dose of IV Lopressor and her atenolol was restarted. There have been no more episodes of A-fib with RVR since then. Asthma, Possible Bronchitis: Continue home asthma medications. Patient has been complaining of a cough with some yellow sputum production recently. Oral 5-day doxycycline course (on day #3) for possible bronchitis. Probiotic added on. Cough has been improving. As needed Tessalon Perles added on. HTN, HLD: Home losartan/amlodipine on hold due to borderline hypotension. Continue atorvastatin/ezetimibe. Hypophosphatemia: Phosphate 2.1 today, supplement added on. Continue to monitor her electrolytes and treat PRN. DVT Prophylaxis: SCDs in setting of above. Code Status: FULL CODE PCP: Flaquita Brenner MD Disposition: Admitted in PCU/Telemetry - Likely to be discharged home tomorrow if her vitals/labs remain stable. Will need close PCP follow-up. Patient seen in collaboration with Dr. Menchaca. Please see addendum. I spent a total of 40 minutes coordinating, documenting, and providing care for this patient excluding time spent in the performance of separately billed services. This included personally reviewing all current laboratories and imaging studies, medical reconciliation, outpatient chart review and discussion with specialists. This chart was completed in part utilizing Speech Voice Recognition Software. Grammatical errors, random word insertions, pronoun errors, and incomplete sentences are an occasional consequence of this system due to software limitations, ambient noise, and hardware issues. Any formal questions or concerns about the content, text, or information contained within the body of this dictation should be directly addressed to the provider for clarification. Admission HPI Per Admitting Provider This is a 78 y/o with PAF, on chronic AC, hx DVT x3, HTN, dyslipidemia, asthma, and other history as outlined below who presented to the ED today with abdominal pain. Pt reports that the abdominal pain started a few days ago. She initially attributed this to constipation as she had not had a BM in 2-3 days. She tried Miralax, Dulcolax, Senokot, and a Fleet's enema with only passing small amounts of stool. No relief of pain with defecation. Denies melena or hematochezia. Does note occasional constipation at baseline. She has been nauseated but has not vomited. Nausea is currently improved with ondansetron in the ED. Currently rates pain as 3/10 after morphine. She also notes some difficulty with urination over the last day with sense of stranguria. This afternoon, she has been able to urinate a small amount but still feels like she is retaining urine with associated sensation of bladder distention. She has had chills and sweats but no documented fevers. Of note, pt was seen in urgent care eight days ago for a persistent cough and was prescribed prednisone taper (50/40/30/20/10 at two days each - currently has two days of the taper left). Has also been using albuterol nebs twice a day and Neti Pot for the URI symptoms/cough. Denies chest pain or dyspnea. Does not take Advair consistently but is helpful when she uses it. With the pain, she has been lightheaded at times but denies syncope. She has had a headache the last 2-3 days as well. She denies recent dose change of warfarin and reports that her INR is typically stable. Updated Medication List Medication Instructions Recorded Confirmed Type albuterol sulfate 2.5 mg/3 mL 2.5 mg inhalation Q4 PRN Shortness 11/10/19 08/04/24 History (0.083 %) solution for nebulization Of Breath albuterol sulfate 90 mcg/actuation 1 inh inhalation QID PRN Shortness 11/10/19 08/04/24 History aerosol inhaler (Ventolin HFA) Of Breath amlodipine 5 mg tablet 2.5 mg PO DAILY 11/10/19 08/04/24 History ascorbic acid (vitamin C) 500 mg 500 mg PO HS 11/10/19 08/04/24 History tablet (Vitamin C) aspirin 81 mg tablet,delayed 81 mg PO BID 11/10/19 08/04/24 History release atenolol 50 mg tablet 50 mg PO QAM 11/10/19 08/04/24 History chlorthalidone 25 mg tablet 25 mg PO 3XWK 11/10/19 08/04/24 History fluticasone 250 mcg-salmeterol 50 1 inh inhalation BID 11/10/19 08/04/24 History mcg/dose blistr powdr for inhalation (Advair Diskus) fluticasone propionate 50 2 spray intranasal DAILY PRN 11/10/19 08/04/24 History mcg/actuation nasal Allergy Symptoms spray,suspension (Flonase Allergy Relief) glucosamine sulf dipot 1 cap PO HS 11/10/19 08/04/24 History chlr,msm,chond 550 mg-C 30 mg-noe 1 mg capsule (Glucosamine Chondroitin) losartan 50 mg tablet 50 mg PO QAM 11/10/19 08/04/24 History montelukast 10 mg tablet 10 mg PO HS 11/10/19 08/04/24 History multivitamin 1 tab PO QAM 11/10/19 08/04/24 History omega 3 350 mg-dha 235 mg-epa 90 1 cap PO QAM 11/10/19 08/04/24 History mg-fish oil 597 mg capsule,delay rel (Kechi-3) potassium chloride 20 mEq 20 meq PO HS 11/10/19 08/04/24 History tablet,extended release vitamin B complex 1 tab PO QAM 11/10/19 08/04/24 History vitamin E 268 mg (400 unit) capsule 400 unit PO BID 11/10/19 08/04/24 History cholecalciferol (vitamin D3) 125 125 mcg PO QAM 04/06/20 08/04/24 History mcg (5,000 unit) tablet (Vitamin D3) ondansetron 4 mg disintegrating 4 mg PO Q8H PRN nausea and 12/25/20 08/04/24 Rx tablet vomiting #10 tabs warfarin 7.5 mg tablet 7.5 mg PO UD 01/26/21 08/04/24 History ezetimibe 10 mg tablet 10 mg PO DAILY 08/04/24 08/04/24 History prednisone 10 mg tablet 10 mg PO DIRECTED 08/04/24 08/04/24 History rosuvastatin 20 mg tablet 20 mg PO .Q OTHER DAY 08/04/24 08/04/24 History Hospital Stay Data Consultations 08/04/24 14:14 ED Decision to Admit Stat Diagnostic Imagining Performed 08/04/24 07:38 CT abd pelvis IV con only Stat 08/04/24 15:33 CT head/brain wo con Stat Pending Results Patient Have Any Pending Studies at Discharge: No Discharge Instructions Given to Patient (Per Discharging Provider) Mandi, You were admitted to the hospital after presenting CT imaging of your abdomen/pelvis revealed that you had multiple sites of acute hemorrhage (also known as bleeding). Your INR was supratherapeutic at 5 when you first presented to the emergency department, which means that you were blood was taking longer than normal to clot and that unfortunately predisposed you to the bleeding in your abdominal and pelvic regions. We STOPPED your warfarin due to the bleeding and gave you IV medications (such as vitamin K) to help stop the bleeding and improve your INR to a normal range. You were seen and evaluated by general surgery whom recommended to proceed with conservative management rather than surgery for your bleeding. Thankfully your hemoglobin remained stable and you did not have to be transferred to another medical facility for emergent surgical intervention. You were also found to have an episode of atrial fibrillation with rapid ventricular response (A-fib with RVR) while you were admitted. A-fib with RVR is a type of irregular heart rhythm. With A-fib with RVR, your heart doesnt have a normal signaling process telling your heart when to beat. Instead, signaling is disorganized and the parts of your heart beat out of sync. We were able to quickly resolve this episode of irregular heart rhythm with medications. MEDICATION CHANGES 1. HOLD off on taking your WARFARIN until otherwise instructed by your PCP. You will most likely need to be transitioned to a different type of blood thinner, such as Eliquis or Xarelto, as we have previously discussed. Your PCP will assist you with this transition. 2. UPCOMING APPOINTMENTS Date & Time: 08/12/2024 @ 2:00PM Provider: Flaquita Brenner MD Department: [facility] General Internal Medicine @ [facility] Seek medical attention if you have: * temperature above 101F * chest pain or trouble breathing * abdominal pain, nausea, vomiting * diarrhea, dark stools or bloody stools * any unanswered questions or concerns Call 911 if symptoms are severe. Please take good care of yourself! It has been a pleasure taking care of you. If you have any questions regarding your recent hospitalization please contact [facility] and request Shirley Cha @ [phone].
--- NOTE | 2024-08-08 10:06 | Cardiology Consultation ---
Date of Consultation August 08, 2024 Assessment & Plan (1) PAF (paroxysmal atrial fibrillation): (2) Supratherapeutic INR: (3) Hematoma of rectus sheath: (4) Nontraumatic retroperitoneal hematoma: (5) LBBB (left bundle branch block): Plan 78-year-old female with paroxysmal atrial fibrillation and rapid ventricular response overnight. Agree with discontinuation of atenolol in favor of metoprolol succinate 50 mg twice daily. Anticoagulation will remain on hold at this time. Consider restart anticoagulation with DOAC when bleeding issues have resolved and hemoglobin has stabilized. Monitor H/H. Replace electrolytes as indicated. Maintain serum potassium greater than 4.0, and magnesium greater than 2.0. TSH ordered. History of Present Illness Reason for Consultation: Paroxysmal atrial fibrillation Requesting Physician: Dr. Menchaca Attending Physician: Jas Menchaca MD History of Present Illness 78-year-old female with cardiac history noted below presented to the emergency department 08/24 with abdominal discomfort. Supratherapeutic INR of 5.[address] abdomen/pelvis demonstrating multiple hematomas involving the right rectus sheath, and right hemipelvis. Initial hemoglobin 11.9, however, trended down to 7.8 during hospitalization. She received 1 unit of packed red blood cells. Cardiology consultation requested due to recurrent atrial fibrillation. Anticoagulation currently on hold. Diagnosed with left lower extremity/femoral deep venous thrombosis in her late 20s. Prescribed warfarin for several years, however, had been off warfarin for approximately 15 years when she developed atrial fibrillation in 2019. Again warfarin was initiated although reports difficulty maintaining therapeutic INR. Currently resting comfortably. No significant abdominal discomfort. Notes palpitations overnight corresponding with recurrent atrial fibrillation with heart rate into the 130s. Episode lasted from approximately 3:10 AM until 4:30 AM. No recurrence this morning. She received a dose of atenolol and is scheduled for 50 mg of metoprolol succinate this evening. Cardiac history: 1. Paroxysmal afib, controlled in NSR. Continue coumadin. 2. LBBB 3. Mildly dilated ascending aorta at 4.2 cm per echo in Nov 2022 4. Dyslipidemia Allergies Allergy/AdvReac Type Severity Reaction Status Date / Time celecoxib [From Celebrex] Allergy Severe Chest Pain Verified 02/03/21 09:39 enalapril Allergy Intermediate MUSCLE Verified 02/03/21 09:39 SPASMS simvastatin Allergy Intermediate MUSCLE Verified 02/03/21 09:39 WEAKNESS enalaprilat [From Vasotec] Allergy Mild dry cough Verified 02/03/21 09:39 magnesium citrate AdvReac Intermediate N/V Verified 02/03/21 09:39 hydrocodone AdvReac Mild GI SYMPTOMS Verified 02/03/21 09:39 Home Medications Medication Instructions Recorded Confirmed Type albuterol sulfate 2.5 mg/3 mL 2.5 mg inhalation Q4 PRN Shortness 11/10/19 08/04/24 History (0.083 %) solution for nebulization Of Breath albuterol sulfate 90 mcg/actuation 1 inh inhalation QID PRN Shortness 11/10/19 08/04/24 History aerosol inhaler (Ventolin HFA) Of Breath amlodipine 5 mg tablet 2.5 mg PO DAILY 11/10/19 08/04/24 History ascorbic acid (vitamin C) 500 mg 500 mg PO HS 11/10/19 08/04/24 History tablet (Vitamin C) aspirin 81 mg tablet,delayed 81 mg PO BID 11/10/19 08/04/24 History release atenolol 50 mg tablet 50 mg PO QAM 11/10/19 08/04/24 History chlorthalidone 25 mg tablet 25 mg PO 3XWK 11/10/19 08/04/24 History fluticasone 250 mcg-salmeterol 50 1 inh inhalation BID 11/10/19 08/04/24 History mcg/dose blistr powdr for inhalation (Advair Diskus) fluticasone propionate 50 2 spray intranasal DAILY PRN 11/10/19 08/04/24 History mcg/actuation nasal Allergy Symptoms spray,suspension (Flonase Allergy Relief) glucosamine sulf dipot 1 cap PO HS 11/10/19 08/04/24 History chlr,msm,chond 550 mg-C 30 mg-noe 1 mg capsule (Glucosamine Chondroitin) losartan 50 mg tablet 50 mg PO QAM 11/10/19 08/04/24 History montelukast 10 mg tablet 10 mg PO HS 11/10/19 08/04/24 History multivitamin 1 tab PO QAM 11/10/19 08/04/24 History omega 3 350 mg-dha 235 mg-epa 90 1 cap PO QAM 11/10/19 08/04/24 History mg-fish oil 597 mg capsule,delay rel (Sacul-3) potassium chloride 20 mEq 20 meq PO HS 11/10/19 08/04/24 History tablet,extended release vitamin B complex 1 tab PO QAM 11/10/19 08/04/24 History vitamin E 268 mg (400 unit) capsule 400 unit PO BID 11/10/19 08/04/24 History cholecalciferol (vitamin D3) 125 125 mcg PO QAM 04/06/20 08/04/24 History mcg (5,000 unit) tablet (Vitamin D3) ondansetron 4 mg disintegrating 4 mg PO Q8H PRN nausea and 12/25/20 08/04/24 Rx tablet vomiting #10 tabs warfarin 7.5 mg tablet 7.5 mg PO UD 01/26/21 08/04/24 History ezetimibe 10 mg tablet 10 mg PO DAILY 08/04/24 08/04/24 History prednisone 10 mg tablet 10 mg PO DIRECTED 08/04/24 08/04/24 History rosuvastatin 20 mg tablet 20 mg PO .Q OTHER DAY 08/04/24 08/04/24 History Patient History Medical History LBBB (left bundle branch block) Present since at least 2014 Afib dx Nov 2020 > Warfarin > no cardioversions > follows Dr. Bryan Chronic back pain History of kidney stones History of uterine cancer --sx > no chemo History of deep vein thrombosis (DVT) of lower extremity 30 yrs ago > LLE x3 > on Coumadin Hypertension Hyperlipidemia Enlarged aorta Per 08/25/2020 echo ascending aorta 4.2 cm (stable from 2017) Follows with Dr. Bryan Asthma RARE RES INH USE Surgical History History of bilateral cataract extraction History of lumpectomy of right breast benign History of dilatation and curettage several History of carpal tunnel surgery of left wrist History of cystoscopy x2 History of appendectomy History of colonoscopy with polypectomy History of total left knee replacement (TKR) History of hysterectomy with unilateral oophorectomy removed left History of tooth extraction all teeth History of tonsillectomy and adenoidectomy History of sinus surgery x2 History of photorefractive keratectomy (PRK) Family History Grandmother (Maternal) Family history of diabetes mellitus Daughter Family history of reaction to anesthesia BP dropped with laparoscopy procedure Social History Smoking Status: Never smoker Tobacco Type: Cigarettes Second Hand Exposure: Yes; Do You Dip or Chew Tobacco: No; Hx Alcohol Use: Yes Alcohol type: wine Hx Substance Use: No Preferred Language: Kosovan Communication Ability: Effective Strike Planning Applications Required: No Beliefs That Will Affect Care: None Current Living Situation: Family Feels Safe at Home: Yes Assistive Devices: None Review of Systems Review of Systems: All systems reviewed & are unremarkable except as noted in Subjective Physical Exam Constitutional: well nourished; no acute distress Respiratory: no respiratory distress, no labored breathing and no retractions Auscultation: no crackles, no rales, no rhonchi and no wheezes Cardiovascular: Rate/Rhythm: regular rate and regular rhythm Heart Sounds: normal S1 and normal S2; no murmur Vessels: radial pulses present; no JVD and no carotid bruit Extremities: + edema (Trace bilateral lower extremity edema) Gastrointestinal (Abdomen): Inspection/Auscultation: abdomen normal to inspection; abdomen not distended Percussion/Palpation: abdomen soft; abdomen nontender, no guarding and abdomen not rigid Neurologic: CN's II-XI intact bilaterally and moves all extremities; no focal motor deficits Results & Data Vital Signs (Past 12 Hours) Vital Signs Temp Pulse Pulse Resp BP BP BP 08/08/24 07:11 36.6 C 69 18 127/65 08/08/24 04:45 73 136/76 08/08/24 04:26 138 H 08/08/24 04:11 132 H 08/08/24 04:10 132 H 102/59 L 08/08/24 03:50 136 H 150/75 H 08/08/24 03:41 37.2 C 127 H 16 100/76 08/08/24 03:27 127 H 100/76 08/07/24 23:00 37.6 C H 77 16 116/61 08/07/24 22:34 74 08/07/24 22:12 Pulse Ox O2 Del Method 08/08/24 07:11 96 Room Air 08/08/24 04:45 08/08/24 04:26 08/08/24 04:11 08/08/24 04:10 08/08/24 03:50 08/08/24 03:41 94 Room Air 08/08/24 03:27 08/07/24 23:00 96 Room Air 08/07/24 22:34 08/07/24 22:12 Room Air Laboratory Results CBC 08/07/24 08/08/24 Range/Units 18:59 06:20 WBC 10.03 8.20 (4.8-10.8) K/ul RBC 3.58 L 3.20 L (4.20-5.40) M/uL Hgb 10.5 L 9.4 L (12.0-16.0) g/dl Hct 31.8 L 28.2 L (37.0-47.0) % Plt Count 199 204 (130-400) K/uL Comprehensive Metabolic Panel 08/08/24 Range/Units 06:20 Sodium 140 (136-145) mmol/L Potassium 3.8 (3.5-5.1) mmol/L Chloride 108 H (98-107) mmol/L Carbon Dioxide 27 (21-32) mmol/L BUN 14 (6-23) mg/dl Creatinine 0.57 L (0.6-1.2) mg/dl Glucose 97 (70-99(Fasting)) mg/dl Calcium 8.3 L (8.6-10.3) mg/dl Intake and Output 08/07/24 08/08/24 08/08/24 22:59 06:59 14:59 Intake Total 550 / 1670 Balance 550 / 1670 Intake: Oral 550 / 1570 Other: # Unmeasured Voids 2 2 Weight 96.7 kg Weight Measurement Method Built in [facility] (3) Hematoma of rectus sheath Encounter type: initial encounter Qualified Code(s): S30.1XXA - Contusion of abdominal wall, initial encounter
--- NOTE | 2024-08-08 11:08 | Hospitalist Progress Note ---
Date of Service August 08, 2024 Assessment & Plan (1) Supratherapeutic INR: (2) Hematoma of rectus sheath: (3) Nontraumatic retroperitoneal hematoma: (4) Atrial fibrillation with rapid ventricular response: Plan Mandi Tolentino is a 78y/o F with PMHx significant for dyslipidemia, moderate persistent asthma, nonallergic rhinitis, ascending aortic dilation, diastolic dysfunction, HTN, paroxysmal atrial fibrillation/history of DVT x 3 [on warfarin], malignant neoplasm of uterus s/p total hysterectomy, osteoporosis and mitral regurgitation who presented to the ED on 08/04/2024 with abdominal pain. Workup in the ED showed a supratherapeutic INR of [address] of her abdomen/pelvis revealed multiple hematomas within the right rectus sheath and right hemipelvis in addition to adjacent extraperitoneal hemorrhage and a small amount of hemoperitoneum. Initial hemoglobin on presentation was 11.9 and repeat hemoglobin 3 to 4 hours later was 9.7 --> she was given IV vitamin K and PCC x 2 in the ED. ED provider had discussed her case with acute care surgery and interventional radiology at [facility] in [place] as it was thought the patient would need to be transferred however it was determined that no acute surgical intervention was required at that time. Our general surgery team here at [facility] evaluated the patient in the ED and recommended close monitoring with serial H/H, serial abdominal examinations, abdominal binder for compression, as needed pain management/antiemetics, adequate bowel regimen and holding of her warfarin. Supratherapeutic INR - RESOLVED Nontraumatic Retroperitoneal Hematoma, Rectus Sheath Hematoma: Warfarin on hold. S/p vitamin K and PCC x 2 in the ED. S/p 1 unit of PRBCs on 08/07/2024 as her Hgb had downtrended. Hgb stable this morning at 9.4, repeat CTAP pending to monitor hematomas/hemorrhage progression. General surgery signed off on the patient on 08/06/2024 --> She will need close PCP f/u to discuss her anticoagulation moving forward. If patient were to become unstable, she would require emergent transfer to [facility] for IR/embolization. Paroxysmal AFib, History of DVT x 3 Recurrent Episodes of AFib w/ RVR: On chronic anticoagulation therapy with warfarin - currently on hold as per above. INR 0.9 on 08/04/2024 following reversal. Her atenolol was previously on hold due to hypotension however she had an episode of A-fib with RVR on 08/05/2024 therefore she had to receive a dose of IV Lopressor and her atenolol was restarted. She unfortunately had a few episodes of A-fib with RVR yesterday afternoon/evening and overnight with heart rate into the 130s. She received both IV Lopressor and IV labetalol yesterday evening with subsequent rate control and NSR. Cardiology consulted --> Discontinued atenolol, started on metoprolol succinate 50mg BID; "Consider restart anticoagulation with DOAC when bleeding issues have resolved and hemoglobin has stabilized." Maintain K+ > 4 and mag > 2, TSH WNL. Trace BLE Edema: Patient reports some swelling of her lower legs this morning. BLE venous doppler pending to r/o DVT. Asthma, Possible Bronchitis: Continue home asthma medications. Oral 5-day doxycycline course (on day #4) for possible bronchitis. Probiotic added on. Cough continues to improve. PRN Tessalon Perles added on - patient reports they work well. HTN, HLD: Home losartan/amlodipine on hold due to borderline hypotension. Continue atorvastatin/ezetimibe. Hypophosphatemia - RESOLVED: Phosphate 2.6 today, continue supplementation. Continue to monitor her electrolytes and treat PRN. DVT Prophylaxis: SCDs in setting of above. Code Status: FULL CODE PCP: Flaquita Brenner MD Disposition: Admitted in PCU/Telemetry - Will need close PCP and cardiology f/u to discuss restarting anticoagulation therapy (? possible discharge home tomorrow). Patient seen in collaboration with Dr. Menchaca. Please see addendum. I spent a total of 45 minutes coordinating, documenting, and providing care for this patient excluding time spent in the performance of separately billed services. This included personally reviewing all current laboratories and imaging studies, medical reconciliation, outpatient chart review and discussion with specialists. This chart was completed in part utilizing Speech Voice Recognition Software. Grammatical errors, random word insertions, pronoun errors, and incomplete sentences are an occasional consequence of this system due to software limitations, ambient noise, and hardware issues. Any formal questions or concerns about the content, text, or information contained within the body of this dictation should be directly addressed to the provider for clarification. Admission and Anticipated Discharge Date Admission Date: August 04, 2024 Supervising Physician Co-Signing Physician Notes Patient seen and examined at bedside She reports that she is feeling much better. However, had episode of atrial fibrillation overnight. She reported palpitation during these. She also reported left leg discomfort with the RN. Telemetry review shows paroxysmal atrial fibrillation overnight. Atenolol changed to metoprolol 50 mg twice a day; cardiology consulted. CT abdomen pelvis with contrast ordered to follow-up on hematoma Venous duplex of lower extremity ordered to rule out DVT I have reviewed the advanced practitioner's documentation, and I agree with, and take responsibility for the plan of care I spent a total of 20 minutes coordinating, documenting, and providing care for this patient excluding time spent in the performance of separately billed services. All of the aforementioned completed while collaborating with the assigned advanced practitioner for a full treatment plan Subjective Patient had runs of atrial fibrillation last night requiring IV Lopressor and IV labetalol. She is now rate controlled and has not had no further episodes of atrial fibrillation this morning. She reports that she experiences palpations when in atrial fibrillation. Thankfully she is feeling very well this morning and denies any further incidences of palpitations. Her daughter requested another CT abdomen/pelvis to reevaluate the hematomas/hemorrhage. Cardiology evaluated her this morning. Review of Systems Review of Systems: At least ten systems reviewed and negative, except as noted in the subjective section. Physical Exam Physical Exam: General: WD/WN, NAD, sitting up in bed, very pleasant, conversing appropriately without issue. A+Ox3, euthymic affect. HEENT: Normocephalic, atraumatic. Conjunctivae normal, anicteric sclerae. External ear and nose normal, oropharynx normal. Respiratory: Normal respiratory effort, lungs clear to auscultation, no wheezes/crackles/rales/rhonchi. No accessory muscle use. Cardiovascular: Regular rate, rhythm, normal peripheral pulses, trace/minimal BLE edema. Vessels: No JVD. Abdomen/GI: Active bowel sounds, abdominal binder in place, lower abdominal tenderness significantly improved. Extremities/Musculoskeletal: No cyanosis or clubbing, extremities motor strength intact, moves all extremities. Neurologic: No focal deficits, CN's II-XI not formally tested but appear grossly intact bilaterally. Skin: No rashes, normal color, warm/dry. Results & Data Results & Data Vital Signs (Past 12 Hours) Vital Signs Temp Pulse Pulse Resp BP BP BP 08/08/24 07:11 36.6 C 69 18 127/65 08/08/24 04:45 73 136/76 08/08/24 04:26 138 H 08/08/24 04:11 132 H 08/08/24 04:10 132 H 102/59 L 08/08/24 03:50 136 H 150/75 H 08/08/24 03:41 37.2 C 127 H 16 100/76 08/08/24 03:27 127 H 100/76 Pulse Ox O2 Del Method 08/08/24 07:11 96 Room Air 08/08/24 04:45 08/08/24 04:26 08/08/24 04:11 08/08/24 04:10 08/08/24 03:50 08/08/24 03:41 94 Room Air 08/08/24 03:27 Laboratory Results Short CBC 08/07/24 08/08/24 Range/Units 18:59 06:20 WBC 10.03 8.20 (4.8-10.8) K/ul Hgb 10.5 L 9.4 L (12.0-16.0) g/dl Hct 31.8 L 28.2 L (37.0-47.0) % Plt Count 199 204 (130-400) K/uL BMP 08/08/24 06:20 Sodium 140 Potassium 3.8 Chloride 108 H Carbon Dioxide 27 BUN 14 Creatinine 0.57 L Glucose 97 Calcium 8.3 L (2) Hematoma of rectus sheath Encounter type: initial encounter Qualified Code(s): S30.1XXA - Contusion of abdominal wall, initial encounter
[2024-08-08] MEDS: OPTIRAY 320 100ml IV ONE (11:26)
[2024-08-08 11:55] LABS: Thyroid Stimulating Hormone 3.559 uIu/ml (0.300-4.500)
--- NOTE | 2024-08-08 12:15 | CT Scan Report ---
CT OF THE ABDOMEN AND PELVIS WITH CONTRAST CLINICAL HISTORY: Follow up on hematomas. COMPARISON STUDY: CT of the abdomen and pelvis August 04, 2024. TECHNIQUE: Following IV administration of 93 mL of Optiray, axial images of the abdomen and pelvis we re obtained from the lung bases to the proximal femurs. Images were reviewed in the axial, sagittal, and coronal planes. IV contrast was administered without complication. Automated exposure control wa s utilized for the study. A dose lowering technique was utilized adhering to the principles of ALARA . CT DOSE: 1570.32 mGy.cm FINDINGS: No pneumatosis, free air or portal venous gas is present. There is a gallstone within the g allbladder. Liver, spleen, adrenal glands and pancreas are unremarkable. Low-attenuation renal lesion s favor cysts although several are too small to categorize. There is no hydronephrosis. Left pelvic/r etroperitoneal venous collaterals are chronic. There is no evidence for a bowel obstruction. Perisple hector fluid has resolved since CT of August 04, 2024. Multiple hematomas within the lower abdomen and pelvis have mildly decreased in size. Adjacent hemorrhage has decreased. Right rectus sheath hematoma now measures 7.5 x 3.7 cm, previously 7.8 x 3.7 cm. Right pelvic sidewall hematoma measures 7.6 x 7. 2 cm, previously 7.8 x 7.6 cm. Right anterior pelvis extraperitoneal hematoma on image 295 measures 7 .4 x 3.7 cm, previously 7.7 x 4.6 cm. There is no evidence for interval hemorrhage. Fluid fluid level s are again noted within the hematomas. No active extravasation. Bladder wall thickening is again not ed. There is stranding within the lower abdominal wall and right thigh. IMPRESSION: 1. Mild decrease in size of multiple hematomas within the right rectus sheath and right hemipelvis si nce CT of August 04, 2024. Interval decrease in adjacent hemorrhage and resolution of perisplenic he morrhage. No new sites of hemorrhage. No active extravasation. No evidence for interval bleed. 2. Otherwise, no change in appearance of the abdomen and pelvis since prior CT. 3. No bowel obstruction. No bowel wall thickening. ACT 112: Negative or not required by law. Electronically signed by: Juvencio Felder M.D. 08/08/2024 12:13 PM
[2024-08-08] MEDS: MAGNESIUM SULFATE / D5W 1 GM/100 ML BAG IV ONE (12:33)
--- NOTE | 2024-08-08 13:32 | Ultrasound Report ---
BILATERAL LOWER EXTREMITY VENOUS DOPPLER HISTORY: Acute pain and swallowing of the lower leg Rule out DVT COMPARISON STUDY: July 02, 2017 FINDINGS: There is normal compressibility, flow, and augmentation within the bilateral lower extremit y deep venous systems. IMPRESSION: No DVT within the right or left lower extremity. ACT 112: Negative or not required by law. Electronically signed by: Benito Pinedo M.D. 08/08/2024 1:30 PM
--- NOTE | 2024-08-08 14:34 | Communication Note ---
Date of Service: August 08, [address] abdomen/pelvis today revealed a mild decrease in the size of the hematomas within the right rectus sheath and right hemipelvis. It also revealed an interval decrease in the adjacent hemorrhage and resolution of the perisplenic hemorrhage. No new sites of hemorrhage/active extravasation/evidence of internal bleeding. Bilateral lower extremity venous doppler was negative for any evidence of DVT. Patient made aware of these results this afternoon.
[2024-08-08] MEDS: METOPROLOL SUCC 50MG EXT REL TAB PO SCH (20:00)
[2024-08-09 06:14] LABS: Hematocrit (blood only) 27.9 % (37.0-47.0); Hemoglobin 9.3 g/dl (12.0-16.0); Mean Corpuscular Hemoglobin 29.8 pg (25.0-34.0); Mean Corpuscular Hgb Conc 33.3 g/dL (32.0-36.0); Mean Corpuscular Volume 89.4 fL (80.0-100.0); Mean Platelet Volume 11.4 fL (9.4-12.4); Platelet Count 231 K/uL (130-400); RDW Coefficient of Variation 14.7 % (11.5-14.5); RDW Standard Deviation 47.4 fL (36.4-46.3); Red Blood Count 3.12 M/uL (4.20-5.40); White Blood Count 7.69 K/ul (4.8-10.8)
[2024-08-09 06:22] LABS: BUN Creatinine Ratio 23.1 (10-20); Calcium 8.5 mg/dl (8.6-10.3); Creatinine Clr Calc Pharmacy 111.5 ml/min; Magnesium 1.9 mg/dl (1.7-2.4)
--- NOTE | 2024-08-09 08:30 | Cardiology Progress Note ---
Date of Service August 09, 2024 Assessment & Plan (1) PAF (paroxysmal atrial fibrillation): (2) Supratherapeutic INR: (3) Hematoma of rectus sheath: (4) Nontraumatic retroperitoneal hematoma: (5) LBBB (left bundle branch block): Plan 78-year-old female with paroxysmal atrial fibrillation and rapid ventricular response overnight. Agree with discontinuation of atenolol in favor of metoprolol succinate 50 mg twice daily. Anticoagulation will remain on hold at this time. Consider restart anticoagulation with DOAC when bleeding issues have resolved and hemoglobin has stabilized. Monitor H/H. Replace electrolytes as indicated. Maintain serum potassium greater than 4.0, and magnesium greater than 2.0. TSH ordered. 08/09/2024: -Patient is doing well from a cardiac perspective -Review of telemetry demonstrates no recurrence of A-fib since noon yesterday. Continue Toprol xl 50mg PO BID. -Anticoagulation will continue to remain on hold at this time until HgB has stabilized. Patient will need close follow up of labs OP prior to resuming -TSH within normal range. Electrolytes stable. -When patient is appropriate for discharge, will recommend close cardiology follow up with labs to determine restarting oral anticoagulation therapy. Case has been discussed with Dr. Stone. Further recommendations regarding plan of care as per his assessment. I spent a total of 30 minutes on the date of service in preparation, delivery, documentation of the care provided to the patient excluding any time spent in the performance of separately billed services. LINDSEY Benson [facility] Admission and Anticipated Discharge Date Admission Date: August 04, 2024 Supervising Physician Co-Signing Physician Notes I have personally performed a history and physical examination on the patient. I have reviewed the advance practitioner's documentation, and I agree with, and take responsibility for the plan of care. 78-year-old female seen examined the bedside. Recurrent atrial fibrillation recorded this afternoon with associated palpitations. Mild hypomagnesemia noted per a.m. labs. Recommend magnesium supplementation. Continue Toprol-XL 50 mg twice daily. Continue to hold anticoagulation. I spent a total of 25 minutes on the date of service in preparation, delivery, and documentation of the care provided to this patient, excluding any time spent in the performance of separately billed services. Sukh Stone DO Subjective 08/09/2024: Patient seen and examined in follow up today. Feeling well overall. She is out of bed in a chair without any cardiac complaints. Denies any chest pain, pressure or palpitations. No shortness of breath. Does not some mild lower extremity swelling. Labs, vitals, diagnostics, telemetry and documentation reviewed. Telemetry reviewed showing SB/SR rates 50-80's. Her last noted A-fib episode was around noon yesterday. No acute events overnight. Review of Systems Review of Systems: All systems reviewed & are unremarkable except as noted in HPI & below Physical Exam Constitutional: well developed and well nourished; no acute distress and not ill appearing Neck: normal visual inspection and trachea midline Respiratory: normal respiratory effort; no respiratory distress, no labored breathing and no cough Auscultation: lungs clear to auscultation bilaterally Cardiovascular: Rate/Rhythm: regular rate and regular rhythm Heart Sounds: normal S1, normal S2 and + murmur (+1/6 systolic) Vessels: dorsalis pedis pulses present; no JVD Extremities: + edema (trace BLE) Skin: no rashes, warm and dry Psychiatric: A+Ox3, euthymic affect Results & Data Vital Signs (Past 12 Hours) Vital Signs Temp Pulse Pulse Resp BP Pulse Ox O2 Del Method 08/09/24 08:00 37.0 C 79 18 144/68 H 92 Room Air 08/09/24 03:17 36.7 C 70 18 126/69 97 Room Air 08/09/24 00:04 66 Laboratory Results CBC 08/09/24 Range/Units 05:34 WBC 7.69 (4.8-10.8) K/ul RBC 3.12 L (4.20-5.40) M/uL Hgb 9.3 L (12.0-16.0) g/dl Hct 27.9 L (37.0-47.0) % Plt Count 231 (130-400) K/uL Comprehensive Metabolic Panel 08/09/24 Range/Units 05:34 Sodium 139 (136-145) mmol/L Potassium 4.0 (3.5-5.1) mmol/L Chloride 106 (98-107) mmol/L Carbon Dioxide 29 (21-32) mmol/L BUN 12 (6-23) mg/dl Creatinine 0.52 L (0.6-1.2) mg/dl Glucose 96 (70-99(Fasting)) mg/dl Calcium 8.5 L (8.6-10.3) mg/dl Intake and Output 08/08/24 08/09/24 08/09/24 22:59 06:59 14:59 Intake Total 1560 / 2250 590 / 2250 Balance 1560 / 2250 590 / 2250 Intake: IV 1000 / 1100 Nss + 20Meq KCl 20 meq In 1,000 1000 / 1000 ml @ 75 mls/hr IV .[id number] ONE Rx#:[id number] Oral 560 / 1150 590 / 1150 Other: # Unmeasured Voids 3 2 Weight 97.4 kg Weight Measurement Method Built in [facility] (3) Hematoma of rectus sheath Encounter type: initial encounter Qualified Code(s): S30.1XXA - Contusion of abdominal wall, initial encounter
--- NOTE | 2024-08-09 11:10 | Hospitalist Progress Note ---
Date of Service August 09, 2024 Assessment & Plan (1) Supratherapeutic INR: (2) Hematoma of rectus sheath: (3) Nontraumatic retroperitoneal hematoma: (4) Atrial fibrillation with rapid ventricular response: Plan Mandi Tolentino is a 78y/o F with PMHx significant for dyslipidemia, moderate persistent asthma, nonallergic rhinitis, ascending aortic dilation, diastolic dysfunction, HTN, paroxysmal atrial fibrillation/history of DVT x 3 [on warfarin], malignant neoplasm of uterus s/p total hysterectomy, osteoporosis and mitral regurgitation who presented to the ED on 08/04/2024 with abdominal pain. Workup in the ED showed a supratherapeutic INR of [address] of her abdomen/pelvis revealed multiple hematomas within the right rectus sheath and right hemipelvis in addition to adjacent extraperitoneal hemorrhage and a small amount of hemoperitoneum. Initial hemoglobin on presentation was 11.9 and repeat hemoglobin 3 to 4 hours later was 9.7 --> she was given IV vitamin K and PCC x 2 in the ED. ED provider had discussed her case with acute care surgery and interventional radiology at [facility] in [place] as it was thought the patient would need to be transferred however it was determined that no acute surgical intervention was required at that time. Our general surgery team here at [facility] evaluated the patient in the ED and recommended close monitoring with serial H/H, serial abdominal examinations, abdominal binder for compression, as needed pain management/antiemetics, adequate bowel regimen and holding of her warfarin. Supratherapeutic INR - RESOLVED Nontraumatic Retroperitoneal Hematoma, Rectus Sheath Hematoma: Warfarin on hold. S/p vitamin K and PCC x 2 in the ED. S/p 1 unit of PRBCs on 08/07/2024 as her Hgb had downtrended. Hgb stable this morning at 9.3 CTAP: Repeat performed 08/08. Repeat on 08/08 revealing a mild decrease in the size of the hematoma. Additionally there is a noted decrease in the adjacent hemorrhage and resolution of the perisplenic hemorrhage. No new sites of hemorrhage or active extravasation/internal bleeding. Bilateral lower extremity venous Doppler scan negative for DVT. General surgery signed off on the patient on 08/06/2024 --> She will need close PCP f/u to discuss her anticoagulation moving forward. Paroxysmal AFib, History of DVT x 3 Recurrent Episodes of AFib w/ RVR: On chronic anticoagulation therapy with warfarin - currently on hold as per above. INR 0.9 on 08/04/2024 following reversal. Her atenolol was previously on hold due to hypotension She experienced A-fib with RVR 08/07 with HR into the 130s. IV Lopressor and IV labetalol Given 08/07 with subsequent rate control and NSR. Cardiology consulted --> Discontinued atenolol, started on metoprolol succinate 50mg BID Maintain K+ > 4 and mag > 2, TSH WNL. Will benefit from close outpatient monitoring from Cards on DC; will need to be restarted on a DOAC. Trace BLE Edema: continues; BLE venous doppler negative for DVT on 08/08. Asthma, Possible Bronchitis: Continue home asthma medications. Oral 5-day doxycycline course (on day #4) for possible bronchitis. Probiotic added on. Cough continues to improve. PRN Tessalon Perles added on; starting liquid Guaifenassin DM HTN, HLD: Home losartan/amlodipine on hold due to borderline hypotension. Continue atorvastatin/ezetimibe. Hypophosphatemia - RESOLVED: Phosphate 2.6 today, continue supplementation. Continue to monitor her electrolytes and treat PRN. DVT Prophylaxis: SCDs in setting of above. Code Status: FULL CODE PCP: Flaquita Brenner MD Disposition: PCU/Telemetry - Will need close PCP and cardiology f/u to discuss restarting DOAC Anticipate DC on Sun 08/10 I spent a total of 46 minutes coordinating, documenting, and providing care for this patient excluding time spent in the performance of separately billed services. This included personally reviewing all current laboratories and imaging studies, medical reconciliation, outpatient chart review and discussion with specialists. This chart was completed in part utilizing Speech Voice Recognition Software. Grammatical errors, random word insertions, pronoun errors, and incomplete sentences are an occasional consequence of this system due to software limitations, ambient noise, and hardware issues. Any formal questions or concerns about the content, text, or information contained within the body of is dictation should be directly addressed to the provider for clarification. Admission and Anticipated Discharge Date Admission Date: August 04, 2024 Supervising Physician Co-Signing Physician Notes Patient seen and examined at bedside. She is comfortable; not in distress. Denies increasing abdominal pain or discomfort Hemoglobin stable CT abdomen shows improvement in hematoma. Continue to monitor on telemetry for recurrent A-fib I have reviewed the advanced practitioner's documentation, and I agree with, and take responsibility for the plan of care I spent a total of 20 minutes coordinating, documenting, and providing care for this patient excluding time spent in the performance of separately billed services. All of the aforementioned completed while collaborating with the assigned advanced practitioner for a full treatment plan Subjective Patient sitting in bedside chair in no apparent distress. Denies headache, chest pain, shortness of breath, abdominal pain or tenderness. Patient with continued nonproductive cough. Cardiology following the patient; stable from medicine standpoint for discharge. Patient family hoping for continued hospitalization until tomorrow to ensure no recurrence of A-fib. Review of Systems Review of Systems: Neuro: (-) Falls, trauma, slurred speech HEENT: (-) TALLEY, dizziness, dysphagia, visual or auditory changes CV: (-) CP, palpitations, swelling Resp: (-) SOB GI: (-) appetite changes, N/V/D, bowel changes : (-) urinary changes Skin: (-) rashes Psych: (-) anxiety, depression Physical Exam Physical Exam: Neuro: AAOx4, PERRLA, no aphagia, memory changes, CNII-XII grossly intact HEENT: head normocephalic, moist mucus membranes CV: S1/S2, (+) M (-) G/R, (-) edema, cap refill < 3 seconds Resp: Lungs CTA in all le. On RA GI: Abdomen S/NT/ND, Ax4 bowel sounds, (-) CVA tenderness Musculoskeletal: 5/5 B/L UE strength, 5/5 B/L LE strength. No gait disturbance Skin: (-) rashes , (-) erythema. Psych: euthymic mood Results & Data Results & Data Vital Signs (Past 12 Hours) Vital Signs Temp Pulse Pulse Resp BP Pulse Ox O2 Del Method 08/09/24 08:00 37.0 C 79 18 144/68 H 92 Room Air 08/09/24 03:17 36.7 C 70 18 126/69 97 Room Air 08/09/24 00:04 66 Laboratory Results Short CBC 08/09/24 Range/Units 05:34 WBC 7.69 (4.8-10.8) K/ul Hgb 9.3 L (12.0-16.0) g/dl Hct 27.9 L (37.0-47.0) % Plt Count 231 (130-400) K/uL BMP 08/09/24 05:34 Sodium 139 Potassium 4.0 Chloride 106 Carbon Dioxide 29 BUN 12 Creatinine 0.52 L Glucose 96 Calcium 8.5 L (2) Hematoma of rectus sheath Encounter type: initial encounter Qualified Code(s): S30.1XXA - Contusion of abdominal wall, initial encounter
[2024-08-09] MEDS: guaiFENesin/DEXTROM SYRUP 100MG/10MG 5ML UDC PO SCH (15:31)
[2024-08-09] MEDS: MAGNESIUM SULFATE / D5W 1 GM/100 ML BAG IV ONE (18:15)
[2024-08-10 06:23] LABS: Hematocrit (blood only) 29.8 % (37.0-47.0); Hemoglobin 9.6 g/dl (12.0-16.0); Mean Corpuscular Hemoglobin 29.4 pg (25.0-34.0); Mean Corpuscular Hgb Conc 32.2 g/dL (32.0-36.0); Mean Corpuscular Volume 91.1 fL (80.0-100.0); Platelet Count 258 K/uL (130-400); RDW Coefficient of Variation 14.7 % (11.5-14.5); RDW Standard Deviation 47.6 fL (36.4-46.3); Red Blood Count 3.27 M/uL (4.20-5.40); White Blood Count 6.96 K/ul (4.8-10.8)
[2024-08-10 06:41] LABS: Calcium 8.6 mg/dl (8.6-10.3); Creatinine Clr Calc Pharmacy 116.2 ml/min
--- NOTE | 2024-08-10 09:32 | Discharge Summary ---
Date of Service August 10, 2024 Principal Diagnosis atrial fibrillation and retroperitoneal bleed Discharge Exam Neuro: AAOx4, PERRLA, no aphagia, memory changes, CNII-XII grossly intact HEENT: head normocephalic, moist mucus membranes CV: S1/S2, (-) M/G/R, (-) edema, cap refill < 3 seconds Resp: Lungs CTA in all le. On RA GI: Abdomen S/NT/ND, Ax4 bowel sounds, (-) CVA tenderness Musculoskeletal: 5/5 B/L UE strength, 5/5 B/L LE strength. No gait disturbance Skin: (-) rashes , (-) erythema. Psych: euthymic mood Discharge Data Allergies Allergy/AdvReac Type Severity Reaction Status Date / Time celecoxib [From Celebrex] Allergy Severe Chest Pain Verified 02/03/21 09:39 enalapril Allergy Intermediate MUSCLE Verified 02/03/21 09:39 SPASMS simvastatin Allergy Intermediate MUSCLE Verified 02/03/21 09:39 WEAKNESS enalaprilat [From Vasotec] Allergy Mild dry cough Verified 02/03/21 09:39 magnesium citrate AdvReac Intermediate N/V Verified 02/03/21 09:39 hydrocodone AdvReac Mild GI SYMPTOMS Verified 02/03/21 09:39 Consultations 08/04/24 14:14 ED Decision to Admit Stat 08/08/24 09:46 Consult Cardiology Routine Ordered Studies 08/04/24 07:38 CT abd pelvis IV con only Stat 08/04/24 15:33 CT head/brain wo con Stat 08/08/24 09:48 CT abd pelvis IV con only Routine 08/08/24 11:42 US venous doppler [facility] Urgent Hospital Course (1) Supratherapeutic INR: (2) Hematoma of rectus sheath: (3) Nontraumatic retroperitoneal hematoma: (4) Atrial fibrillation with rapid ventricular response: Mike Tolentino is a 78y/o F with PMHx significant for dyslipidemia, moderate persistent asthma, nonallergic rhinitis, ascending aortic dilation, diastolic dysfunction, HTN, paroxysmal atrial fibrillation/history of DVT x 3 [on warfari n], malignant neoplasm of uterus s/p total hysterectomy, osteoporosis and mitral regurgitation who presented to the ED on 08/04/2024 with abdominal pain. Workup in the ED showed a supratherapeutic INR of [address] of her abdomen/pelvis revealed multiple hematomas within the right rectus sheath and right hemipelvis in addition to adjacent extraperitoneal hemorrhage and a small amount of hemoperitoneum. Initial hemoglobin on presentation was 11.9 and repeat hemoglobin 3 to 4 hours later was 9.7 --> she was given IV vitamin K and PCC x 2 in the ED. ED provider had discussed her case with acute care surgery and interventional radiology at [facility] in [place] as it was thought the patient would need to be transferred however it was determined that no acute surgical intervention was required at that time. Our general surgery team here at [facility] evaluated the patient in the ED and recommended close monitoring with serial H/H, serial abdominal examinations, abdominal binder for compression, as needed pain management/antiemetics, adequate bowel regimen and holding of her warfarin. Initially her warfarin was on hold status post vitamin K x 2 in ED. She also received 1 unit of PRBCs on 08 07 as her hemoglobin down trended. Upon her discharge today her hemoglobin was stable at 9.6. CTAP repeated on 08 08 revealing a mild decrease in size of her hematoma. Additionally there was a noted decrease in the adjacent hemorrhage and resolution of the perisplenic hemorrhage. No new sites of active bleeding. Bilateral lower extremity venous Doppler scan negative for DVT. She has a history of DVT x 3 and paroxysmal A-fib and during this admission experienced an episode of recurrent A-fib with RVR. She takes atenolol as an outpatient which was previously on hold due to hypotension. Her heart rate elevated into the 130s initially on 08/07 requiring IV intervention with Lopressor and labetalol with subsequent rate control and conversion to NSR. C ardiology was consulted and she was started on metoprolol succinate 50 mg twice daily. She will be seen by cardiology over the next week or 2 and likely will be started on a dual oral anticoagulant for management of her A-fib and history of DVT. This chart was completed in part utilizing Speech Voice Recognition Software. Grammatical errors, random word insertions, pronoun errors, and incomplete sentences are an occasional consequence of this system due to software limitations, ambient noise, and hardware issues. Any formal questions or concerns about the content, text, or information contained within the body of this dictation should be directly addressed to the provider for clarification. Total Time Total Time Spent Total Time Spent (In Minutes): I spent a total of 46 minutes coordinating, documenting, and providing care for this patient excluding time spent in the performance of separately billed services. This included personally reviewing all current laboratories and imaging studies, medical reconciliation, outpatient chart review and discussion with specialists. Discharge Plan Discharge Items Patient Disposition: Home - Self-Care Reason For Visit: RETROPERITONEAL HEMATOMA Discharge Diagnosis: 1. Supratherapeutic INR 2. Multiple Right Rectus Sheath & Right Hemipelvis Hematomas 3. Nontraumatic Extraperitoneal Hemorrhage & Hemoperitoneum 4. Single Episode of Atrial Fibrillation with Rapid Ventricular Response Condition on Discharge: Good Activity: Per Instructions section Activity Comment: Avoid strenuous activity until cleared by your PCP at follow up. Lifting: No more than 10 pounds Bathing: No limitations Weightbearing: Full weightbearing Non-emergency contact: Primary Care Provider and [employer] Vendor Call non-emergency contact if: you have any medication questions, your symptoms worsen and your rectal temperature is above 100.4 Follow-up/Referrals: Flaquita Brenner MD [Primary Care Provider] - 08/12/24 2:00 pm (Date & Time 08/12/2024 2:00 PM Provider Flaquita Brenner MD Department General Internal Medicine [facility] ) Diet: Heart Healthy Diet Texture: Easy to Chew Addtl Attending Provider Instructions: Mandi, You were admitted to the hospital after presenting CT imaging of your abdomen/pelvis revealed that you had multiple sites of acute hemorrhage (also known as bleeding). Your INR was supratherapeutic at 5 (normal 2-3) when you first presented to the emergency department, which means that you were blood was taking longer than normal to clot and that unfortunately predisposed you to the bleeding in your abdominal and pelvic regions. We STOPPED your warfarin due to the bleeding and gave you IV medications (Vitamin K) to help stop the bleeding and improve your INR to a normal range. You were seen and evaluated by general surgery and they recommended to proceed with conservative management rather than surgery for your bleeding. Thankfully your hemoglobin remained stable and you did not have to be transferred to another medical facility for emergent surgical intervention. We did an additional CT scan on 08/08 with the results indicating that the bleeding/hemorrhaging was thankfully decreasing. During your hospitalization, you were found to have an episode of atrial fibrillation with rapid ventricular response (A-fib with RVR) while you were admitted. A-fib with RVR is a type of irregular heart rhythm. With A-fib with RVR, your heart doesnt have a normal signaling process telling your heart when to beat. Instead, signaling is disorganized and the parts of your heart beat out of sync. We were able to quickly resolve this episode of irregular heart rhythm with medications. Additionally, you have a persistent cough that has been bothersome to you. A chest x-ray did not indicate that there was any acute bacterial infection and we were able to send a sputum culture for evaluation which did not grow any organisms. We started you on cough medication and we would recommend that you follow up with your PCP to determine the resolution of these symptoms. In addition, you could try Lidocaine spray obtained OTC to assist with possibly resolving this cough. Viral coughs can unfortunately take weeks to resolve. MEDICATION CHANGES: 1. HOLD off on taking your WARFARIN until otherwise instructed by your PCP. You will most likely need to be transitioned to a different type of blood thinner, such as Eliquis or Xarelto, as we have previously discussed. Your PCPCardiology will assist you with this transition. 2. You were STARTED on Metoprolol 50 mg by mouth twice daily which is in place of your previously prescribed Atenolol. Please continue taking Metoprolol when you leave the hospital. 3. STOP taking your Atenolol; see above; you were started on Metoprolol which can provide better heart rate control for your Atrial Fibrillation. 4. STOP taking your chlorthalidone and amlodipine until you follow-up with your PCP and cardiology and discuss further. Amlodipine can cause lower extremity swelling to worsen 5. RESTART taking your previously prescribed Losartan 50 mg by mouth daily. Cardiology and your PCP will continue to assess your heart medications and adjust as needed. UPCOMING APPOINTMENTS Date & Time: 08/12/2024 @ 2:00PM Provider: Flaquita Brenner MD Department: [facility] General Internal Medicine @ [facility] The cardiology office will arrange your follow up and contact you. Expect to attend an appointment in 1-2 weeks time Seek medical attention if you have: * temperature above 101F * chest pain or trouble breathing * abdominal pain, nausea, vomiting * diarrhea, dark stools or bloody stools * any unanswered questions or concerns Call 911 if symptoms are severe. Please take good care of yourself! It has been a pleasure taking care of you. If you have any questions regarding your recent hospitalization please contact [facility] and request Shirley Cha @ [phone]. Pending Studies at Discharge: No Stand-Alone Forms: My [facility], Smoking Cessation Medications and DC Order Prescriptions: New metoprolol succinate 50 mg Tablet Extended Release 24 Hr 50 mg PO BID Qty: 60 0RF Continued multivitamin Tablet 1 tab PO QAM losartan 50 mg Tablet 50 mg PO QAM fluticasone propion-salmeterol [Advair Diskus] 250-50 mcg/dose Blister With Device 1 inh INHALATION BID albuterol sulfate 2.5 mg /3 mL (0.083 %) Solution For Nebulization 2.5 mg INHALATION Q4 PRN (Reason: Shortness Of Breath) aspirin 81 mg Tablet,Delayed Release (Dr/Ec) 81 mg PO BID ascorbic acid (vitamin C) [Vitamin C] 500 mg Tablet 500 mg PO HS vitamin B complex Tablet 1 tab PO QAM montelukast 10 mg Tablet 10 mg PO HS albuterol sulfate [Ventolin HFA] 90 mcg/actuation Hfa Aerosol Inhaler 1 inh INHALATION QID PRN (Reason: Shortness Of Breath) fluticasone propionate [Flonase Allergy Relief] 50 mcg/actuation [place],Suspension 2 spray INTRANASAL DAILY PRN (Reason: Allergy Symptoms) vitamin E 400 unit Capsule 400 unit PO BID potassium chloride 20 mEq Tablet Extended Release 20 meq PO HS [place]-3 350 mg-235 mg- 90 mg-597 mg Capsule,Delayed Release(Dr/Ec) 1 cap PO QAM Glucosamine Chondroitin 550-30-1 mg Capsule 1 cap PO HS cholecalciferol (vitamin D3) [Vitamin D3] 125 mcg (5,000 unit) Tablet 125 mcg PO QAM prednisone 10 mg tablet 10 mg PO DIRECTED ezetimibe 10 mg tablet 10 mg PO DAILY rosuvastatin 20 mg tablet 20 mg PO .Q OTHER DAY Discontinued chlorthalidone 25 mg Tablet 25 mg PO 3XWK amlodipine 5 mg Tablet 2.5 mg PO DAILY atenolol 50 mg Tablet 50 mg PO QAM ondansetron 4 mg tablet,disintegrating 4 mg PO Q8H PRN (Reason: nausea and vomiting) Qty: 10 0RF warfarin 7.5 mg Tablet 7.5 mg PO UD Rx Instructions: 7.5 sun and and 5 mg rest of days Discharge Orders: Discharge Order (Routine); Ordered 08/10/24 Ordered By: Hailey Brady/Other Patient Handouts: AFib Dc Admission Data Admit Date/Time: 08/04/24 14:40 Attending Provider: Jas Menchaca Admit Provider: Luis Anne Primary Care Provider: Flaquita Brenner Other Providers: Luis Anne; Eda Shields; Madhu Kim; Tarik Flaherty; Sukh Stone; Lexx Bryan; Joey Foster; Anita Pulido; Sena Webster; Melissa Estevez; Eda Mcginnis; Nando Vogt; Ant Galvin; Sabrina Negron; Aleksandra Bundy; Gabi Maynard; Ngoc Barkley; Dedrick Fiore; Radha Kelsey; Kaya Vargas Other Interventions: Discharge Summary Assessment (RN) Last Done: 08/10/24 13:47 Supervising Physician Co-Signing Physician Notes Patient seen and examined independently. She reports that she is feeling better. No recurrence of atrial fibrillation overnight. Reports that her abdominal discomfort has improved gradually Patient to follow-up with her primary care doctor in next few days and decide on long-term anticoagulation. I discussed importance of resuming long-term anticoagulation as soon as possible to prevent DVT, life-threatening PE, stroke. Patient verbalized understanding. I have reviewed the advanced practitioner's documentation, and I agree with, and take responsibility for the plan of care I spent a total of 20 minutes coordinating, documenting, and providing care for this patient excluding time spent in the performance of separately billed services. All of the aforementioned completed while collaborating with the assigned advanced practitioner for a full treatment plan
--- NOTE | 2024-08-10 10:17 | Cardiology Progress Note ---
Date of Service August 10, 2024 Assessment & Plan (1) PAF (paroxysmal atrial fibrillation): (2) Supratherapeutic INR: (3) Hematoma of rectus sheath: (4) Nontraumatic retroperitoneal hematoma: (5) LBBB (left bundle branch block): Plan Recommendations: * Atenolol discontinued in favor of Toprol-XL 50 mg twice daily * Restart losartan 50mg daily * Hold anticoagulation, reassess for DOAC outpatient * Hold amlodipine and chlorthalidone * Cardiology follow up in 1-2 weeks Admission and Anticipated Discharge Date Admission Date: August 04, 2024 Subjective 78-year-old female seen examined the bedside. No recurrent atrial fibrillation overnight. Hemoglobin is stable. Denies chest pain or palpitations. Intermittently elevated blood pressure readings noted. Review of Systems Review of Systems: All systems reviewed & are unremarkable except as noted in Subjective Physical Exam Constitutional: well nourished; no acute distress Respiratory: no respiratory distress, no labored breathing and no retractions Auscultation: no crackles, no rales, no rhonchi and no wheezes Cardiovascular: Rate/Rhythm: regular rate and regular rhythm Heart Sounds: normal S1 and normal S2; no murmur Vessels: radial pulses present; no JVD and no carotid bruit Extremities: + edema (Trace bilateral lower extremity edema) Gastrointestinal (Abdomen): Inspection/Auscultation: abdomen normal to inspection; abdomen not distended Percussion/Palpation: abdomen soft; abdomen nontender, no guarding and abdomen not rigid Neurologic: CN's II-XI intact bilaterally and moves all extremities; no focal motor deficits Results & Data Vital Signs (Past 12 Hours) Vital Signs Temp Pulse Resp BP Pulse Ox O2 Del Method 08/10/24 08:04 36.8 C 74 17 146/75 H 94 Room Air 08/10/24 03:18 36.8 C 69 19 130/70 96 Room Air 08/09/24 23:46 36.9 C 74 17 130/69 97 Room Air Laboratory Results CBC 08/10/24 Range/Units 05:26 WBC 6.96 (4.8-10.8) K/ul RBC 3.27 L (4.20-5.40) M/uL Hgb 9.6 L (12.0-16.0) g/dl Hct 29.8 L (37.0-47.0) % Plt Count 258 (130-400) K/uL Comprehensive Metabolic Panel 08/10/24 Range/Units 05:26 Sodium 138 (136-145) mmol/L Potassium 4.0 (3.5-5.1) mmol/L Chloride 107 (98-107) mmol/L Carbon Dioxide 30 (21-32) mmol/L BUN 12 (6-23) mg/dl Creatinine 0.50 L (0.6-1.2) mg/dl Glucose 97 (70-99(Fasting)) mg/dl Calcium 8.6 (8.6-10.3) mg/dl Intake and Output 08/09/24 08/10/24 08/10/24 22:59 06:59 14:59 Intake Total 225 / 1155 250 / 1155 Balance 225 / 1155 250 / 1155 Intake: IV 100 / 100 Magnesium Sulfate / D5w 1 gm In 100 / 100 100 ml @ 50 mls/hr IV ONE ONE Rx#:[id number] Oral 125 / 1055 250 / 1055 Other: Weight 97.8 kg Weight Measurement Method Built in [facility] (3) Hematoma of rectus sheath Encounter type: initial encounter Qualified Code(s): S30.1XXA - Contusion of abdominal wall, initial encounter
[2024-08-10 12:17] VITALS: PULSE 65; RESP 18; TEMP 98.4; O2SAT 98
[2024-08-10 13:48] VITALS: BP 150/75
--- NOTE | 2024-08-11 12:48 | Coding Query ---
CODING QUERY To promote full compliance with coding requirements relating to patient care, provider participation is requested in all cases of human resources hr representative uncertainty. Please assist us with the question(s) below: Coding Question(s): Pt admitted with retroperitoneal hematoma. Supratherapeutic INR of 5. Vitamin K given , 1UPC. Please document, if known or suspected, the etiology of the Supratherapeutic INR. Pt on Warfarin with history of DVT's. Thanks for your help! Physician's Response(s): Retroperitoneal hematoma, etiology is suspected Supratherapeutic INR Principal Diagnosis: "that condition established after study, to be chiefly responsible for occasioning the admission of the patient to the hospital for care." Co-Existing Principal Diagnosis: "when two or more diagnoses equally meet the criteria for principal diagnosis as determined by the circumstances of admission, diagnostic work up, and/or therapy provided, and the Alphabetic Index, Tabular List, or another coding guideline does not provide sequencing direction, any one of the diagnoses may be sequenced first." "When the physician has documented what appears to be a current diagnosis in the body of the record, but has not included the diagnosis in the final diagnostic statement, the physician should be asked whether the diagnosis should be added." (Source Coding Clinic 2 QTR90. p3-4) LINNEA
== END 2024-08-10 13:49 | disposition home or self-care (01) | DRG 373 ==
LOC: ED 07:18 → SUATTDRO 14:40 → 2S 14:40